=== PATIENT | female | born 1935 | race Caucasian/White ===

== ENCOUNTER → 2016-05-22 | Outpatient (CLI) | payer MEDICARE, BC, OTHER ==
[~2016-05-22] MED LIST: ACTO30TA7 PO; ASPI81TA85 PO; ATOR1TAB18 PO; CALCTAB41 PO; CENTTAB PO; EUCECRE3 TOP; GLIP-163 PO; LISI-542 PO; PROT1TAB2 PO; SUCR1TA PO
[2016-05-22 13:38] LABS: ALBUMIN 3.8 GM/DL (3.2-5.2); ALBUMIN/GLOBULIN RATIO 1.15 (1.00-1.93); BILIRUBIN,TOTAL 0.6 MG/DL (0.2-1.0); CALCIUM LEVEL 9.8 MG/DL (8.8-10.2); CREATININE FOR GFR 0.97 MG/DL (0.55-1.02); POTASSIUM SERUM 4.4 MEQ/L (3.5-5.1); TOTAL PROTEIN 7.1 GM/DL (6.4-8.2)
== END ==
LOC: M SMT 08:50
PROVIDERS: ATTEND Family Medicine
DX: E11.65 Type 2 diabetes mellitus with hyperglycemia (principal); E78.5 Hyperlipidemia, unspecified

== ENCOUNTER → 2016-08-27 | Outpatient (CLI) | payer MEDICARE, BC, OTHER ==
[2016-08-27 13:09] LABS: BASO % 0.6 % (0.0-1.0); EOS # 0.1 K/mm3 (0.0-0.50); EOS % 2.8 % (0.0-3.0); LARGE UNSTAINED CELL # 0.1 K/mm3 (0.0-0.4); LARGE UNSTAINED CELL % 3.2 % (0.0-4.0); LYMPH # 1.4 K/mm3 (1.5-4.5); LYMPH % 27.8 % (24.0-44.0); MEAN CORPUSCULAR HEMOGLOBIN 31.9 pg (27.0-33.0); MEAN CORPUSCULAR HGB CONC 32.1 g/dl (32.0-36.5); MEAN CORPUSCULAR VOLUME 99.4 fl (80.0-96.0); MONO # 0.4 K/mm3 (0.0-0.8); MONO % 8.2 % (0.0-5.0); NEUTROPHILS # 2.6 K/mm3 (1.8-7.7); NEUTROPHILS % 57.5 % (36.0-66.0); PLATELET COUNT, AUTOMATED 174 k/mm3 (150-450); RED CELL DISTRIBUTION WIDTH 13.1 % (11.5-14.5); WHITE BLOOD COUNT 4.6 K/mm3 (4.0-10.0)
[2016-08-27 13:57] LABS: ALBUMIN 3.7 GM/DL (3.2-5.2); ALBUMIN/GLOBULIN RATIO 1.16 (1.00-1.93); ALKALINE PHOSPHATASE 73 U/L (45-117); ALT/SGPT 28 U/L (12-78); ANION GAP 4 MEQ/L (8-16); AST/SGOT 27 U/L (15-37); BILIRUBIN,TOTAL 0.5 MG/DL (0.2-1.0); BLOOD UREA NITROGEN 26 MG/DL (7-18); CALCIUM LEVEL 9.2 MG/DL (8.8-10.2); CARBON DIOXIDE LEVEL 33 MEQ/L (21-32); CHLORIDE LEVEL 103 MEQ/L (98-107); CREATININE FOR GFR 0.95 MG/DL (0.55-1.02); GLOMERULAR FILTRATION RATE > 60.0 (>32); GLUCOSE, FASTING 136 MG/DL (83-110); POTASSIUM SERUM 4.3 MEQ/L (3.5-5.1); SODIUM LEVEL 140 MEQ/L (136-145); TOTAL PROTEIN 6.9 GM/DL (6.4-8.2)
== END ==
LOC: M SMT 08:35
PROVIDERS: ATTEND Family Medicine
DX: E11.65 Type 2 diabetes mellitus with hyperglycemia (principal)

== ENCOUNTER → 2016-11-27 | Outpatient (CLI) | payer MEDICARE, BC, OTHER ==
[~2016-11-27] MED LIST changes: +ACTO30TA15 PO; -ACTO30TA7 PO; -ATOR1TAB18 PO; +ATOR80TA59 PO
[2016-11-27 13:14] LABS: BASO % 0.7 % (0.0-1.0); EOS # 0.2 K/mm3 (0.0-0.50); EOS % 2.7 % (0.0-3.0); LARGE UNSTAINED CELL # 0.2 K/mm3 (0.0-0.4); LARGE UNSTAINED CELL % 3.1 % (0.0-4.0); LYMPH # 2.2 K/mm3 (1.5-4.5); LYMPH % 35.2 % (24.0-44.0); MEAN CORPUSCULAR HEMOGLOBIN 33.2 pg (27.0-33.0); MEAN CORPUSCULAR HGB CONC 34.1 g/dl (32.0-36.5); MEAN CORPUSCULAR VOLUME 97.4 fl (80.0-96.0); MONO # 0.4 K/mm3 (0.0-0.8); MONO % 7.6 % (0.0-5.0); NEUTROPHILS # 2.9 K/mm3 (1.8-7.7); NEUTROPHILS % 50.7 % (36.0-66.0); PLATELET COUNT, AUTOMATED 184 k/mm3 (150-450); RED CELL DISTRIBUTION WIDTH 12.9 % (11.5-14.5); WHITE BLOOD COUNT 5.6 K/mm3 (4.0-10.0)
== END ==
LOC: M SMT 08:09
PROVIDERS: ATTEND Family Medicine
DX: E78.5 Hyperlipidemia, unspecified (principal); E11.65 Type 2 diabetes mellitus with hyperglycemia; I10 Essential (primary) hypertension

== ENCOUNTER → 2017-02-26 | Outpatient (CLI) | payer MEDICARE, BC, OTHER ==
[2017-02-26 14:34] LABS: ALBUMIN 3.8 GM/DL (3.2-5.2); ALBUMIN/GLOBULIN RATIO 1.12 (1.00-1.93); ALKALINE PHOSPHATASE 73 U/L (45-117); ALT/SGPT 34 U/L (12-78); ANION GAP 7 MEQ/L (8-16); AST/SGOT 32 U/L (15-37); BILIRUBIN,TOTAL 0.8 MG/DL (0.2-1.0); BLOOD UREA NITROGEN 18 MG/DL (7-18); CALCIUM LEVEL 9.2 MG/DL (8.8-10.2); CARBON DIOXIDE LEVEL 30 MEQ/L (21-32); CHLORIDE LEVEL 101 MEQ/L (98-107); CHOLESTEROL LEVEL 99 MG/DL (<200); CREATININE FOR GFR 0.81 MG/DL (0.55-1.02); GLOMERULAR FILTRATION RATE > 60.0 (>32); GLUCOSE, FASTING 103 MG/DL (83-110); POTASSIUM SERUM 4.7 MEQ/L (3.5-5.1); SODIUM LEVEL 138 MEQ/L (136-145); TOTAL PROTEIN 7.2 GM/DL (6.4-8.2); TRIGLYCERIDES LEVEL 60 MG/DL (<150)
== END ==
LOC: M SMT 08:53
PROVIDERS: ATTEND Family Medicine
DX: E78.5 Hyperlipidemia, unspecified (principal); E11.65 Type 2 diabetes mellitus with hyperglycemia

== ENCOUNTER → 2017-06-17 | Outpatient (CLI) | payer MEDICARE, BC, OTHER ==
[2017-06-17 14:26] LABS: ESTIMATED AVERAGE GLUCOSE 151 MG/DL (60-110); HEMOGLOBIN A1c 6.9 %
[2017-06-17 14:48] LABS: ALBUMIN 3.9 GM/DL (3.2-5.2); ALBUMIN/GLOBULIN RATIO 1.22 (1.00-1.93); ALKALINE PHOSPHATASE 62 U/L (45-117); ALT/SGPT 29 U/L (12-78); ANION GAP 8 MEQ/L (8-16); AST/SGOT 30 U/L (7-37); BILIRUBIN,TOTAL 0.6 MG/DL (0.2-1.0); BLOOD UREA NITROGEN 22 MG/DL (7-18); CALCIUM LEVEL 9.2 MG/DL (8.8-10.2); CARBON DIOXIDE LEVEL 30 MEQ/L (21-32); CHLORIDE LEVEL 103 MEQ/L (98-107); CHOLESTEROL LEVEL 100 MG/DL (<200); CHOLESTEROL RISK RATIO 1.515 (<5); CREATININE FOR GFR 0.83 MG/DL (0.55-1.30); GLOMERULAR FILTRATION RATE > 60.0 (>32); GLUCOSE, FASTING 110 MG/DL (70-100); HDL CHOLESTEROL 66 MG/DL (>40); LDL CHOLESTEROL 11.8 MG/DL (<100); NON-HDL-C 34 MG/DL; POTASSIUM SERUM 4.5 MEQ/L (3.5-5.1); SODIUM LEVEL 141 MEQ/L (136-145); TOTAL PROTEIN 7.1 GM/DL (6.4-8.2); TRIGLYCERIDES LEVEL 111 MG/DL (<150)
== END ==
LOC: M SMT 09:20
DX: E11.65 Type 2 diabetes mellitus with hyperglycemia (principal)
CPT/HCPCS: 84443

== ENCOUNTER → 2017-09-14 | Outpatient (CLI) | payer MEDICARE, BC, OTHER ==
[2017-09-14 13:28] LABS: ANION GAP 4 MEQ/L (8-16); BLOOD UREA NITROGEN 24 MG/DL (7-18); CALCIUM LEVEL 9.7 MG/DL (8.8-10.2); CARBON DIOXIDE LEVEL 31 MEQ/L (21-32); CHLORIDE LEVEL 104 MEQ/L (98-107); CREATININE FOR GFR 0.89 MG/DL (0.55-1.30); GLOMERULAR FILTRATION RATE > 60.0 (>32); GLUCOSE, FASTING 125 MG/DL (70-100); POTASSIUM SERUM 4.7 MEQ/L (3.5-5.1); SODIUM LEVEL 139 MEQ/L (136-145)
[2017-09-14 13:41] LABS: ESTIMATED AVERAGE GLUCOSE 154 MG/DL (60-110)
== END ==
LOC: M SMT 10:18
DX: E11.65 Type 2 diabetes mellitus with hyperglycemia (principal)
CPT/HCPCS: 83036

== ENCOUNTER 2017-10-14 12:01 | Day surgery (SDC) | payer MEDICARE, BC, OTHER ==
[2017-10-14] MEDS: NS 1,000 ML IV (12:15)
[2017-10-14] MEDS ORDERED: PROPOFOL 200 MG/20 ML VIAL As Ordered (14:04)
[2017-10-14] MEDS ORDERED: LIDOCAINE 2% INJ 100 MG/5 ML SDV (FOR ANES.) As Ordered (14:04)
== END 2017-10-14 14:57 | disposition home or self-care (01) ==
LOC: M OPP 12:01
DX: Z12.11 Encounter for screening for malignant neoplasm of colon (principal); D12.3 Benign neoplasm of transverse colon; Z86.010 Personal history of colon polyps; E11.9 Type 2 diabetes mellitus without complications; I10 Essential (primary) hypertension; K21.9 Gastro-esophageal reflux disease without esophagitis; E78.5 Hyperlipidemia, unspecified; D64.9 Anemia, unspecified; Z79.82 Long term (current) use of aspirin; Z79.84 Long term (current) use of oral hypoglycemic drugs; Z79.899 Other long term (current) drug therapy; Z85.3 Personal history of malignant neoplasm of breast
CPT/HCPCS: 45385

== ENCOUNTER → 2017-12-16 | Outpatient (CLI) | payer MEDICARE, BC, OTHER ==
[2017-12-16 14:16] LABS: ANION GAP 5 MEQ/L (8-16); BLOOD UREA NITROGEN 22 MG/DL (7-18); CALCIUM LEVEL 9.1 MG/DL (8.8-10.2); CARBON DIOXIDE LEVEL 31 MEQ/L (21-32); CHLORIDE LEVEL 105 MEQ/L (98-107); CREATININE FOR GFR 0.81 MG/DL (0.55-1.30); GLOMERULAR FILTRATION RATE > 60.0 (>32); GLUCOSE, FASTING 135 MG/DL (70-100); POTASSIUM SERUM 4.6 MEQ/L (3.5-5.1); SODIUM LEVEL 141 MEQ/L (136-145)
[2017-12-16 15:40] LABS: ESTIMATED AVERAGE GLUCOSE 163 MG/DL (60-110); HEMOGLOBIN A1c 7.3 %
== END ==
LOC: M SMT 08:52
DX: E11.65 Type 2 diabetes mellitus with hyperglycemia (principal)
CPT/HCPCS: 83036

== ENCOUNTER → 2018-03-18 | Outpatient (CLI) | payer MEDICARE, BC, OTHER ==
[2018-03-18 17:45] LABS: ESTIMATED AVERAGE GLUCOSE 154 MG/DL (60-110)
[2018-03-18 17:46] LABS: CREATININE, URINE 52.2 MG/DL; MALB URINE SIEMENS 18.8 MG/L
[2018-03-18 17:52] LABS: ALBUMIN 3.8 GM/DL (3.2-5.2); ALBUMIN/GLOBULIN RATIO 1.19 (1.00-1.93); ALKALINE PHOSPHATASE 61 U/L (45-117); ALT/SGPT 31 U/L (12-78); ANION GAP 4 MEQ/L (8-16); AST/SGOT 32 U/L (7-37); BILIRUBIN,TOTAL 0.6 MG/DL (0.2-1.0); BLOOD UREA NITROGEN 24 MG/DL (7-18); CALCIUM LEVEL 9.1 MG/DL (8.8-10.2); CARBON DIOXIDE LEVEL 30 MEQ/L (21-32); CHLORIDE LEVEL 102 MEQ/L (98-107); CHOLESTEROL LEVEL 103 MG/DL (<200); CHOLESTEROL RISK RATIO 1.609 (<5); CREATININE FOR GFR 0.87 MG/DL (0.55-1.30); FREE T4 1.24 NG/DL (0.76-1.46); GLOMERULAR FILTRATION RATE > 60.0 (>32); GLUCOSE, FASTING 118 MG/DL (70-100); HDL CHOLESTEROL 64 MG/DL (>40); LDL CHOLESTEROL 24 MG/DL (<100); NON-HDL-C 39 MG/DL; POTASSIUM SERUM 4.5 MEQ/L (3.5-5.1); SODIUM LEVEL 136 MEQ/L (136-145); TRIGLYCERIDES LEVEL 76 MG/DL (<150)
== END ==
LOC: M SMT 08:30
DX: E11.65 Type 2 diabetes mellitus with hyperglycemia (principal); E78.5 Hyperlipidemia, unspecified
CPT/HCPCS: 84443

== ENCOUNTER → 2018-06-20 | Outpatient (CLI) | payer MEDICARE, BC, OTHER ==
[~2018-06-20] MED LIST changes: +ASPI81TA21 PO; +INVO300T PO; +JANU100T PO; +LOSA25TA14 PO; +METF500T13 PO; +PRESCAP6 PO
[2018-06-20 13:57] LABS: BLOOD UREA NITROGEN 26 MG/DL (7-18); CALCIUM LEVEL 9.3 MG/DL (8.8-10.2); CARBON DIOXIDE LEVEL 29 MEQ/L (21-32); CHLORIDE LEVEL 102 MEQ/L (98-107); CREATININE FOR GFR 0.81 MG/DL (0.55-1.30); GLOMERULAR FILTRATION RATE > 60.0 (>32); GLUCOSE, FASTING 124 MG/DL (70-100); POTASSIUM SERUM 4.2 MEQ/L (3.5-5.1); SODIUM LEVEL 139 MEQ/L (136-145)
[2018-06-20 14:20] LABS: HEMOGLOBIN A1c 7.4 %
== END ==
LOC: M SMT 08:43
PROVIDERS: ATTEND Physician Assistant
DX: E11.65 Type 2 diabetes mellitus with hyperglycemia (principal)

== ENCOUNTER → 2018-09-15 | Outpatient (CLI) | payer MEDICARE, BC, OTHER ==
[2018-09-15 13:31] LABS: BASO % 0.6 % (0.0-1.0); EOS # 0.2 10^3/uL (0.0-0.50); EOS % 2.3 % (0.0-3.0); HEMATOCRIT 41.2 % (36.0-47.0); HEMOGLOBIN 13.1 g/dl (12.0-15.5); LYMPH # 2.1 10^3/uL (1.5-4.5); LYMPH % 30.2 % (24.0-44.0); MEAN CORPUSCULAR HEMOGLOBIN 31.4 pg (27.0-33.0); MEAN CORPUSCULAR HGB CONC 31.8 g/dl (32.0-36.5); MEAN CORPUSCULAR VOLUME 98.8 fl (80.0-96.0); MONO # 0.7 10^3/uL (0.0-0.8); MONO % 10.1 % (0.0-5.0); NEUTROPHILS # 3.8 10^3/uL (1.8-7.7); NEUTROPHILS % 56.4 % (36.0-66.0); PLATELET COUNT, AUTOMATED 215 10^3/uL (150-450); RED BLOOD COUNT 4.17 10^6/uL (4.00-5.40); WHITE BLOOD COUNT 6.8 10^3/uL (4.0-10.0)
[2018-09-15 13:37] LABS: ALT/SGPT 33 U/L (12-78); BILIRUBIN,TOTAL 0.6 MG/DL (0.2-1.0); BLOOD UREA NITROGEN 25 MG/DL (7-18); CALCIUM LEVEL 9.3 MG/DL (8.8-10.2); CARBON DIOXIDE LEVEL 31 MEQ/L (21-32); CHLORIDE LEVEL 104 MEQ/L (98-107); CREATININE FOR GFR 0.85 MG/DL (0.55-1.30); GLOMERULAR FILTRATION RATE > 60.0 (>32); GLUCOSE, FASTING 128 MG/DL (70-100); POTASSIUM SERUM 4.7 MEQ/L (3.5-5.1); SODIUM LEVEL 140 MEQ/L (136-145); TOTAL PROTEIN 6.8 GM/DL (6.4-8.2)
[2018-09-15 14:21] LABS: HEMOGLOBIN A1c 7.5 %
== END ==
LOC: M SMT 08:41
PROVIDERS: ATTEND Family Medicine
DX: E11.65 Type 2 diabetes mellitus with hyperglycemia (principal)

== ENCOUNTER → 2018-12-30 | Outpatient (CLI) | payer MEDICARE, BC, OTHER ==
[2018-12-30 13:36] LABS: BASO % 0.6 % (0.0-1.0); EOS # 0.1 10^3/uL (0.0-0.50); HEMATOCRIT 42.2 % (36.0-47.0); HEMOGLOBIN 13.7 g/dl (12.0-15.5); LYMPH # 2.1 10^3/uL (1.5-4.5); MEAN CORPUSCULAR HEMOGLOBIN 32.3 pg (27.0-33.0); MEAN CORPUSCULAR HGB CONC 32.5 g/dl (32.0-36.5); MEAN CORPUSCULAR VOLUME 99.5 fl (80.0-96.0); MONO # 0.6 10^3/uL (0.0-0.8); MONO % 9.5 % (0.0-5.0); NEUTROPHILS # 3.6 10^3/uL (1.8-7.7); NEUTROPHILS % 55.6 % (36.0-66.0); PLATELET COUNT, AUTOMATED 210 10^3/uL (150-450); RED BLOOD COUNT 4.24 10^6/uL (4.00-5.40); WHITE BLOOD COUNT 6.4 10^3/uL (4.0-10.0)
[2018-12-30 13:54] LABS: HEMOGLOBIN A1c 7.6 %
[2018-12-30 14:05] LABS: ALBUMIN 3.7 GM/DL (3.2-5.2); ALT/SGPT 33 U/L (12-78); BILIRUBIN,TOTAL 0.5 MG/DL (0.2-1.0); BLOOD UREA NITROGEN 24 MG/DL (7-18); CALCIUM LEVEL 9.5 MG/DL (8.8-10.2); CARBON DIOXIDE LEVEL 31 MEQ/L (21-32); CHLORIDE LEVEL 105 MEQ/L (98-107); GLOMERULAR FILTRATION RATE > 60.0 (>32); GLUCOSE, FASTING 126 MG/DL (70-100); POTASSIUM SERUM 4.3 MEQ/L (3.5-5.1); SODIUM LEVEL 140 MEQ/L (136-145)
[2018-12-30 14:16] LABS: CREATININE, URINE 66.9 MG/DL; MALB URINE SIEMENS 23.4 MG/L; MAU/CREAT RATIO 34.9 MCG/MG (0.0-30.0)
== END ==
LOC: M SMT 09:04
PROVIDERS: ATTEND Family Medicine
DX: E11.65 Type 2 diabetes mellitus with hyperglycemia (principal)

== ENCOUNTER → 2019-04-04 | Outpatient (CLI) | payer MEDICARE, BC, OTHER ==
[2019-04-04 14:06] LABS: BASO % 0.5 % (0.0-1.0); EOS # 0.2 10^3/uL (0.0-0.5); EOS % 2.6 % (0.0-3.0); HEMATOCRIT 41.2 % (36.0-47.0); HEMOGLOBIN 13.1 g/dl (12.0-15.5); LYMPH % 33.9 % (24.0-44.0); MEAN CORPUSCULAR HEMOGLOBIN 32.4 pg (27.0-33.0); MEAN CORPUSCULAR HGB CONC 31.8 g/dl (32.0-36.5); MONO # 0.6 10^3/uL (0.0-0.8); MONO % 10.8 % (0.0-5.0); NEUTROPHILS % 51.9 % (36.0-66.0); PLATELET COUNT, AUTOMATED 206 10^3/uL (150-450); RED BLOOD COUNT 4.04 10^6/uL (4.00-5.40); WHITE BLOOD COUNT 5.8 10^3/uL (4.0-10.0)
[2019-04-04 14:20] LABS: ALBUMIN 3.8 GM/DL (3.2-5.2); ALT/SGPT 30 U/L (12-78); BILIRUBIN,TOTAL 0.6 MG/DL (0.2-1.0); BLOOD UREA NITROGEN 24 MG/DL (7-18); CALCIUM LEVEL 9.3 MG/DL (8.8-10.2); CARBON DIOXIDE LEVEL 29 MEQ/L (21-32); CHLORIDE LEVEL 105 MEQ/L (98-107); CREATININE FOR GFR 0.81 MG/DL (0.55-1.30); FREE T4 1.23 NG/DL (0.76-1.46); GLOMERULAR FILTRATION RATE > 60.0 (>32); GLUCOSE, FASTING 118 MG/DL (70-100); POTASSIUM SERUM 4.6 MEQ/L (3.5-5.1); SODIUM LEVEL 139 MEQ/L (136-145); TOTAL PROTEIN 7.1 GM/DL (6.4-8.2)
[2019-04-04 14:52] LABS: HEMOGLOBIN A1c 6.9 %
== END ==
LOC: M PLALAB 08:58
PROVIDERS: ATTEND Family Medicine
DX: E11.65 Type 2 diabetes mellitus with hyperglycemia (principal); E78.5 Hyperlipidemia, unspecified

== ENCOUNTER → 2019-07-05 | Outpatient (CLI) | payer MEDICARE, BC, OTHER ==
[2019-07-05 10:28] LABS: HEMOGLOBIN A1c 7.6 %
[2019-07-05 10:40] LABS: BLOOD UREA NITROGEN 19 MG/DL (7-18); CALCIUM LEVEL 9.4 MG/DL (8.8-10.2); CARBON DIOXIDE LEVEL 32 MEQ/L (21-32); CHLORIDE LEVEL 102 MEQ/L (98-107); CREATININE FOR GFR 0.77 MG/DL (0.55-1.30); GLOMERULAR FILTRATION RATE > 60.0 (>32); GLUCOSE, FASTING 122 MG/DL (70-100); POTASSIUM SERUM 4.7 MEQ/L (3.5-5.1); SODIUM LEVEL 138 MEQ/L (136-145)
== END ==
LOC: M PLALAB 08:04
PROVIDERS: ATTEND Physician Assistant
DX: E11.65 Type 2 diabetes mellitus with hyperglycemia (principal)

== ENCOUNTER → 2019-10-05 | Outpatient (CLI) | payer MEDICARE, BC, OTHER ==
[2019-10-05 11:32] LABS: ALBUMIN 3.6 GM/DL (3.2-5.2); ALT/SGPT 29 U/L (12-78); BASO % 0.6 % (0.0-1.0); BILIRUBIN,TOTAL 0.5 MG/DL (0.2-1.0); BLOOD UREA NITROGEN 23 MG/DL (7-18); CALCIUM LEVEL 8.9 MG/DL (8.8-10.2); CARBON DIOXIDE LEVEL 29 MEQ/L (21-32); CHLORIDE LEVEL 104 MEQ/L (98-107); CHOLESTEROL LEVEL 110 MG/DL (<200); CHOLESTEROL RISK RATIO 1.692 (<5); CREATININE FOR GFR 0.73 MG/DL (0.55-1.30); EOS # 0.1 10^3/uL (0.0-0.5); GLOMERULAR FILTRATION RATE > 60.0 (>32); GLUCOSE, FASTING 111 MG/DL (70-100); HDL CHOLESTEROL 65 MG/DL (>40); HEMOGLOBIN 12.6 g/dl (12.0-15.5); LDL CHOLESTEROL 33 MG/DL (<100); LYMPH % 28.6 % (24.0-44.0); MEAN CORPUSCULAR HEMOGLOBIN 31.6 pg (27.0-33.0); MEAN CORPUSCULAR HGB CONC 32.3 g/dl (32.0-36.5); MEAN CORPUSCULAR VOLUME 97.7 fl (80.0-96.0); MONO # 0.7 10^3/uL (0.0-0.8); MONO % 10.6 % (0.0-5.0); NEUTROPHILS % 57.9 % (36.0-66.0); NON-HDL-C 45 MG/DL; PLATELET COUNT, AUTOMATED 219 10^3/uL (150-450); POTASSIUM SERUM 4.1 MEQ/L (3.5-5.1); RED BLOOD COUNT 3.99 10^6/uL (4.00-5.40); SODIUM LEVEL 136 MEQ/L (136-145); TOTAL PROTEIN 6.9 GM/DL (6.4-8.2); TRIGLYCERIDES LEVEL 59 MG/DL (<150); WHITE BLOOD COUNT 6.9 10^3/uL (4.0-10.0)
[2019-10-05 11:46] LABS: HEMOGLOBIN A1c 7.3 %
== END ==
LOC: M PLALAB 08:52
PROVIDERS: ATTEND Family Medicine
DX: E11.65 Type 2 diabetes mellitus with hyperglycemia (principal); E78.5 Hyperlipidemia, unspecified

== ENCOUNTER → 2019-10-10 | Outpatient (CLI) | payer MEDICARE, BC ==
--- NOTE | 2019-10-10 15:50 | REP ---
BILATERAL MAMMOGRAM WITH 3D TOMOSYNTHESIS, DIAGNOSTIC MAMMOGRAM LEFT BREAST: HISTORY: Left breast cancer. Currently there is a redness laterally on the skin of the left breast with a palpable lump in the upper outer quadrant. COMPARISON: Mammogram 01/16/2016 as well as other prior exams. Malignant lumpectomy left breast 1983. MLO and CC views of the left breast performed with 3D tomosynthesis. Additional spot compression views are performed in the left breast. Left breast is again noted to be smaller than the right. Diffuse skin thickening of the left breast is stable. There is no new mass. There are dystrophic calcifications which are quite significant in the upper outer quadrant at the site of the palpable lump. These are similar to the prior study. I seen no new mass bilaterally. No suspicious clusters or microcalcifications are seen. IMPRESSION: BIRADS 2: BI-RADS/ACR category 2 mammogram. Benign Findings. ACR 2 benign. Postsurgical changes are again seen of the left breast. Diffuse skin thickening of the left breast is stable. No new suspicious mass mammographically and no suspicious clusters of microcalcifications. Given the patient's skin redness of the lateral aspect of the left breast with soreness, I recommend consultation with a breast surgeon to evaluate for the clinical possibilities of mastitis versus inflammatory carcinoma. This mammogram was interpreted with the aid of an FDA-approved computer-aided detection system. A. Negative x-ray reports should not delay biopsy if a dominant or clinically suspicious mass is present. B. Four to eight percent of cancers are not identified by x-ray. C. Adenosis and dense breasts may obscure an underlying neoplasm. The patient states she/he had a clinical breast exam in September 2019. The patient letter being requested is M2. ?
== END ==
LOC: M WHC 13:00
PROVIDERS: ATTEND Family Medicine
DX: Z12.31 Encounter for screening mammogram for malignant neoplasm of breast (principal); N63.20 Unspecified lump in the left breast, unspecified quadrant
CPT/HCPCS: 77066; G0279

== ENCOUNTER → 2019-10-26 | Outpatient (CLI) | payer MEDICARE, BC ==
[~2019-10-26] MED LIST changes: +AMOX875T2 PO; -ASPI81TA85 PO; +ASPI81TA86 PO; +BACT800T5 PO; +DOXY-350 PO; +ECOT81TA5 PO; +FLAG500T PO; +LEVA1TAB2 PO; -LISI-542 PO; +LISI-898 PO; +METF-838 PO; +METR-265 PO; +MULTCAP PO; +PRES10CA2 PO; +PROBCAP14 PO; +RISATAB3 PO; +SULF1TAB93 PO
[2019-10-26 11:38] LABS: HEMATOCRIT 39.8 % (36.0-47.0); MEAN CORPUSCULAR HEMOGLOBIN 31.9 pg (27.0-33.0); MEAN CORPUSCULAR HGB CONC 32.7 g/dl (32.0-36.5); MEAN CORPUSCULAR VOLUME 97.8 fl (80.0-96.0); PLATELET COUNT, AUTOMATED 222 10^3/uL (150-450); RED BLOOD COUNT 4.07 10^6/uL (4.00-5.40); WHITE BLOOD COUNT 7.3 10^3/uL (4.0-10.0)
[2019-10-26 11:50] LABS: ALBUMIN 3.5 GM/DL (3.2-5.2); BLOOD UREA NITROGEN 20 MG/DL (7-18); CALCIUM LEVEL 9.7 MG/DL (8.8-10.2); CARBON DIOXIDE LEVEL 31 MEQ/L (21-32); CHLORIDE LEVEL 100 MEQ/L (98-107); CREATININE FOR GFR 0.74 MG/DL (0.55-1.30); GLOMERULAR FILTRATION RATE > 60.0 (>32); GLUCOSE, FASTING 153 MG/DL (70-100); PHOSPHORUS LEVEL 4.1 MG/DL (2.5-4.9); POTASSIUM SERUM 4.4 MEQ/L (3.5-5.1); SODIUM LEVEL 136 MEQ/L (136-145)
== END ==
LOC: M WUC 09:39
PROVIDERS: ATTEND Internal Medicine Cardiovascular Disease
DX: R94.31 Abnormal electrocardiogram [ECG] [EKG] (principal); I25.10 Atherosclerotic heart disease of native coronary artery without angina pectoris

== ENCOUNTER → 2019-10-27 | Outpatient (CLI) | payer MEDICARE, BC, OTHER ==
[~2019-10-27] MED LIST changes: -AMOX875T2 PO; +ASPI81TA85 PO; -ASPI81TA86 PO; -BACT800T5 PO; -DOXY-350 PO; -ECOT81TA5 PO; -FLAG500T PO; -LEVA1TAB2 PO; +LISI-542 PO; -LISI-898 PO; -METF-838 PO; -METR-265 PO; -MULTCAP PO; -PRES10CA2 PO; -PROBCAP14 PO; -RISATAB3 PO; -SULF1TAB93 PO
== END ==
LOC: M LABSMTC 09:52
PROVIDERS: ATTEND Internal Medicine Cardiovascular Disease
DX: Z11.59 Encounter for screening for other viral diseases (principal); Z03.818 Encounter for observation for suspected exposure to other biological agents ruled out
CPT/HCPCS: C9803; U0003

== ENCOUNTER → 2019-11-03 | Outpatient (REF) | payer MEDICARE, OTHER | LOC: M SFHCWAGY 18:17 | PROVIDERS: ATTEND Surgery | DX: S21.002A Unspecified open wound of left breast, initial encounter (principal); Z85.3 Personal history of malignant neoplasm of breast; W18.30XA Fall on same level, unspecified, initial encounter; Y92.9 Unspecified place or not applicable ==

== ENCOUNTER → 2019-12-11 | Outpatient (REF) | payer MEDICARE, BC, OTHER ==
[~2019-12-11] MED LIST changes: +AMOX875T2 PO; -ASPI81TA85 PO; +ASPI81TA86 PO; +BACT800T5 PO; +DOXY-350 PO; +FLAG500T PO; +LEVA1TAB2 PO; +METF-838 PO; +METR-265 PO; +MULTCAP PO; +PRES10CA2 PO; +PROBCAP14 PO; +RISATAB3 PO; +SULF1TAB93 PO
== END ==
LOC: M LAB REF 10:23
PROVIDERS: ATTEND Surgery
DX: L59.9 Disorder of the skin and subcutaneous tissue related to radiation, unspecified (principal)
CPT/HCPCS: 11042; 88304; G0463

== ENCOUNTER → 2019-12-18 | Outpatient (REF) | payer MEDICARE, OTHER, BC ==
[2020-01-31 14:04] LABS: BLOOD UREA NITROGEN 26 MG/DL (7-18); CALCIUM LEVEL 9.5 MG/DL (8.8-10.2); CARBON DIOXIDE LEVEL 30 MEQ/L (21-32); CHLORIDE LEVEL 103 MEQ/L (98-107); CREATININE FOR GFR 0.79 MG/DL (0.55-1.30); GLOMERULAR FILTRATION RATE > 60.0 (>32); GLUCOSE, FASTING 104 MG/DL (70-100); POTASSIUM SERUM 4.8 MEQ/L (3.5-5.1); SODIUM LEVEL 138 MEQ/L (136-145)
== END ==
LOC: M SFHCWAGY 09:59
PROVIDERS: ATTEND Surgery
DX: Z79.899 Other long term (current) drug therapy (principal)
CPT/HCPCS: 11042; 36415; 80048; G0463

== ENCOUNTER → 2020-01-05 | Outpatient (CLI) | payer MEDICARE, OTHER, BC ==
[2020-01-05 12:43] LABS: BASO % 0.3 % (0.0-1.0); EOS # 0.1 10^3/uL (0.0-0.5); EOS % 0.9 % (0.0-3.0); HEMATOCRIT 43.2 % (36.0-47.0); HEMOGLOBIN 13.9 g/dl (12.0-15.5); LYMPH # 1.8 10^3/uL (1.5-5.0); LYMPH % 18.7 % (24.0-44.0); MEAN CORPUSCULAR HEMOGLOBIN 31.7 pg (27.0-33.0); MEAN CORPUSCULAR HGB CONC 32.2 g/dl (32.0-36.5); MEAN CORPUSCULAR VOLUME 98.4 fl (80.0-96.0); NEUTROPHILS # 6.8 10^3/uL (1.5-8.5); NEUTROPHILS % 69.6 % (36.0-66.0); PLATELET COUNT, AUTOMATED 250 10^3/uL (150-450); RED BLOOD COUNT 4.39 10^6/uL (4.00-5.40); WHITE BLOOD COUNT 9.8 10^3/uL (4.0-10.0)
[2020-01-05 13:12] LABS: ALBUMIN 3.5 GM/DL (3.2-5.2); ALT/SGPT 22 U/L (12-78); BILIRUBIN,TOTAL 0.7 MG/DL (0.2-1.0); BLOOD UREA NITROGEN 16 MG/DL (7-18); CALCIUM LEVEL 9.1 MG/DL (8.8-10.2); CARBON DIOXIDE LEVEL 31 MEQ/L (21-32); CHLORIDE LEVEL 101 MEQ/L (98-107); CHOLESTEROL LEVEL 109 MG/DL (<200); CREATININE FOR GFR 0.82 MG/DL (0.55-1.30); GLOMERULAR FILTRATION RATE > 60.0 (>32); GLUCOSE, FASTING 126 MG/DL (70-100); HDL CHOLESTEROL 63 MG/DL (>40); LDL CHOLESTEROL 29 MG/DL (<100); NON-HDL-C 46 MG/DL; POTASSIUM SERUM 4.4 MEQ/L (3.5-5.1); SODIUM LEVEL 138 MEQ/L (136-145); THYROID STIMULATING HORMONE 0.708 uIU/ML (0.358-3.740); TOTAL PROTEIN 7.1 GM/DL (6.4-8.2); TRIGLYCERIDES LEVEL 83 MG/DL (<150)
[2020-01-05 14:10] LABS: HEMOGLOBIN A1c 7.1 %
== END ==
LOC: M PLALAB 08:19
PROVIDERS: ATTEND Family Medicine
DX: E11.65 Type 2 diabetes mellitus with hyperglycemia (principal); E78.5 Hyperlipidemia, unspecified

== ENCOUNTER 2020-01-12 18:01 | Inpatient (IN) | payer MEDICARE, OTHER, BC ==
[~2020-01-12] VITALS: Ht 147.3 cm; Wt 56.8 kg
[~2020-01-12 18:01] MED LIST changes: -AMOX875T2 PO; -BACT800T5 PO; -DOXY-350 PO; -FLAG500T PO; -LEVA1TAB2 PO; -METF-838 PO; -METR-265 PO; -MULTCAP PO; -PRES10CA2 PO; -PROBCAP14 PO; -RISATAB3 PO; -SULF1TAB93 PO
[2020-01-12] MEDS: NS 1,000 ML IV SCH (18:29)
[2020-01-12] MEDS ORDERED: UNRESOLVED CLARIFICATION ENTRY XX STA (18:41)
[2020-01-12 19:00] VITALS: BP 121/59
[2020-01-12 19:20] LABS: BASO % 0.3 % (0.0-1.0); EOS # 0.1 10^3/uL (0.0-0.5); EOS % 0.4 % (0.0-3.0); HEMATOCRIT 39.5 % (36.0-47.0); LYMPH # 1.7 10^3/uL (1.5-5.0); LYMPH % 13.4 % (24.0-44.0); MEAN CORPUSCULAR HEMOGLOBIN 31.4 pg (27.0-33.0); MEAN CORPUSCULAR HGB CONC 32.9 g/dl (32.0-36.5); MEAN CORPUSCULAR VOLUME 95.4 fl (80.0-96.0); MONO # 1.4 10^3/uL (0.0-0.8); MONO % 10.8 % (0.0-5.0); NEUTROPHILS # 9.4 10^3/uL (1.5-8.5); NEUTROPHILS % 74.3 % (36.0-66.0); PLATELET COUNT, AUTOMATED 293 10^3/uL (150-450); RED BLOOD COUNT 4.14 10^6/uL (4.00-5.40); WHITE BLOOD COUNT 12.6 10^3/uL (4.0-10.0)
[2020-01-12 19:39] LABS: ALBUMIN 2.9 GM/DL (3.2-5.2); BILIRUBIN,TOTAL 0.4 MG/DL (0.2-1.0); CALCIUM LEVEL 9.3 MG/DL (8.8-10.2); CREATININE FOR GFR 0.98 MG/DL (0.55-1.30); GLOMERULAR FILTRATION RATE 57.7 (>32); POTASSIUM SERUM 4.1 MEQ/L (3.5-5.1); TOTAL PROTEIN 6.9 GM/DL (6.4-8.2)
[2020-01-12] MEDS ORDERED: MULTCAP PO (19:51)
[2020-01-12] MEDS ORDERED: PRES10CA2 PO (19:51)
[2020-01-12] MEDS ORDERED: ASPI81TA86 PO (19:51)
[2020-01-12] MEDS ORDERED: METF-838 PO (19:51)
[2020-01-12 20:00] VITALS: BP 142/72
[2020-01-12] MEDS ORDERED: LIDOCAINE 2% 100MG/5ML SDV (FOR ANES.) As Ordered ONE (20:25)
[2020-01-12] MEDS ORDERED: propofoL 200 MG/20 ML VIAL As Ordered ONE (20:25)
[2020-01-12] MEDS ORDERED: ONDANSETRON 4MG/2ML VIAL As Ordered ONE (20:26)
[2020-01-12] MEDS ORDERED: dexameTHASONE 4 MG/ML 1ML VIAL (J1100 PER 1MG) As Ordered ONE (20:26)
[2020-01-12] MEDS ORDERED: fentaNYL 100 MCG/2 ML INJECTION (J3010) As Ordered ONE (20:26)
[2020-01-12] MEDS: PIPERACILLIN/TAZOBACTAM SOD 4.5 GM in D5W MINI-BAG PLUS 50 ML IV SCH (20:41)
[2020-01-12] MEDS ORDERED: DEXTROSE 50% 50 ML SYRINGE IV PRN (20:45)
[2020-01-12] MEDS ORDERED: GLUCOSE 4GM CHEW TABLET PO PRN (20:45)
[2020-01-12] MEDS ORDERED: GLUCAGON INJ 1MG VIAL SC PRN (20:45)
--- NOTE | 2020-01-12 20:45 | HPEPDOC ---
[facility] Medical History & Physical Date of Admission Jan 12, 2020 Date of Service: Jan 12, 2020 Attending Physician: SUMMER MORSE MD History and Physical CHIEF COMPLAINT: L breast pain, draining wound HISTORY OF PRESENT ILLNESS: Mrs. Abreu is an 84 yo F with a hx of HTN, breast ca (1983, s/p lumpectomy, chemo, rad), calcified breast collection (follows with Dr. Samano), SNHL, non-obstructive CAD?, was admitted directly from Breast clinic for worsening purulent drainage from a wound on L lateral breast. Mammogram in 10/2019 showinng dystropic calcification in upper outer quadrant of L breast palpable lump. She reports seeing Dr. Rodríguez in wound clinic, with regular expression of calcified debris from wound. Patient is planned for OR for I&D this evening. She denies fevers, chills, n/v/d. PAST MEDICAL HISTORY: 1. Breast cancer 1983 s/p chemo, rad 2. SNHL 3. DM2 4. Osteoporosis 5. HTN PAST SURGICAL HISTORY: 1. Appendectomy 2. L breast malignany lumpectomy 1983 SOCIAL HISTORY: Non smoker Non drinker No illicit drug use FAMILY HISTORY: Father - CT Mother - DM2 ALLERGIES: Please see below. REVIEW OF SYSTEMS: CONSTITUTIONAL: denies fevers, chills HEENT: no blurred vision . CARDIOVASCULAR: denies chest pain, palpitations. RESPIRATORY: denies SOB, wheezing. GASTROINTESTINAL: no abdo pain, no nausea, no vomiting . GENITOURINARY: denies dysuria. SKIN: c/o L breast swelling, drainage from wound. MUSCULOSKELETAL: denies limb pain NEUROLOGICAL: denies focal weakness, dizziness. PSYCHIATRIC: calm, cooperative. ENDOCRINE: none HEMATOLOGIC/LYMPHATIC: none. HOME MEDICATIONS: Please see below. PHYSICAL EXAMINATION: VITAL SIGNS: please see below GENERAL APPEARANCE: NAD, comfortable. HEENT: PERRLA, EOMI. CARDIOVASCULAR: RRR, normal S1, S2. LUNGS: CTAB, no wheeze, no rales. ABDOMEN: soft, non tender, non distended. BS+. MUSCULOSKELETAL: no joint deformity SKIN: L breast erythematous, swollen. Lateral aspect of L breast open wound, pack, some serosangouinous DC. EXTREMITIES: no edema NEUROLOGICAL: no focal deficits PSYCHIATRIC: calm, cooperative LABORATORY DATA: See below. IMAGING: none MICROBIOLOGY: Please see below. ASSESSMENT: Mrs. Abreu is an 84 yo F with a hx of HTN, breast ca (1983, s/p lumpectomy, chemo, rad), calcified breast collection (follows with Dr. Samano), SNHL, non-obstructive CAD?, was admitted directly from Breast clinic for worsening purulent drainage from a wound on L lateral breast. Admitted for I&D. PLAN: 1. L breast infection: draining wound. Breast surgery consulted (Dr. Edwards). Planned for OR for I&D this evening. CBC. CMP. Blood cultures. NPO for now. Wound cultures were sent in clinic, and will be sent intraoperatively. Broad spectrum empiric abx therapy: Zosyn, IV Vanc. Monitor for fevers. F/u cultures. 2. DM2: takes metformin. Check A1c. Hold metformin while admitted. ISS. Hypoglycemic precautions. 3. Non-obstructive CAD?: s/p cath 10/2019, per patient no stenting was done. c/w ASA/statin. 4. HTN: resume home med. Losartan 25 mg daily. 5. Osteoporosis: c/w home med. Oscal. DVT ppx: lovenox (held for OR). TEDs, SCDs. Vital Signs Vital Signs Date Time Temp Pulse Resp B/P (MAP) Pulse Ox O2 Delivery O2 Flow Rate FiO2 01/12/20 20:00 98.4 102 20 142/72 (95) 97 Room Air Laboratory Data Labs 24H Laboratory Tests 2 01/12/20 18:54: Coronavirus (COVID-19)(PCR) NEGATIVE 01/12/20 19:08: Immature Granulocyte % (Auto) 0.8, Neutrophils (%) (Auto) 74.3H, Lymphocytes (%) (Auto) 13.4L, Monocytes (%) (Auto) 10.8H, Eosinophils (%) (Auto) 0.4, Basophils (%) (Auto) 0.3, Neutrophils # (Auto) 9.4H, Lymphocytes # (Auto) 1.7, Monocytes # (Auto) 1.4H, Eosinophils # (Auto) 0.1, Basophils # (Auto) 0.0, Nucleated Red Blood Cells % (auto) 0.0, Anion Gap 5L, Glomerular Filtration Rate 57.7, Lactic Acid Level 1.2, Calcium Level 9.3, Total Bilirubin 0.4, Aspartate Amino Transf (AST/SGOT) 22, Alanine Aminotransferase (ALT/SGPT) 17, Alkaline Phosphatase 84, Total Protein 6.9, Albumin 2.9L, Albumin/Globulin Ratio 0.7L CBC/BMP Laboratory Tests 01/12/20 19:08 Microbiology Microbiology 01/12/20 Blood Culture, Received Pending Home Medications Scheduled Aspirin (Aspir 81) 81 Mg Tablet.dr, 81 MG PO DAILY Atorvastatin Calcium (Atorvastatin Calcium) 80 Mg Tab, 80 MG PO QHS Calcium Carbonate/Vitamin D3 (Calcium 500-Vit D3 400 Tablet) 1 Tab Tab, 1 TAB PO DAILY Canagliflozin (Invokana) 300 Mg Tab, 300 MG PO DAILY Losartan Potassium (Losartan Potassium) 25 Mg Tab, 25 MG PO DAILY Metformin HCl (Metformin HCl ER) 500 Mg Tab.er.24h, 1,000 MG PO QHS Multivitamin (Multivitamins) 1 Each Capsule, 1 CAP PO DAILY Sitagliptin Phosphate (Januvia) 100 Mg Tab, 100 MG PO DAILY Vit C/E/Zn/Coppr/Lutein/Zeaxan (Preservision Areds 2 Softgel) 1 Each Capsule, 1 CAP PO BID Allergies Coded Allergies: No Known Drug Allergies (Verified Allergy, Unknown, 01/12/20) A-FIB/CHADSVASC A-FIB History Current/History of A-Fib/PAF?: No Current PO Anticoag Therapy: No SUMMER MORSE MD Jan 12, 2020 20:45
--- NOTE | 2020-01-12 20:51 | HPEPDOC ---
Plastic Surgery H & P Date of Admission Jan 12, 2020 History and Physical CHIEF COMPLAINT: Necrotizing left breast infection HISTORY OF PRESENT ILLNESS: Ms. Martínez is 84-year-old lady with past medical history of diabetes, hypertension and left breast cancer (treated with lumpectomy and with possible axillary dissection, and radiation therapy which caused substantial breast deformity and fat necrosis). Ms. Martínez developed left breast wound around September this year likely due to pressure caused by fat necrotic calcifications on the thinning skin. She was treated conservatively and followed with the wound clinic for debridement of the wound. Patient's daughter called today informing me that there is foul-smelling discharge coming from the wound and Ms. Martínez's breast is very red and tender. Patient does not think she had fevers although she was not checking it at home. Patient reports that her breast is hurting and she developed swelling of the left breast and edema. ALLERGIES: Please see below. HOME MEDICATIONS: Please see below. PAST MEDICAL HISTORY: 1. Diabetes mellitus 2. Hypertension 3. On aspirin 4. Surgery of left breast cancer treated with lumpectomy and radiation in 5. Extensive left breast Necrosis 6. Left breast wound chronic PAST SURGICAL HISTORY: 1. Left breast lumpectomy PERSONAL/SOCIAL HISTORY: [Denies smoking, alcohol use, or recreational drug use]. REVIEW OF SYSTEMS: GENERAL: Denies fevers HEENT: deaf NECK: Denies problems. CARDIOVASCULAR: On aspirin MUSCULOSKELETAL: Arthritis. SKIN: left breast cellulitis NEUROLOGIC: deaf HEART: On aspirin PULMONARY: Cough GASTROINTESTINAL: No jaundice ENDOCRINE: Diabetes. INFECTIOUS: Left breast infection PHYSICAL EXAMINATION: VITAL SIGNS: Please see below. GENERAL APPEARANCE: Awake, alert, oriented HEENT: Normocephalic, atraumatic. CHEST: Normal respiratory motion/effort NECK: Supple LUNGS: Clear to auscultation bilaterally HEART: No tachycardia ABDOMEN: Soft SKIN: Cellulitis of left breast extending into the right breast BREAST: Extensive cellulitis of the left breast extending to the right breast. Left breast is chronically deformed due to previous lumpectomy. There is currently edema which is new. There is left lateral wound about centimeter by centimeter which is draining dishwater foul-smelling fluid. There is severe tenderness upon palpation of this area which is new for this patient EXTREMITIES: No deformity NEUROLOGICAL: She is deaf LABORATORY DATA: Please see below. MICROBIOLOGY: Please see below. IMAGING: Edema noted on limited in office sono IMPRESSION AND PLAN: Left breast necrotizing infection History of left breast cancer, status post lumpectomy plus RT Left breast fat necrosis Left breast chronic wound Diabetes mellitus Hypertension Deafness - Direct admit from clinic to the hospital - IV antibiotics, management per hospitalist team - Nothing by mouth with IVF - STAT labs ( CBC/BMP, T&S) - to operating room tonight for incision and drainage possible debridement, consent signed in the office - Will collect additional wound cultures in the operating room - Vitals per protocol - pain control - resume home meds to martínez - CLD postop today, diabetic diet tomorrow - Glucose checks with meals - Incentive spirometer postop - ambulate with assistance postop - DVT ppx postop Vital Signs Vital Signs Date Time Temp Pulse Resp B/P (MAP) Pulse Ox O2 Delivery O2 Flow Rate FiO2 01/12/20 19:00 100.7 88 18 121/59 (79) 97 Room Air Laboratory Data Labs 24H Laboratory Tests 2 01/12/20 18:54: Coronavirus (COVID-19)(PCR) NEGATIVE 01/12/20 19:08: Immature Granulocyte % (Auto) 0.8, Neutrophils (%) (Auto) 74.3H, Lymphocytes (%) (Auto) 13.4L, Monocytes (%) (Auto) 10.8H, Eosinophils (%) (Auto) 0.4, Basophils (%) (Auto) 0.3, Neutrophils # (Auto) 9.4H, Lymphocytes # (Auto) 1.7, Monocytes # (Auto) 1.4H, Eosinophils # (Auto) 0.1, Basophils # (Auto) 0.0, Nucleated Red Blood Cells % (auto) 0.0, Anion Gap 5L, Glomerular Filtration Rate 57.7, Lactic Acid Level 1.2, Calcium Level 9.3, Total Bilirubin 0.4, Aspartate Amino Transf (AST/SGOT) 22, Alanine Aminotransferase (ALT/SGPT) 17, Alkaline Phosphatase 84, Total Protein 6.9, Albumin 2.9L, Albumin/Globulin Ratio 0.7L CBC/BMP Laboratory Tests 01/12/20 19:08 Microbiology Microbiology 01/12/20 Blood Culture, Received Pending Home Medications Scheduled Aspirin (Aspir 81) 81 Mg Tablet.dr, 81 MG PO DAILY, (Reported) Atorvastatin Calcium (Atorvastatin Calcium) 80 Mg Tab, 80 MG PO QHS, (Reported) Calcium Carbonate/Vitamin D3 (Calcium 500-Vit D3 400 Tablet) 1 Tab Tab, 1 TAB PO DAILY, (Reported) Canagliflozin (Invokana) 300 Mg Tab, 300 MG PO DAILY, (Reported) Losartan Potassium (Losartan Potassium) 25 Mg Tab, 25 MG PO DAILY, (Reported) Metformin HCl (Metformin HCl ER) 500 Mg Tab.er.24h, 1,000 MG PO QHS, (Reported) Multivitamin (Multivitamins) 1 Each Capsule, 1 CAP PO DAILY, (Reported) Sitagliptin Phosphate (Januvia) 100 Mg Tab, 100 MG PO DAILY, (Reported) Vit C/E/Zn/Coppr/Lutein/Zeaxan (Preservision Areds 2 Softgel) 1 Each Capsule, 1 CAP PO BID, (Reported) Allergies Coded Allergies: No Known Drug Allergies (Verified Allergy, Unknown, 01/12/20) A-FIB/CHADSVASC A-FIB History Current/History of A-Fib/PAF?: No Current PO Anticoag Therapy: No Age/Risk Factor Scoring CHADSVASC: CHADSVASC Response (Comments) Value Age Risk Factor Age >/= 75 years old 2 Gender Risk Factor Female 1 Hx of CHF No 0 Hx of HTN Yes 1 Hx of Stroke/TIA/or VTE No 0 Hx of Diabetes Yes 1 Hx of Vascular Disease No 0 Total 5 MILLI PRABHAKAR DO Jan 12, 2020 20:51
[2020-01-12] MEDS ORDERED: VANCOMYCIN HCL 750 MG, VIAL MATE ADAPTER 1 EACH in D5W 250 ML IV ONE (21:00)
[2020-01-12] MEDS ORDERED: VANCOMYCIN HCL 500 MG in D5W MINI-BAG PLUS 100 ML IV ONE (22:00)
[2020-01-12] MEDS ORDERED: LIDOCAINE 1% SDV 30ML VIAL As Ordered ONE (22:02)
[2020-01-12] MEDS ORDERED: BUPIVACAINE HCL 0.25% 30ML VIAL As Ordered ONE (22:02)
[2020-01-12] MEDS ORDERED: ACETAMINOPHEN 1000MG 100ML IV BTL (OFIRMEV) (J0131 PER 10MG) As Ordered ONE (22:32)
[2020-01-12] MEDS ORDERED: ONDANSETRON 4MG/2ML VIAL IV PRN ×2 (23:00→23:15)
[2020-01-12] MEDS ORDERED: LR 1,000 ML IV SCH (23:00)
[2020-01-12] MEDS ORDERED: fentaNYL 100 MCG/2 ML INJECTION (J3010) IV PRN (23:00)
[2020-01-12] MEDS ORDERED: ACETAMINOPHEN 500 MG TAB PO PRN (23:15)
[2020-01-12] MEDS ORDERED: MORPHINE 2 MG/ML 1ML VIAL (J2270) IV PRN (23:15)
[2020-01-12 23:57] VITALS: BP 123/56
[2020-01-13] MEDS: ATORVASTATIN 20 MG TAB PO SCH ×2 (00:01→20:33)
[2020-01-13 00:29] VITALS: BP 118/55
[2020-01-13 01:23] VITALS: BP 114/57
[2020-01-13 02:23] VITALS: BP 102/53
[2020-01-13] MEDS: PIPERACILLIN/TAZOBACTAM SOD 4.5 GM in D5W MINI-BAG PLUS 50 ML IV SCH ×3 (04:29→20:33)
[2020-01-13 05:42] VITALS: BP 105/54
[2020-01-13] MEDS: VANCOMYCIN HCL 1,000 MG, VIAL MATE ADAPTER 1 EACH in D5W 250 ML IV SCH ×2 (06:28→18:58)
[2020-01-13] MEDS: NS 1,000 ML IV SCH ×2 (06:28→14:51)
[2020-01-13 07:44] LABS: BASO % 0.2 % (0.0-1.0); HEMATOCRIT 35.6 % (36.0-47.0); HEMOGLOBIN 11.5 g/dl (12.0-15.5); LYMPH # 0.9 10^3/uL (1.5-5.0); LYMPH % 9.8 % (24.0-44.0); MEAN CORPUSCULAR HEMOGLOBIN 31.1 pg (27.0-33.0); MEAN CORPUSCULAR HGB CONC 32.3 g/dl (32.0-36.5); MEAN CORPUSCULAR VOLUME 96.2 fl (80.0-96.0); MONO # 0.3 10^3/uL (0.0-0.8); MONO % 3.5 % (0.0-5.0); NEUTROPHILS # 7.5 10^3/uL (1.5-8.5); NEUTROPHILS % 85.8 % (36.0-66.0); PLATELET COUNT, AUTOMATED 272 10^3/uL (150-450); WHITE BLOOD COUNT 8.7 10^3/uL (4.0-10.0)
[2020-01-13 08:05] LABS: HEMOGLOBIN A1c 7.3 %
[2020-01-13 08:15] LABS: ALBUMIN 2.3 GM/DL (3.2-5.2); ALT/SGPT 22 U/L (12-78); BILIRUBIN,TOTAL 0.4 MG/DL (0.2-1.0); BLOOD UREA NITROGEN 18 MG/DL (7-18); CALCIUM LEVEL 8.4 MG/DL (8.8-10.2); CARBON DIOXIDE LEVEL 27 MEQ/L (21-32); CHLORIDE LEVEL 102 MEQ/L (98-107); CREATININE FOR GFR 0.78 MG/DL (0.55-1.30); GLOMERULAR FILTRATION RATE > 60.0 (>32); GLUCOSE, FASTING 208 MG/DL (70-100); MAGNESIUM LEVEL 2.1 MG/DL (1.8-2.4); PHOSPHORUS LEVEL 4.4 MG/DL (2.5-4.9); POTASSIUM SERUM 4.5 MEQ/L (3.5-5.1); SODIUM LEVEL 136 MEQ/L (136-145)
[2020-01-13] MEDS: ENOXAPARIN 40MG/0.4ML SYRINGE (J1650 PER 10MG) SC SCH (09:01)
[2020-01-13] MEDS: HumaLOG INSULIN (NovoLOG) PER UNIT SC SCH ×3 (09:01→18:58)
[2020-01-13] MEDS: CALCIUM/VITAMIN D 500 MG TAB PO SCH (09:02)
[2020-01-13] MEDS: ASPIRIN 81 MG ENTERIC TAB PO SCH (09:02)
[2020-01-13] MEDS: LOSARTAN 25 MG TAB PO SCH (09:02)
--- NOTE | 2020-01-13 09:15 | IPNPDOC ---
Subjective General Date Seen: Jan 13, 2020 Subject Chief Complaint/History The patient is a 84-year-old female admitted with a reason for visit of Necrotizing Infection Of The left Breast, s/p Left incision, drainage and debridement of left breast necrotizing soft tissue infection POD1. Patient is doing well postop. No N/V, tolerates diet, leukocytosis resolved, fever resolved, tachycardia resolved, minimal pain, voided postop Current Medications Current Medications Current Medications Medications (Trade) Dose Ordered Sig/[place] Route PRN Reason Start Time Stop Time Status Last Admin Dose Admin Acetaminophen (Tylenol Tab) 500 mg Q4HP PRN PO PAIN LEVEL 1-4 01/12/20 23:15 Aspirin (Ecotrin) 81 mg DAILY PO 01/13/20 09:00 Atorvastatin Calcium (Lipitor) 80 mg QHS PO 01/12/20 21:00 01/13/20 00:01 Calcium/Vitamin D (Oscal D) 500 mg DAILY PO 01/13/20 09:00 Dextrose (Dextrose 50%) 25 ml ASDIRECTED PRN IV SEE LABEL COMMENTS 01/12/20 20:45 Enoxaparin Sodium (Lovenox) 40 mg DAILY SC 01/13/20 09:00 Fentanyl Citrate (Sublimaze) 25 mcg Q5MP PRN IV PAIN LEVEL 5-10 01/12/20 23:00 01/13/20 00:30 DC Glucagon (Glucagon) 1 mg ASDIRECTED PRN SC SEE LABEL COMMENTS 01/12/20 20:45 Glucose (Glucose) 16 GM ASDIRECTED PRN PO SEE LABEL COMMENTS 01/12/20 20:45 Home Med (Med Rec Complete!) ASDIRECTED XX 01/12/20 20:00 01/12/20 19:55 DC Insulin Human Lispro (HumaLOG INSULIN) SEE PROTOCOL TABLE AC SC 01/13/20 07:30 Lactated Ringer's 1,000 ml @ 100 mls/hr Q10H IV 01/12/20 23:00 01/13/20 00:30 DC Losartan Potassium (Cozaar) 25 mg DAILY PO 01/13/20 09:00 Miscellaneous (Unresolved Clarification Entry) SEE LABEL COMMENTS STAT STAT XX 01/12/20 18:41 01/12/20 18:42 DC Morphine Sulfate (Morphine Sulfate Inj) 1 mg Q2H PRN IV PAIN LEVEL 8-10 9/4/20 23:15 Ondansetron HCl (ZOFRAN INJection) 4 mg Q4HP PRN IV NAUSEA OR VOMITING 01/12/20 23:00 01/13/20 00:30 DC Ondansetron HCl (ZOFRAN INJection) 4 mg Q6HP PRN IV NAUSEA OR VOMITING 01/12/20 23:15 Oxycodone HCl (Roxicodone, Oxyir) 5 mg Q6HP PRN PO PAIN LEVEL 5-7 01/12/20 23:15 Piperacillin Sod/ Tazobactam Sod 4.5 gm/Dextrose 50 ml @ 50 mls/hr Q8H IV 01/12/20 20:00 01/13/20 04:29 Sodium Chloride 1,000 ml @ 100 mls/hr Q10H IV 01/12/20 18:29 01/13/20 06:28 Vancomycin HCl 1000 mg/IV Miscellaneous Supplies 1 each/ Dextrose 270 ml @ 270 mls/hr Q12H IV 01/13/20 06:00 01/13/20 06:28 Allergies Coded Allergies: No Known Drug Allergies (Verified Allergy, Unknown, 01/12/20) Objective Physical Examination Examination GENERAL APPEARANCE: awake, alert, and oriented. Comfortable, in no acute distress. patient is deaf SKIN: cellulitis of the left breast is less bright and the extension to the right breast is much fainter now, still blanching present BREAST: see SKIN, Left breast is softer and less indurates, there is lateral incision partially closed with Nylon suture. Susan drain is in place with some s/s drainage. No purulent drainage or dishwater drainage present, no foul smell which was present preop HEENT: Normocephalic, atraumatic. NECK: Supple, LUNGS: breathing comfortably on room air HEART: tachycardia resolved ABDOMEN: Abdomen is soft, EXTREMITIES: moving bilateral upper extremities without any issues Vital Signs Vital Signs Date Time Temp Pulse Resp B/P (MAP) Pulse Ox O2 Delivery O2 Flow Rate FiO2 01/13/20 05:42 96.0 62 20 105/54 (71) 92 Room Air 01/13/20 00:29 2.0 I&Os I&O- Last 24 Hours up to 6 AM 01/13/20 06:00 Intake Total 1040 ml Output Total 75 ml Balance 965 ml Laboratory Data Labs 24H Laboratory Tests 2 01/12/20 18:54: Coronavirus (COVID-19)(PCR) NEGATIVE 01/12/20 19:08: Immature Granulocyte % (Auto) 0.8, Neutrophils (%) (Auto) 74.3H, Lymphocytes (%) (Auto) 13.4L, Monocytes (%) (Auto) 10.8H, Eosinophils (%) (Auto) 0.4, Basophils (%) (Auto) 0.3, Neutrophils # (Auto) 9.4H, Lymphocytes # (Auto) 1.7, Monocytes # (Auto) 1.4H, Eosinophils # (Auto) 0.1, Basophils # (Auto) 0.0, Nucleated Red Blood Cells % (auto) 0.0, Anion Gap 5L, Glomerular Filtration Rate 57.7, Lactic Acid Level 1.2, Calcium Level 9.3, Total Bilirubin 0.4, Aspartate Amino Transf (AST/SGOT) 22, Alanine Aminotransferase (ALT/SGPT) 17, Alkaline Phosphatase 84, Total Protein 6.9, Albumin 2.9L, Albumin/Globulin Ratio 0.7L 01/13/20 07:33: Immature Granulocyte % (Auto) 0.7, Neutrophils (%) (Auto) 85.8H, Lymphocytes (%) (Auto) 9.8L, Monocytes (%) (Auto) 3.5, Eosinophils (%) (Auto) 0.0, Basophils (%) (Auto) 0.2, Neutrophils # (Auto) 7.5, Lymphocytes # (Auto) 0.9L, Monocytes # (Auto) 0.3, Eosinophils # (Auto) 0.0, Basophils # (Auto) 0.0, Nucleated Red Blood Cells % (auto) 0.0, Anion Gap 7L, Glomerular Filtration Rate > 60.0, Calcium Level 8.4L, Total Bilirubin 0.4, Aspartate Amino Transf (AST/SGOT) 30, Alanine Aminotransferase (ALT/SGPT) 22, Alkaline Phosphatase 73, Total Protein 6.0L, Albumin 2.3#L, Albumin/Globulin Ratio 0.6L, Estimated Mean Plasma Glucose 163H, Hemoglobin A1c 7.3, Phosphorus Level 4.4, Magnesium Level 2.1 CBC/BMP Laboratory Tests 01/12/20 19:08 01/13/20 07:33 Microbiology Microbiology 01/12/20 Anaerobic Culture, Received Pending 01/12/20 Gram Stain, Received Pending 01/12/20 Abscess Culture, Received Pending 01/12/20 Anaerobic Culture, Received Pending 01/12/20 Gram Stain, Received Pending 01/12/20 Abscess Culture, Received Pending 01/12/20 Blood Culture, Received Pending Impression Left breast necrotizing soft tissue infection, s/p L breast incision, drainage and debridement of necrotic tissues POD1 History of left breast cancer, status post lumpectomy plus RT Left breast fat necrosis Left breast chronic wound Diabetes mellitus Hypertension Deafness Hx cardiac stents - wound care per shannan Gardner to change ABD per nursing staff if some s/s drainage on the outside of dressing - keep susan in place - awaiting wound cx - will monitor for possible need of return to OR for additional debridement - IV antibiotics, management per hospitalist team - Diabetic diet with glucose checks - daily labs - Vitals per protocol - pain control - continue home meds, including ASA - Incentive spirometer postop, Nursing staff to teach patient how to use it please - ambulate with assistance postop - DVT ppx postop Plan / VTE VTE Prophylaxis Ordered?: Yes MILLI PRABHAKAR DO Jan 13, 2020 09:08
[2020-01-13 14:00] VITALS: BP 108/62
--- NOTE | 2020-01-13 15:22 | ROOPDOC ---
[facility] Of Operation Report of Operation DATE OF PROCEDURE: 01/12/20 PREPROCEDURE DIAGNOSES: left breast necrotizing soft tissue infection POSTPROCEDURE DIAGNOSES: same PROCEDURE: left breast incision, drainage and debridement SURGEON: Milli Prabhakar REPORT WRITER: ANESTHESIA: general ESTIMATED BLOOD LOSS: Approximately 25 mL. COMPLICATIONS: none REMARKS: moderate amount of necrotic tissue in the left breast, wound cx sent, tissue sent for path DESCRIPTION OF PROCEDURE: INDICATIONS: Ms. Abreu is an 84-year-old deaf woman who presented to the office today with complain of red and painful left breast draining foul smelling fluid from her chronic wound. She was diagnosed with necrotizing soft tissue infection and admitted to the hospital for IV antibiotics and surgical debridement of the necrotic tissues. Risks and possible complications of surgical procedure including bleeding, infection and injury to surrounding structures were explained to the patient and she wished to proceed. potato grader was used in the office to explain the procedure and risks in details. Consent was signed. Patient was started on broad spectrum antibiotics at the time of admission. My initials were placed on the operative site in the preop area. DETAILS: Patient was taken to the operating room and placed on the operating room table. A sign in was called stating patients name, date of and the procedure to be done. Scheduled antibiotics were infused on the floor. Smooth induction of general anesthesia was done. Patients hands were extended on arm rests. Care was taken not to over extend the arms. Pillow was placed under the knees and a foam was placed under the hills. Sequential compression devices were placed and assured to function correctly. Next, patients left breast and axilla were prepped and draped in the usual [facility] ion. Appropriate time out was done. Patients name, date of , and the procedure to be done were confirmed. An elliptical incision was made on the lateral aspect of the left breast encircling the chronic wound and site of drainage of brown foul smelling fluid. On the posterior aspect of the incision a hard, calcified tissue was encountered. Upon exploration of the wound, moderate amount of mejia and black necrotic tissue was encountered. Wound cultures were collected. Necrotic tissue was sharply debrided. Track of the necrotic tissue was almost through entire left breast. Necrotic tissue was collected and send to pathology for evaluation after labeling it with patients name and date of . After obtaining hemostasis, copious irrigation of the wound was done. Upon inspection of the tissues, remaining breast tissue appeared viable and was left in place. Local anesthetic using 1% lidocaine and 0.25 % Marcaine 50/50 mix was injected into the surrounding tissues. A 0.5 inch Susan was placed into the w ound track and suture at the inferior aspect of the wound with 3-0 Nylon suture. Attempt was made to approximate superior wound edges. In order to do that, I had to remove some of the hard, calcified tissue immediately adjacent to the wound. This tissue was unable to be removed with scalpel or scissors and Rongeurs had to be used to partially remove calcified tissue to allow skin mobility. The superior aspect of the incision was partially closed with 3-0 Nylon. The inferior aspect of the wound though which Moore was placed was left open to allow drainage. Kerlix and ABD pads were placed at the site and surgical bra was used to keep the dressings in place. Sponge and instrument counts were done and were correct. Patient emerged from the anesthesia without any problems. Patient tolerated procedure well and was taken to recovery unit in stable condition. MILLI PRABHAKAR DO Jan 13, 2020 15:21
[2020-01-13 20:00] VITALS: BP 148/75
--- NOTE | 2020-01-13 21:14 | IPNPDOC ---
Date Seen The patient was seen on 01/13/20. Progress Note SUBJECTIVE: Patient seen and examined at bedside. POD #1 s/p L breast incision, drainage and debridemen.tDoing well. Pain free. Denies fevers and chills. Left breast surgical site dressed. Patient denies fevers, chills, n/v/d. OBJECTIVE PHYSICAL EXAMINATION: VITAL SIGNS: Please see below. GENERAL APPEARANCE: NAD, comfortable. HEENT: PERRLA, EOMI. CARDIOVASCULAR: RRR, normal S1, S2. LUNGS: CTAB, no wheeze, no rales. ABDOMEN: soft, non tender, non distended. BS+. MUSCULOSKELETAL: no joint deformity SKIN: L breast erythema diminished. No purulent drainage seen. Dressing clean. EXTREMITIES: no edema NEUROLOGICAL: no focal deficits PSYCHIATRIC: calm, cooperative LABORATORY DATA, IMAGING STUDIES, MICROBIOLOGY: Please see below. Echocardiogram: . DVT prophylaxis ordered?: ASSESSMENT: Mrs. Abreu is an 84 yo F with a hx of HTN, breast ca (1983, s/p lumpectomy, chemo, rad), calcified breast collection (follows with Dr. Samano), SNHL, non-obstructive CAD?, was admitted directly from Breast clinic for worsening purulent drainage from a wound on L lateral breast. Admitted for I&D. PLAN: 1. L breast infection: POD#1. Surgery following. Cultures pending. abx therapy: Zosyn, IV Vanc. Monitor for fevers. WBC trended down Dressing changes. Incentive spirometry. Pending decision for additional OR management. 2. DM2: takes metformin. A1c 7.3. Hold metformin while admitted. ISS. Hypoglycemic precautions. 3. Non-obstructive CAD?: s/p cath 10/2019, per patient no stenting was done. c/w ASA/statin. 4. HTN: resume home med. Losartan 25 mg daily. 5. Osteoporosis: c/w home med. Oscal. DVT ppx: lovenox (held for OR). TEDs, SCDs. VS, I&O, 24H, Fishbone Vital Signs/I&O Vital Signs Date Time Temp Pulse Resp B/P (MAP) Pulse Ox O2 Delivery O2 Flow Rate FiO2 01/13/20 20:00 97.8 72 18 148/75 (99) 94 Room Air 9/5/20 00:29 2.0 I&O- Last 24 Hours up to 6 AM 01/13/20 06:00 Intake Total 1040 ml Output Total 75 ml Balance 965 ml Laboratory Data 24H LABS Laboratory Tests 2 01/13/20 07:33: Immature Granulocyte % (Auto) 0.7, Neutrophils (%) (Auto) 85.8H, Lymphocytes (%) (Auto) 9.8L, Monocytes (%) (Auto) 3.5, Eosinophils (%) (Auto) 0.0, Basophils (%) (Auto) 0.2, Neutrophils # (Auto) 7.5, Lymphocytes # (Auto) 0.9L, Monocytes # (Auto) 0.3, Eosinophils # (Auto) 0.0, Basophils # (Auto) 0.0, Nucleated Red Blood Cells % (auto) 0.0, Anion Gap 7L, Glomerular Filtration Rate > 60.0, Estimated Mean Plasma Glucose 163H, Hemoglobin A1c 7.3, Calcium Level 8.4L, Phosphorus Level 4.4, Magnesium Level 2.1, Total Bilirubin 0.4, Aspartate Amino Transf (AST/SGOT) 30, Alanine Aminotransferase (ALT/SGPT) 22, Alkaline Phosphatase 73, Total Protein 6.0L, Albumin 2.3#L, Albumin/Globulin Ratio 0.6L 01/13/20 12:05: Bedside Glucose (Misc Panel) 204H 01/13/20 18:45: Bedside Glucose (Misc Panel) 180H CBC/BMP Laboratory Tests 01/13/20 07:33 Microbiology Microbiology 01/12/20 Anaerobic Culture, Received Pending 01/12/20 Gram Stain - Final, Resulted 01/12/20 Abscess Culture, Resulted Pending 01/12/20 Anaerobic Culture, Received Pending 01/12/20 Gram Stain - Final, Resulted 01/12/20 Abscess Culture, Resulted Pending 01/12/20 Blood Culture - Preliminary, Resulted No growth after 24 hours . All specim... SUMMER MORSE MD Jan 13, 2020 21:14
[2020-01-14] MEDS: oxyCODONE 5MG TAB PO PRN ×2 (01:02→08:57)
[2020-01-14] MEDS: NS 1,000 ML IV SCH ×2 (01:02→11:46)
[2020-01-14] MEDS: PIPERACILLIN/TAZOBACTAM SOD 4.5 GM in D5W MINI-BAG PLUS 50 ML IV SCH ×3 (04:45→21:31)
[2020-01-14 05:52] LABS: BASO % 0.3 % (0.0-1.0); EOS # 0.1 10^3/uL (0.0-0.5); EOS % 0.7 % (0.0-3.0); HEMATOCRIT 35.8 % (36.0-47.0); HEMOGLOBIN 11.7 g/dl (12.0-15.5); LYMPH % 27.8 % (24.0-44.0); MEAN CORPUSCULAR HEMOGLOBIN 31.6 pg (27.0-33.0); MEAN CORPUSCULAR HGB CONC 32.7 g/dl (32.0-36.5); MEAN CORPUSCULAR VOLUME 96.8 fl (80.0-96.0); MONO % 9.5 % (0.0-5.0); NEUTROPHILS # 6.6 10^3/uL (1.5-8.5); NEUTROPHILS % 60.6 % (36.0-66.0); PLATELET COUNT, AUTOMATED 285 10^3/uL (150-450); WHITE BLOOD COUNT 10.9 10^3/uL (4.0-10.0)
[2020-01-14 06:23] VITALS: BP 147/76
[2020-01-14 06:27] LABS: ALBUMIN 2.2 GM/DL (3.2-5.2); ALT/SGPT 23 U/L (12-78); BILIRUBIN,TOTAL 0.3 MG/DL (0.2-1.0); BLOOD UREA NITROGEN 17 MG/DL (7-18); CALCIUM LEVEL 8.4 MG/DL (8.8-10.2); CARBON DIOXIDE LEVEL 25 MEQ/L (21-32); CHLORIDE LEVEL 109 MEQ/L (98-107); CREATININE FOR GFR 0.78 MG/DL (0.55-1.30); GLOMERULAR FILTRATION RATE > 60.0 (>32); GLUCOSE, FASTING 150 MG/DL (70-100); MAGNESIUM LEVEL 2.1 MG/DL (1.8-2.4); PHOSPHORUS LEVEL 2.8 MG/DL (2.5-4.9); POTASSIUM SERUM 4.3 MEQ/L (3.5-5.1); SODIUM LEVEL 141 MEQ/L (136-145); VANCOMYCIN LEVEL TROUGH 17.8 UG/ML (10.0-20.0)
[2020-01-14] MEDS: VANCOMYCIN HCL 1,000 MG, VIAL MATE ADAPTER 1 EACH in D5W 250 ML IV SCH (06:55)
[2020-01-14] MEDS: HumaLOG INSULIN (NovoLOG) PER UNIT SC SCH ×3 (07:30→17:30)
[2020-01-14] MEDS: ENOXAPARIN 40MG/0.4ML SYRINGE (J1650 PER 10MG) SC SCH (09:00)
[2020-01-14] MEDS: CALCIUM/VITAMIN D 500 MG TAB PO SCH (09:02)
[2020-01-14] MEDS: ASPIRIN 81 MG ENTERIC TAB PO SCH (09:02)
[2020-01-14] MEDS: LOSARTAN 25 MG TAB PO SCH (09:04)
--- NOTE | 2020-01-14 09:36 | IPNPDOC ---
Subjective General Date Seen: Jan 14, 2020 Subject Chief Complaint/History The patient is a 84-year-old female admitted with a reason for visit of Necrotizing Infection Of The left Breast, s/p Left incision, drainage and debridement of left breast necrotizing soft tissue infection POD2. Patient seems to be more confused today. complains of abdominal pain and back pain. She had some soft BMs. no diarrhea. She is also complaining of peeing a lot with the IVF. Patient refused this AM her insulin and Lovenox stating that she doesn't need those because she doesn't feel sick. Leukocytosis is trending up again. No fevers. Current Medications Current Medications Current Medications Medications (Trade) Dose Ordered Sig/[place] Route PRN Reason Start Time Stop Time Status Last Admin Dose Admin Acetaminophen (Tylenol Tab) 500 mg Q4HP PRN PO PAIN LEVEL 1-4 01/12/20 23:15 Aspirin (Ecotrin) 81 mg DAILY PO 01/13/20 09:00 01/14/20 09:02 Atorvastatin Calcium (Lipitor) 80 mg QHS PO 01/12/20 21:00 01/13/20 20:33 Calcium/Vitamin D (Oscal D) 500 mg DAILY PO 01/13/20 09:00 01/14/20 09:02 Dextrose (Dextrose 50%) 25 ml ASDIRECTED PRN IV SEE LABEL COMMENTS 01/12/20 20:45 Enoxaparin Sodium (Lovenox) 40 mg DAILY SC 01/13/20 09:00 01/13/20 09:01 Fentanyl Citrate (Sublimaze) 25 mcg Q5MP PRN IV PAIN LEVEL 5-10 01/12/20 23:00 01/13/20 00:30 DC Glucagon (Glucagon) 1 mg ASDIRECTED PRN SC SEE LABEL COMMENTS 01/12/20 20:45 Glucose (Glucose) 16 GM ASDIRECTED PRN PO SEE LABEL COMMENTS 01/12/20 20:45 Home Med (Med Rec Complete!) ASDIRECTED XX 01/12/20 20:00 01/12/20 19:55 DC Insulin Human Lispro (HumaLOG INSULIN) SEE PROTOCOL TABLE AC SC 01/13/20 07:30 01/13/20 18:58 Lactated Ringer's 1,000 ml @ 100 mls/hr Q10H IV 01/12/20 23:00 01/13/20 00:30 DC Lidocaine (Lidoderm Patch) 3 patch DAILY TD 01/14/20 09:00 Losartan Potassium (Cozaar) 25 mg DAILY PO 01/13/20 09:00 01/14/20 09:04 Miscellaneous (Unresolved Clarification Entry) SEE LABEL COMMENTS STAT STAT XX 01/12/20 18:41 01/12/20 18:42 DC Morphine Sulfate (Morphine Sulfate Inj) 1 mg Q2H PRN IV PAIN LEVEL 8-10 01/12/20 23:15 Non-Formulary Medication ( See Comment Field Below ) REMOVE LIDODERM PATCH DAILY@21 XX 01/14/20 21:00 Ondansetron HCl (ZOFRAN INJection) 4 mg Q4HP PRN IV NAUSEA OR VOMITING 01/12/20 23:00 01/13/20 00:30 DC Ondansetron HCl (ZOFRAN INJection) 4 mg Q6HP PRN IV NAUSEA OR VOMITING 01/12/20 23:15 Oxycodone HCl (Roxicodone, Oxyir) 5 mg Q6HP PRN PO PAIN LEVEL 5-7 01/12/20 23:15 01/14/20 08:57 Piperacillin Sod/ Tazobactam Sod 4.5 gm/Dextrose 50 ml @ 50 mls/hr Q8H IV 01/12/20 20:00 01/14/20 04:45 Sodium Chloride 1,000 ml @ 50 mls/hr Q20H IV 01/12/20 18:29 01/14/20 01:02 Vancomycin HCl 1000 mg/IV Miscellaneous Supplies 1 each/ Dextrose 270 ml @ 270 mls/hr Q12H IV 01/13/20 06:00 01/14/20 06:37 DC 01/13/20 18:58 Vancomycin HCl 1000 mg/IV Miscellaneous Supplies 1 each/ Dextrose 270 ml @ 270 mls/hr Q18H IV 01/14/20 06:00 01/14/20 06:55 Allergies Coded Allergies: No Known Drug Allergies (Verified Allergy, Unknown, 01/12/20) Objective Physical Examination Examination GENERAL APPEARANCE: awake, alert, seems to be more confused today than yesterday, patient is deaf SKIN: cellulitis of the left breast is improving and the extension to the right breast is resolved, BREAST: see SKIN, Left breast is softer and less indurates, there is lateral incision partially closed with Nylon suture. Cade drain is in place with some s/s drainage. No purulent drainage or dishwater drainage present, no foul smell which was present preop HEENT: Normocephalic, atraumatic. NECK: Supple, LUNGS: breathing comfortably on room air HEART: no tachycardia ABDOMEN: Abdomen is mildly distended, mildly tender in b/l lower quadrants, no rebound or guarding EXTREMITIES: moving bilateral upper extremities without any issues Vital Signs Vital Signs Date Time Temp Pulse Resp B/P (MAP) Pulse Ox O2 Delivery O2 Flow Rate FiO2 01/14/20 09:04 142/81 01/14/20 08:57 18 01/14/20 06:23 96.0 71 91 Room Air 01/13/20 00:29 2.0 I&Os I&O- Last 24 Hours up to 6 AM 01/14/20 06:00 Intake Total 4435 ml Output Total 800 ml Balance 3635 ml Laboratory Data Labs 24H Laboratory Tests 2 01/13/20 12:05: Bedside Glucose (Misc Panel) 204H 01/13/20 18:45: Bedside Glucose (Misc Panel) 180H 01/14/20 05:35: Immature Granulocyte % (Auto) 1.1, Neutrophils (%) (Auto) 60.6, Lymphocytes (%) (Auto) 27.8, Monocytes (%) (Auto) 9.5H, Eosinophils (%) (Auto) 0.7, Basophils (%) (Auto) 0.3, Neutrophils # (Auto) 6.6, Lymphocytes # (Auto) 3.0, Monocytes # (Auto) 1.0H, Eosinophils # (Auto) 0.1, Basophils # (Auto) 0.0, Nucleated Red Blood Cells % (auto) 0.0, Anion Gap 7L, Glomerular Filtration Rate > 60.0, Calcium Level 8.4L, Phosphorus Level 2.8#, Magnesium Level 2.1, Total Bilirubin 0.3, Aspartate Amino Transf (AST/SGOT) 32, Alanine Aminotransferase (ALT/SGPT) 23, Alkaline Phosphatase 72, Total Protein 6.0L, Albumin 2.2L, Albumin/Globulin Ratio 0.6L, Vancomycin Level Trough 17.8 CBC/BMP Laboratory Tests 01/14/20 05:35 Microbiology Microbiology 01/12/20 Anaerobic Culture, Received Pending 01/12/20 Gram Stain - Final, Resulted 01/12/20 Abscess Culture - Preliminary, Resulted Staphylococcus Aureus 01/12/20 Anaerobic Culture, Received Pending 01/12/20 Gram Stain - Final, Resulted 01/12/20 Abscess Culture, Resulted Pending 01/12/20 Blood Culture - Preliminary, Resulted No growth after 24 hours . All specim... Impression Left breast necrotizing soft tissue infection, s/p L breast incision, drainage and debridement of necrotic tissues POD2 Abdominal pain Back pain History of left breast cancer, status post lumpectomy plus RT Left breast fat necrosis Left breast chronic wound Diabetes mellitus Hypertension Deafness Hx cardiac stents - wound care per Dr Prabhakar, ok to change ABD per nursing staff if some s/s drainage on the outside of dressing - keep joyec in place - preliminary wound Cx Staph aureus, prelim blood cx negative, awaiting anaerobic cultures - will monitor for possible need of return to OR for additional debridement - IV antibiotics, management per hospitalist team - will get KUB today - lidocaine patch to back - decrease fluids to 50 cc/h, ok to keep KVO if adequate PO intake - Diabetic diet with glucose checks, encouraged patient to accept insulin shots - daily labs - Vitals per protocol - pain control - continue home meds, including ASA - Incentive spirometer postop - ambulate with assistance postop - DVT ppx, SCD + lovenox, encouraged patient to accept lovenox shots Plan / VTE VTE Prophylaxis Ordered?: Yes MILLI PRABHAKAR DO Jan 14, 2020 09:32
[2020-01-14] MEDS: LIDOCAINE 5% (LIDODERM) PATCH TD SCH (10:46)
[2020-01-14 14:00] VITALS: BP 145/78
--- NOTE | 2020-01-14 20:53 | IPNPDOC ---
Date Seen The patient was seen on 01/14/20. Progress Note SUBJECTIVE: Patient seen and examined at bedside. POD #2 s/p L breast incision, drainage and debridement. Appears somewhat confused today. Refused insulin. States urinating a lot. Denies fevers and chills. Left breast surgical site dressed. Patient denies fevers, chills, n/v/d. OBJECTIVE PHYSICAL EXAMINATION: VITAL SIGNS: Please see below. GENERAL APPEARANCE: NAD, comfortable. HEENT: PERRLA, EOMI. CARDIOVASCULAR: RRR, normal S1, S2. LUNGS: CTAB, no wheeze, no rales. ABDOMEN: soft, non tender, non distended. BS+. MUSCULOSKELETAL: no joint deformity SKIN: L breast erythema diminished. No purulent drainage seen. Dressing clean. EXTREMITIES: no edema NEUROLOGICAL: no focal deficits PSYCHIATRIC: calm, cooperative LABORATORY DATA, IMAGING STUDIES, MICROBIOLOGY: Please see below. Echocardiogram: . DVT prophylaxis ordered?: ASSESSMENT: Mrs. Abreu is an 84 yo F with a hx of HTN, breast ca (1983, s/p lumpectomy, chemo, rad), calcified breast collection (follows with Dr. Samano), SNHL, non-obstructive CAD?, was admitted directly from Breast clinic for worsening purulent drainage from a wound on L lateral breast. Admitted for I&D. PLAN: 1. L breast infection: POD#2. Surgery following. Cultures pending. abx therapy: Zosyn, IV Vanc. Monitor for fevers. WBC trending up. Prelim wound cx - Staph Aureus. C/w Vanc. Dressing changes. Incentive spirometry. Pending decision for additional OR management. 2. DM2: takes metformin. A1c 7.3. Hold metformin while admitted. ISS. Hypogl ycemic precautions. Patient refused ISS. 3. Non-obstructive CAD?: s/p cath 10/2019, per patient no stenting was done. c/w ASA/statin. 4. HTN: resume home med. Losartan 25 mg daily. 5. Osteoporosis: c/w home med. Oscal. 6. Polyuria: NS now at 50 cc/hr. Check UA. DVT ppx: lovenox. TEDs, SCDs. VS, I&O, 24H, Fishbone Vital Signs/I&O Vital Signs Date Time Temp Pulse Resp B/P (MAP) Pulse Ox O2 Delivery O2 Flow Rate FiO2 01/14/20 14:00 99.3 70 18 145/78 (100) 96 Room Air 01/13/20 00:29 2.0 I&O- Last 24 Hours up to 6 AM 01/14/20 06:00 Intake Total 4435 ml Output Total 800 ml Balance 3635 ml Laboratory Data 24H LABS Laboratory Tests 2 01/14/20 05:35: Immature Granulocyte % (Auto) 1.1, Neutrophils (%) (Auto) 60.6, Lymphocytes (%) (Auto) 27.8, Monocytes (%) (Auto) 9.5H, Eosinophils (%) (Auto) 0.7, Basophils (%) (Auto) 0.3, Neutrophils # (Auto) 6.6, Lymphocytes # (Auto) 3.0, Monocytes # (Auto) 1.0H, Eosinophils # (Auto) 0.1, Basophils # (Auto) 0.0, Nucleated Red Blood Cells % (auto) 0.0, Anion Gap 7L, Glomerular Filtration Rate > 60.0, Calcium Level 8.4L, Phosphorus Level 2.8#, Magnesium Level 2.1, Total Bilirubin 0.3, Aspartate Amino Transf (AST/SGOT) 32, Alanine Aminotransferase (ALT/SGPT) 23, Alkaline Phosphatase 72, Total Protein 6.0L, Albumin 2.2L, Albumin/Globulin Ratio 0.6L, Vancomycin Level Trough 17.8 CBC/BMP Laboratory Tests 01/14/20 05:35 Microbiology Microbiology 01/12/20 Anaerobic Culture, Received Pending 01/12/20 Gram Stain - Final, Resulted 01/12/20 Abscess Culture - Preliminary, Resulted Staphylococcus Aureus 01/12/20 Anaerobic Culture, Received Pending 01/12/20 Gram Stain - Final, Resulted 01/12/20 Abscess Culture, Resulted Pending 01/12/20 Blood Culture - Preliminary, Resulted No Growth after 48 hours. All Specime... SUMMER MORSE MD Jan 14, 2020 20:53
[2020-01-14] MEDS: ATORVASTATIN 20 MG TAB PO SCH (21:31)
[2020-01-14 22:00] VITALS: BP 121/56
[2020-01-15] VITALS (8 sets, daily range): BP systolic 124–160; BP diastolic 59–73
[2020-01-15] MEDS: VANCOMYCIN HCL 1,000 MG, VIAL MATE ADAPTER 1 EACH in D5W 250 ML IV SCH ×2 (00:46→18:00)
[2020-01-15] MEDS: PIPERACILLIN/TAZOBACTAM SOD 4.5 GM in D5W MINI-BAG PLUS 50 ML IV SCH ×3 (03:57→20:16)
--- NOTE | 2020-01-15 07:12 | IPNPDOC ---
Date Seen The patient was seen on 01/15/20. Progress Note SUBJECTIVE: POD#3. More oriented today and yesterday per interview and patients daughter. AAO x 3. Denies fevers, chills. States diarrhea has improved. Has pain in L breast. Improved back and abdominal pain. OBJECTIVE PHYSICAL EXAMINATION: VITAL SIGNS: Please see below. GENERAL APPEARANCE: NAD, comfortable. HEENT: PERRLA, EOMI. CARDIOVASCULAR: RRR, normal S1, S2. LUNGS: CTAB, no wheeze, no rales. ABDOMEN: soft, non tender, non distended. BS+. MUSCULOSKELETAL: no joint deformity SKIN: L breast erythema diminished. No purulent drainage seen. Dressing clean. EXTREMITIES: no edema NEUROLOGICAL: no focal deficits PSYCHIATRIC: calm, cooperative LABORATORY DATA, IMAGING STUDIES, MICROBIOLOGY: Please see below. Echocardiogram: . DVT prophylaxis ordered?: ASSESSMENT: Mrs. Abreu is an 84 yo F with a hx of HTN, breast ca (1983, s/p lumpectomy, chemo, rad), calcified breast collection (follows with Dr. Chana rico), SNHL, non-obstructive CAD?, was admitted directly from Breast clinic for worsening purulent drainage from a wound on L lateral breast. Admitted for surgical management. PLAN: 1. L breast infection: POD#3. Surgery following. Monitor for fevers. WBC 7.9 today.Prelim wound cx - Staph Aureus, Ecoli. C/w Vanc. zosyn Dressing changes. Incentive spirometry. Planned for repeat look in OR this afternoon per breast sx. NPO. IVF. 2. DM2: takes metformin. A1c 7.3. Hold metformin while admitted. ISS. Hypoglycem ic precautions. Accucheks 130s. 3. Non-obstructive CAD?: s/p cath 10/2019, per patient no stenting was done. c/w ASA/statin. 4. HTN: resume home med. Losartan 25 mg daily. 5. Osteoporosis: c/w home med. Oscal. 6. Polyuria: NS now at 50 cc/hr. Check UA. DVT ppx: lovenox. TEDs, SCDs. Dispo: PT/OT eval prior to DC home. Cultures: Abscess culture (01/12/20) - prelim MRSA, Ecoli. Abx: Vanc, Zosyn 9/4/20 VS, I&O, 24H, Fishbone Vital Signs/I&O Vital Signs Date Time Temp Pulse Resp B/P (MAP) Pulse Ox O2 Delivery O2 Flow Rate FiO2 01/14/20 22:00 98.1 78 17 121/56 (77) 94 Room Air 01/13/20 00:29 2.0 I&O- Last 24 Hours up to 6 AM 01/15/20 06:00 Intake Total 2730 ml Output Total 1250 ml Balance 1480 ml Laboratory Data 24H LABS Laboratory Tests 2 01/15/20 00:53: Urine Color YELLOW, Urine Appearance CLEAR, Urine pH 5.0, Urine Specific [place] 1.020, Urine Protein NEGATIVE, Urine Glucose (UA) 3+H, Urine Ketones NEGATIVE, Urine Blood NEGATIVE, Urine Nitrite NEGATIVE, Urine Bilirubin NEGATIVE, Urine Urobilinogen 0.2, Urine Leukocyte Esterase NEGATIVE, Urine WBC (Auto) 4H, Urine RBC (Auto) 1, Urine Hyaline Casts (Auto) 0, Urine Bacteria (Auto) NEGATIVE, Urine Squamous Epithelial Cells 0, Urine Mucus (Auto) SMALL, Urine Sperm (Auto) 01/15/20 06:41: Bedside Glucose (Misc Panel) 132H Microbiology Microbiology 01/12/20 Anaerobic Culture, Received Pending 01/12/20 Gram Stain - Final, Resulted 01/12/20 Abscess Culture - Preliminary, Resulted Escherichia Coli Staph.aureus Methicillin Resis 01/12/20 Anaerobic Culture, Received Pending 01/12/20 Gram Stain - Final, Resulted 01/12/20 Abscess Culture, Resulted Pending 01/12/20 Blood Culture - Preliminary, Resulted No Growth after 48 hours. All Specime... SUMMER MORSE MD Jan 15, 2020 07:12
[2020-01-15] MEDS: HumaLOG INSULIN (NovoLOG) PER UNIT SC SCH ×3 (07:30→17:30)
[2020-01-15] MEDS: ASPIRIN 81 MG ENTERIC TAB PO SCH (08:02)
[2020-01-15] MEDS: NS 1,000 ML IV SCH (08:02)
[2020-01-15] MEDS: CALCIUM/VITAMIN D 500 MG TAB PO SCH (08:02)
[2020-01-15] MEDS: LOSARTAN 25 MG TAB PO SCH (08:02)
[2020-01-15] MEDS: oxyCODONE 5MG TAB PO PRN ×2 (08:03→20:17)
[2020-01-15] MEDS: ENOXAPARIN 40MG/0.4ML SYRINGE (J1650 PER 10MG) SC SCH (08:03)
[2020-01-15] MEDS: LIDOCAINE 5% (LIDODERM) PATCH TD SCH (08:03)
[2020-01-15 09:50] LABS: BASO # 0.1 10^3/uL (0.0-0.2); EOS # 0.2 10^3/uL (0.0-0.5); EOS % 1.9 % (0.0-3.0); HEMATOCRIT 38.9 % (36.0-47.0); HEMOGLOBIN 12.7 g/dl (12.0-15.5); LYMPH # 1.4 10^3/uL (1.5-5.0); LYMPH % 17.5 % (24.0-44.0); MEAN CORPUSCULAR HEMOGLOBIN 31.7 pg (27.0-33.0); MEAN CORPUSCULAR HGB CONC 32.6 g/dl (32.0-36.5); MONO # 0.7 10^3/uL (0.0-0.8); MONO % 8.4 % (0.0-5.0); NEUTROPHILS # 5.5 10^3/uL (1.5-8.5); NEUTROPHILS % 68.9 % (36.0-66.0); PLATELET COUNT, AUTOMATED 339 10^3/uL (150-450); RED BLOOD COUNT 4.01 10^6/uL (4.00-5.40); WHITE BLOOD COUNT 7.9 10^3/uL (4.0-10.0)
--- NOTE | 2020-01-15 09:57 | IPNPDOC ---
Subjective General Date Seen: Jan 15, 2020 Subject Chief Complaint/History The patient is a 84-year-old female admitted with a reason for visit of Necrotizing Infection Of The left Breast, s/p Left incision, drainage and debridement of left breast necrotizing soft tissue infection POD3. Patient is still very tender at the left breast wound. Unable to get a good exam. Cellulitis decreased but did not completely resolved. Wound cx came back + for MRSA and E coli. AM labs pending. KUB without acute findings. UA negative. Today she is less confused. Back pain and abd pain better Current Medications Current Medications Current Medications Medications (Trade) Dose Ordered Sig/[place] Route PRN Reason Start Time Stop Time Status Last Admin Dose Admin Acetaminophen (Tylenol Tab) 500 mg Q4HP PRN PO PAIN LEVEL 1-4 01/12/20 23:15 01/14/20 21:35 Aspirin (Ecotrin) 81 mg DAILY PO 01/13/20 09:00 01/15/20 08:02 Atorvastatin Calcium (Lipitor) 80 mg QHS PO 01/12/20 21:00 01/14/20 21:31 Calcium/Vitamin D (Oscal D) 500 mg DAILY PO 01/13/20 09:00 01/15/20 08:02 Dextrose (Dextrose 50%) 25 ml ASDIRECTED PRN IV SEE LABEL COMMENTS 01/12/20 20:45 Enoxaparin Sodium (Lovenox) 40 mg DAILY SC 01/13/20 09:00 01/15/20 08:03 Fentanyl Citrate (Sublimaze) 25 mcg Q5MP PRN IV PAIN LEVEL 5-10 01/12/20 23:00 01/13/20 00:30 DC Glucagon (Glucagon) 1 mg ASDIRECTED PRN SC SEE LABEL COMMENTS 01/12/20 20:45 Glucose (Glucose) 16 GM ASDIRECTED PRN PO SEE LABEL COMMENTS 01/12/20 20:45 Home Med (Med Rec Complete!) ASDIRECTED XX 01/12/20 20:00 01/12/20 19:55 DC Insulin Human Lispro (HumaLOG INSULIN) SEE PROTOCOL TABLE AC SC 01/13/20 07:30 01/14/20 12:25 Lactated Ringer's 1,000 ml @ 100 mls/hr Q10H IV 01/12/20 23:00 01/13/20 00:30 DC Lidocaine (Lidoderm Patch) 3 patch DAILY TD 01/14/20 09:00 01/15/20 08:03 Losartan Potassium (Cozaar) 25 mg DAILY PO 01/13/20 09:00 01/15/20 08:02 Miscellaneous (Unresolved Clarification Entry) SEE LABEL COMMENTS STAT STAT XX 01/12/20 18:41 01/12/20 18:42 DC Morphine Sulfate (Morphine Sulfate Inj) 1 mg Q2H PRN IV PAIN LEVEL 8-10 01/12/20 23:15 Non-Formulary Medication ( See Comment Field Below ) REMOVE LIDODERM PATCH DAILY@21 XX 01/14/20 21:00 01/14/20 21:24 Ondansetron HCl (ZOFRAN INJection) 4 mg Q4HP PRN IV NAUSEA OR VOMITING 01/12/20 23:00 01/13/20 00:30 DC Ondansetron HCl (ZOFRAN INJection) 4 mg Q6HP PRN IV NAUSEA OR VOMITING 01/12/20 23:15 Oxycodone HCl (Roxicodone, Oxyir) 5 mg Q6HP PRN PO PAIN LEVEL 5-7 01/12/20 23:15 01/15/20 08:03 Piperacillin Sod/ Tazobactam Sod 4.5 gm/Dextrose 50 ml @ 50 mls/hr Q8H IV 01/12/20 20:00 01/15/20 03:57 Sodium Chloride 1,000 ml @ 50 mls/hr Q20H IV 01/12/20 18:29 01/15/20 08:02 Vancomycin HCl 1000 mg/IV Miscellaneous Supplies 1 each/ Dextrose 270 ml @ 270 mls/hr Q12H IV 01/13/20 06:00 01/14/20 06:37 DC 01/13/20 18:58 Vancomycin HCl 1000 mg/IV Miscellaneous Supplies 1 each/ Dextrose 270 ml @ 270 mls/hr Q18H IV 01/14/20 06:00 01/15/20 00:46 Allergies Coded Allergies: No Known Drug Allergies (Verified Allergy, Unknown, 01/12/20) Objective Physical Examination Examination GENERAL APPEARANCE: awake, alert, oriented x3 patient is deaf SKIN: cellulitis of the left breast is much decreased however patient is still quite tender on the lateral aspect of the incision to the point that good exam cannot be done. Extension to the right breast resolved, BREAST: cellulitis of the left breast is much decreased however patient is still quite tender on the lateral aspect of the incision to the point that good exam cannot be done. Upon exploration of the wound with the Qtip there some tissue of questionable viability. Extension to the right breast resolved, Lateral incision partially closed with Nylon suture. Susan drain is in place with some s/s drainage. No purulent drainage or dishwater drainage present, Some foul smell is present upon removal of dressings HEENT: Normocephalic, atraumatic. NECK: Supple, LUNGS: breathing comfortably on room air HEART: no tachycardia ABDOMEN: Abdomen is soft EXTREMITIES: moving bilateral upper extremities without any issues Vital Signs Vital Signs Date Time Temp Pulse Resp B/P (MAP) Pulse Ox O2 Delivery O2 Flow Rate FiO2 01/15/20 08:03 18 01/15/20 08:02 142/68 01/15/20 06:00 98.1 60 94 Room Air 01/13/20 00:29 2.0 I&Os I&O- Last 24 Hours up to 6 AM 01/15/20 06:00 Intake Total 2830 ml Output Total 1250 ml Balance 1580 ml Laboratory Data Labs 24H Laboratory Tests 2 01/15/20 00:53: Urine Color YELLOW, Urine Appearance CLEAR, Urine pH 5.0, Urine Specific [place] 1.020, Urine Protein NEGATIVE, Urine Glucose (UA) 3+H, Urine Ketones NEGATIVE, Urine Blood NEGATIVE, Urine Nitrite NEGATIVE, Urine Bilirubin NEGATIVE, Urine Urobilinogen 0.2, Urine Leukocyte Esterase NEGATIVE, Urine WBC (Auto) 4H, Urine RBC (Auto) 1, Urine Hyaline Casts (Auto) 0, Urine Bacteria (Auto) NEGATIVE, Urine Squamous Epithelial Cells 0, Urine Mucus (Auto) SMALL, Urine Sperm (Auto) 01/15/20 06:41: Bedside Glucose (Misc Panel) 132H 01/15/20 09:21: Microbiology Microbiology 01/12/20 Anaerobic Culture, Received Pending 01/12/20 Gram Stain - Final, Resulted 01/12/20 Abscess Culture - Preliminary, Resulted Escherichia Coli Staph.aureus Methicillin Resis 01/12/20 Anaerobic Culture, Received Pending 01/12/20 Gram Stain - Final, Resulted 01/12/20 Abscess Culture, Resulted Pending 01/12/20 Blood Culture - Preliminary, Resulted No Growth after 48 hours. All Specime... Impression Left breast necrotizing soft tissue infection, s/p L breast incision, drainage and debridement of necrotic tissues POD2 History of left breast cancer, status post lumpectomy plus RT Left breast fat necrosis Left breast chronic wound Diabetes mellitus Hypertension Deafness Hx cardiac cath - NPO w IVF now - planning for OR later today for Left breast second look with possible debri emsfin of the left breast wound - wound care per shannan Gardner to change ABD per nursing staff if some s/s drainage on the outside of dressing - keep susan in place - wound cx growing MRSA and E coli, prelim blood cx negative, awaiting anaerobic cultures - IV antibiotics, management per hospitalist team - lidocaine patch to back - awaiting labs - Vitals per protocol - pain control - continue home meds, including ASA - Incentive spirometer postop - ambulate with assistance postop - DVT ppx Plan / VTE VTE Prophylaxis Ordered?: Yes MILLI PRABHAKAR DO Jan 15, 2020 09:49
[2020-01-15 09:58] LABS: ALBUMIN 2.4 GM/DL (3.2-5.2); ALT/SGPT 31 U/L (12-78); BILIRUBIN,TOTAL 0.4 MG/DL (0.2-1.0); BLOOD UREA NITROGEN 12 MG/DL (7-18); CALCIUM LEVEL 8.8 MG/DL (8.8-10.2); CARBON DIOXIDE LEVEL 28 MEQ/L (21-32); CHLORIDE LEVEL 105 MEQ/L (98-107); GLOMERULAR FILTRATION RATE > 60.0 (>32); GLUCOSE, FASTING 278 MG/DL (70-100); PHOSPHORUS LEVEL 2.9 MG/DL (2.5-4.9); POTASSIUM SERUM 3.9 MEQ/L (3.5-5.1); SODIUM LEVEL 140 MEQ/L (136-145); TOTAL PROTEIN 6.2 GM/DL (6.4-8.2)
[2020-01-15] MEDS ORDERED: LIDOCAINE 2% 100MG/5ML SDV (FOR ANES.) As Ordered ONE (15:18)
[2020-01-15] MEDS ORDERED: ROCURONIUM BROMIDE 50 MG/5 ML VIAL As Ordered ONE (15:18)
[2020-01-15] MEDS ORDERED: propofoL 200 MG/20 ML VIAL As Ordered ONE (15:18)
[2020-01-15] MEDS ORDERED: fentaNYL 100 MCG/2 ML INJECTION (J3010) As Ordered ONE ×2 (15:19→18:56)
[2020-01-15] MEDS ORDERED: ONDANSETRON 4MG/2ML VIAL As Ordered ONE (15:19)
[2020-01-15] MEDS ORDERED: dexameTHASONE 4 MG/ML 1ML VIAL (J1100 PER 1MG) As Ordered ONE (15:19)
[2020-01-15] MEDS ORDERED: LIDOCAINE 1% MDV 20ML VIAL As Ordered ONE (15:48)
[2020-01-15] MEDS ORDERED: BUPIVACAINE HCL 0.25% 10ML VIAL As Ordered ONE (15:48)
[2020-01-15] MEDS ORDERED: GLYCOPYRROLATE INJ 0.2 MG/ML 2 ML VIAL As Ordered ONE (17:08)
[2020-01-15] MEDS ORDERED: ACETAMINOPHEN 1000MG 100ML IV BTL (OFIRMEV) (J0131 PER 10MG) As Ordered ONE (17:21)
[2020-01-15] MEDS ORDERED: VANCOMYCIN 1000MG/20ML VIAL As Ordered ONE (18:14)
--- NOTE | 2020-01-15 18:51 | ROOPDOC ---
[facility] Report Of Operation Report of Operation DATE OF PROCEDURE: 01/15/20 PREPROCEDURE DIAGNOSES: left breast necrotizing soft tissue infection POSTPROCEDURE DIAGNOSES: same PROCEDURE: Left breast second look and debridement of necrotic tissue SURGEON: Milli Prabhakar BULK RECEIVER: ANESTHESIA: general ESTIMATED BLOOD LOSS: Approximately 25 mL. COMPLICATIONS: none REMARKS: small amount of necrotic tissue was noted on the roof of the breast wound and medially. Additional necrotic tissue was noted on the lateral aspect of the wound. This was tracking posteriorly. PROCEDURE NOTE: . INDICATIONS: Ms. 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 She was diagnosed with necrotizing soft tissue infection and admitted to the hospital for IV antibiotics and surgical debridement of the necrotic tissues. She was taken to the operating room the same day and debridement of moderate amount of necrotic tissue was done. Tissue was sent for pathology. Wound cultures were obtained. Patient initially recovered well. Her leukocytosis decreased and she was not febrile on POD1, however, on POD2 patient was increasingly confused. UA was normal. Her leukocytosis was also up on POD2. On POD3 patient was continuing to have lateral left breast cellulitis and was very tender to touch laterally. Decision was made to take her for a second look and possible debridement of remaining necrotic tissues. Risks and possible complications of surgical procedure including bleeding, infection and injury to surrounding structures were explained to the patient and she wished to proceed. science interpreter was used in the hospital to explain the procedure and risks in details. Consent was signed. Broad spectrum antibiotics were continued as scheduled. My initials were placed on the operative site in the preop area. DETAILS: Patient was taken to the operating room and placed on the operating room table. A sign in was called stating patients name, date of and the procedure to be done. Scheduled antibiotics were infused on the floor. Smooth induction of general anesthesia was done. Patients hands were extended on arm rests. Care was taken not to over extend the arms. Sequential compression devices were placed and assured to function correctly. Next, patients left breast and axilla were prepped and draped in the usual fashion. Appropriate time out was done. Patients name, date of , and the procedure to be done were confirmed. Previously placed Nylon stitches were removed along with [place]. Left lateral breast wound was opened and inspected. There was small amount of necrotic tissue noted at the roof of the cavity and at the medial aspect of the left breast. This was sharply excised. Curette was used to clean residual surfaces of the left breast wound cavity. Upon examination of the lateral aspect of the wound some necrotic tissue was noted. Palpation of this area revealed tunneling of the necrotic tissue posterior. This was sharply debrided. After obtaining hemostasis, copious irrigation of the wound was done. Upon inspection of the tissues, remaining breast tissue appeared viable and was left in place. Local anesthetic using 1% lidocaine and 0.25 % Marcaine 50/50 mix was injected into the surrounding tissues. A 0.5 inch Susan was placed into the wound track and suture at the inferior aspect of the wound with 3-0 Nylon suture. The superior aspect of the incision was partially closed with 3-0 Nylon. The inferior aspect of the wound though which [place] was placed was left open to allow drainage. Kerlix and ABD pads were placed at the site and surgical bra was used to keep the dressings in place. Sponge and instrument counts were done and were correct. Patient emerged from the anesthesia without any problems. Patient tolerated procedure well and was taken to recovery unit in stable condition. MILLI PRABHAKAR DO Jan 15, 2020 18:51
[2020-01-15] MEDS ORDERED: LR 1,000 ML IV SCH (19:00)
[2020-01-15] MEDS ORDERED: ONDANSETRON 4MG/2ML VIAL IV PRN (19:00)
[2020-01-15] MEDS: fentaNYL 100 MCG/2 ML INJECTION (J3010) IV PRN ×2 (19:00→19:06)
[2020-01-15] MEDS ORDERED: oxyCODONE 5MG TAB PO PRN (19:00)
[2020-01-15] MEDS: ATORVASTATIN 20 MG TAB PO SCH (20:16)
[2020-01-15] MEDS ORDERED: SUGAMMADEX SODIUM 500 MG/5 ML VIAL (BRIDION) As Ordered ONE (21:36)
[2020-01-16 00:50] VITALS: BP 126/62
[2020-01-16] MEDS: oxyCODONE 5MG TAB PO PRN (03:16)
[2020-01-16] MEDS: PIPERACILLIN/TAZOBACTAM SOD 4.5 GM in D5W MINI-BAG PLUS 50 ML IV SCH ×3 (04:14→20:42)
[2020-01-16 06:00] VITALS: BP 128/63
[2020-01-16 06:00] LABS: BASO % 0.2 % (0.0-1.0); EOS % 0.1 % (0.0-3.0); HEMATOCRIT 36.2 % (36.0-47.0); HEMOGLOBIN 11.6 g/dl (12.0-15.5); LYMPH # 1.5 10^3/uL (1.5-5.0); LYMPH % 12.6 % (24.0-44.0); MEAN CORPUSCULAR HEMOGLOBIN 31.4 pg (27.0-33.0); MEAN CORPUSCULAR VOLUME 97.8 fl (80.0-96.0); MONO # 0.7 10^3/uL (0.0-0.8); MONO % 6.2 % (0.0-5.0); NEUTROPHILS # 9.2 10^3/uL (1.5-8.5); NEUTROPHILS % 79.7 % (36.0-66.0); PLATELET COUNT, AUTOMATED 269 10^3/uL (150-450); WHITE BLOOD COUNT 11.5 10^3/uL (4.0-10.0)
[2020-01-16 06:35] LABS: ALBUMIN 2.1 GM/DL (3.2-5.2); ALT/SGPT 31 U/L (12-78); BILIRUBIN,TOTAL 0.4 MG/DL (0.2-1.0); BLOOD UREA NITROGEN 11 MG/DL (7-18); CALCIUM LEVEL 8.7 MG/DL (8.8-10.2); CARBON DIOXIDE LEVEL 26 MEQ/L (21-32); CHLORIDE LEVEL 106 MEQ/L (98-107); CREATININE FOR GFR 0.62 MG/DL (0.55-1.30); GLOMERULAR FILTRATION RATE > 60.0 (>32); GLUCOSE, FASTING 140 MG/DL (70-100); MAGNESIUM LEVEL 1.9 MG/DL (1.8-2.4); PHOSPHORUS LEVEL 5.1 MG/DL (2.5-4.9); POTASSIUM SERUM 4.6 MEQ/L (3.5-5.1); SODIUM LEVEL 140 MEQ/L (136-145); TOTAL PROTEIN 5.6 GM/DL (6.4-8.2)
[2020-01-16 08:25] VITALS: BP 95/56
[2020-01-16 08:35] VITALS: BP 110/60
[2020-01-16] MEDS: CALCIUM/VITAMIN D 500 MG TAB PO SCH (10:16)
[2020-01-16] MEDS: ASPIRIN 81 MG ENTERIC TAB PO SCH (10:16)
[2020-01-16] MEDS: HumaLOG INSULIN (NovoLOG) PER UNIT SC SCH ×2 (10:16→12:28)
[2020-01-16] MEDS: LOSARTAN 25 MG TAB PO SCH (10:16)
[2020-01-16] MEDS: LIDOCAINE 5% (LIDODERM) PATCH TD SCH (10:17)
[2020-01-16] MEDS: ENOXAPARIN 40MG/0.4ML SYRINGE (J1650 PER 10MG) SC SCH (10:17)
[2020-01-16] MEDS: VANCOMYCIN HCL 1,000 MG, VIAL MATE ADAPTER 1 EACH in D5W 250 ML IV SCH (12:28)
--- NOTE | 2020-01-16 13:09 | IPNPDOC ---
Subjective General Date Seen: Jan 16, 2020 Subject Chief Complaint/History The patient is a 84-year-old female admitted with a reason for visit of Necrotizing Infection Of The left Breast, s/p Left incision, drainage and debridement of left breast necrotizing soft tissue infection POD4 and second look with re-debridement POD1 wound cx now with 3 organisms no acute events over nigh Current Medications Current Medications Current Medications Medications (Trade) Dose Ordered Sig/[place] Route PRN Reason Start Time Stop Time Status Last Admin Dose Admin Acetaminophen (Tylenol Tab) 500 mg Q4HP PRN PO PAIN LEVEL 1-4 01/12/20 23:15 01/14/20 21:35 Aspirin (Ecotrin) 81 mg DAILY PO 01/13/20 09:00 01/15/20 08:02 Atorvastatin Calcium (Lipitor) 80 mg QHS PO 01/12/20 21:00 01/15/20 20:16 Calcium/Vitamin D (Oscal D) 500 mg DAILY PO 01/13/20 09:00 01/15/20 08:02 Dextrose (Dextrose 50%) 25 ml ASDIRECTED PRN IV SEE LABEL COMMENTS 01/12/20 20:45 Enoxaparin Sodium (Lovenox) 40 mg DAILY SC 01/13/20 09:00 01/15/20 08:03 Fentanyl Citrate (Sublimaze) 25 mcg Q5MP PRN IV PAIN LEVEL 5-10 01/12/20 23:00 01/13/20 00:30 DC Fentanyl Citrate (Sublimaze) 25 mcg Q5MP PRN IV PAIN LEVEL 5-10 01/15/20 19:00 01/15/20 20:00 DC 01/15/20 19:06 Glucagon (Glucagon) 1 mg ASDIRECTED PRN SC SEE LABEL COMMENTS 01/12/20 20:45 Glucose (Glucose) 16 GM ASDIRECTED PRN PO SEE LABEL COMMENTS 01/12/20 20:45 Home Med (Med Rec Complete!) ASDIRECTED XX 01/12/20 20:00 01/12/20 19:55 DC Insulin Human Lispro (HumaLOG INSULIN) SEE PROTOCOL TABLE AC SC 01/13/20 07:30 01/16/20 12:28 Lactated Ringer's 1,000 ml @ 50 mls/hr Q20H IV 01/15/20 19:00 01/15/20 20:00 DC Lactated Ringer's 1,000 ml @ 100 mls/hr Q10H IV 01/12/20 23:00 01/13/20 00:30 DC Lidocaine (Lidoderm Patch) 3 patch DAILY TD 01/14/20 09:00 01/15/20 08:03 Losartan Potassium (Cozaar) 25 mg DAILY PO 01/13/20 09:00 01/15/20 08:02 Miscellaneous (Unresolved Clarification Entry) SEE LABEL COMMENTS STAT STAT XX 01/12/20 18:41 01/12/20 18:42 DC Morphine Sulfate (Morphine Sulfate Inj) 1 mg Q2H PRN IV PAIN LEVEL 8-10 01/12/20 23:15 Non-Formulary Medication ( See Comment Field Below ) REMOVE LIDODERM PATCH DAILY@21 XX 01/14/20 21:00 01/14/20 21:24 Ondansetron HCl (ZOFRAN INJection) 4 mg Q4HP PRN IV NAUSEA OR VOMITING 01/12/20 23:00 01/13/20 00:30 DC Ondansetron HCl (ZOFRAN INJection) 4 mg Q4HP PRN IV NAUSEA OR VOMITING 01/15/20 19:00 01/15/20 20:00 DC Ondansetron HCl (ZOFRAN INJection) 4 mg Q6HP PRN IV NAUSEA OR VOMITING 01/12/20 23:15 Oxycodone HCl (Roxicodone, Oxyir) 5 mg ASDIRECTED PRN PO PAIN LEVEL 1-4 01/15/20 19:00 01/15/20 20:00 DC Oxycodone HCl (Roxicodone, Oxyir) 5 mg Q6HP PRN PO PAIN LEVEL 5-7 01/12/20 23:15 01/16/20 03:16 Piperacillin Sod/ Tazobactam Sod 4.5 gm/Dextrose 50 ml @ 50 mls/hr Q8H IV 01/12/20 20:00 01/16/20 04:14 Sodium Chloride 1,000 ml @ 50 mls/hr Q20H IV 01/12/20 18:29 01/15/20 18:54 DC 01/15/20 08:02 Vancomycin HCl 1000 mg/IV Miscellaneous Supplies 1 each/ Dextrose 270 ml @ 270 mls/hr Q12H IV 01/13/20 06:00 01/14/20 06:37 DC 01/13/20 18:58 Vancomycin HCl 1000 mg/IV Miscellaneous Supplies 1 each/ Dextrose 270 ml @ 270 mls/hr Q18H IV 01/14/20 06:00 01/16/20 12:28 Allergies Coded Allergies: No Known Drug Allergies (Verified Allergy, Unknown, 01/12/20) Objective Physical Examination Examination SKIN: cellulitis of the left breast is much decreased however patient is still quite tender on the lateral aspect of the incision to the point that good exam cannot be done. Extension to the right breast resolved, BREAST: cellulitis of the left breast is decreased, still some tenderness laterally. Some clots visible in wound - partially removed with Qtip. Extension to the right breast resolved, Lateral incision partially closed with Nylon suture. [place] drain is in place with some s/s drainage. No purulent drainage or dishwater drainage present, no foul smell HEENT: Normocephalic, atraumatic. NECK: Supple, LUNGS: breathing comfortably on room air HEART: no tachycardia ABDOMEN: Abdomen is soft EXTREMITIES: moving bilateral upper extremities without any issues Vital Signs Vital Signs Date Time Temp Pulse Resp B/P (MAP) Pulse Ox O2 Delivery O2 Flow Rate FiO2 01/16/20 08:35 110/60 (77) 01/16/20 08:25 77 Room Air 01/16/20 06:00 98.4 16 94 1.0 I&Os I&O- Last 24 Hours up to 6 AM 01/16/20 06:00 Intake Total 1840 ml Output Total 1660 ml Balance 180 ml Laboratory Data Labs 24H Laboratory Tests 2 01/16/20 05:32: Immature Granulocyte % (Auto) 1.2, Neutrophils (%) (Auto) 79.7H, Lymphocytes (%) (Auto) 12.6L, Monocytes (%) (Auto) 6.2H, Eosinophils (%) (Auto) 0.1, Basophils (%) (Auto) 0.2, Neutrophils # (Auto) 9.2H, Lymphocytes # (Auto) 1.5, Monocytes # (Auto) 0.7, Eosinophils # (Auto) 0.0, Basophils # (Auto) 0.0, Nucleated Red Blood Cells % (auto) 0.0, Anion Gap 8, Glomerular Filtration Rate > 60.0, Calcium Level 8.7L, Phosphorus Level 5.1#H, Magnesium Level 1.9, Total Bilirubin 0.4, Aspartate Amino Transf (AST/SGOT) 40H, Alanine Aminotransferase (ALT/SGPT) 31, Alkaline Phosphatase 79, Total Protein 5.6L, Albumin 2.1L, Albumin/Globulin Ratio 0.6L 01/16/20 10:53: Vancomycin Level Trough 15.9 01/16/20 12:12: Bedside Glucose (Misc Panel) 310H 01/16/20 12:54: Bedside Glucose (Misc Panel) 338H CBC/BMP Laboratory Tests 01/16/20 05:32 Microbiology Microbiology 01/12/20 Anaerobic Culture, Received Pending 01/12/20 Gram Stain - Final, Complete 01/12/20 Abscess Culture - Final, Complete Escherichia Coli Staph.aureus Methicillin Resis Streptococcus Sanguinis 01/12/20 Anaerobic Culture, Received Pending 01/12/20 Gram Stain - Final, Resulted 01/12/20 Abscess Culture - Preliminary, Resulted Escherichia Coli Staph.aureus Methicillin Resis 01/12/20 Blood Culture - Preliminary, Resulted No Growth after 72 hours. All specime... Impression Necrotizing Infection Of The left Breast, s/p Left incision, drainage and debridement of left breast necrotizing soft tissue infection POD4 and second look with re-debridement POD1 History of left breast cancer, status post lumpectomy plus RT Left breast fat necrosis Left breast chronic wound Diabetes mellitus Hypertension Deafness Hx cardiac cath - wound care per shannan Gardner to change ABD per nursing staff if some s/s drainage on the outside of dressing - keep joyce in place - wound cx growing MRSA, E coli and now also Sterp sanguini, prelim blood cx negative, awaiting anaerobic cultures - IV antibiotics, management per hospitalist team - lidocaine patch to back - AM labs reviewed, leukocytosis present - Vitals per protocol - pain control - continue home meds, including ASA - Incentive spirometer postop - ambulate with assistance postop - DVT ppx Plan / VTE VTE Prophylaxis Ordered?: Yes MILLI PRABHAKAR DO Jan 16, 2020 13:09
[2020-01-16 14:00] VITALS: BP 111/56
--- NOTE | 2020-01-16 19:23 | IPNPDOC ---
Subjective Date Seen The patient was seen on 01/16/20. Subjective Chief Complaint/HPI Mrs. Barnett is an 84 year old female here with necrotizing infection of the left breast. Wound culture had grown E.coli, MRSA, and Strep. sanguins. Yesterday, she was taken to OR for re-debridement. No acute events overnight. She reports breast pain, but denies fever/chills, chest pain, shortness of breath, abdominal pain, or dysuria General: Denies: Chills Constitutional: Denies: Chills, Fever ENT: Denies: Dysphagia, Sore Throat Pulmonary: Denies: Dyspnea, Cough Cardiovascular: Denies: Chest Pain Gastrointestinal: Denies: Abdominal Pain Musculoskeletal: Reports: Other Symptoms (Breast pain secondary to surgery) Objective Physical Examination General Exam: Positive: Alert, Cooperative, No Acute Distress Eye Exam: Negative: Sclera icteric Neck Exam: Positive: Supple Chest Exam: Positive: Clear to auscultation Heart Exam: Positive: Rate Normal, Regular Rhythm Abdomen Exam: Positive: Normal bowel sounds Extremity Exam: Positive: Edema 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 Abreu is an 84 year old female with history of breast cancer s/p lumpectomy, chemotherapy, and radiation, here with purulent drainage from wound on L lateral breast. Plan/VTE VTE Prophylaxis Ordered?: Yes Plan 1. Left breast infection: POD#4 from initial surgery and POD#1 from debridement. Cultures grew E.coli, MRSA, and Strep sanguins. Currently on Zosyn and Vancomycin. 2. DM type 2. Metformin on hold. Currently on ISS. 3. Non-obstructive CAD. Cath on 10/2019, per patient no stent. Continue with aspirin and statin 4. HTN. Continue Losartan 5. Osteoporosis. Continue Calcium and Vitamin D 6. DVT ppx: Lovenox VS, I&O, 24H, Fishbone Vital Signs/I&O Vital Signs Date Time Temp Pulse Resp B/P (MAP) Pulse Ox O2 Delivery O2 Flow Rate FiO2 01/16/20 14:00 98.3 74 17 111/56 (74) 98 Room Air 01/16/20 06:00 1.0 I&O- Last 24 Hours up to 6 AM 01/16/20 06:00 Intake Total 1840 ml Output Total 1660 ml Balance 180 ml Laboratory Data 24H LABS Laboratory Tests 2 01/16/20 05:32: Immature Granulocyte % (Auto) 1.2, Neutrophils (%) (Auto) 79.7H, Lymphocytes (%) (Auto) 12.6L, Monocytes (%) (Auto) 6.2H, Eosinophils (%) (Auto) 0.1, Basophils (%) (Auto) 0.2, Neutrophils # (Auto) 9.2H, Lymphocytes # (Auto) 1.5, Monocytes # (Auto) 0.7, Eosinophils # (Auto) 0.0, Basophils # (Auto) 0.0, Nucleated Red Blood Cells % (auto) 0.0, Anion Gap 8, Glomerular Filtration Rate > 60.0, Calcium Level 8.7L, Phosphorus Level 5.1#H, Magnesium Level 1.9, Total Bilirubin 0.4, Aspartate Amino Transf (AST/SGOT) 40H, Alanine Aminotransferase (ALT/SGPT) 31, Alkaline Phosphatase 79, Total Protein 5.6L, Albumin 2.1L, Albumin/Globulin Ratio 0.6L 01/16/20 10:53: Vancomycin Level Trough 15.9 01/16/20 12:12: Bedside Glucose (Misc Panel) 310H 01/16/20 12:54: Bedside Glucose (Misc Panel) 338H 01/16/20 16:41: Bedside Glucose (Misc Panel) 190H CBC/BMP Laboratory Tests 01/16/20 05:32 Microbiology Microbiology 01/12/20 Anaerobic Culture, Received Pending 01/12/20 Gram Stain - Final, Complete 01/12/20 Abscess Culture - Final, Complete Escherichia Coli Staph.aureus Methicillin Resis Streptococcus Sanguinis 01/12/20 Anaerobic Culture, Received Pending 01/12/20 Gram Stain - Final, Resulted 01/12/20 Abscess Culture - Preliminary, Resulted Escherichia Coli Staph.aureus Methicillin Resis 01/12/20 Blood Culture - Preliminary, Resulted No Growth after 72 hours. All specime... ESTER FLANAGAN DO Jan 16, 2020 19:23
[2020-01-16] MEDS: ATORVASTATIN 20 MG TAB PO SCH (20:42)
[2020-01-16 22:00] VITALS: BP 131/60
[2020-01-17] MEDS: PIPERACILLIN/TAZOBACTAM SOD 4.5 GM in D5W MINI-BAG PLUS 50 ML IV SCH (04:49)
[2020-01-17 05:40] LABS: BASO # 0.1 10^3/uL (0.0-0.2); BASO % 0.6 % (0.0-1.0); EOS # 0.2 10^3/uL (0.0-0.5); EOS % 2.4 % (0.0-3.0); HEMATOCRIT 33.4 % (36.0-47.0); LYMPH # 2.6 10^3/uL (1.5-5.0); LYMPH % 27.7 % (24.0-44.0); MEAN CORPUSCULAR HEMOGLOBIN 31.5 pg (27.0-33.0); MEAN CORPUSCULAR HGB CONC 32.9 g/dl (32.0-36.5); MEAN CORPUSCULAR VOLUME 95.7 fl (80.0-96.0); MONO # 0.8 10^3/uL (0.0-0.8); NEUTROPHILS # 5.6 10^3/uL (1.5-8.5); NEUTROPHILS % 59.5 % (36.0-66.0); PLATELET COUNT, AUTOMATED 353 10^3/uL (150-450); RED BLOOD COUNT 3.49 10^6/uL (4.00-5.40); WHITE BLOOD COUNT 9.3 10^3/uL (4.0-10.0)
[2020-01-17 05:59] LABS: BLOOD UREA NITROGEN 14 MG/DL (7-18); CALCIUM LEVEL 8.7 MG/DL (8.8-10.2); CARBON DIOXIDE LEVEL 32 MEQ/L (21-32); CHLORIDE LEVEL 104 MEQ/L (98-107); CREATININE FOR GFR 0.77 MG/DL (0.55-1.30); GLOMERULAR FILTRATION RATE > 60.0 (>32); GLUCOSE, FASTING 180 MG/DL (70-100); POTASSIUM SERUM 3.8 MEQ/L (3.5-5.1); SODIUM LEVEL 136 MEQ/L (136-145); VANCOMYCIN LEVEL TROUGH 14.9 UG/ML (10.0-20.0)
[2020-01-17 06:14] VITALS: BP 132/69
[2020-01-17] MEDS: VANCOMYCIN HCL 1,000 MG, VIAL MATE ADAPTER 1 EACH in D5W 250 ML IV SCH (06:16)
[2020-01-17] MEDS: oxyCODONE 5MG TAB PO PRN (06:16)
[2020-01-17 08:09] LABS: PHOSPHORUS LEVEL 2.8 MG/DL (2.5-4.9)
[2020-01-17] MEDS: BACTRIM 160MG/800MG DS TAB PO SCH ×2 (10:03→21:06)
[2020-01-17] MEDS: AUGMENTIN 875 MG TAB PO SCH ×2 (10:03→21:05)
[2020-01-17] MEDS: ASPIRIN 81 MG ENTERIC TAB PO SCH (10:05)
[2020-01-17] MEDS: CALCIUM/VITAMIN D 500 MG TAB PO SCH (10:05)
[2020-01-17] MEDS: LOSARTAN 25 MG TAB PO SCH (10:05)
[2020-01-17] MEDS: ENOXAPARIN 40MG/0.4ML SYRINGE (J1650 PER 10MG) SC SCH (10:06)
[2020-01-17] MEDS: LIDOCAINE 5% (LIDODERM) PATCH TD SCH (10:07)
[2020-01-17 14:00] VITALS: BP 122/62
--- NOTE | 2020-01-17 14:06 | IPNPDOC ---
Subjective Date Seen The patient was seen on 01/17/20. Subjective Chief Complaint/HPI Mrs. Barnett is an 84 year old female here with necrotizing infection of the left breast. Today is POD #5 from initial surgery and POD #2 from debridement. Today, she feels well. She tells me she had a small bowel movement yesterday. No bowel movement yet today although she feels that she can have one soon. Otherwise denies fever/chills, chest pain, shortness of breath, abdominal pain, or dysuria. Cultures grew E.coli and MRSA which were sensitive to Bactrim. Strep sanguins is sensitive to ampicillin, but anaerobic cultures have not finalized. Augmentin would cover anaerobes and Strep sanguin. Pending results from final cultures. 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 Abreu is an 84 year old female with history of breast cancer s/p lumpectomy, chemotherapy, and radiation, here with purulent drainage from wound on L lateral breast. Wound cultures grew MRSA, E.coli, and Strep sanguins. Pending results from anaerobic cultures Plan/VTE VTE Prophylaxis Ordered?: Yes Plan 1. Left breast infection: POD#5 from initial surgery and POD#2 from debridement. Cultures grew E.coli, MRSA, and Strep sanguins. Antibiotics were de-escalated to Bactrim to cover for E.coli and MRSA. Strep sanguins was sensitive to ampicillin. Since anaerobic culture has not returned. Started Augmentin to cover Strep sanguins and anaerobes. Pending anaerobic culture results. 2. DM type 2. Metformin on hold. Currently on ISS. 3. Non-obstructive CAD. Cath on 10/2019, per patient no stent. Continue with aspirin and statin 4. HTN. Continue Losartan 5. Osteoporosis. Continue Calcium and Vitamin D 6. DVT ppx: Lovenox VS, I&O, 24H, Fishbone Vital Signs/I&O Vital Signs Date Time Temp Pulse Resp B/P (MAP) Pulse Ox O2 Delivery O2 Flow Rate FiO2 01/17/20 10:05 132/69 01/17/20 07:59 18 01/17/20 06:14 98.8 69 91 Room Air 01/16/20 06:00 1.0 I&O- Last 24 Hours up to 6 AM 01/17/20 06:00 Intake Total 1600 ml Output Total 1900 ml Balance -300 ml Laboratory Data 24H LABS Laboratory Tests 2 01/16/20 16:41: Bedside Glucose (Misc Panel) 190H 01/16/20 20:49: Bedside Glucose (Misc Panel) 277H 01/17/20 05:24: Immature Granulocyte % (Auto) 1.8, Neutrophils (%) (Auto) 59.5, Lymphocytes (%) (Auto) 27.7, Monocytes (%) (Auto) 8.0H, Eosinophils (%) (Auto) 2.4, Basophils (%) (Auto) 0.6, Neutrophils # (Auto) 5.6, Lymphocytes # (Auto) 2.6, Monocytes # (Auto) 0.8, Eosinophils # (Auto) 0.2, Basophils # (Auto) 0.1, Nucleated Red Blood Cells % (auto) 0.0, Anion Gap 0L, Glomerular Filtration Rate > 60.0, Calcium Level 8.7L, Phosphorus Level 2.8#, Vancomycin Level Trough 14.9 01/17/20 06:16: Bedside Glucose (Misc Panel) 180H 01/17/20 11:35: Bedside Glucose (Misc Panel) 304H CBC/BMP Laboratory Tests 01/17/20 05:24 Microbiology Microbiology 01/12/20 Anaerobic Culture, Received Pending 01/12/20 Gram Stain - Final, Complete 01/12/20 Abscess Culture - Final, Complete Escherichia Coli Staph.aureus Methicillin Resis Streptococcus Sanguinis 01/12/20 Anaerobic Culture, Received Pending 01/12/20 Gram Stain - Final, Resulted 01/12/20 Abscess Culture - Preliminary, Resulted Escherichia Coli Staph.aureus Methicillin Resis 01/12/20 Blood Culture - Preliminary, Resulted No Growth after 72 hours. All specime... ESTER FLANAGAN DO Jan 17, 2020 14:06
--- NOTE | 2020-01-17 20:58 | IPNPDOC ---
Subjective General Date Seen: Jan 17, 2020 (7 am) Subject Chief Complaint/History The patient is a 84-year-old female admitted with a reason for visit of Necrotizing Infection Of The left Breast, s/p Left incision, drainage and debridement of left breast necrotizing soft tissue infection POD5 and second look with re-debridement POD2 wound cx now with 3 organisms, anaerobic cx still pending - there was gram positive marie on gram stain. no acute events over nigh, patient is feeling well sugar was in 300s yesterday Current Medications Current Medications Current Medications Medications (Trade) Dose Ordered Sig/[place] Route PRN Reason Start Time Stop Time Status Last Admin Dose Admin Acetaminophen (Tylenol Tab) 500 mg Q4HP PRN PO PAIN LEVEL 1-4 01/12/20 23:15 01/14/20 21:35 Amoxicillin/ Clavulanate Potassium (Augmentin) 875 mg BID PO 01/17/20 09:00 01/17/20 10:03 Aspirin (Ecotrin) 81 mg DAILY PO 01/13/20 09:00 01/17/20 10:05 Atorvastatin Calcium (Lipitor) 80 mg QHS PO 01/12/20 21:00 01/16/20 20:42 Calcium/Vitamin D (Oscal D) 500 mg DAILY PO 01/13/20 09:00 01/17/20 10:05 Dextrose (Dextrose 50%) 25 ml ASDIRECTED PRN IV SEE LABEL COMMENTS 01/12/20 20:45 Enoxaparin Sodium (Lovenox) 40 mg DAILY SC 01/13/20 09:00 01/17/20 10:06 Fentanyl Citrate (Sublimaze) 25 mcg Q5MP PRN IV PAIN LEVEL 5-10 01/12/20 23:00 01/13/20 00:30 DC Fentanyl Citrate (Sublimaze) 25 mcg Q5MP PRN IV PAIN LEVEL 5-10 01/15/20 19:00 01/15/20 20:00 DC 01/15/20 19:06 Glucagon (Glucagon) 1 mg ASDIRECTED PRN SC SEE LABEL COMMENTS 01/12/20 20:45 Glucose (Glucose) 16 GM ASDIRECTED PRN PO SEE LABEL COMMENTS 01/12/20 20:45 Home Med (Med Rec Complete!) ASDIRECTED XX 01/12/20 20:00 01/12/20 19:55 DC Insulin Human Lispro (HumaLOG INSULIN) SEE PROTOCOL TABLE AC SC 01/13/20 07:30 Hold 01/16/20 12:28 Lactated Ringer's 1,000 ml @ 50 mls/hr Q20H IV 01/15/20 19:00 01/15/20 20:00 DC Lactated Ringer's 1,000 ml @ 100 mls/hr Q10H IV 01/12/20 23:00 01/13/20 00:30 DC Lidocaine (Lidoderm Patch) 3 patch DAILY TD 01/14/20 09:00 01/17/20 10:07 Losartan Potassium (Cozaar) 25 mg DAILY PO 01/13/20 09:00 01/17/20 10:05 Miscellaneous (Unresolved Clarification Entry) SEE LABEL COMMENTS STAT STAT XX 01/12/20 18:41 01/12/20 18:42 DC Morphine Sulfate (Morphine Sulfate Inj) 1 mg Q2H PRN IV PAIN LEVEL 8-10 01/12/20 23:15 Non-Formulary Medication ( See Comment Field Below ) REMOVE LIDODERM PATCH DAILY@21 XX 01/14/20 21:00 01/14/20 21:24 Ondansetron HCl (ZOFRAN INJection) 4 mg Q4HP PRN IV NAUSEA OR VOMITING 01/12/20 23:00 01/13/20 00:30 DC Ondansetron HCl (ZOFRAN INJection) 4 mg Q4HP PRN IV NAUSEA OR VOMITING 01/15/20 19:00 01/15/20 20:00 DC Ondansetron HCl (ZOFRAN INJection) 4 mg Q6HP PRN IV NAUSEA OR VOMITING 01/12/20 23:15 Oxycodone HCl (Roxicodone, Oxyir) 5 mg ASDIRECTED PRN PO PAIN LEVEL 1-4 01/15/20 19:00 01/15/20 20:00 DC Oxycodone HCl (Roxicodone, Oxyir) 5 mg Q6HP PRN PO PAIN LEVEL 5-7 01/12/20 23:15 01/17/20 06:16 Piperacillin Sod/ Tazobactam Sod 4.5 gm/Dextrose 50 ml @ 50 mls/hr Q8H IV 01/12/20 20:00 01/17/20 08:47 DC 01/17/20 04:49 Sodium Chloride 1,000 ml @ 50 mls/hr Q20H IV 01/12/20 18:29 01/15/20 18:54 DC 01/15/20 08:02 Trimethoprim/ Sulfamethoxazole (Bactrim Ds, Septra Ds 160mg/ 800mg) 1 tab BID PO 01/17/20 09:00 01/17/20 10:03 Vancomycin HCl 1000 mg/IV Miscellaneous Supplies 1 each/ Dextrose 270 ml @ 270 mls/hr Q12H IV 01/13/20 06:00 01/14/20 06:37 DC 01/13/20 18:58 Vancomycin HCl 1000 mg/IV Miscellaneous Supplies 1 each/ Dextrose 270 ml @ 270 mls/hr Q18H IV 01/14/20 06:00 01/17/20 08:47 DC 01/17/20 06:16 Allergies Coded Allergies: No Known Drug Allergies (Verified Allergy, Unknown, 01/12/20) Objective Physical Examination Examination GENERAL APPEARANCE: Patient seen, laying in bed, awake, alert, and oriented. Comfortable, in no acute distress. SKIN: cellulitis of the left breast is much decreased Extension to the right breast resolved, BREAST: cellulitis of the left breast is decreased, still some tenderness laterally but improved. Extension to the right breast resolved, Lateral incision partially closed with Nylon suture. Susan drain is in place with some s/s drainage. No purulent drainage or dishwater drainage present, no foul smell HEENT: Normocephalic, atraumatic. NECK: Supple, LUNGS: breathing comfortably on room air HEART: no tachycardia ABDOMEN: Abdomen is soft EXTREMITIES: moving bilateral upper extremities without any issues Vital Signs Vital Signs Vital Signs Date Time Temp Pulse Resp B/P (MAP) Pulse Ox O2 Delivery O2 Flow Rate FiO2 01/17/20 14:00 99.1 87 18 122/62 (82) 100 Room Air 01/16/20 06:00 1.0 I&Os I&O- Last 24 Hours up to 6 AM 01/17/20 06:00 Intake Total 1600 ml Output Total 1900 ml Balance -300 ml Laboratory Data Labs 24H Laboratory Tests 2 01/17/20 05:24: Immature Granulocyte % (Auto) 1.8, Neutrophils (%) (Auto) 59.5, Lymphocytes (%) (Auto) 27.7, Monocytes (%) (Auto) 8.0H, Eosinophils (%) (Auto) 2.4, Basophils (%) (Auto) 0.6, Neutrophils # (Auto) 5.6, Lymphocytes # (Auto) 2.6, Monocytes # (Auto) 0.8, Eosinophils # (Auto) 0.2, Basophils # (Auto) 0.1, Nucleated Red Blood Cells % (auto) 0.0, Anion Gap 0L, Glomerular Filtration Rate > 60.0, Calcium Level 8.7L, Phosphorus Level 2.8#, Vancomycin Level Trough 14.9 01/17/20 06:16: Bedside Glucose (Misc Panel) 180H 01/17/20 11:35: Bedside Glucose (Misc Panel) 304H 01/17/20 16:49: Bedside Glucose (Misc Panel) 174H 01/17/20 20:27: Bedside Glucose (Misc Panel) 209H CBC/BMP Laboratory Tests 01/17/20 05:24 Microbiology Microbiology 01/12/20 Anaerobic Culture, Received Pending 01/12/20 Gram Stain - Final, Complete 01/12/20 Abscess Culture - Final, Complete Escherichia Coli Staph.aureus Methicillin Resis Streptococcus Sanguinis 01/12/20 Anaerobic Culture, Received Pending 01/12/20 Gram Stain - Final, Resulted 01/12/20 Abscess Culture - Preliminary, Resulted Escherichia Coli Staph.aureus Methicillin Resis 01/12/20 Blood Culture - Final, Complete NO GROWTH AFTER 5 DAYS Impression Necrotizing Infection Of The left Breast, s/p Left incision, drainage and debridement of left breast necrotizing soft tissue infection POD5 and second look with re-debridement POD2 History of left breast cancer, status post lumpectomy plus RT Left breast fat necrosis Left breast chronic wound Diabetes mellitus Hypertension Deafness Hx cardiac cath - wound care per shannan Gardner to change ABD per nursing staff if some s/s drainage on the outside of dressing - keep susan in place - wound cx growing MRSA, E coli and Sterp sanguini, prelim blood cx negative, awaiting anaerobic cultures - antibiotics management per hospitalist team - AM labs reviewed - Vitals per protocol - pain control - continue home meds, including ASA - Incentive spirometer postop - ambulate with assistance postop - DVT ppx Plan / VTE VTE Prophylaxis Ordered?: Yes MILLI PRABHAKAR DO Jan 17, 2020 20:58
[2020-01-17] MEDS: ATORVASTATIN 20 MG TAB PO SCH (21:06)
[2020-01-17 22:00] VITALS: BP 136/67
[2020-01-18 06:00] VITALS: BP 135/61
[2020-01-18 06:40] LABS: BASO # 0.1 10^3/uL (0.0-0.2); BASO % 0.6 % (0.0-1.0); EOS # 0.2 10^3/uL (0.0-0.5); EOS % 2.3 % (0.0-3.0); HEMATOCRIT 35.9 % (36.0-47.0); HEMOGLOBIN 11.6 g/dl (12.0-15.5); LYMPH # 2.6 10^3/uL (1.5-5.0); LYMPH % 30.3 % (24.0-44.0); MEAN CORPUSCULAR HEMOGLOBIN 30.9 pg (27.0-33.0); MEAN CORPUSCULAR HGB CONC 32.3 g/dl (32.0-36.5); MEAN CORPUSCULAR VOLUME 95.7 fl (80.0-96.0); MONO # 0.8 10^3/uL (0.0-0.8); MONO % 9.3 % (0.0-5.0); NEUTROPHILS # 4.8 10^3/uL (1.5-8.5); NEUTROPHILS % 55.5 % (36.0-66.0); PLATELET COUNT, AUTOMATED 385 10^3/uL (150-450); RED BLOOD COUNT 3.75 10^6/uL (4.00-5.40); WHITE BLOOD COUNT 8.6 10^3/uL (4.0-10.0)
[2020-01-18 07:07] LABS: BLOOD UREA NITROGEN 14 MG/DL (7-18); CARBON DIOXIDE LEVEL 29 MEQ/L (21-32); CHLORIDE LEVEL 102 MEQ/L (98-107); CREATININE FOR GFR 0.72 MG/DL (0.55-1.30); GLOMERULAR FILTRATION RATE > 60.0 (>32); GLUCOSE, FASTING 185 MG/DL (70-100); POTASSIUM SERUM 4.4 MEQ/L (3.5-5.1); SODIUM LEVEL 136 MEQ/L (136-145)
[2020-01-18] MEDS: ASPIRIN 81 MG ENTERIC TAB PO SCH (08:56)
[2020-01-18] MEDS: BACTRIM 160MG/800MG DS TAB PO SCH ×2 (08:56→20:23)
[2020-01-18] MEDS: LIDOCAINE 5% (LIDODERM) PATCH TD SCH (08:56)
[2020-01-18] MEDS: AUGMENTIN 875 MG TAB PO SCH ×2 (08:56→20:22)
[2020-01-18] MEDS: CALCIUM/VITAMIN D 500 MG TAB PO SCH (08:57)
[2020-01-18] MEDS: ENOXAPARIN 40MG/0.4ML SYRINGE (J1650 PER 10MG) SC SCH (08:57)
[2020-01-18] MEDS: LOSARTAN 25 MG TAB PO SCH (08:57)
--- NOTE | 2020-01-18 10:03 | IPNPDOC ---
Subjective General Date Seen: Jan 18, 2020 (7 am) Subject Chief Complaint/History The patient is a 84-year-old female admitted with a reason for visit of Necrotizing Infection Of The left Breast, s/p Left incision, drainage and debridement of left breast necrotizing soft tissue infection POD6 and second look with re-debridement POD3 wound cx now with 4 organisms, anaerobic cx resulted. no acute events over nigh, patient is feeling well although she admits to some coughs no fevers, leukocytosis resolved Current Medications Current Medications Current Medications Medications (Trade) Dose Ordered Sig/[place] Route PRN Reason Start Time Stop Time Status Last Admin Dose Admin Acetaminophen (Tylenol Tab) 500 mg Q4HP PRN PO PAIN LEVEL 1-4 01/12/20 23:15 01/14/20 21:35 Amoxicillin/ Clavulanate Potassium (Augmentin) 875 mg BID PO 01/17/20 09:00 01/18/20 08:56 Aspirin (Ecotrin) 81 mg DAILY PO 01/13/20 09:00 01/18/20 08:56 Atorvastatin Calcium (Lipitor) 80 mg QHS PO 01/12/20 21:00 01/17/20 21:06 Calcium/Vitamin D (Oscal D) 500 mg DAILY PO 01/13/20 09:00 01/18/20 08:57 Dextrose (Dextrose 50%) 25 ml ASDIRECTED PRN IV SEE LABEL COMMENTS 01/12/20 20:45 Enoxaparin Sodium (Lovenox) 40 mg DAILY SC 01/13/20 09:00 01/18/20 08:57 Fentanyl Citrate (Sublimaze) 25 mcg Q5MP PRN IV PAIN LEVEL 5-10 01/12/20 23:00 01/13/20 00:30 DC Fentanyl Citrate (Sublimaze) 25 mcg Q5MP PRN IV PAIN LEVEL 5-10 01/15/20 19:00 01/15/20 20:00 DC 01/15/20 19:06 Glucagon (Glucagon) 1 mg ASDIRECTED PRN SC SEE LABEL COMMENTS 01/12/20 20:45 Glucose (Glucose) 16 GM ASDIRECTED PRN PO SEE LABEL COMMENTS 01/12/20 20:45 Home Med (Med Rec Complete!) ASDIRECTED XX 01/12/20 20:00 01/12/20 19:55 DC Insulin Human Lispro (HumaLOG INSULIN) SEE PROTOCOL TABLE AC SC 01/13/20 07:30 Hold 01/16/20 12:28 Lactated Ringer's 1,000 ml @ 50 mls/hr Q20H IV 01/15/20 19:00 01/15/20 20:00 DC Lactated Ringer's 1,000 ml @ 100 mls/hr Q10H IV 01/12/20 23:00 01/13/20 00:30 DC Lidocaine (Lidoderm Patch) 3 patch DAILY TD 01/14/20 09:00 01/18/20 08:56 Losartan Potassium (Cozaar) 25 mg DAILY PO 01/13/20 09:00 01/18/20 08:57 Miscellaneous (Unresolved Clarification Entry) SEE LABEL COMMENTS STAT STAT XX 01/12/20 18:41 01/12/20 18:42 DC Morphine Sulfate (Morphine Sulfate Inj) 1 mg Q2H PRN IV PAIN LEVEL 8-10 01/12/20 23:15 Non-Formulary Medication ( See Comment Field Below ) REMOVE LIDODERM PATCH DAILY@21 XX 01/14/20 21:00 01/17/20 21:06 Ondansetron HCl (ZOFRAN INJection) 4 mg Q4HP PRN IV NAUSEA OR VOMITING 01/12/20 23:00 01/13/20 00:30 DC Ondansetron HCl (ZOFRAN INJection) 4 mg Q4HP PRN IV NAUSEA OR VOMITING 01/15/20 19:00 01/15/20 20:00 DC Ondansetron HCl (ZOFRAN INJection) 4 mg Q6HP PRN IV NAUSEA OR VOMITING 01/12/20 23:15 Oxycodone HCl (Roxicodone, Oxyir) 5 mg ASDIRECTED PRN PO PAIN LEVEL 1-4 01/15/20 19:00 01/15/20 20:00 DC Oxycodone HCl (Roxicodone, Oxyir) 5 mg Q6HP PRN PO PAIN LEVEL 5-7 01/12/20 23:15 01/17/20 06:16 Piperacillin Sod/ Tazobactam Sod 4.5 gm/Dextrose 50 ml @ 50 mls/hr Q8H IV 01/12/20 20:00 01/17/20 08:47 DC 01/17/20 04:49 Sodium Chloride 1,000 ml @ 50 mls/hr Q20H IV 01/12/20 18:29 01/15/20 18:54 DC 01/15/20 08:02 Trimethoprim/ Sulfamethoxazole (Bactrim Ds, Septra Ds 160mg/ 800mg) 1 tab BID PO 01/17/20 09:00 01/18/20 08:56 Vancomycin HCl 1000 mg/IV Miscellaneous Supplies 1 each/ Dextrose 270 ml @ 270 mls/hr Q12H IV 01/13/20 06:00 01/14/20 06:37 DC 01/13/20 18:58 Vancomycin HCl 1000 mg/IV Miscellaneous Supplies 1 each/ Dextrose 270 ml @ 270 mls/hr Q18H IV 01/14/20 06:00 01/17/20 08:47 DC 01/17/20 06:16 Allergies Coded Allergies: No Known Drug Allergies (Verified Allergy, Unknown, 01/12/20) Objective Physical Examination Examination GENERAL APPEARANCE: Patient seen, awake, alert, and oriented. Comfortable, in no acute distress. SKIN: cellulitis of the left breast is much decreased, Extension to the right breast resolved, BREAST: cellulitis of the left breast is decreased, still some tenderness laterally but improved. Extension to the right breast resolved, Lateral incision partially closed with Nylon suture. Otto drain is in place with some s/s drainage. No purulent drainage or dishwater drainage present, no foul smell HEENT: Normocephalic, atraumatic. NECK: Supple, LUNGS: breathing comfortably on room air HEART: no tachycardia ABDOMEN: Abdomen is soft EXTREMITIES: moving bilateral upper extremities without any issues Vital Signs Vital Signs Date Time Temp Pulse Resp B/P (MAP) Pulse Ox O2 Delivery O2 Flow Rate FiO2 01/18/20 08:57 135/61 01/18/20 06:00 98.1 82 18 92 Room Air 01/16/20 06:00 1.0 I&Os I&O- Last 24 Hours up to 6 AM 01/18/20 06:00 Intake Total 1630 ml Output Total 4800 ml Balance -3170 ml Laboratory Data Labs 24H Laboratory Tests 2 01/17/20 11:35: Bedside Glucose (Misc Panel) 304H 01/17/20 16:49: Bedside Glucose (Misc Panel) 174H 01/17/20 20:27: Bedside Glucose (Misc Panel) 209H 01/18/20 05:58: Bedside Glucose (Misc Panel) 186H 01/18/20 06:17: Immature Granulocyte % (Auto) 2.0, Neutrophils (%) (Auto) 55.5, Lymphocytes (%) (Auto) 30.3, Monocytes (%) (Auto) 9.3H, Eosinophils (%) (Auto) 2.3, Basophils (%) (Auto) 0.6, Neutrophils # (Auto) 4.8, Lymphocytes # (Auto) 2.6, Monocytes # (Auto) 0.8, Eosinophils # (Auto) 0.2, Basophils # (Auto) 0.1, Nucleated Red Blood Cells % (auto) 0.0, Anion Gap 5L, Glomerular Filtration Rate > 60.0, Calcium Level 9.0 CBC/BMP Laboratory Tests 01/18/20 06:17 Microbiology Microbiology 01/12/20 Anaerobic Culture - Final, Complete Anaerobic Cocci Bacteroides Ovatus/Thetaiotaom Anaerobic Cocci#2 01/12/20 Gram Stain - Final, Complete 01/12/20 Abscess Culture - Final, Complete Escherichia Coli Staph.aureus Methicillin Resis Streptococcus Sanguinis 01/12/20 Anaerobic Culture - Final, Complete Anaerobic Cocci Bacteroides Ovatus/Thetaiotaom 01/12/20 Gram Stain - Final, Resulted 01/12/20 Abscess Culture - Preliminary, Resulted Escherichia Coli Staph.aureus Methicillin Resis Streptococcus Anginosus Grp 01/12/20 Blood Culture - Final, Complete NO GROWTH AFTER 5 DAYS Impression Necrotizing Infection Of The left Breast, s/p Left incision, drainage and debridement of left breast necrotizing soft tissue infection POD6 and second look with re-debridement POD3 History of left breast cancer, status post lumpectomy plus RT Left breast fat necrosis Left breast chronic wound Diabetes mellitus Hypertension Deafness Hx cardiac cath - wound care per shannan Gardner to change ABD per nursing staff if some s/s drainage on the outside of dressing - keep joyce in place - wound cx finalized, blood cx negative - antibiotics management per hospitalist team, will need oral Abx at dc - AM labs reviewed - Vitals per protocol - pain control - continue home meds, including ASA - Incentive spirometer encouraged, especially with some coughs - ambulate with assistance postop - DVT ppx - ok to start d/c planning from surgical point if medically appropriate, would still want to clean the wound tomorrow AM and possibly d/c later tomorrow Plan / VTE VTE Prophylaxis Ordered?: Yes MILLI PRABHAKAR DO Jan 18, 2020 10:00
[2020-01-18] MEDS: metroNIDAZOLE (FLAGYL) 500MG TABLET PO SCH ×2 (12:26→20:23)
--- NOTE | 2020-01-18 12:49 | IPNPDOC ---
Subjective Date Seen The patient was seen on 01/18/20. Subjective Chief Complaint/HPI Mrs. Barnett is an 84 year old female here with necrotizing infection of the left breast. Today is POD #6 from initial surgery and POD #3 from debridement. No events overnight. She has not had a good bowel movement in 2 days. Today she tried prune juice. She also wants to try walking. Otherwise, her other anaerobic culture grew bacteroides. Spoke with antibiotic stewardship. They recommended double coverage for anaerobes. 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 Abreu is an 84 year old female with history of breast cancer s/p lumpectomy, chemotherapy, and radiation, here with purulent drainage from wound on L lateral breast. Wound cultures grew MRSA, E.coli, and Strep sanguins. Anaerobic cultures grew bacteroides ovatus/thetaiotaom. Plan/VTE VTE Prophylaxis Ordered?: Yes Plan 1. Left breast infection: POD#6 from initial surgery and POD#3 from debridement. Cultures grew E.coli, MRSA, and Strep sanguins. Antibiotics were de-escalated to Bactrim to cover for E.coli and MRSA. Strep sanguins was sensitive to ampicillin. Anaerobic culture grew bacteroides and other anaerobic cocci. Spoke with antibiotic strewardship antibiotics. Recommended double coverage for the anaerobes. Will continue Augmentin and added on Flagyl. Will add on Probiotics. Plan for at total of 14 day course of antibiotics. 2. DM type 2. Metformin on hold. Currently on ISS. 3. Non-obstructive CAD. Cath on 10/2019, per patient no stent. Continue with aspirin and statin 4. HTN. Continue Losartan 5. Osteoporosis. Continue Calcium and Vitamin D 6. DVT ppx: Lovenox Dispo: Will start discharge planning from medical standpoint. Possible discharge tomorrow afternoon VS, I&O, 24H, Fishbone Vital Signs/I&O Vital Signs Date Time Temp Pulse Resp B/P (MAP) Pulse Ox O2 Delivery O2 Flow Rate FiO2 01/18/20 08:57 135/61 01/18/20 06:00 98.1 82 18 92 Room Air 01/16/20 06:00 1.0 I&O- Last 24 Hours up to 6 AM 01/18/20 06:00 Intake Total 1630 ml Output Total 4800 ml Balance -3170 ml Laboratory Data 24H LABS Laboratory Tests 2 01/17/20 16:49: Bedside Glucose (Misc Panel) 174H 01/17/20 20:27: Bedside Glucose (Misc Panel) 209H 01/18/20 05:58: Bedside Glucose (Misc Panel) 186H 01/18/20 06:17: Immature Granulocyte % (Auto) 2.0, Neutrophils (%) (Auto) 55.5, Lymphocytes (%) (Auto) 30.3, Monocytes (%) (Auto) 9.3H, Eosinophils (%) (Auto) 2.3, Basophils (%) (Auto) 0.6, Neutrophils # (Auto) 4.8, Lymphocytes # (Auto) 2.6, Monocytes # (Auto) 0.8, Eosinophils # (Auto) 0.2, Basophils # (Auto) 0.1, Nucleated Red Blood Cells % (auto) 0.0, Anion Gap 5L, Glomerular Filtration Rate > 60.0, Calcium Level 9.0 01/18/20 12:02: Bedside Glucose (Misc Panel) 332H CBC/BMP Laboratory Tests 01/18/20 06:17 Microbiology Microbiology 01/12/20 Anaerobic Culture - Final, Complete Anaerobic Cocci Bacteroides Ovatus/Thetaiotaom Anaerobic Cocci#2 01/12/20 Gram Stain - Final, Complete 01/12/20 Abscess Culture - Final, Complete Escherichia Coli Staph.aureus Methicillin Resis Streptococcus Sanguinis 01/12/20 Anaerobic Culture - Final, Complete Anaerobic Cocci Bacteroides Ovatus/Thetaiotaom 01/12/20 Gram Stain - Final, Complete 01/12/20 Abscess Culture - Final, Complete Escherichia Coli Staph.aureus Methicillin Resis Streptococcus Anginosus Grp Streptococcus Viridans Group 01/12/20 Blood Culture - Final, Complete NO GROWTH AFTER 5 DAYS ESTER FLANAGAN DO Jan 18, 2020 12:49
[2020-01-18 14:00] VITALS: BP 131/66
[2020-01-18] MEDS: ATORVASTATIN 20 MG TAB PO SCH (20:23)
[2020-01-18 22:00] VITALS: BP 130/69
[2020-01-19] MEDS: metroNIDAZOLE (FLAGYL) 500MG TABLET PO SCH (04:23)
[2020-01-19 06:00] VITALS: BP 134/65
[2020-01-19 06:53] LABS: BASO # 0.1 10^3/uL (0.0-0.2); EOS # 0.2 10^3/uL (0.0-0.5); EOS % 2.7 % (0.0-3.0); HEMATOCRIT 36.7 % (36.0-47.0); HEMOGLOBIN 12.2 g/dl (12.0-15.5); LYMPH % 25.7 % (24.0-44.0); MEAN CORPUSCULAR HEMOGLOBIN 31.8 pg (27.0-33.0); MEAN CORPUSCULAR HGB CONC 33.2 g/dl (32.0-36.5); MEAN CORPUSCULAR VOLUME 95.6 fl (80.0-96.0); MONO # 0.7 10^3/uL (0.0-0.8); MONO % 9.3 % (0.0-5.0); NEUTROPHILS # 4.6 10^3/uL (1.5-8.5); NEUTROPHILS % 58.5 % (36.0-66.0); PLATELET COUNT, AUTOMATED 417 10^3/uL (150-450); RED BLOOD COUNT 3.84 10^6/uL (4.00-5.40); WHITE BLOOD COUNT 7.8 10^3/uL (4.0-10.0)
[2020-01-19 07:15] LABS: BLOOD UREA NITROGEN 13 MG/DL (7-18); CALCIUM LEVEL 9.2 MG/DL (8.8-10.2); CARBON DIOXIDE LEVEL 27 MEQ/L (21-32); CHLORIDE LEVEL 101 MEQ/L (98-107); CREATININE FOR GFR 0.82 MG/DL (0.55-1.30); GLOMERULAR FILTRATION RATE > 60.0 (>32); GLUCOSE, FASTING 215 MG/DL (70-100); POTASSIUM SERUM 4.4 MEQ/L (3.5-5.1); SODIUM LEVEL 133 MEQ/L (136-145)
[2020-01-19] MEDS ORDERED: LACTOBACILLUS ACIDOPHILUS CAP (BACID) PO SCH (09:00)
[2020-01-19] MEDS: CALCIUM/VITAMIN D 500 MG TAB PO SCH (09:14)
[2020-01-19] MEDS: BACTRIM 160MG/800MG DS TAB PO SCH (09:14)
[2020-01-19] MEDS: ENOXAPARIN 40MG/0.4ML SYRINGE (J1650 PER 10MG) SC SCH (09:15)
[2020-01-19] MEDS: ASPIRIN 81 MG ENTERIC TAB PO SCH (09:16)
[2020-01-19] MEDS: AUGMENTIN 875 MG TAB PO SCH (09:16)
[2020-01-19] MEDS: LIDOCAINE 5% (LIDODERM) PATCH TD SCH (09:17)
[2020-01-19 09:18] VITALS: BP 142/70
[2020-01-19] MEDS: LOSARTAN 25 MG TAB PO SCH (09:18)
[2020-01-19] MEDS ORDERED: SULF1TAB93 PO (10:08)
[2020-01-19] MEDS ORDERED: PROBCAP14 PO (10:08)
[2020-01-19] MEDS ORDERED: AMOX875T2 PO (10:08)
[2020-01-19] MEDS ORDERED: METR-265 PO (10:08)
--- NOTE | 2020-01-19 18:30 | DS.PDOC ---
Discharge Summary General Date of Admission Jan 12, 2020 at 18:23 Date of Discharge Jan 19, 2020 Attending Physician: ESTER FLANAGAN DO Specialist/[facility], Dr. Menendez Discharge Summary PROCEDURES PERFORMED DURING STAY: Debridement of necrotizing breast infection x2 ADMITTING DIAGNOSES: 1. Necrotizing left breast infection 2. Diabetes Mellitus Type 2 3. Non-obstructive CAD 4. Hypertension 5. Osteoporosis DISCHARGE DIAGNOSES: 1. Necrotizing left breast infection 2. Diabetes Mellitus Type 2 3. Non-obstructive CAD 4. Hypertension 5. Osteoporosis COMPLICATIONS/CHIEF COMPLAINT: Necrotizing Infection Of The Breast. HISTORY OF PRESENT ILLNESS: Mrs. Abreu is an 84 year old female with history of breast cancer (1983, s/p lumpectomy, chemotherapy, and radiation) and calcified breast collection who was sent here from the Breast Surgery clinic for worsening purulent drainage from a wound on the left lateral breast. At time of admission, she denies fever/chills, N/V, diarrhea. She was put on broad spectrum antibiotics with Vancomycin and Zosyn HOSPITAL COURSE: She was initially taken down to surgery on 01/12/2020 where cultures were obtained. Cultures returned positive for MRSA and E.coli sensitive to Bactrim as well as Strep sanguine that was sensitive to ampicillin. Anaerobic cultures also were positive. She was then taken down again for re-debridement on 01/15/2020. Anaerobic cultures took a few days to return which was positive for Bacteroides Ovatus/Thetaiotaom and two anaerobic cocci. Spoke with the antibiotic stewardship which recommended double coverage for the anaerobes with Augmentin and Flagyl. Today, she was feeling well. Denied fever/chills, dyspnea, chest pain, abdominal pain, diarrhea, or dysuria. She had some constipation. Recommended ambulation and hydration and OTC laxatives. Denied any problems overnight. The breast surgeon was okay with her going home and she was discharged in the morning. DISCHARGE MEDICATIONS: Please see below. ALLERGIES: Please see below. PHYSICAL EXAMINATION ON DISCHARGE: VITAL SIGNS: Please see below. GENERAL: Comfortable, in no apparent distress HEENT: Head normocephalic/atraumatic, EOMI, sclera clear, pupils equal and round NECK: Supple CARDIOVASCULAR EXAMINATION: Regular rate and rhythm RESPIRATORY EXAMINATION: Lungs clear to auscultation bilaterally ABDOMINAL EXAMINATION: Soft, non-tender, normal bowel sounds EXTREMITIES: Mild pitting edema bilaterally NEUROLOGICAL EXAMINATION: Deaf otherwise CN 3-12 grossly intact PSYCHIATRIC EXAMINATION: Normal mood and affect LABORATORY DATA: Please see below. PROGNOSIS: Stable ACTIVITY: [As tolerated]. DIET: Carbohydrate consistent DISCHARGE PLAN: Home DISPOSITION: Home Health Service. DISCHARGE INSTRUCTIONS: 1. Follow up with your PCP in a week 2. Follow up with your breast surgeon in a week 3. Continue Bactrim, Augmentin, and Flagyl for 7 more days for a total of 14 day course DISCHARGE CONDITION: [Stable]. Total time spent on discharge planning, discharge summary, and medication re conciliation 45 minutes Vital Signs/I&Os Vital Signs Date Time Temp Pulse Resp B/P (MAP) Pulse Ox O2 Delivery O2 Flow Rate FiO2 01/19/20 09:18 142/70 01/19/20 06:00 98.0 81 18 90 Room Air 01/16/20 06:00 1.0 I&O- Last 24 Hours up to 6 AM 01/19/20 06:00 Intake Total 1190 ml Output Total 0 ml Balance 1190 ml Laboratory Data Labs 24H Laboratory Tests 2 01/18/20 16:50: Bedside Glucose (Misc Panel) 218H 01/18/20 20:12: Bedside Glucose (Misc Panel) 241H 01/19/20 06:17: Bedside Glucose (Misc Panel) 207H 01/19/20 06:35: Immature Granulocyte % (Auto) 2.8, Neutrophils (%) (Auto) 58.5, Lymphocytes (%) (Auto) 25.7, Monocytes (%) (Auto) 9.3H, Eosinophils (%) (Auto) 2.7, Basophils ( %) (Auto) 1.0, Neutrophils # (Auto) 4.6, Lymphocytes # (Auto) 2.0, Monocytes # (Auto) 0.7, Eosinophils # (Auto) 0.2, Basophils # (Auto) 0.1, Nucleated Red Blood Cells % (auto) 0.0, Anion Gap 5L, Glomerular Filtration Rate > 60.0, Calcium Level 9.2 CBC/BMP Laboratory Tests 01/19/20 06:35 FSBS Laboratory Tests Test 01/18/20 16:50 01/18/20 20:12 01/19/20 06:17 Range/Units Bedside Glucose (Misc Panel) 218 241 207 83-110 MG/DL Microbiology Microbiology 01/12/20 Anaerobic Culture - Final, Complete Anaerobic Cocci Bacteroides Ovatus/Thetaiotaom Anaerobic Cocci#2 01/12/20 Gram Stain - Final, Complete 01/12/20 Abscess Culture - Final, Complete Escherichia Coli Staph.aureus Methicillin Resis Streptococcus Sanguinis 01/12/20 Anaerobic Culture - Final, Complete Anaerobic Cocci Bacteroides Ovatus/Thetaiotaom 01/12/20 Gram Stain - Final, Complete 01/12/20 Abscess Culture - Final, Complete Escherichia Coli Staph.aureus Methicillin Resis Streptococcus Anginosus Grp Streptococcus Viridans Group 01/12/20 Blood Culture - Final, Complete NO GROWTH AFTER 5 DAYS Discharge Medications Scheduled Amoxicillin/Potassium Clav (Amox-Clav 875-125 mg Tablet) 1 Each Tablet, 875 MG PO BID Aspirin (Aspir 81) 81 Mg Tablet.dr, 81 MG PO DAILY, (Reported) Atorvastatin Calcium (Atorvastatin Calcium) 80 Mg Tab, 80 MG PO QHS, (Reported) Calcium Carbonate/Vitamin D3 (Calcium 500-Vit D3 400 Tablet) 1 Tab Tab, 1 TAB PO DAILY, (Reported) Canagliflozin (Invokana) 300 Mg Tab, 300 MG PO DAILY, (Reported) Lactobacillus Acidophilus (Probiotic) 1 Each Capsule, 1 CAP PO DAILY Losartan Potassium (Losartan Potassium) 25 Mg Tab, 25 MG PO DAILY, (Reported) Metformin HCl (Metformin HCl ER) 500 Mg Tab.er.24h, 1,000 MG PO QHS, (Reported) Metronidazole (Metronidazole) 500 Mg Tablet, 500 MG PO Q8H Multivitamin (Multivitamins) 1 Each Capsule, 1 CAP PO DAILY, (Reported) Sitagliptin Phosphate (Januvia) 100 Mg Tab, 100 MG PO DAILY, (Reported) Sulfamethoxazole/Trimethoprim (Sulfamethoxazole-Tmp Ds Tablet) 1 Each Tablet, 1 TAB PO BID Vit C/E/Zn/Coppr/Lutein/Zeaxan (Preservision Areds 2 Softgel) 1 Each Capsule, 1 CAP PO BID, (Reported) Allergies Coded Allergies: No Known Drug Allergies (Verified Allergy, Unknown, 01/12/20) ESTER FLANAGAN DO Jan 19, 2020 14:33
--- NOTE | 2020-01-21 13:14 | IPNPDOC ---
Subjective General Date Seen: Jan 19, 2020 (7:20 am) Subject Chief Complaint/History The patient is a 84-year-old female admitted with a reason for visit of Necrotizing Infection Of The left Breast, s/p Left incision, drainage and debridement of left breast necrotizing soft tissue infection POD7 and second look with re-debridement POD4 wound cx now with 4 organisms, anaerobic cx resulted. no acute events over nigh, patient is feeling well no fevers, leukocytosis resolved Current Medications Current Medications Current Medications Medications (Trade) Dose Ordered Sig/[place] Route PRN Reason Start Time Stop Time Status Last Admin Dose Admin Acetaminophen (Tylenol Tab) 500 mg Q4HP PRN PO PAIN LEVEL 1-4 01/12/20 23:15 01/19/20 11:46 DC 01/14/20 21:35 Amoxicillin/ Clavulanate Potassium (Augmentin) 875 mg BID PO 01/17/20 09:00 01/19/20 11:46 DC 01/19/20 09:16 Aspirin (Ecotrin) 81 mg DAILY PO 01/13/20 09:00 01/19/20 11:46 DC 01/19/20 09:16 Atorvastatin Calcium (Lipitor) 80 mg QHS PO 01/12/20 21:00 01/19/20 11:46 DC 01/18/20 20:23 Calcium/Vitamin D (Oscal D) 500 mg DAILY PO 01/13/20 09:00 01/19/20 11:46 DC 01/19/20 09:14 Dextrose (Dextrose 50%) 25 ml ASDIRECTED PRN IV SEE LABEL COMMENTS 01/12/20 20:45 01/19/20 11:46 DC Enoxaparin Sodium (Lovenox) 40 mg DAILY SC 01/13/20 09:00 01/19/20 11:46 DC 01/19/20 09:15 Fentanyl Citrate (Sublimaze) 25 mcg Q5MP PRN IV PAIN LEVEL 5-10 01/12/20 23:00 01/13/20 00:30 DC Fentanyl Citrate (Sublimaze) 25 mcg Q5MP PRN IV PAIN LEVEL 5-10 01/15/20 19:00 01/15/20 20:00 DC 01/15/20 19:06 Glucagon (Glucagon) 1 mg ASDIRECTED PRN SC SEE LABEL COMMENTS 01/12/20 20:45 01/19/20 11:46 DC Glucose (Glucose) 16 GM ASDIRECTED PRN PO SEE LABEL COMMENTS 01/12/20 20:45 01/19/20 11:46 DC Home Med (Med Rec Complete!) ASDIRECTED XX 01/12/20 20:00 01/12/20 19:55 DC Insulin Human Lispro (HumaLOG INSULIN) SEE PROTOCOL TABLE AC SC 01/13/20 07:30 01/19/20 11:46 DC 01/16/20 12:28 Lactated Ringer's 1,000 ml @ 50 mls/hr Q20H IV 01/15/20 19:00 01/15/20 20:00 DC Lactated Ringer's 1,000 ml @ 100 mls/hr Q10H IV 01/12/20 23:00 01/13/20 00:30 DC Lactobacillus Acidophilus (Bacid) 1 ea DAILY PO 01/19/20 09:00 01/19/20 11:46 DC 01/19/20 09:14 Lidocaine (Lidoderm Patch) 3 patch DAILY TD 01/14/20 09:00 01/19/20 11:46 DC 01/19/20 09:17 Losartan Potassium (Cozaar) 25 mg DAILY PO 01/13/20 09:00 01/19/20 11:46 DC 01/19/20 09:18 Metronidazole (Flagyl) 500 mg Q8H PO 01/18/20 12:00 01/19/20 11:46 DC 01/19/20 04:23 Miscellaneous (Unresolved Clarification Entry) SEE LABEL COMMENTS STAT STAT XX 01/12/20 18:41 01/12/20 18:42 DC Morphine Sulfate (Morphine Sulfate Inj) 1 mg Q2H PRN IV PAIN LEVEL 8-10 01/12/20 23:15 01/19/20 11:46 DC Non-Formulary Medication ( See Comment Field Below ) REMOVE LIDODERM PATCH DAILY@21 XX 01/14/20 21:00 01/19/20 11:46 DC 01/18/20 20:24 Ondansetron HCl (ZOFRAN INJection) 4 mg Q4HP PRN IV NAUSEA OR VOMITING 01/12/20 23:00 01/13/20 00:30 DC Ondansetron HCl (ZOFRAN INJection) 4 mg Q4HP PRN IV NAUSEA OR VOMITING 01/15/20 19:00 01/15/20 20:00 DC Ondansetron HCl (ZOFRAN INJection) 4 mg Q6HP PRN IV NAUSEA OR VOMITING 01/12/20 23:15 01/19/20 11:46 DC Oxycodone HCl (Roxicodone, Oxyir) 5 mg ASDIRECTED PRN PO PAIN LEVEL 1-4 01/15/20 19:00 01/15/20 20:00 DC Oxycodone HCl (Roxicodone, Oxyir) 5 mg Q6HP PRN PO PAIN LEVEL 5-7 01/12/20 23:15 01/19/20 11:46 DC 01/17/20 06:16 Piperacillin Sod/ Tazobactam Sod 4.5 gm/Dextrose 50 ml @ 50 mls/hr Q8H IV 01/12/20 20:00 01/17/20 08:47 DC 01/17/20 04:49 Sodium Chloride 1,000 ml @ 50 mls/hr Q20H IV 01/12/20 18:29 01/15/20 18:54 DC 01/15/20 08:02 Trimethoprim/ Sulfamethoxazole (Bactrim Ds, Septra Ds 160mg/ 800mg) 1 tab BID PO 01/17/20 09:00 01/19/20 11:46 DC 01/19/20 09:14 Vancomycin HCl 1000 mg/IV Miscellaneous Supplies 1 each/ Dextrose 270 ml @ 270 mls/hr Q12H IV 01/13/20 06:00 01/14/20 06:37 DC 01/13/20 18:58 Vancomycin HCl 1000 mg/IV Miscellaneous Supplies 1 each/ Dextrose 270 ml @ 270 mls/hr Q18H IV 01/14/20 06:00 01/17/20 08:47 DC 01/17/20 06:16 Allergies Coded Allergies: No Known Drug Allergies (Verified Allergy, Unknown, 01/12/20) Objective Physical Examination Examination GENERAL APPEARANCE: Patient seen, awake, alert, and oriented. Comfortable, in no acute distress. SKIN: cellulitis of the left breast is much decreased, Extension to the right breast resolved, BREAST: cellulitis of the left breast is decreased, still some tenderness laterally but improved. Extension to the right breast resolved, Lateral incision partially closed with Nylon suture. Lomb[place] drain is in place with some s/s drainage. No purulent drainage or dishwater drainage present, no foul smell HEENT: Normocephalic, atraumatic. NECK: Supple, LUNGS: breathing comfortably on room air HEART: no tachycardia ABDOMEN: Abdomen is soft EXTREMITIES: moving bilateral upper extremities without any issues Vital Signs Vital Signs Date Time Temp Pulse Resp B/P (MAP) Pulse Ox O2 Delivery O2 Flow Rate FiO2 01/19/20 09:18 142/70 01/19/20 06:00 98.0 81 18 90 Room Air 01/16/20 06:00 1.0 Laboratory Data Microbiology Microbiology 01/12/20 Anaerobic Culture - Final, Complete Anaerobic Cocci Bacteroides Ovatus/Thetaiotaom Anaerobic Cocci#2 01/12/20 Gram Stain - Final, Complete 01/12/20 Abscess Culture - Final, Complete Escherichia Coli Staph.aureus Methicillin Resis Streptococcus Sanguinis 01/12/20 Anaerobic Culture - Final, Complete Anaerobic Cocci Bacteroides Ovatus/Thetaiotaom 01/12/20 Gram Stain - Final, Complete 01/12/20 Abscess Culture - Final, Complete Escherichia Coli Staph.aureus Methicillin Resis Streptococcus Anginosus Grp Streptococcus Viridans Group 01/12/20 Blood Culture - Final, Complete NO GROWTH AFTER 5 DAYS Impression Necrotizing Infection Of The left Breast, s/p Left incision, drainage and debridement of left breast necrotizing soft tissue infection POD7 and second look with re-debridement POD4 History of left breast cancer, status post lumpectomy plus RT 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 f/u on Wednesday in clinic for wound check Plan / VTE VTE Prophylaxis Ordered?: Yes MILLI PRABHAKAR DO Jan 21, 2020 13:12
--- NOTE | 2020-01-22 14:33 | REP ---
ABDOMINAL RADIOGRAPHS: 01/14/20 AT 9:32AM CLINICAL: New abdominal pain. TECHNIQUE: Supine and cross table lateral views of the abdomen and pelvis. FINDINGS: The bowel gas pattern is non-specific although mild fecal stasis cannot excluded. No bowel obstruction of perforation appreciated. Evidence for prior cholecystectomy noted. Skeletal structures demonstrate age related degenerative changes. IMPRESSION: Non-specific bowel gas pattern. Questionable fecal stasis. MTDD
--- NOTE | 2020-01-27 18:41 | ECGEPIP ---
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
== END 2020-01-19 11:46 | disposition home health service (06) | DRG 601 ==
LOC: M ED INP 18:23 → M MS5PR 18:30
PROVIDERS: ADMIT Family Medicine; ATTEND Internal Medicine
PROC: 0HC Skin and Breast, Extirpation (ICD-10-PCS; principal; 2020-01-12 19:08)
DX: N61.0 Mastitis without abscess (principal); E11.9 Type 2 diabetes mellitus without complications; I25.10 Atherosclerotic heart disease of native coronary artery without angina pectoris; I10 Essential (primary) hypertension; M81.0 Age-related osteoporosis without current pathological fracture; N64.1 Fat necrosis of breast; B95.62 Methicillin resistant Staphylococcus aureus infection as the cause of diseases classified elsewhere; B96.29 Other Escherichia coli [E. coli] as the cause of diseases classified elsewhere; Z79.82 Long term (current) use of aspirin; Z79.899 Other long term (current) drug therapy; Z95.2 Presence of prosthetic heart valve; Z85.3 Personal history of malignant neoplasm of breast

== ENCOUNTER → 2020-01-12 | Outpatient (REF) | payer MEDICARE, OTHER | LOC: M LAB REF 18:25 → EEVIPCON 18:25 | PROVIDERS: ATTEND Surgery | DX: S21.009A Unspecified open wound of unspecified breast, initial encounter (principal); X58.XXXA Exposure to other specified factors, initial encounter; Y99.9 Unspecified external cause status; Y93.9 Activity, unspecified ==

== ENCOUNTER 2020-02-09 16:42 | Inpatient (IN) | payer MEDICARE, BC, OTHER ==
[~2020-02-09] VITALS: Ht 147.3 cm; Wt 57.3 kg
[~2020-02-09 16:42] MED LIST changes: +AMOX875T2 PO; +METF-838 PO; +METR-265 PO; +MULTCAP PO; +PRES10CA2 PO; +PROBCAP14 PO; +SULF1TAB93 PO
--- NOTE | 2020-02-09 17:19 | IPNPDOC ---
Date Seen The patient was seen on 02/09/20. Progress Note Due to Radiology policy, unable to do CT chest with IV contrast for breast. plan: us of left breast to r/o abscess. USMAN RUSSO MD Feb 09, 2020 17:19
[2020-02-09 17:30] VITALS: BP 144/63
[2020-02-09 18:06] LABS: BASO # 0.1 10^3/uL (0.0-0.2); BASO % 0.9 % (0.0-1.0); EOS # 0.5 10^3/uL (0.0-0.5); EOS % 7.9 % (0.0-3.0); HEMATOCRIT 34.3 % (36.0-47.0); LYMPH # 1.6 10^3/uL (1.5-5.0); LYMPH % 24.3 % (24.0-44.0); MEAN CORPUSCULAR HEMOGLOBIN 31.3 pg (27.0-33.0); MEAN CORPUSCULAR HGB CONC 32.1 g/dl (32.0-36.5); MEAN CORPUSCULAR VOLUME 97.4 fl (80.0-96.0); MONO # 0.9 10^3/uL (0.0-0.8); MONO % 14.1 % (0.0-5.0); NEUTROPHILS # 3.4 10^3/uL (1.5-8.5); NEUTROPHILS % 52.2 % (36.0-66.0); PLATELET COUNT, AUTOMATED 373 10^3/uL (150-450); RED BLOOD COUNT 3.52 10^6/uL (4.00-5.40); WHITE BLOOD COUNT 6.5 10^3/uL (4.0-10.0)
[2020-02-09] MEDS ORDERED: BACT800T5 PO (18:09)
[2020-02-09] MEDS ORDERED: PROBCAP14 PO (18:09)
[2020-02-09] MEDS ORDERED: FLAG500T PO (18:09)
[2020-02-09 18:30] LABS: ALBUMIN 2.9 GM/DL (3.2-5.2); ALT/SGPT 22 U/L (12-78); BILIRUBIN,TOTAL 0.2 MG/DL (0.2-1.0); BLOOD UREA NITROGEN 16 MG/DL (7-18); C REACTIVE PROTEIN QUANTITATIV 2.03 MG/DL (0.00-0.30); CALCIUM LEVEL 9.5 MG/DL (8.8-10.2); CARBON DIOXIDE LEVEL 28 MEQ/L (21-32); CHLORIDE LEVEL 102 MEQ/L (98-107); CREATININE FOR GFR 0.93 MG/DL (0.55-1.30); GLOMERULAR FILTRATION RATE > 60.0 (>32); GLUCOSE, FASTING 302 MG/DL (70-100); POTASSIUM SERUM 4.5 MEQ/L (3.5-5.1); SODIUM LEVEL 135 MEQ/L (136-145); TOTAL PROTEIN 6.5 GM/DL (6.4-8.2)
[2020-02-09 18:33] LABS: ERYTHROCYTE SEDIMENTATION RATE 62 mm/hr (0-30)
[2020-02-09] MEDS ORDERED: MORPHINE 4 MG/ML 1ML VIAL/SYRINGE (J2270) IV PRN (18:45)
[2020-02-09] MEDS ORDERED: ACETAMINOPHEN 500 MG TAB PO ONE (18:45)
[2020-02-09] MEDS ORDERED: ISOVUE-370 76% 100ML VIAL As Ordered ONE (18:57)
[2020-02-09] MEDS ORDERED: VANCOMYCIN HCL 1,000 MG, VIAL MATE ADAPTER 1 EACH in D5W 250 ML IV ONE (19:00)
--- NOTE | 2020-02-09 19:02 | HPEPDOC ---
[facility] Medical History & Physical Date of Admission Feb 09, 2020 Date of Service: Feb 09, 2020 History and Physical CHIEF COMPLAINT: Left breast swelling, pain, drainage HISTORY OF PRESENT ILLNESS: 84-year-old female DO NOT RESUSCITATE, DO NOT INTUBATE with history of breast cancer in 1983, status post lumpectomy, chemotherapy and radiation calcified breast collection was sent from the breast surgery clinic due to worsening edema, erythema, tenderness of the left breasts with purulent drainage over the past 2 days. Patient was recently admitted JanuaryJanuary 11 to January 18 for necrotizing left breast infection found to have MRSA, Escherichia coli, strep sanguinous and positive anaerobic cultures. She underwent debridement on 01/12/2020 and re-debridement 01/15/2020 anaerobic culture grew out Bacteroides and to anaerobic cocci. Patient was subsequently discharged on Augmentin and Flagyl. Patient's daughter has noticed increasing swelling and redness as well as the patient complaining of increasing tenderness on palpation. There has been some discharge through the draining tube and complaints of discomfort rated at 4 out of 10 on a pain scale discharge appeared reddish brown but without any fever or chills. Patient took Tylenol PM 2 days ago and another one at 3 PM today. She was seen at the breast surgery clinic today and was sent to the emergency room for hospital admission for intravenous antibiotics and plans for debridement. Patient had a fall without any injuries at home but did not land on the left breast. The daughter has been changing the dressings daily and has notices significant jacquard loom card changer the past 2 days. Patient is admitted as a direct admission. Currently covered with IV vancomycin and Zosyn for broad-spectrum coverage. She is resumed on all her home medications. Breast surgeon has been consult treated for surgical debridement. PAST MEDICAL HISTORY: , Diabetes, hypertension, left breast surgery for breast cancer with lumpectomy, radiation , left breast necrosis. Surgical debridement January 2020 of the left breast due to necrotizing cellulitis, chronic left breast wound PAST SURGICAL HISTORY: Left breast lumpectomy . Surgical debridement of the breast 2 in January 2020 SOCIAL HISTORY: Lives alone. Daughter visits her every day and has stayed with her at home after she was discharged during the previous admission and is able to do daily changes of her dressings. 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 No cigarette or alcohol use. Patient has some stairs in her home but only stays on the first floor. She usually ambulates unassisted and has 3 steps going into her home. Patient is DO NOT RESUSCITATE, DO NOT INTUBATE. Healthcare proxy is her son, Godwin Abreu phone number is [phone] FAMILY HISTORY: Noncontributory due to age ALLERGIES: Please see below. REVIEW OF SYSTEMS: 12 point systems review negative aside from positive findings in history of presenting illness HOME MEDICATIONS: Please see below. PHYSICAL EXAMINATION: VITAL SIGNS: See below GENERAL APPEARANCE: Patient is mute and able to communicate. No respiratory distress. No use of respiratory accessory muscles. Face is symmetric HEENT: Pupils equally round, reactive to light accommodation. Extraocular muscles are intact. Normocephalic, atraumatic. Moist mucous membranes. No cervical lymphadenopathy or thyromegaly CARDIOVASCULAR: S1, S2 regular rate rhythm. Nondisplaced point of maximal impulse LUNGS: Air entry is equal bilaterally. No wheezing, rales or rhonchi ABDOMEN: Positive bowel sounds in 4 quadrants. No rebound, guarding, no hepatosplenomegaly MUSCULOSKELETAL: No cyanosis or clubbing. Trace bilateral lower extremity edema Skin over the left breast: 13 x 16 cm indurated, erythematous, tender breasts with a 3-1/2 cm incision site where the purulent reddish brown discharge is noted on the lateral aspect of the breast LABORATORY DATA: See below. IMAGING: CT chest with contrast pending MICROBIOLOGY: Pending ASSESSMENT: 84-year-old female DO NOT RESUSCITATE, DO NOT INTUBATE with history of breast cancer in 1983, status post lumpectomy, chemotherapy and radiation calcified breast collection was sent from the breast surgery clinic due to worsening edema, erythema, tenderness of the left breasts with purulent drainage over the past 2 days. Patient was recently admitted JanuaryJanuary 11 to January 18 for necrotizing left breast infection found to have MRSA, Escherichia coli, strep sanguinous and positive anaerobic cultures. She underwent debridement on 01/12/2020 and re-debridement 01/15/2020 anaerobic culture grew out Bacteroides and to anaerobic cocci. Patient was subsequently discharged on Augmentin and Flagyl. Patient's daughter has noticed increasing swelling and redness as well as the patient complaining of increasing tenderness on palpation. There has been some discharge through the draining tube and complaints of discomfort rated at 4 out of 10 on a pain scale discharge appeared reddish brown but without any fever or chills. Patient took Tylenol PM 2 days ago and another one at 3 PM today. She was seen at the breast surgery clinic today and was sent to the emergency room for hospital admission for intravenous antibiotics and plans for debridement. Patient had a fall without any injuries at home but did not land on the left breast. The daughter has been changing the dressings daily and has notices significant jacquard loom card changer the past 2 days. Patient is admitted as a direct admission. Currently covered with IV vancomycin and Zosyn for broad-spectrum coverage. She is resumed on all her home medications. Breast surgeon has been consult treated for surgical debridement. 1. Left breast necrotizing infection 2. History of left breast cancer status post lumpectomy plus radiation treatment 3. History of left breast fat necrosis 4. Type 2 diabetes 5., Hypertension PLAN: Patient will be admitted as an inpatient for 2 midnight and given broad-spectrum antibiotics with IV vancomycin and intravenous Zosyn. We will await blood cultures and wound culture. Patient will will be seen by breast surgeon in order to determine the need for incision and drainage or possible abscess. CT chest will be obtained to rule out chest wall abscess. Patient will be resumed on all her home medications. Pain control with Tylenol as well as morphine intravenously per the daughter, patient gets encephalopathic when given too much morphine. Due to the patient having some speech impediment and unable to fully communicate. We will permit the daughter one other family member to stay with her at all times in order to be able to communicate with staff. She has been encouraged to alert her nurse of ongoing pain. She is A Diabetic 2 G Sodium Diet with Consistent Carbohydrate, 1800 ADA Caloric Intake with Insulin Sliding Scale with Coverage. Patient Will Be Kept on Compression Stockings Due To Plans for Surgical Debridement of the Left Breast. No Anticoagulant or Antiplatelet Thera py Will Be Resumed. Moles form has been signed. She is DO NOT RESUSCITATE, DO NOT INTUBATE. Laboratory Data Labs 24H Laboratory Tests 2 02/09/20 17:56: Immature Granulocyte % (Auto) 0.6, Neutrophils (%) (Auto) 52.2, Lymphocytes (%) (Auto) 24.3, Monocytes (%) (Auto) 14.1H, Eosinophils (%) (Auto) 7.9H, Basophils (%) (Auto) 0.9, Neutrophils # (Auto) 3.4, Lymphocytes # (Auto) 1.6, Monocytes # (Auto) 0.9H, Eosinophils # (Auto) 0.5, Basophils # (Auto) 0.1, Nucleated Red Blood Cells % (auto) 0.0, Erythrocyte Sedimentation Rate 62H, Anion Gap 5L, G lomerular Filtration Rate > 60.0, Lactic Acid Level 1.7, Calcium Level 9.5, Total Bilirubin 0.2, Aspartate Amino Transf (AST/SGOT) 23, Alanine Aminotransferase (ALT/SGPT) 22, Alkaline Phosphatase 74, C-Reactive Protein, Quantitative 2.03H, Total Protein 6.5, Albumin 2.9L, Albumin/Globulin Ratio 0.8L CBC/BMP Laboratory Tests 02/09/20 17:56 Home Medications Scheduled Aspirin (Aspir 81) 81 Mg Tablet.dr, 81 MG PO DAILY Atorvastatin Calcium (Atorvastatin Calcium) 80 Mg Tab, 80 MG PO QHS Calcium Carbonate/Vitamin D3 (Calcium 500-Vit D3 400 Tablet) 1 Tab Tab, 1 TAB PO DAILY Canagliflozin (Invokana) 300 Mg Tab, 300 MG PO DAILY Lactobacillus Acidophilus (Probiotic) 1 Each Capsule, 1 CAP PO DAILY Losartan Potassium (Losartan Potassium) 25 Mg Tab, 25 MG PO DAILY Metformin HCl (Metformin HCl ER) 500 Mg Tab.er.24h, 1,000 MG PO QHS Metronidazole (Flagyl) 500 Mg Tablet, 500 MG PO Q8H WOULD'VE FINISHED TONIGHT Multivitamin (Multivitamins) 1 Each Capsule, 1 CAP PO DAILY Sitagliptin Phosphate (Januvia) 100 Mg Tab, 100 MG PO DAILY Sulfamethoxazole/Trimethoprim (Bactrim Ds Tablet) 1 Each Tablet, 1 TAB PO BID WOULD'VE FINISHED TONIGHT Vit C/E/Zn/Coppr/Lutein/Zeaxan (Preservision Areds 2 Softgel) 1 Each Capsule, 1 CAP PO BID Allergies Coded Allergies: No Known Drug Allergies (Verified Allergy, Unknown, 01/12/20) A-FIB/CHADSVASC A-FIB History Current/History of A-Fib/PAF?: No Current PO Anticoag Therapy: No Age/Risk Factor Scoring CHADSVASC: CHADSVASC Response (Comments) Value Age Risk Factor Age >/= 75 years old 2 Gender Risk Factor Female 1 Hx of CHF No 0 Hx of HTN Yes 1 Hx of Stroke/TIA/or VTE No 0 Hx of Diabetes Yes 1 Hx of Vascular Disease No 0 Total 5 Treatment Treatment ordered: NONE Reason Anticoagulant not given: Not indicated/[id number] USMAN RUSSO MD Feb 09, 2020 18:49
--- NOTE | 2020-02-09 20:05 | REPVR ---
PROCEDURE INFORMATION: Exam: CT Chest With Contrast Exam date and time: 02/09/2020 7:41 PM Age: 84 years old Clinical indication: Condition or disease; Other: Chest wall cellulitis R/O abscess; Prior surgery; Surgery date: 1-6 months; Surgery type: Drain placement TECHNIQUE: Imaging protocol: Computed tomography of the chest with intravenous contrast. 3D rendering (Not supervised by radiologist): MIP and/or 3D reconstructed images were created by the technologist. Radiation optimization: All CT scans at this facility use at least one of these dose optimization techniques: automated exposure control; mA and/or kV adjustment per patient size (includes targeted exams where dose is matched to clinical indication); or iterative reconstruction. Contrast material: ISOVUE 370; Contrast volume: 75 ml; Contrast route: INTRAVENOUS (IV); COMPARISON: CR Abdomen, Flat-Upright PA CHEST 01/14/2020 9:32 AM FINDINGS: Lungs: Chronic appearing wedge-shaped infiltrate in the left upper lobe with air bronchograms likely represents atelectasis/scarring. Calcified granuloma right upper lobe. Pleural space: Vague bilateral geographic ground-glass opacities may represent sequelae of this a perfusion or atelectasis. Clinical correlation to exclude infection suggested. Heart: Unremarkable. No cardiomegaly. No pericardial effusion. Aorta: Unremarkable. No aortic aneurysm. Lymph nodes: Multiple small mediastinal lymph nodes likely postinflammatory. Otherwise unremarkable. No enlarged lymph nodes. Bones/joints: The spine demonstrates mild degenerative changes. Osteoporosis. Soft tissues: Drain placement into an open wound in the left breast with extensive soft tissue inflammation. Neoplasm not excluded. Calcifications demonstrated along the lateral thoracic wall posterior to the left breast. Multiple surgical clips in the left axilla. IMPRESSION: 1. Vague bilateral geographic ground-glass opacities may represent sequelae of this a perfusion or atelectasis. Clinical correlation to exclude infection suggested. 2. Drain placement into an open wound in the left breast with extensive soft tissue inflammation. Neoplasm not excluded. Electronically signed by: Huseyin Waters On 02/09/2020 20:05:22 PM
[2020-02-09 20:11] LABS: MRSA PCR SCREEN NOT DETECTED (NEGATIVE)
[2020-02-09] MEDS ORDERED: DEXTROSE 50% 50 ML SYRINGE IV PRN (20:15)
[2020-02-09] MEDS ORDERED: GLUCOSE 4GM CHEW TABLET PO PRN (20:15)
[2020-02-09] MEDS ORDERED: GLUCAGON INJ 1MG VIAL SC PRN (20:15)
[2020-02-09] MEDS ORDERED: MOM 30ML SUSPENSION UDC PO PRN (20:15)
[2020-02-09] MEDS ORDERED: PERCOCET 5MG/325MG TAB PO PRN (20:15)
[2020-02-09] MEDS ORDERED: MIRALAX *UNIT DOSE* 17GM PACKET PO PRN (20:15)
[2020-02-09] MEDS ORDERED: SENOKOT S TAB PO PRN (20:15)
[2020-02-09] MEDS: ATORVASTATIN 20 MG TAB PO SCH (21:26)
[2020-02-09] MEDS: LACTOBACILLUS ACIDOPHILUS CAP (BACID) PO SCH (21:27)
[2020-02-09] MEDS: HumaLOG INSULIN (NovoLOG) PER UNIT SC SCH (21:27)
[2020-02-09] MEDS: PIPERACILLIN/TAZOBACTAM SOD 3.375 GM in D5W MINI-BAG PLUS 50 ML IV SCH (21:48)
[2020-02-09] MEDS: NS 1,000 ML IV SCH (21:48)
[2020-02-09 22:00] VITALS: BP 149/94
[2020-02-10] MEDS: PIPERACILLIN/TAZOBACTAM SOD 3.375 GM in D5W MINI-BAG PLUS 50 ML IV SCH ×4 (01:27→20:53)
[2020-02-10 06:00] VITALS: BP 151/69
[2020-02-10 06:28] LABS: HEMATOCRIT 31.1 % (36.0-47.0); MEAN CORPUSCULAR HEMOGLOBIN 31.3 pg (27.0-33.0); MEAN CORPUSCULAR HGB CONC 32.2 g/dl (32.0-36.5); MEAN CORPUSCULAR VOLUME 97.5 fl (80.0-96.0); PLATELET COUNT, AUTOMATED 332 10^3/uL (150-450); RED BLOOD COUNT 3.19 10^6/uL (4.00-5.40); WHITE BLOOD COUNT 5.8 10^3/uL (4.0-10.0)
[2020-02-10 06:58] LABS: BLOOD UREA NITROGEN 15 MG/DL (7-18); CALCIUM LEVEL 8.7 MG/DL (8.8-10.2); CARBON DIOXIDE LEVEL 26 MEQ/L (21-32); CHLORIDE LEVEL 104 MEQ/L (98-107); CREATININE FOR GFR 0.68 MG/DL (0.55-1.30); GLOMERULAR FILTRATION RATE > 60.0 (>32); GLUCOSE, FASTING 121 MG/DL (70-100); POTASSIUM SERUM 3.9 MEQ/L (3.5-5.1); SODIUM LEVEL 135 MEQ/L (136-145)
[2020-02-10 07:33] LABS: HEMOGLOBIN A1c 6.7 %
[2020-02-10] MEDS ORDERED: VANCOMYCIN HCL 1,000 MG, VIAL MATE ADAPTER 1 EACH in D5W 250 ML IV SCH (08:00)
[2020-02-10] MEDS: HumaLOG INSULIN (NovoLOG) PER UNIT SC SCH ×4 (08:37→20:55)
[2020-02-10] MEDS: LACTOBACILLUS ACIDOPHILUS CAP (BACID) PO SCH ×4 (08:37→20:54)
[2020-02-10] MEDS: LOSARTAN 25 MG TAB PO SCH (08:39)
[2020-02-10] MEDS: NS 1,000 ML IV SCH (08:40)
[2020-02-10] MEDS ORDERED: FLUBLOK(EGG FREE)(QUAD)INFLUENZA VACC 0.5ML SYRINGE 18YRS & OLDER IM ONE (09:00)
--- NOTE | 2020-02-10 09:42 | CR.PDOC ---
Plastic Surgery Consultation Date of Consultation 02/10/20 History and Physical REASON FOR CONSULTATION: left breast wound HISTORY OF PRESENT ILLNESS: Ms. Abreu has a Hx DM and L breast ca in 1980s tx with lumpectomy with possible ALND and RT. She developed a left breast wound couple months ago from pressure caused by the extensive calcifications post RT caused by fat necrosis. She progressed to necrotic soft tissue infection on 01/12/20 and was taken to the OR for debridement on 01/12/20. Susan was placed. Second look and re-debridement was done on 01/15/20. Susan was replaced. Wound cx were polymicrobial with at least 4 different organisms. Tissue pathology showed acute necrosis and no malignancy. She recovered and was sent home with 3 oral abx x14 days. Oral Abx were extended for another 14 days which should be completed on 02/09/20. Patient presented to the office yesterday with increased redness of the wound, feeling of tightness and warmth. There was also increased blanching of the tissues. Patient was directly admitted to the hospital for IV abx, close monitoring and CT of the soft tissues to assess for abscess or undrained fluid collections. She did not have leukocytosis or fevers on labs. Glucose was elevated to over 300. Her Lactic acid and ESR were mildly up. CT showed extensive inflammation but no fluid collection - this was confirmed by my direct discussion with radiology yesterday. Wound culture gram stain was negative for organisms. PAST MEDICAL HISTORY: DM, Hx of L breast CA, L breast extensive calcifications, left chronic wound, see chart for rest of comorbidities PAST SURGICAL HISTORY: INCLUDES: see chart ALLERGIES: Please see below. FAMILY HISTORY: see chart HOME MEDICATIONS: Please see below. REVIEW OF SYSTEMS: GENERAL:worsening pressure and tenderness in L breast HEENT: noncontributory NECK: noncontributory CARDIOVASCULAR: on ASA MUSCULOSKELETAL: possible Hx of ALND on L SKIN: :worsening pressure, redness and tenderness in L breast NEUROLOGIC: deaf PSYCHIATRIC: in good spirit ENDOCRINE: DM with sugar of 300 on admission PHYSICAL EXAMINATION: VITALS SIGNS: Please see below. GENERAL APPEARANCE:Patient seen, laying in bed, awake, alert, and oriented. Comfortable, in no acute distress. SKIN: L breast skin appears slightly less red and tense- some wrinkles present, redness not extending past demarkation. BREAST: see SKIN, susan in place, no purulent drainage, only s/s/ drainage. Wound interrogated with qtip- no areas of obvious necrotic tissue. Wound irrigated with H2O2 HEENT: Normocephalic, atraumatic. NECK: Supple LUNGS: breathing comfortably on room air HEART: no tachycardia ABDOMEN: soft EXTREMITIES: Extremities have no deformities. extensive scar tissue in L axilla LABORATORY DATA: Please see below. IMAGING STUDIES: NAME: SYDNI ABREU DATE OF : 1935 BUSINESS NUMBER: [id number] AGE: 84 SEX: F REPORT #: [id number] ROOM: [facility] TECHNOLOGIST: [facility] DOCTOR: USMAN RUSSO MD Ordered for Date&Time: 02/09/201821 cc: [~ rep ct ivnm] Service Date&Time: 02/09/201940 EXAMINATION REQUESTED: CT Chest with contrast REASON FOR PATIENT VISIT: LEFT BREAST INFECTION REASON FOR EXAMINATION: chest wall cellulitis r/o abscess ADDENDUM REPORT 1 THIS REPORT CONTAINS FINDINGS THAT MAY BE CRITICAL TO PATIENT CARE. The findings were verbally communicated via telephone conference with Dr. Samano at 8:40 PM EDT on 02/09/2020. The findings were acknowledged and understood. Electronically signed by: Huseyin Mayo On 02/09/2020 20:40:25 PM DD: HUSEYIN MAYO MD 02/09/201940 DT: LENORA 02/09/202039 DS: FAIZAN 02/09/202039 PROCEDURE INFORMATION: Exam: CT Chest With Contrast Exam date and time: 02/09/2020 7:41 PM Age: 84 years old Clinical indication: Condition or disease; Other: Chest wall cellulitis R/O abscess; Prior surgery; Surgery date: 1-6 months; Surgery type: Drain placement TECHNIQUE: Imaging protocol: Computed tomography of the chest with intravenous contrast. 3D rendering (Not supervised by radiologist): MIP and/or 3D reconstructed images were created by the technologist. Radiation optimization: All CT scans at this facility use at least one of these dose optimization techniques: automated exposure control; mA and/or kV adjustment per patient size (includes targeted exams where dose is matched to clinical indication); or iterative reconstruction. Contrast material: ISOVUE 370; Contrast volume: 75 ml; Contrast route: INTRAVENOUS (IV); COMPARISON: CR Abdomen, Flat-Upright PA CHEST 01/14/2020 9:32 AM FINDINGS: Lungs: Chronic appearing wedge-shaped infiltrate in the left upper lobe with air bronchograms likely represents atelectasis/scarring. Calcified granuloma right upper lobe. Pleural space: Vague bilateral geographic ground-glass opacities may represent sequelae of this a perfusion or atelectasis. Clinical correlation to exclude infection suggested. Heart: Unremarkable. No cardiomegaly. No pericardial effusion. Aorta: Unremarkable. No aortic aneurysm. Lymph nodes: Multiple small mediastinal lymph nodes likely postinflammatory. Otherwise unremarkable. No enlarged lymph nodes. Bones/joints: The spine demonstrates mild degenerative changes. Osteoporosis. Soft tissues: Drain placement into an open wound in the left breast with extensive soft tissue inflammation. Neoplasm not excluded. Calcifications demonstrated along the lateral thoracic wall posterior to the left breast. Multiple surgical clips in the left axilla. IMPRESSION: 1. Vague bilateral geographic ground-glass opacities may represent sequelae of this a perfusion or atelectasis. Clinical correlation to exclude infection suggested. 2. Drain placement into an open wound in the left breast with extensive soft tissue inflammation. Neoplasm not excluded. Electronically signed by: Huseyin Mayo On 02/09/2020 20:05:22 PM DD: HUSEYIN MAYO MD 02/09/201940 DT: LENORA 02/09/202004 DS: FAIZAN 02/09/202004 IMPRESSION: 84 y o F w PMHx of DM, admitted for worsened L breast infection/ inflammation PLANS: - CT chest reviewed, no drainable fluid collections visible at this time; extensive inflammatory changes can be due to infection or possibly poor healing fat since patient has a Hx of RT to this breast - admitted for IV abx as pt worsened on 3 oral abx outpatient despite a 4 weeks of treatment - will monitor the wound for progression of cellulitis requiring possibly second look surgery, ok for diet for now - wound care per Dr Samano - greatly appreciate Medical Team help in taking care of Ms. Abreu - will continue to follow Vital Signs Vital Signs Date Time Temp Pulse Resp B/P (MAP) Pulse Ox O2 Delivery O2 Flow Rate FiO2 02/10/20 08:39 124/55 02/10/20 06:00 98.0 78 18 96 Room Air I&Os I&O- Last 24 Hours up to 6 AM 02/10/20 06:00 Intake Total 1212.5 ml Output Total 800 ml Balance 412.5 ml Laboratory Data Labs 24H Laboratory Tests 2 02/09/20 17:56: Immature Granulocyte % (Auto) 0.6, Neutrophils (%) (Auto) 52.2, Lymphocytes (%) (Auto) 24.3, Monocytes (%) (Auto) 14.1H, Eosinophils (%) (Auto) 7.9H, Basophils (%) (Auto) 0.9, Neutrophils # (Auto) 3.4, Lymphocytes # (Auto) 1.6, Monocytes # (Auto) 0.9H, Eosinophils # (Auto) 0.5, Basophils # (Auto) 0.1, Nucleated Red Blood Cells % (auto) 0.0, Erythrocyte Sedimentation Rate 62H, Anion Gap 5L, Glomerular Filtration Rate > 60.0, Lactic Acid Level 1.7, Calcium Level 9.5, Total Bilirubin 0.2, Aspartate Amino Transf (AST/SGOT) 23, Alanine Aminotransferase (ALT/SGPT) 22, Alkaline Phosphatase 74, C-Reactive Protein, Quantitative 2.03H, Total Protein 6.5, Albumin 2.9L, Albumin/Globulin Ratio 0.8L 02/09/20 18:25: Coronavirus (COVID-19)(PCR) NEGATIVE, Methicillin-Resist S.aureus DNA PCR NOT DETECTED 02/09/20 21:19: Bedside Glucose (Misc Panel) 257H 02/10/20 05:53: Nucleated Red Blood Cells % (auto) 0.0, Anion Gap 5L, Glomerular Filtration Rate > 60.0, Calcium Level 8.7L, Estimated Mean Plasma Glucose 146H, Hemoglobin A1c 6.7 CBC/BMP Laboratory Tests 02/09/20 17:56 02/10/20 05:53 Microbiology Microbiology 02/09/20 Blood Culture, Received Pending 02/09/20 Blood Culture, Received Pending 02/09/20 Gram Stain - Final, Resulted 02/09/20 Wound Culture, Resulted Pending Home Medications Scheduled Aspirin (Aspir 81) 81 Mg Tablet.dr, 81 MG PO DAILY, (Reported) Atorvastatin Calcium (Atorvastatin Calcium) 80 Mg Tab, 80 MG PO QHS, (Reported) Calcium Carbonate/Vitamin D3 (Calcium 500-Vit D3 400 Tablet) 1 Tab Tab, 1 TAB PO DAILY, (Reported) Canagliflozin (Invokana) 300 Mg Tab, 300 MG PO DAILY, (Reported) Lactobacillus Acidophilus (Probiotic) 1 Each Capsule, 1 CAP PO DAILY, (Reported) Losartan Potassium (Losartan Potassium) 25 Mg Tab, 25 MG PO DAILY, (Reported) Metformin HCl (Metformin HCl ER) 500 Mg Tab.er.24h, 1,000 MG PO QHS, (Reported) Metronidazole (Flagyl) 500 Mg Tablet, 500 MG PO Q8H, (Reported) WOULD'VE FINISHED TONIGHT Multivitamin (Multivitamins) 1 Each Capsule, 1 CAP PO DAILY, (Reported) Sitagliptin Phosphate (Januvia) 100 Mg Tab, 100 MG PO DAILY, (Reported) Sulfamethoxazole/Trimethoprim (Bactrim Ds Tablet) 1 Each Tablet, 1 TAB PO BID, (Reported) WOULD'VE FINISHED TONIGHT Vit C/E/Zn/Coppr/Lutein/Zeaxan (Preservision Areds 2 Softgel) 1 Each Capsule, 1 CAP PO BID, (Reported) Allergies Coded Allergies: No Known Drug Allergies (Verified Allergy, Unknown, 01/12/20) MILLI SAMANO DO Feb 10, 2020 09:42
[2020-02-10] MEDS: VANCOMYCIN HCL 1,000 MG, VIAL MATE ADAPTER 1 EACH in D5W 250 ML IV SCH ×2 (09:58→22:04)
[2020-02-10] MEDS: ACETAMINOPHEN 500 MG TAB PO PRN ×2 (10:01→20:54)
--- NOTE | 2020-02-10 10:20 | IPNPDOC ---
Date Seen The patient was seen on 02/10/20. Progress Note SUBJECTIVE: Patient was seen, examined at the bedside. Chart is reviewed. No new issues overnight patient remained afebrile. No complaints of chills, no worsening drainage through the incision site on the left lateral breast. Patient continues to have discomfort rated at 2 out of 10 on a pain scale and does not want pain medications this morning OBJECTIVE PHYSICAL EXAMINATION: VITAL SIGNS: See below GENERAL APPEARANCE: Patient is mute and has difficulty able communicating. No respiratory distress. No use of respiratory accessory muscles. Face is symmetric HEENT: Pupils equally round, reactive to light accommodation. Extraocular muscles are intact. Normocephalic, atraumatic. Moist mucous membranes. No cervical lymphadenopathy or thyromegaly CARDIOVASCULAR: S1, S2 regular rate rhythm. Nondisplaced point of maximal impulse no pericardial friction rub LUNGS: Air entry is equal bilaterally. No wheezing, rales or rhonchi . No adventitious breath sounds ABDOMEN: Positive bowel sounds in 4 quadrants. No rebound, guarding, no hepatosplenomegaly. No abdominal bruit MUSCULOSKELETAL: No cyanosis or clubbing. Trace bilateral lower extremity edema Skin over the left breast: 13 x 16 cm indurated, erythematous, tender breasts with a 3-1/2 cm incision site where the purulent reddish brown discharge is noted on the lateral aspect of the breast LABORATORY DATA: See below. IMAGING PROCEDURE INFORMATION: Exam: CT Chest With Contrast Exam date and time: 02/09/2020 7:41 PM Age: 84 years old Clinical indication: Condition or disease; Other: Chest wall cellulitis R/O abscess; Prior surgery; Surgery date: 1-6 months; Surgery type: Drain placement TECHNIQUE: Imaging protocol: Computed tomography of the chest with intravenous contrast. 3D rendering (Not supervised by radiologist): MIP and/or 3D reconstructed images were created by the technologist. Radiation optimization: All CT scans at this facility use at least one of these dose optimization techniques: automated exposure control; mA and/or kV adjustment per patient size (includes targeted exams where dose is matched to clinical indication); or iterative reconstruction. Contrast material: ISOVUE 370; Contrast volume: 75 ml; Contrast route: INTRAVENOUS (IV); COMPARISON: CR Abdomen, Flat-Upright PA CHEST 01/14/2020 9:32 AM FINDINGS: Lungs: Chronic appearing wedge-shaped infiltrate in the left upper lobe with air bronchograms likely represents atelectasis/scarring. Calcified granuloma right upper lobe. Pleural space: Vague bilateral geographic ground-glass opacities may represent sequelae of this a perfusion or atelectasis. Clinical correlation to exclude infection suggested. Heart: Unremarkable. No cardiomegaly. No pericardial effusion. Aorta: Unremarkable. No aortic aneurysm. Lymph nodes: Multiple small mediastinal lymph nodes likely postinflammatory. Otherwise unremarkable. No enlarged lymph nodes. Bones/joints: The spine demonstrates mild degenerative changes. Osteoporosis. Soft tissues: Drain placement into an open wound in the left breast with extensive soft tissue inflammation. Neoplasm not excluded. Calcifications demonstrated along the lateral thoracic wall posterior to the left breast. Multiple surgical clips in the left axilla. IMPRESSION: 1. Vague bilateral geographic ground-glass opacities may represent sequelae of this a perfusion or atelectasis. Clinical correlation to exclude infection suggested. 2. Drain placement into an open wound in the left breast with extensive soft tissue inflammation. Neoplasm not excluded MICROBIOLOGY: Blood cultures pending left breast wound culture pending ASSESSMENT: 84-year-old female DO NOT RESUSCITATE, DO NOT INTUBATE with history of breast cancer in 1983, status post lumpectomy, chemotherapy and radiation calcified breast collection was sent from the breast surgery clinic due to worsening edema, erythema, tenderness of the left breasts with purulent drainage over the past 2 days. Patient was recently admitted JanuaryJanuary 11 to January 18 for necrotizing left breast infection found to have MRSA, Escherichia coli, strep sanguinous and positive anaerobic cultures. She underwent debridement on 01/12/2020 and re-debridement 01/15/2020 anaerobic culture grew out Bacteroides and to anaerobic cocci. Patient was subsequently discharged on Augmentin and Flagyl. Patient's daughter has noticed increasing swelling and redness as well as the patient complaining of increasing tenderness on palpation. There has been some discharge through the draining tube and complaints of discomfort rated at 4 out of 10 on a pain scale discharge appeared reddish brown but without any fever or chills. Patient took Tylenol PM 2 days ago and another one at 3 PM today. She was seen at the breast surgery clinic today and was sent to the emergency room for hospital admission for intravenous antibiotics and plans for debridement. Patient had a fall without any injuries at home but did not land on the left breast. The daughter has been changing the dressings daily and has notices significant exchange architect the past 2 days. Patient is admitted as a direct admission. Currently covered with IV vancomycin and Zosyn for broad-spectrum coverage. She is resumed on all her home medications. Breast surgeon has been consult treated for surgical debridement. 1. Left breast necrotizing infection, s/p failed 4wks outpatient antibiotics 2. History of left breast cancer status post lumpectomy plus radiation treatment 3. History of left breast fat necrosis 4. Type 2 diabetes 5. Hypertension 6. Preoperative medical clearance PLAN: Patient is currently nothing by mouth on IV fluids with hypoglycemic protocol fingersticks every 6 hourly. She has been medically optimized to proceed with surgical exploration of the left breast necrotizing infection. Patient has been given intravenous vancomycin and Zosyn for broad-spectrum coverage. She remained afebrile, no chills, no white count. We are currently awaiting the wound culture and blood culture results. Dr. Samano, breast surgeon, for management of the wound,dressing changes and possible surgical debridement. We would encourage intraoperative wound cultures to be done for better sensitivity. CT chest has been reviewed with questionable malignancy. Biopsy may be warranted if patient undergo surgical exploration would recommend awaiting culture results prior to de-escalating antibiotics. Despite having no white count and being afebrile. Patient's wound is impressive with significant induration, tenderness and warmth, erythema, requiring broad-spectrum coverage for now. She may resume a consistent carbohydrate diet Postoperatively. Pain control has been divided as well as a bowel regimen. Monitor for confusion or altered mental status as the patient's daughter said that she developed drug-induced encephalopathy from prior admission.. She is DO NOT RESUSCITATE, DO NOT INTUBATE VS, I&O, 24H, Ezekiel Vital Signs/I&O Vital Signs Date Time Temp Pulse Resp B/P (MAP) Pulse Ox O2 Delivery O2 Flow Rate FiO2 02/10/20 08:39 124/55 02/10/20 06:00 98.0 78 18 96 Room Air I&O- Last 24 Hours up to 6 AM 02/10/20 06:00 Intake Total 1212.5 ml Output Total 800 ml Balance 412.5 ml Laboratory Data 24H LABS Laboratory Tests 2 02/09/20 17:56: Immature Granulocyte % (Auto) 0.6, Neutrophils (%) (Auto) 52.2, Lymphocytes (%) (Auto) 24.3, Monocytes (%) (Auto) 14.1H, Eosinophils (%) (Auto) 7.9H, Basophils (%) (Auto) 0.9, Neutrophils # (Auto) 3.4, Lymphocytes # (Auto) 1.6, Monocytes # (Auto) 0.9H, Eosinophils # (Auto) 0.5, Basophils # (Auto) 0.1, Nucleated Red Blood Cells % (auto) 0.0, Erythrocyte Sedimentation Rate 62H, Anion Gap 5L, Glomerular Filtration Rate > 60.0, Lactic Acid Level 1.7, Calcium Level 9.5, Total Bilirubin 0.2, Aspartate Amino Transf (AST/SGOT) 23, Alanine Aminotransferase (ALT/SGPT) 22, Alkaline Phosphatase 74, C-Reactive Protein, Quantitative 2.03H, Total Protein 6.5, Albumin 2.9L, Albumin/Globulin Ratio 0.8L 02/09/20 18:25: Coronavirus (COVID-19)(PCR) NEGATIVE, Methicillin-Resist S.aureus DNA PCR NOT DETECTED 02/09/20 21:19: Bedside Glucose (Misc Panel) 257H 02/10/20 05:53: Nucleated Red Blood Cells % (auto) 0.0, Anion Gap 5L, Glomerular Filtration Rate > 60.0, Calcium Level 8.7L, Estimated Mean Plasma Glucose 146H, Hemoglobin A1c 6.7 CBC/BMP Laboratory Tests 02/09/20 17:56 02/10/20 05:53 Microbiology Microbiology 02/09/20 Blood Culture, Received Pending 02/09/20 Blood Culture, Received Pending 02/09/20 Gram Stain - Final, Resulted 02/09/20 Wound Culture, Resulted Pending USMAN RUSSO MD Feb 10, 2020 10:14
[2020-02-10 14:00] VITALS: BP 107/60
[2020-02-10] MEDS: ATORVASTATIN 20 MG TAB PO SCH (20:54)
[2020-02-10 22:00] VITALS: BP 121/52
[2020-02-11] MEDS: PIPERACILLIN/TAZOBACTAM SOD 3.375 GM in D5W MINI-BAG PLUS 50 ML IV SCH ×4 (02:01→20:17)
[2020-02-11 06:00] VITALS: BP 137/72
[2020-02-11 07:22] LABS: HEMATOCRIT 32.8 % (36.0-47.0); HEMOGLOBIN 10.7 g/dl (12.0-15.5); MEAN CORPUSCULAR HEMOGLOBIN 31.7 pg (27.0-33.0); MEAN CORPUSCULAR HGB CONC 32.6 g/dl (32.0-36.5); PLATELET COUNT, AUTOMATED 358 10^3/uL (150-450); RED BLOOD COUNT 3.38 10^6/uL (4.00-5.40); WHITE BLOOD COUNT 6.6 10^3/uL (4.0-10.0)
[2020-02-11 07:47] LABS: BLOOD UREA NITROGEN 14 MG/DL (7-18); CALCIUM LEVEL 8.8 MG/DL (8.8-10.2); CARBON DIOXIDE LEVEL 27 MEQ/L (21-32); CHLORIDE LEVEL 106 MEQ/L (98-107); CREATININE FOR GFR 0.56 MG/DL (0.55-1.30); GLOMERULAR FILTRATION RATE > 60.0 (>32); GLUCOSE, FASTING 125 MG/DL (70-100); POTASSIUM SERUM 4.6 MEQ/L (3.5-5.1); SODIUM LEVEL 138 MEQ/L (136-145); VANCOMYCIN LEVEL TROUGH 19.7 UG/ML (10.0-20.0)
[2020-02-11] MEDS: ACETAMINOPHEN 500 MG TAB PO PRN ×2 (08:41→22:36)
[2020-02-11] MEDS: HumaLOG INSULIN (NovoLOG) PER UNIT SC SCH ×4 (08:41→20:50)
[2020-02-11] MEDS: LOSARTAN 25 MG TAB PO SCH (08:42)
[2020-02-11] MEDS: LACTOBACILLUS ACIDOPHILUS CAP (BACID) PO SCH ×4 (08:42→20:17)
--- NOTE | 2020-02-11 09:50 | IPNPDOC ---
Date Seen The patient was seen on 02/11/20. Progress Note SUBJECTIVE: Patient was seen, examined bedside chart is reviewed. She denies any fever or chills overnight. 8. Pain is Yovana to . She is currently sitting on the sofa by the window, ambulating well without any assistance. No other issues overnight per nursing. Patient is one culture grew out enterococcus and staph. Currently awaiting final results will de-escalate antibiotics once final results are available for breast surgeon. No need for surgical intervention at this time, so long as the patient appears responding to antibiotics. Despite CT chest, questioning if this is malignancy per previous surgical exploration. Patient had no signs of cancer appeared to have had radiation-induced fat necrosis with subsequent bacterial infection. No concern for malignancy OBJECTIVE PHYSICAL EXAMINATION: VITAL SIGNS: See below GENERAL APPEARANCE: Patient is mute and has difficulty communicating. No respiratory distress. No use of respiratory accessory muscles. Face is symmetric HEENT: Pupils equally round, reactive to light accommodation. Extraocular muscles are intact. Normocephalic, atraumatic. Moist mucous membranes. No cervical lymphadenopathy or thyromegaly CARDIOVASCULAR: S1, S2 regular rate rhythm. Nondisplaced point of maximal impulse no pericardial friction rub LUNGS: Air entry is equal bilaterally. No wheezing, rales or rhonchi . No adventitious breath sounds ABDOMEN: Positive bowel sounds in 4 quadrants. No rebound, guarding, no hepatosplenomegaly. No abdominal bruit MUSCULOSKELETAL: No cyanosis or clubbing. Trace bilateral lower extremity edema Skin over the left breast: 13 x 16 cm indurated, erythematous, tender breasts with a 3-1/2 cm incision site where the purulent reddish brown discharge is noted on the lateral aspect of the breast LABORATORY DATA: See below. IMAGING PROCEDURE INFORMATION: Exam: CT Chest With Contrast Exam date and time: 02/09/2020 7:41 PM Age: 84 years old Clinical indication: Condition or disease; Other: Chest wall cellulitis R/O abscess; Prior surgery; Surgery date: 1-6 months; Surgery type: Drain placement TECHNIQUE: Imaging protocol: Computed tomography of the chest with intravenous contrast. 3D rendering (Not supervised by radiologist): MIP and/or 3D reconstructed images were created by the technologist. Radiation optimization: All CT scans at this facility use at least one of these dose optimization techniques: automated exposure control; mA and/or kV adjustment per patient size (includes targeted exams where dose is matched to clinical indication); or iterative reconstruction. Contrast material: ISOVUE 370; Contrast volume: 75 ml; Contrast route: INTRAVENOUS (IV); COMPARISON: CR Abdomen, Flat-Upright PA CHEST 01/14/2020 9:32 AM FINDINGS: Lungs: Chronic appearing wedge-shaped infiltrate in the left upper lobe with air bronchograms likely represents atelectasis/scarring. Calcified granuloma right upper lobe. Pleural space: Vague bilateral geographic ground-glass opacities may represent sequelae of this a perfusion or atelectasis. Clinical correlation to exclude infection suggested. Heart: Unremarkable. No cardiomegaly. No pericardial effusion. Aorta: Unremarkable. No aortic aneurysm. Lymph nodes: Multiple small mediastinal lymph nodes likely postinflammatory. Otherwise unremarkable. No enlarged lymph nodes. Bones/joints: The spine demonstrates mild degenerative changes. Osteoporosis. Soft tissues: Drain placement into an open wound in the left breast with extensive soft tissue inflammation. Neoplasm not excluded. Calcifications demonstrated along the lateral thoracic wall posterior to the left breast. Multiple surgical clips in the left axilla. IMPRESSION: 1. Vague bilateral geographic ground-glass opacities may represent sequelae of this a perfusion or atelectasis. Clinical correlation to exclude infection suggested. 2. Drain placement into an open wound in the left breast with extensive soft tissue inflammation. Neoplasm not excluded MICROBIOLOGY: Blood cultures pending left breast wound culture enterococcus and staph pending final report ASSESSMENT: 84-year-old female DO NOT RESUSCITATE, DO NOT INTUBATE with history of breast cancer in 1983, status post lumpectomy, chemotherapy and radiation calcified breast collection was sent from the breast surgery clinic due to worsening edema, erythema, tenderness of the left breasts with purulent drainage over the past 2 days. Patient was recently admitted JanuaryJanuary 11 to January 18 for necrotizing left breast infection found to have MRSA, Escherichia coli, strep sanguinous and positive anaerobic cultures. She underwent debridement on 01/12/2020 and re-debridement 01/15/2020 anaerobic culture grew out Bacteroides and to anaerobic cocci. Patient was subsequently discharged on Augmentin and Flagyl. Patient's daughter has noticed increasing swelling and redness as well as the patient complaining of increasing tenderness on palpation. There has been some discharge through the draining tube and complaints of discomfort rated at 4 out of 10 on a pain scale discharge appeared reddish brown but without any fever or chills. Patient took Tylenol PM 2 days ago and another one at 3 PM today. She was seen at the breast surgery clinic today and was sent to the emergency room for hospital admission for intravenous antibiotics and plans for debridement. Patient had a fall without any injuries at home but did not land on the left breast. The daughter has been changing the dressings daily and has notices significant exchange teller the past 2 days. Patient is admitted as a direct admissi on. Currently covered with IV vancomycin and Zosyn for broad-spectrum coverage. She is resumed on all her home medications. Breast surgeon has been consult treated for surgical debridement. 1. Left breast necrotizing infection, s/p failed 4wks outpatient antibiotics, improving. One culture grew out enterococcus and staph. Currently, and IV Zosyn and vancomycin, which we will de-escalate once a final report is available. No need for surgical exploration or debridement as the patient is clinically improving from previous surgical exploration during the previous admission, patient did not have any malignancy on biopsy. 2. History of left breast cancer status post lumpectomy plus radiation abdirizak atment, resolved 3. History of left breast fat necrosis, due to previous radiation with recurrent infection. . We'll de-escalate antibiotics once final wound cultures are available. No need for surgical exploration or biopsy. Surgeon since the patient is clinically improving 4. Type 2 diabetes, on consistent carbohydrate diet, insulin sliding scale with coverage. Fingersticks every before meals at bedtime and hypoglycemic protocol 5. Hypertension, resumed home medications VS, I&O, 24H, Fishbone Vital Signs/I&O Vital Signs Date Time Temp Pulse Resp B/P (MAP) Pulse Ox O2 Delivery O2 Flow Rate FiO2 02/11/20 08:42 138/70 02/11/20 06:00 98.0 87 18 94 02/10/20 14:00 Room Air I&O- Last 24 Hours up to 6 AM 02/11/20 06:00 Intake Total 1955 ml Output Total 1500 ml Balance 455 ml Laboratory Data 24H LABS Laboratory Tests 2 02/10/20 11:57: Bedside Glucose (Misc Panel) 194H 02/10/20 17:27: Bedside Glucose (Misc Panel) 102 02/10/20 20:47: Bedside Glucose (Misc Panel) 231H 02/11/20 06:58: Nucleated Red Blood Cells % (auto) 0.0, Anion Gap 5L, Glomerular Filtration Rate > 60.0, Calcium Level 8.8, Vancomycin Level Trough 19.7 CBC/BMP Laboratory Tests 02/11/20 06:58 Microbiology Microbiology 02/09/20 Blood Culture - Preliminary, Resulted No growth after 24 hours . All specim... 02/09/20 Blood Culture - Preliminary, Resulted No growth after 24 hours . All specim... 02/09/20 Gram Stain - Final, Resulted 02/09/20 Wound Culture - Preliminary, Resulted Enterobacter Cloacae Complex Staphylococcus Aureus USMAN RUSSO MD Feb 11, 2020 09:50
[2020-02-11] MEDS: VANCOMYCIN HCL 750 MG, VIAL MATE ADAPTER 1 EACH in D5W 250 ML IV SCH ×2 (10:24→21:52)
[2020-02-11] MEDS ORDERED: CEPACOL LOZENGE PO PRN (10:30)
--- NOTE | 2020-02-11 10:44 | IPNPDOC ---
Subjective General Date Seen: Feb 11, 2020 Subject Chief Complaint/History Ms. Abreu has a Hx DM and L breast ca in 1980s tx with lumpectomy with possible ALND and RT. She developed a left breast wound couple months ago from pressure caused by the extensive calcifications post RT caused by fat necrosis. She progressed to necrotic soft tissue infection on 01/12/20 and was taken to the OR for debridement on 01/12/20. Joyce was placed. Second look and re-debridement was done on 01/15/20. Joyce was replaced. Wound cx were polymicrobial with at least 4 different organisms. Tissue pathology showed acute necrosis and no m alignancy. She recovered and was sent home with 3 oral abx x14 days. Oral Abx were extended for another 14 days which should be completed on 02/09/20. Patient presented to the office yesterday with increased redness of the wound, feeling of tightness and warmth. There was also increased blanching of the tissues. Patient was directly admitted to the hospital for IV abx, close monitoring and CT of the soft tissues to assess for abscess or undrained fluid collections. She did not have leukocytosis or fevers on labs. Glucose was elevated to over 300. Her Lactic acid and ESR were mildly up. CT showed extensive inflammation but no fluid collection - this was confirmed by my direct discussion with radiology on admission. Wound gram stain was negative for organisms. Preliminary results of wound cu ltures came back positive for a few Staph aureus and heavy growth of Enterobacter cloacae (resistant to bactrim, sensitve to zosyn) No acute issues over night. no fevers. No leukocytosis. Current Medications Current Medications Current Medications Medications (Trade) Dose Ordered Sig/[place] Route PRN Reason Start Time Stop Time Status Last Admin Dose Admin Acetaminophen (Tylenol Tab) 1,000 mg Q6HP PRN PO PAIN / FEVER 02/09/20 18:45 02/11/20 08:41 Atorvastatin Calcium (Lipitor) 80 mg QHS PO 02/09/20 21:00 02/10/20 20:54 Dextrose (Dextrose 50%) 25 ml ASDIRECTED PRN IV SEE LABEL COMMENTS 02/09/20 20:15 Glucagon (Glucagon) 1 mg ASDIRECTED PRN SC SEE LABEL COMMENTS 02/09/20 20:15 Glucose (Glucose) 16 GM ASDIRECTED PRN PO SEE LABEL COMMENTS 02/09/20 20:15 Home Med (Med Rec Complete!) ASDIRECTED XX 02/09/20 18:15 02/09/20 18:12 DC Insulin Human Lispro (HumaLOG INSULIN) SEE PROTOCOL TABLE AC SC 02/10/20 07:30 02/11/20 08:41 Insulin Human Lispro (HumaLOG INSULIN) SEE PROTOCOL TABLE QHS SC 02/09/20 21:00 02/09/20 21:27 Lactobacillus Acidophilus (Bacid) 1 ea WMHS PO 02/09/20 21:00 02/11/20 08:42 Losartan Potassium (Cozaar) 25 mg DAILY PO 02/10/20 09:00 02/11/20 08:42 Magnesium Hydroxide (Milk Of Magnesia) 30 ml Q6HP PRN PO CONSTIPATION 02/09/20 20:15 Morphine Sulfate (Morphine Sulfate Inj) 3 mg Q3HP PRN IV SEVERE PAIN (PS 8-10) 02/09/20 18:45 02/09/20 18:50 Oxycodone/ Acetaminophen (Percocet 5mg/ 325mg Tablet) 1 tab Q6HP PRN PO MILD/MODERATE PAIN (PS 1-7) 02/09/20 20:15 Piperacillin Sod/ Tazobactam Sod 3.375 gm/Dextrose 50 ml @ 50 mls/hr Q6H IV 02/09/20 20:00 02/16/20 14:59 02/11/20 08:43 Polyethylene Glycol (Miralax) 1 pkt DAILYPRN PRN PO CONSTIPATION 02/09/20 20:15 Senna/Docusate Sodium (Senokot S) 2 tab BIDP PRN PO CONSTIPATION 02/09/20 20:15 Sodium Chloride 1,000 ml @ 75 mls/hr [id number] IV 02/09/20 19:00 02/10/20 21:39 DC 02/10/20 08:40 Vancomycin HCl 750 mg/IV Miscellaneous Supplies 1 each/ Dextrose 275 ml @ 275 mls/hr Q12H IV 02/11/20 09:00 02/16/20 21:59 Vancomycin HCl 1000 mg/IV Miscellaneous Supplies 1 each/ Dextrose 270 ml @ 270 mls/hr Q12H IV 02/10/20 08:00 02/16/20 08:59 Cancel Vancomycin HCl 1000 mg/IV Miscellaneous Supplies 1 each/ Dextrose 270 ml @ 270 mls/hr Q12H IV 02/10/20 09:00 02/11/20 07:51 DC 02/10/20 22:04 Allergies Coded Allergies: No Known Drug Allergies (Verified Allergy, Unknown, 01/12/20) Objective Physical Examination Examination GENERAL APPEARANCE:Patient seen, laying in bed, awake, alert, and oriented. Comfortable, in no acute distress. SKIN: L breast skin appears slightly less red and tense- some wrinkles present, redness not extending past demarkation. BREAST: see SKIN, joyce in place, no purulent drainage, only s/s/ drainage. Wound interrogated with qtip- no areas of obvious necrotic tissue. Wound irrigated with H2O2 HEENT: Normocephalic, atraumatic. NECK: Supple LUNGS: breathing comfortably on room air HEART: no tachycardia ABDOMEN: soft EXTREMITIES: Extremities have no deformities. extensive scar tissue in L axilla Vital Signs Vital Signs Date Time Temp Pulse Resp B/P (MAP) Pulse Ox O2 Delivery O2 Flow Rate FiO2 02/11/20 08:42 138/70 02/11/20 06:00 98.0 87 18 94 02/10/20 14:00 Room Air I&Os I&O- Last 24 Hours up to 6 AM 02/11/20 05:59 Intake Total 2270 ml Output Total 1250 ml Balance 1020 ml Laboratory Data Labs 24H Laboratory Tests 2 02/10/20 11:57: Bedside Glucose (Misc Panel) 194H 02/10/20 17:27: Bedside Glucose (Misc Panel) 102 02/10/20 20:47: Bedside Glucose (Misc Panel) 231H 02/11/20 06:58: Nucleated Red Blood Cells % (auto) 0.0, Anion Gap 5L, Glomerular Filtration Rate > 60.0, Calcium Level 8.8, Vancomycin Level Trough 19.7 CBC/BMP Laboratory Tests 02/11/20 06:58 Microbiology Microbiology 02/09/20 Blood Culture - Preliminary, Resulted No growth after 24 hours . All specim... 02/09/20 Blood Culture - Preliminary, Resulted No growth after 24 hours . All specim... 02/09/20 Gram Stain - Final, Resulted 02/09/20 Wound Culture - Preliminary, Resulted Enterobacter Cloacae Complex Staphylococcus Aureus Impression 84 y o F w PMHx of DM, admitted for worsened L breast infection/ inflammation, wound cx with heavy growth of Enterobacter cloacae and few Staph aureus PLANS: - trial of conservative management with broad spectrum abx, choice of abx per Medicine team - will monitor closely if surgical second look is needed - ok for diet for now - wound care per Dr Prabhakar - clean surgical bra given today - greatly appreciate Medical Team help in taking care of Ms. Abreu - will continue to follow Plan / VTE VTE Prophylaxis Ordered?: Yes MILLI PRABHAKAR DO Feb 11, 2020 09:53
[2020-02-11] MEDS ORDERED: CEPACOL LOZENGE PO ONE (10:45)
[2020-02-11 14:00] VITALS: BP 102/42
[2020-02-11] MEDS: ATORVASTATIN 20 MG TAB PO SCH (20:17)
[2020-02-11 22:00] VITALS: BP 131/63
[2020-02-12] MEDS: PIPERACILLIN/TAZOBACTAM SOD 3.375 GM in D5W MINI-BAG PLUS 50 ML IV SCH (02:06)
[2020-02-12 06:00] VITALS: BP 134/62
[2020-02-12 06:07] LABS: HEMATOCRIT 30.4 % (36.0-47.0); HEMOGLOBIN 9.8 g/dl (12.0-15.5); MEAN CORPUSCULAR HEMOGLOBIN 31.4 pg (27.0-33.0); MEAN CORPUSCULAR HGB CONC 32.2 g/dl (32.0-36.5); MEAN CORPUSCULAR VOLUME 97.4 fl (80.0-96.0); PLATELET COUNT, AUTOMATED 348 10^3/uL (150-450); RED BLOOD COUNT 3.12 10^6/uL (4.00-5.40); WHITE BLOOD COUNT 6.1 10^3/uL (4.0-10.0)
[2020-02-12 06:29] LABS: BLOOD UREA NITROGEN 12 MG/DL (7-18); CALCIUM LEVEL 8.2 MG/DL (8.8-10.2); CARBON DIOXIDE LEVEL 28 MEQ/L (21-32); CHLORIDE LEVEL 106 MEQ/L (98-107); CREATININE FOR GFR 0.58 MG/DL (0.55-1.30); GLOMERULAR FILTRATION RATE > 60.0 (>32); GLUCOSE, FASTING 137 MG/DL (70-100); POTASSIUM SERUM 4.3 MEQ/L (3.5-5.1); SODIUM LEVEL 140 MEQ/L (136-145)
[2020-02-12] MEDS ORDERED: LEVA1TAB2 PO (08:47)
[2020-02-12] MEDS ORDERED: RISATAB3 PO (08:47)
[2020-02-12] MEDS ORDERED: DOXY-350 PO (08:47)
[2020-02-12 08:59] VITALS: BP 134/62
[2020-02-12] MEDS: LACTOBACILLUS ACIDOPHILUS CAP (BACID) PO SCH ×3 (08:59→17:47)
[2020-02-12] MEDS: LOSARTAN 25 MG TAB PO SCH (08:59)
[2020-02-12] MEDS ORDERED: cefTRIAXone SOD 2 GM in D5W MINI-BAG PLUS 50 ML IV SCH (09:00)
[2020-02-12] MEDS: HumaLOG INSULIN (NovoLOG) PER UNIT SC SCH ×3 (09:02→17:47)
[2020-02-12] MEDS ORDERED: DOXYCYCLINE HYCLATE 100 MG in D5W MINI-BAG PLUS 100 ML IV SCH (10:00)
--- NOTE | 2020-02-12 11:48 | IPNPDOC ---
Date Seen The patient was seen on 02/12/20. Progress Note SUBJECTIVE: Patient was seen and examined the bedside chart is been reviewed. She has no complaints of fever, chills. Pain is well controlled. Does not want any pain medications at this time per Dr. Radha steiner. She is to be continued on antibiotics and await wound care placement. This can be done today. May be discharged later. She will manage the wound care as outpatient home care referral has been made. There is no purulent discharge at the incision site with a drain is located. No other issues per nursing, patient has not home safety evaluation and is stable for hospital discharge. Once the wound VAC has been placed OBJECTIVE PHYSICAL EXAMINATION: VITAL SIGNS: See below GENERAL APPEARANCE: Pleasant, cooperative. Patient is mute and has difficulty communicating. No respiratory distress. No use of respiratory accessory muscles. Face is symmetric HEENT: Anicteric, no jaundice Pupils equally round, reactive to light accommodation. Extraocular muscles are intact. Normocephalic, atraumatic. Moist mucous membranes. No cervical lymphadenopathy or thyromegaly CARDIOVASCULAR: S1, S2 regular rate rhythm. Nondisplaced point of maximal impulse no pericardial friction rub LUNGS: Air entry is equal bilaterally. No wheezing, rales or rhonchi . No adventitious breath sounds. Inspiratory expiratory ratio 1-2 ABDOMEN: Positive bowel sounds in 4 quadrants. No rebound, guarding, no hepatosp lenomegaly. No abdominal bruit, nondistended MUSCULOSKELETAL: No cyanosis or clubbing. Trace bilateral lower extremity edema Skin over the left breast: 13 x 16 cm indurated, less erythematous erythematous, tender breasts with a 3-1/2 cm incision site. No purulence on the lateral aspect of the breast LABORATORY DATA: See below. IMAGING PROCEDURE INFORMATION: Exam: CT Chest With Contrast Exam date and time: 02/09/2020 7:41 PM Age: 84 years old Clinical indication: Condition or disease; Other: Chest wall cellulitis R/O abscess; Prior surgery; Surgery date: 1-6 months; Surgery type: Drain placement TECHNIQUE: Imaging protocol: Computed tomography of the chest with intravenous contrast. 3D rendering (Not supervised by radiologist): MIP and/or 3D reconstructed images were created by the technologist. Radiation optimization: All CT scans at this facility use at least one of these dose optimization techniques: automated exposure control; mA and/or kV adjustment per patient size (includes targeted exams where dose is matched to clinical indication); or iterative reconstruction. Contrast material: ISOVUE 370; Contrast volume: 75 ml; Contrast route: INTRAVENOUS (IV); COMPARISON: CR Abdomen, Flat-Upright PA CHEST 01/14/2020 9:32 AM FINDINGS: Lungs: Chronic appearing wedge-shaped infiltrate in the left upper lobe with air bronchograms likely represents atelectasis/scarring. Calcified granuloma right upper lobe. Pleural space: Vague bilateral geographic ground-glass opacities may represent sequelae of this a perfusion or atelectasis. Clinical correlation to exclude infection suggested. Heart: Unremarkable. No cardiomegaly. No pericardial effusion. Aorta: Unremarkable. No aortic aneurysm. Lymph nodes: Multiple small mediastinal lymph nodes likely postinflammatory. Otherwise unremarkable. No enlarged lymph nodes. Bones/joints: The spine demonstrates mild degenerative changes. Osteoporosis. Soft tissues: Drain placement into an open wound in the left breast with extensive soft tissue inflammation. Neoplasm not excluded. Calcifications demonstrated along the lateral thoracic wall posterior to the left breast. Multiple surgical clips in the left axilla. IMPRESSION: 1. Vague bilateral geographic ground-glass opacities may represent sequelae of this a perfusion or atelectasis. Clinical correlation to exclude infection suggested. 2. Drain placement into an open wound in the left breast with extensive soft tissue inflammation. Neoplasm not excluded MICROBIOLOGY: Blood cultures pending left breast wound culture enterococcus and staph pending final report ASSESSMENT: 84-year-old female DO NOT RESUSCITATE, DO NOT INTUBATE with history of breast cancer in 1983, status post lumpectomy, chemotherapy and radiation calcified breast collection was sent from the breast surgery clinic due to worsening edema, erythema, tenderness of the left breasts with purulent drainage over the past 2 days. Patient was recently admitted JanuaryJanuary 11 to January 18 for necrotizing left breast infection found to have MRSA, Escherichia coli, strep sanguinous and positive anaerobic cultures. She underwent debridement on 01/12/2020 and re-debridement 01/15/2020 anaerobic culture grew out Bacteroides and to anaerobic cocci. Patient was subsequently discharged on Augmentin and Flagyl. Patient's daughter has noticed increasing swelling and redness as well as the patient complaining of increasing tenderness on palpation. There has been some discharge through the draining tube and complaints of discomfort rated at 4 out of 10 on a pain scale discharge appeared reddish brown but without any fever or chills. Patient took Tylenol PM 2 days ago and another one at 3 PM today. She was seen at the breast surgery clinic today and was sent to the emergency room for hospital admission for intravenous antibiotics and plans for debridement. Patient had a fall without any injuries at home but did not land on the left breast. The daughter has been changing the dressings daily and has notices significant manager of change the past 2 days. Patient is admitted as a direct admission. Currently covered with IV vancomycin and Zosyn for broad-spectrum c overage. She is resumed on all her home medications. Breast surgeon has been consult treated for surgical debridement. 1. Left breast necrotizing infection, s/p failed 4wks outpatient antibiotics, im proving. Wound culture: Enterococcus and MRSA, sensitive to ceftriaxone and doxycycline, also sensitive to Levaquin and doxycycline, which she can continue as outpatient for 14 more days. Patient's IV vancomycin and Zosyn have been discontinued and he escalated to IV ceftriaxone and and IV doxycycline until ready for hospital discharge, her breast surgeon. Patient needs to be kept until wound VAC is placed home care referral will be required at hospital discharge for wound VAC management. Outpatient follow-up with breast surgeon. She has remained afebrile with no chills and normal white count 2. History of left breast cancer status post lumpectomy plus radiation treatment, resolved 3. History of left breast fat necrosis, due to previous radiation with recurrent infection. Per breast surgery. Patient does not have any signs of malignancy from previous pathology report. 4. Type 2 diabetes, on consistent carbohydrate diet, insulin sliding scale with coverage. Fingersticks every before meals at bedtime and hypoglycemic protocol 5. Hypertension, resumed home medications Disposition awaiting wound VAC. VS, I&O, 24H, [place] Vital Signs/I&O Vital Signs Date Time Temp Pulse Resp B/P (MAP) Pulse Ox O2 Delivery O2 Flow Rate FiO2 02/12/20 08:59 134/62 02/12/20 06:00 98.0 81 20 93 02/11/20 14:00 Room Air I&O- Last 24 Hours up to 6 AM 02/12/20 05:59 Intake Total 1920 ml Output Total 250 ml Balance 1670 ml Laboratory Data 24H LABS Laboratory Tests 2 02/11/20 12:11: Bedside Glucose (Misc Panel) 177H 02/11/20 16:51: Bedside Glucose (Misc Panel) 120H 02/11/20 20:47: Bedside Glucose (Misc Panel) 209H 02/12/20 05:23: Nucleated Red Blood Cells % (auto) 0.0, Anion Gap 6L, Glomerular Filtration Rate > 60.0, Calcium Level 8.2L 02/12/20 11:25: Bedside Glucose (Misc Panel) 233H CBC/BMP Laboratory Tests 02/12/20 05:23 Microbiology Microbiology 02/09/20 Blood Culture - Preliminary, Resulted No Growth after 48 hours. All Specime... 02/09/20 Blood Culture - Preliminary, Resulted No Growth after 48 hours. All Specime... 02/09/20 Gram Stain - Final, Complete 02/09/20 Wound Culture - Final, Complete Enterobacter Cloacae Complex Staph.aureus Methicillin Resis USMAN RUSSO MD Feb 12, 2020 11:48
--- NOTE | 2020-02-12 12:23 | IPNPDOC ---
Subjective General Date Seen: Feb 12, 2020 Subject Chief Complaint/History Ms. Abreu has a Hx DM and L breast ca in 1980s tx with lumpectomy with possible ALND and RT. She developed a left breast wound couple months ago from pressure caused by the extensive calcifications post RT caused by fat necrosis. She progressed to necrotic soft tissue infection on 01/12/20 and was taken to the OR for debridement on 01/12/20. Susan was placed. Second look and re-debridement was done on 01/15/20. Gibsonia was replaced. Wound cx were polymicrobial with at least 4 different organisms. Tissue pathology showed acute necrosis and no m alignancy. She recovered and was sent home with 3 oral abx x14 days. Oral Abx were extended for another 14 days which should be completed on 02/09/20. Patient presented to the office yesterday with increased redness of the wound, feeling of tightness and warmth. There was also increased blanching of the tissues. Patient was directly admitted to the hospital for IV abx, close monitoring and CT of the soft tissues to assess for abscess or undrained fluid collections. She did not have leukocytosis or fevers on labs. Glucose was elevated to over 300. Her Lactic acid and ESR were mildly up. CT showed extensive inflammation but no fluid collection - this was confirmed by my direct discussion with radiology on admission. Wound gram stain was negative for organisms. Wound cultures came back positive for a few Staph aureus and heavy growth of Enterobacter cloacae (resistant to bactrim, sensitve to zosyn) No acute issues over night. no fevers. No leukocytosis. Current Medications Current Medications Current Medications Medications (Trade) Dose Ordered Sig/[place] Route PRN Reason Start Time Stop Time Status Last Admin Dose Admin Acetaminophen (Tylenol Tab) 1,000 mg Q6HP PRN PO PAIN / FEVER 02/09/20 18:45 02/11/20 22:36 Atorvastatin Calcium (Lipitor) 80 mg QHS PO 02/09/20 21:00 02/11/20 20:17 Ceftriaxone Sodium 2 gm/ Dextrose 50 ml @ 100 mls/hr Q24H IV 02/12/20 08:15 UNV Cetylpyridinium Chloride (Cepacol) 2 geeta Q2HP PRN PO SORE THROAT 02/11/20 10:30 Dextrose (Dextrose 50%) 25 ml ASDIRECTED PRN IV SEE LABEL COMMENTS 02/09/20 20:15 Doxycycline Hyclate 100 mg/ Dextrose 100 ml @ 100 mls/hr Q12H IV 02/12/20 08:15 UNV Glucagon (Glucagon) 1 mg ASDIRECTED PRN SC SEE LABEL COMMENTS 02/09/20 20:15 Glucose (Glucose) 16 GM ASDIRECTED PRN PO SEE LABEL COMMENTS 02/09/20 20:15 Home Med (Med Rec Complete!) ASDIRECTED XX 02/09/20 18:15 02/09/20 18:12 DC Insulin Human Lispro (HumaLOG INSULIN) SEE PROTOCOL TABLE AC SC 02/10/20 07:30 02/11/20 17:22 Insulin Human Lispro (HumaLOG INSULIN) SEE PROTOCOL TABLE QHS SC 02/09/20 21:00 02/09/20 21:27 Lactobacillus Acidophilus (Bacid) 1 ea WMHS PO 02/09/20 21:00 02/11/20 20:17 Losartan Potassium (Cozaar) 25 mg DAILY PO 02/10/20 09:00 02/11/20 08:42 Magnesium Hydroxide (Milk Of Magnesia) 30 ml Q6HP PRN PO CONSTIPATION 02/09/20 20:15 Morphine Sulfate (Morphine Sulfate Inj) 3 mg Q3HP PRN IV SEVERE PAIN (PS 8-10) 02/09/20 18:45 02/09/20 18:50 Oxycodone/ Acetaminophen (Percocet 5mg/ 325mg Tablet) 1 tab Q6HP PRN PO MILD/MODERATE PAIN (PS 1-7) 02/09/20 20:15 Piperacillin Sod/ Tazobactam Sod 3.375 gm/Dextrose 50 ml @ 50 mls/hr Q6H IV 02/09/20 20:00 02/12/20 08:11 DC 02/12/20 02:06 Polyethylene Glycol (Miralax) 1 pkt DAILYPRN PRN PO CONSTIPATION 02/09/20 20:15 Senna/Docusate Sodium (Senokot S) 2 tab BIDP PRN PO CONSTIPATION 02/09/20 20:15 Sodium Chloride 1,000 ml @ 75 mls/hr [id number] IV 02/09/20 19:00 02/10/20 21:39 DC 02/10/20 08:40 Vancomycin HCl 750 mg/IV Miscellaneous Supplies 1 each/ Dextrose 275 ml @ 275 mls/hr Q12H IV 02/11/20 09:00 02/12/20 08:11 DC 02/11/20 21:52 Vancomycin HCl 1000 mg/IV Miscellaneous Supplies 1 each/ Dextrose 270 ml @ 270 mls/hr Q12H IV 02/10/20 08:00 02/16/20 08:59 Cancel Vancomycin HCl 1000 mg/IV Miscellaneous Supplies 1 each/ Dextrose 270 ml @ 270 mls/hr Q12H IV 02/10/20 09:00 02/11/20 07:51 DC 02/10/20 22:04 Allergies Coded Allergies: No Known Drug Allergies (Verified Allergy, Unknown, 01/12/20) Objective Physical Examination Examination GENERAL APPEARANCE: Patient seen, laying in bed, awake, alert, and oriented. Comfortable, in no acute distress. SKIN: L breast skin appears slightly less red and tense- some wrinkles present, redness not extending past demarkation. BREAST: see SKIN, susan in place, no purulent drainage, only s/s drainage. Wound irrigated with H2O2 HEENT: Normocephalic, atraumatic. NECK: Supple LUNGS: breathing comfortably on room air HEART: no tachycardia ABDOMEN: soft EXTREMITIES: Extremities have no deformities. extensive scar tissue in L axilla Vital Signs Vital Signs Date Time Temp Pulse Resp B/P (MAP) Pulse Ox O2 Delivery O2 Flow Rate FiO2 02/12/20 06:00 98.0 81 20 134/62 (86) 93 02/11/20 14:00 Room Air I&Os I&O- Last 24 Hours up to 6 AM0 02/12/20 06:00 Intake Total 2009 ml Balance 2010 ml Laboratory Data Labs 24H Laboratory Tests 2 02/11/20 12:11: Bedside Glucose (Misc Panel) 177H 02/11/20 16:51: Bedside Glucose (Misc Panel) 120H 02/11/20 20:47: Bedside Glucose (Misc Panel) 209H 02/12/20 05:23: Nucleated Red Blood Cells % (auto) 0.0, Anion Gap 6L, Glomerular Filtration Rate > 60.0, Calcium Level 8.2L CBC/BMP Laboratory Tests 02/12/20 05:23 Microbiology Microbiology 02/09/20 Blood Culture - Preliminary, Resulted No Growth after 48 hours. All Specime... 02/09/20 Blood Culture - Preliminary, Resulted No Growth after 48 hours. All Specime... 02/09/20 Gram Stain - Final, Complete 02/09/20 Wound Culture - Final, Complete Enterobacter Cloacae Complex Staph.aureus Methicillin Resis Impression 84 y o F w PMHx of DM, admitted for worsened L breast infection/ inflammation, wound cx with heavy growth of Enterobacter cloacae and few MRSA PLAN: - will place wound vac into the left breast wound later on today - final wound cx reviewed, abx management per Medicine team - ok for diet - clean surgical bra given given yesterday - greatly appreciate Medical Team help in taking care of Ms. Abreu - d/c planning with wound vac, will try to arrange follow up at wound care for vac management Plan / VTE VTE Prophylaxis Ordered?: Yes MILLI PRABHAKAR DO Feb 12, 2020 08:41
[2020-02-12 14:00] VITALS: BP 123/59
== END 2020-02-12 18:32 | disposition home health service (06) | DRG 601 ==
LOC: M MSPAV 17:14
PROVIDERS: ADMIT General Practice; ATTEND General Practice
DX: N61.0 Mastitis without abscess (principal); E11.9 Type 2 diabetes mellitus without complications; I10 Essential (primary) hypertension; H91.93 Unspecified hearing loss, bilateral; B95.62 Methicillin resistant Staphylococcus aureus infection as the cause of diseases classified elsewhere; N64.1 Fat necrosis of breast; Z66 Do not resuscitate; Z79.82 Long term (current) use of aspirin; Z92.3 Personal history of irradiation; Z85.3 Personal history of malignant neoplasm of breast; Z79.84 Long term (current) use of oral hypoglycemic drugs; Z79.899 Other long term (current) drug therapy

== ENCOUNTER → 2020-03-27 | Outpatient (REF) | payer MEDICARE, BC, OTHER ==
[~2020-03-27] MED LIST changes: +BACT800T5 PO; +DOXY-350 PO; +ECOT81TA5 PO; +FLAG500T PO; +LEVA1TAB2 PO; +RISATAB3 PO
[2020-03-27 15:43] LABS: BASO % 0.4 % (0.0-1.0); EOS # 0.1 10^3/uL (0.0-0.5); EOS % 2.1 % (0.0-3.0); HEMATOCRIT 36.4 % (36.0-47.0); HEMOGLOBIN 11.3 g/dl (12.0-15.5); LYMPH # 1.8 10^3/uL (1.5-5.0); LYMPH % 27.2 % (24.0-44.0); MEAN CORPUSCULAR HEMOGLOBIN 30.1 pg (27.0-33.0); MEAN CORPUSCULAR VOLUME 96.8 fl (80.0-96.0); MONO # 0.7 10^3/uL (0.0-0.8); MONO % 10.3 % (0.0-5.0); NEUTROPHILS % 59.6 % (36.0-66.0); PLATELET COUNT, AUTOMATED 270 10^3/uL (150-450); RED BLOOD COUNT 3.76 10^6/uL (4.00-5.40); WHITE BLOOD COUNT 6.7 10^3/uL (4.0-10.0)
[2020-03-27 15:55] LABS: INR 0.95; PROTHROMBIN TIME 12.9 SECONDS (12.5-14.3)
[2020-03-27 15:56] LABS: PARTIAL THROMBOPLASTIN TIME 38.5 SECONDS (24.2-38.5)
[2020-03-27 16:10] LABS: ALBUMIN 3.2 GM/DL (3.2-5.2); ALT/SGPT 21 U/L (12-78); BILIRUBIN,TOTAL 0.3 MG/DL (0.2-1.0); BLOOD UREA NITROGEN 21 MG/DL (7-18); CALCIUM LEVEL 9.6 MG/DL (8.8-10.2); CARBON DIOXIDE LEVEL 27 MEQ/L (21-32); CHLORIDE LEVEL 100 MEQ/L (98-107); CREATININE FOR GFR 0.69 MG/DL (0.55-1.30); GLOMERULAR FILTRATION RATE > 60.0 (>32); GLUCOSE, FASTING 166 MG/DL (70-100); POTASSIUM SERUM 4.7 MEQ/L (3.5-5.1); SODIUM LEVEL 134 MEQ/L (136-145); TOTAL PROTEIN 7.1 GM/DL (6.4-8.2)
== END ==
LOC: M SHH 15:28
PROVIDERS: ATTEND Physician Assistant
DX: Z01.818 Encounter for other preprocedural examination (principal); Z79.899 Other long term (current) drug therapy; L59.8 Other specified disorders of the skin and subcutaneous tissue related to radiation
CPT/HCPCS: 80053; 85025; 85610; 85730; G0277

== ENCOUNTER → 2020-03-28 | Outpatient (CLI) | payer MEDICARE, BC, OTHER ==
--- NOTE | 2020-03-28 14:29 | REP ---
INDICATION: PREOP. COMPARISON: 05/16/2014 a portable examination and the latest prior. FINDINGS: The cardiac silhouette is top-normal in size. Since the last examination the patient has had left mastectomy. There is left CP angle blunting and left basilar curvilinear opacities. There are calcifications in the left lower lung field some of which are extrathoracic in location on the frontal view and all of which represent a change from the prior exam. There is no significant change in the appearance of the osseous structures. IMPRESSION: Small left pleural effusion and probable left lower lobe subsegmental atelectatic change. Developing pneumonia cannot be ruled out. There are some calcifications on the left some of which are certainly extra pulmonic and all likely the sequelae of previous surgery. Since there is no CT scan of the chest review I would recommend that study be obtained. <Electronically signed by Desean Cerda > 03/28/20 [id number]
== END ==
LOC: M WUC 12:13
PROVIDERS: ATTEND Physician Assistant
DX: Z01.818 Encounter for other preprocedural examination (principal); J90 Pleural effusion, not elsewhere classified; L59.8 Other specified disorders of the skin and subcutaneous tissue related to radiation
CPT/HCPCS: 71046; G0277

== ENCOUNTER → 2020-04-06 | Outpatient (CLI) | payer MEDICARE, BC, OTHER | LOC: M LABSMTC 10:11 | PROVIDERS: ATTEND Anesthesiology | DX: Z01.812 Encounter for preprocedural laboratory examination (principal); Z20.828 Contact with and (suspected) exposure to other viral communicable diseases ==

== ENCOUNTER 2020-04-11 11:42 | Day surgery (SDC) | payer MEDICARE, BC, OTHER ==
[~2020-04-11] VITALS: Ht 149.9 cm; Wt 56.2 kg
[~2020-04-11 11:42] MED LIST changes: +HEPARIN SOD (PORCINE) 5000UNITS/ML 1ML VIAL/SYRINGE SQ ONE; +LIDOCAINE 1% MDV 20ML VIAL SQ PRN; +LR 1,000 ML IV ONE; +ceFAZolin SOD 2 GM in IV 1 EA IV ONE
[2020-04-11] MEDS ORDERED: MIDAZOLAM INJ 2MG/2ML VIAL (J2250 PER 1MG) As Ordered ONE (12:35)
[2020-04-11] MEDS ORDERED: fentaNYL 250 MCG/5 ML INJECTION (J3010) As Ordered ONE (12:35)
[2020-04-11] MEDS ORDERED: propofoL 200 MG/20 ML VIAL As Ordered ONE (12:35)
[2020-04-11] MEDS ORDERED: ROCURONIUM BROMIDE 50 MG/5 ML VIAL As Ordered ONE (12:35)
[2020-04-11] MEDS ORDERED: LIDOCAINE 2% 100MG/5ML SDV (FOR ANES.) As Ordered ONE (12:35)
[2020-04-11] MEDS ORDERED: ONDANSETRON 4MG/2ML VIAL As Ordered ONE (12:35)
[2020-04-11] MEDS ORDERED: dexameTHASONE 4 MG/ML 1ML VIAL (J1100 PER 1MG) As Ordered ONE (12:35)
[2020-04-11] MEDS ORDERED: LIDOCAINE 1% MDV 20ML VIAL As Ordered ONE ×2 (15:03→15:04)
[2020-04-11] MEDS ORDERED: LIDOCAINE 1% SDV 30ML VIAL As Ordered ONE (15:03)
[2020-04-11] MEDS ORDERED: BACITRACIN PWD 50,000 UNITS VIAL As Ordered ONE (15:03)
[2020-04-11] MEDS ORDERED: BUPIVACAINE HCL 0.25% 30ML VIAL As Ordered ONE (15:03)
[2020-04-11] MEDS ORDERED: BUPIVACAINE LIPOSOME/PF 1.3% 20ML VIAL (13.3MG/ML)(EXPAREL)(C9290 PER1MG) As Ordered ONE (15:03)
[2020-04-11] MEDS ORDERED: EPINEPHrine 1MG/ML INJ 30ML MD-VIAL As Ordered ONE (15:04)
[2020-04-11] MEDS ORDERED: GLYCOPYRROLATE INJ 0.2 MG/ML 2 ML VIAL As Ordered ONE (16:48)
--- NOTE | 2020-04-11 17:57 | POST-OPPD ---
Postoperative Procedure Note Date Of Procedure: Apr 11, 2020 PREOPERATIVE DIAGNOSIS: Left breast post mastectomy open wound POSTOPERATIVE DIAGNOSIS: same FINDINGS: open wound left breast PROCEDURE: Post mastectomy chest wall reconstruction left breast with local tissue rearrangement. SURGEON: Dr Camacho SERVER ADMINISTRATOR: Dr Samano ANESTHESIA: General SPECIMENS: none ESTIMATED BLOOD LOSS: 10 cc REPLACED: none DRAINS: 15 Fr round drain COMPLICATIONS: none POSTOPERATIVE CONDITION: stable Dictation: [id number] EUFEMIA CAMACHO DO Apr 11, 2020 17:57
[2020-04-11] MEDS ORDERED: NS 1,000 ML IV SCH (18:11)
[2020-04-11] MEDS ORDERED: LR 1,000 ML IV SCH (18:15)
[2020-04-11] MEDS ORDERED: ACETAMINOPHEN TAB 650MG DOSE (2X325MG) PO PRN (18:15)
[2020-04-11] MEDS ORDERED: MORPHINE 2 MG/ML 1ML VIAL (J2270) IV PRN (18:15)
[2020-04-11] MEDS ORDERED: ONDANSETRON 4MG/2ML VIAL IV PRN ×2 (18:15)
[2020-04-11] MEDS ORDERED: HYDROMORPHONE HCL 0.5 MG/ 0.5 ML SYRINGE (J1170 PER 1) IV PRN (18:15)
[2020-04-11] MEDS ORDERED: oxyCODONE 5MG TAB PO PRN (18:15)
[2020-04-11] MEDS ORDERED: METOCLOPRAMIDE INJ 10MG/2ML VIAL (J2765 PER 1) IV PRN (18:15)
[2020-04-11] MEDS ORDERED: PERCOCET 5MG/325MG TAB PO PRN (18:15)
[2020-04-11] MEDS ORDERED: fentaNYL 100 MCG/2 ML INJECTION (J3010) IV PRN (18:15)
[2020-04-11 18:47] VITALS: BP 115/72
[2020-04-11] MEDS ORDERED: GLUCAGON INJ 1MG VIAL SC PRN (19:30)
[2020-04-11] MEDS ORDERED: DEXTROSE 50% 50 ML SYRINGE IV PRN (19:30)
[2020-04-11] MEDS ORDERED: GLUCOSE 4GM CHEW TABLET PO PRN (19:30)
[2020-04-11 20:49] VITALS: BP 130/58
--- NOTE | 2020-04-11 20:49 | CR.PDOC ---
General Date of Consultation: Apr 11, 2020 Referring Provider: MILLI PRABHAKAR DO Consultation REASON FOR CONSULTATION/CHIEF COMPLAINT: Medical comanagement after surgery HISTORY OF PRESENT ILLNESS: Mrs. Abreu is an 84-year-old female with diabetes mellitus, left breast cancer status post chemoradiation in 1983, and sensioneural deafness who is here for left mastectomy for chronic left breast wound. She has had multiple left breast infections. She was hospitalized from 01/12/2020 to 01/19/2020 for necrotizing left breast infection and 02/09/2020 to for the same. She had decided for surgery and on 04/11/2020, she had a post mastectomy chest wall reconstruction left breast. She was seen after the procedure. Daughter and trust vault custodian were present in the room. Post-op, she was feel well. Denies fever/chills, lightheadedness, dizziness, chest pain, dyspnea, abdominal pain, diarrhea, dysuria, or rashes. They did not have any further questions for me. ALLERGIES: Please see below. HOME MEDICATIONS: Please see below. PAST MEDICAL HISTORY: 1. Diabetes mellitus 2. Hypertension 3. Left breast surgery for breast cancer with lumpectomy, radiation 4. Left breast necrosis status post surgical debridement 2 5. 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 Osteoporosis PAST SURGICAL HISTORY: 1. Left breast lumpectomy in 2. Surgical debridement of the breast 2 in January 2020 3. Appendectomy FAMILY HISTORY: Father: at 67 years, OR Mother: at 80 years, diabetes SOCIAL HISTORY: Tobacco use: Never smoker Illicit drug use: Denies REVIEW OF SYSTEMS: CONSTITUTIONAL: Denies any fever or chills. Denies lightheadedness or dizziness. ENT: Denies sore throat. Denies dysphagia. RESPIRATORY: Denies shortness of breath. Denies cough. CARDIOVASCULAR: Denies chest pain. Denies palpitations. GASTROINTESTINAL: Denies abdominal pain. Denies diarrhea. Denies constipation GENITOURINARY: Denies dysuria. CUTANEOUS: Denies rashes. MUSCULOSKELETAL: Denies muscle skeletal pain HEMATOLOGICAL: Denies bruises ENDOCRINE: Denies polydipsia, denies polyphagia. PHYSICAL EXAMINATION: VITAL SIGNS: Please see below. GENERAL: Comfortable, in no apparent distress. HEENT: Head normocephalic/atraumatic, EOMI, sclera clear. NECK: Supple RESPIRATORY: Lungs clear to auscultation bilaterally, no rales, wheeze or rhonchi. CARDIOVASCULAR: Regular rate and rhythm. ABDOMEN: Soft, nontender, no guarding or rebound tenderness. Normal bowel sounds. MUSCLE SKELETAL: Mild pitting edema NEUROLOGICAL: Other than deafness CN 312 grossly intact, no focal deficits noted. PSYCHOLOGICAL: Normal mood and affect LABORATORY DATA: Please see below. ASSESSMENT/PLAN: 1. Status post surgery for left breast postmastectomy open wound Pain control and instructions per surgery May restart all home meds on discharge 2. Diabetes mellitus type 2 While inpatient, we will hold her Invokana, Januvia, and Metformin. May restart on discharge Start signs insulin while inpatient 3. Hyperlipidemia Continue atorvastatin 4. Hypertension Continue losartan 5. DVT prophylaxis SCDs and teds Vital Signs/I&O Vital Signs Date Time Temp Pulse Resp B/P (MAP) Pulse Ox O2 Delivery O2 Flow Rate FiO2 04/11/20 18:47 98.2 69 18 115/72 (86) 98 Room Air 04/11/20 18:22 2 Laboratory Data Labs 24H Laboratory Tests 2 04/11/20 13:10: Bedside Glucose (Misc Panel) 132H Allergies Coded Allergies: No Known Drug Allergies (Verified Allergy, Unknown, 03/28/20) Home Medications Scheduled Aspirin (Ecotrin) 81 Mg Tablet.dr, 81 MG PO DAILY, (Reported) Atorvastatin Calcium (Atorvastatin Calcium) 80 Mg Tab, 80 MG PO QHS, (Reported) Calcium Carbonate/Vitamin D3 (Calcium 500-Vit D3 400 Tablet) 1 Tab Tab, 1 TAB PO DAILY, (Reported) Canagliflozin (Invokana) 300 Mg Tab, 300 MG PO DAILY, (Reported) Lactobacillus Acidophilus (Probiotic) 1 Each Capsule, 1 CAP PO DAILY, (Reported) Losartan Potassium (Losartan Potassium) 25 Mg Tab, 25 MG PO DAILY, (Reported) Metformin HCl (Metformin HCl ER) 500 Mg Tab.er.24h, 1,000 MG PO QHS, (Reported) Multivitamin (Multivitamins) 1 Each Capsule, 1 CAP PO DAILY, (Reported) Sitagliptin Phosphate (Januvia) 100 Mg Tab, 100 MG PO DAILY, (Reported) Vit C/E/Zn/Coppr/Lutein/Zeaxan (Preservision Areds 2 Softgel) 1 Each Capsule, 1 CAP PO BID, (Reported) MAR,ESTER A. DO Apr 11, 2020 20:48
[2020-04-11] MEDS ORDERED: ATORVASTATIN 20 MG TAB PO SCH (21:00)
[2020-04-11] MEDS ORDERED: HumaLOG INSULIN (NovoLOG) PER UNIT SC SCH (21:00)
[2020-04-11 21:51] VITALS: BP 117/60
[2020-04-11 22:50] VITALS: BP 115/62
[2020-04-11 23:50] VITALS: BP 118/62
[2020-04-12 00:29] VITALS: BP 118/60
[2020-04-12 05:40] VITALS: BP 124/56
[2020-04-12 06:46] LABS: HEMATOCRIT 33.3 % (36.0-47.0); HEMOGLOBIN 10.7 g/dl (12.0-15.5); MEAN CORPUSCULAR HEMOGLOBIN 31.3 pg (27.0-33.0); MEAN CORPUSCULAR HGB CONC 32.1 g/dl (32.0-36.5); MEAN CORPUSCULAR VOLUME 97.4 fl (80.0-96.0); PLATELET COUNT, AUTOMATED 238 10^3/uL (150-450); RED BLOOD COUNT 3.42 10^6/uL (4.00-5.40); WHITE BLOOD COUNT 7.4 10^3/uL (4.0-10.0)
[2020-04-12 07:14] LABS: BLOOD UREA NITROGEN 18 MG/DL (7-18); CALCIUM LEVEL 8.4 MG/DL (8.8-10.2); CARBON DIOXIDE LEVEL 28 MEQ/L (21-32); CHLORIDE LEVEL 104 MEQ/L (98-107); CREATININE FOR GFR 0.67 MG/DL (0.55-1.30); GLOMERULAR FILTRATION RATE > 60.0 (>32); GLUCOSE, FASTING 141 MG/DL (70-100); POTASSIUM SERUM 4.1 MEQ/L (3.5-5.1); SODIUM LEVEL 138 MEQ/L (136-145)
[2020-04-12] MEDS ORDERED: HumaLOG INSULIN (NovoLOG) PER UNIT SC SCH (07:30)
[2020-04-12 08:45] VITALS: BP 124/56
[2020-04-12] MEDS ORDERED: LACTOBACILLUS ACIDOPHILUS CAP (BACID) PO SCH (09:00)
[2020-04-12] MEDS ORDERED: LOSARTAN 25 MG TAB PO SCH (09:00)
--- NOTE | 2020-04-12 09:16 | IPNPDOC ---
Subjective Date Seen The patient was seen on 04/12/20. Subjective Chief Complaint/HPI Ms. Abreu is an 84-year-old lady admitted to the hospital for observation after her left breast mastectomy done yesterday for diagnosis of left chronic wound. is doing well after her procedure yesterday. Pain is well-controlled. Patient denies nausea vomiting. Patient was able to ambulate to the bathroom. Drainage from the Jimbo drain on the left side is 80 mL since surgery. Drainages sanguinous Objective Physical Examination Other physical findings Patient is alert and oriented 3. Breathing cautery on room air No tachycardic Left mastectomy flaps are viable. There is no significant bruising. There is mild edema on the medial aspect of the mastectomy. Jimbo drain is in place on the lateral left chest with sanguinous drainage. Surgical bras in place. Abdomen is soft Mild edema of the left upper extremities showing small indentation around the left ring finger - there is a wedding band on that finger. the band still can move and does not obstruct the flow Assessment /Plan Assessment 84 year old lady with numerous comorbidities including HTN, Dm and Hx of L breast ca, now with left breast chronic wound previously complicated by necrotizing soft tissue infection. s/l left simple mastectomy (subcutaneous, non-oncologic) and complex wound c losure POD1. Doing well. no complications. - awaiting lab results - monitor drain output, strip drain - drain teaching per nursing staff - awaiting plastic surgery recommendation and Hospitalist recommendations - possible discharge home later today if doing well and cleared my Medical team and Plastic team - Clinic followup with breast surgery on Apr 22 at 1 pm - plan discussed with patient and her family ( solution designer used) - plan discussed with nursing staff Plan/VTE VTE Prophylaxis Ordered?: Yes VTE Exclusion Pharmacological: Bleeding Risk VS, I&O, 24H, Fishbone Vital Signs/I&O Vital Signs Date Time Temp Pulse Resp B/P (MAP) Pulse Ox O2 Delivery O2 Flow Rate FiO2 04/12/20 08:45 124/56 04/12/20 05:40 98.0 75 18 95 Room Air 04/11/20 18:22 2 I&O- Last 24 Hours up to 6 AM 04/12/20 06:00 Intake Total 1485 ml Output Total 1435 ml Balance 50 ml Laboratory Data 24H LABS Laboratory Tests 2 04/11/20 13:10: Bedside Glucose (Misc Panel) 132H 04/11/20 20:53: Bedside Glucose (Misc Panel) 168H 04/12/20 06:32: Nucleated Red Blood Cells % (auto) 0.0, Anion Gap 6L, Glomerular Filtration Rate > 60.0, Calcium Level 8.4L CBC/BMP Laboratory Tests 04/12/20 06:32 MILLI PRABHAKAR DO Apr 12, 2020 09:16
[2020-04-12 10:00] VITALS: BP 109/48
--- NOTE | 2020-04-12 10:28 | RO ---
OPERATIVE NOTE DATE OF OPERATION: 04/11/2020 PREOPERATIVE DIAGNOSIS: Left breast post mastectomy open wound. POSTOPERATIVE DIAGNOSIS: Left breast post mastectomy open wound. FINDINGS: Open wound left breast post mastectomy, chest wall reconstruction left breast, left local tissue rearrangement. ATTENDING SURGEON: Randee Blankenship DO. JIG BORE TOOL MAKER: Raysa Samano DO. ANESTHESIA: General. SPECIMENS: None. ESTIMATED BLOOD LOSS: 10 mL. DRAIN PLACED: 15-Hungarian round. COMPLICATIONS: None. DESCRIPTION OF PROCEDURE: This is an 84-year-old female who is followed by breast surgery and plastic surgery together. 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 The patient had multiple complications. She is scheduled for a simple mastectomy with expected possible difficulty with closure of the mastectomy site; so plastic surgery is involved to help with the closure. The patient is also using hyperbaric oxygen currently for prepping for the surgery and also planning to resume the remaining treatments after the surgery is completed. On the day of surgery, informed consent was obtained from the patient with her daughter and an assembler utility buildings present. All the risks, benefits, and alternatives were discussed with the patient, and she is ready to proceed. She was marked in the upright position in the preoperative holding area, and then she was brought into the operating room and placed in the supine position. Preoperative antibiotics were given. Sequentials placed on the lower calves. General anesthesia was induced. She was prepped and draped in the usual sterile fashion. Dr. Samano started her part of the procedure including the simple mastectomy along the markings that were created preoperatively. A simple mastectomy was carried out and all the radiation-affected tissue was removed. It was found that the pectoralis muscle was in good condition and has good vascular supply. There were permanent radiation changes along the serratus anterior that were present. The skin also has hardening and thickening with subcutaneous scarring inferiorly and superiorly, which caused the skin to have minimally pliability for closure. We started our procedure by irrigating the area confirming hemostasis using electrocautery. Then, the flaps were elevated superiorly until the clavicle and released the scar tissue superiorly and also toward the axilla, freeing the pectoralis major muscle from the adhesions that were created previously and inferiorly we also obliterated the inframammary line and a flap was created from the superior portion of the rectus muscle area, the rectus was left in place, but the skin overlying the rectus muscle was used as an inferior border for closure. Then, the flaps were closed with interrupted 0-Vicryl sutures with minimal tension. The 15 round drain was placed through the separate stab incision and left in place. Dog ears were identified and dissected anteriorly and laterally, and we continued closing the wounds with interrupted 0-Vicryl sutures and 3-0 Monocryl sutures. Prineo dressing was applied. Before the final closure was completed, Dr. Samano was helping with hemostasis and also exposure for the flap raising and we used 20 units of local, she injected 10 mL in the pectoralis major muscle to create a block, and then also into the incision site. The patient was extubated upright and awakened without any difficulty and transferred to the recovery room in stable condition.
--- NOTE | 2020-04-12 13:45 | IPNPDOC ---
Subjective General Date Seen: Apr 12, 2020 Subject Chief Complaint/History The patient is a 84-year-old female admitted with a reason for visit of Left Breast Chronic Wound, Scar Conditions. Patient s/p Left simple mastectomy with complex closure POD 1. Doing well. Pain controlled. Current Medications Current Medications Current Medications Medications (Trade) Dose Ordered Sig/[place] Route PRN Reason Start Time Stop Time Status Last Admin Dose Admin Acetaminophen (Tylenol Tab) 650 mg Q6H PRN PO MILD PAIN (PS 1-4) 04/11/20 18:15 04/12/20 11:13 DC Atorvastatin Calcium (Lipitor) 80 mg QHS PO 04/11/20 21:00 04/12/20 11:13 DC 04/11/20 20:01 Dextrose (Dextrose 50%) 25 ml ASDIRECTED PRN IV SEE LABEL COMMENTS 04/11/20 19:30 04/12/20 11:13 DC Fentanyl Citrate (Sublimaze) 25 mcg Q5MP PRN IV PAIN LEVEL 5-10 04/11/20 18:15 04/11/20 19:15 DC Glucagon (Glucagon) 1 mg ASDIRECTED PRN SC SEE LABEL COMMENTS 04/11/20 19:30 04/12/20 11:13 DC Glucose (Glucose) 16 GM ASDIRECTED PRN PO SEE LABEL COMMENTS 04/11/20 19:30 04/12/20 11:13 DC Hydromorphone HCl (Dilaudid) 0.4 mg Q5MP PRN IV PAIN LEVEL 4-7 04/11/20 18:15 04/11/20 19:15 DC Insulin Human Lispro (HumaLOG INSULIN) SEE PROTOCOL TABLE AC SC 04/12/20 07:30 04/12/20 11:13 DC Insulin Human Lispro (HumaLOG INSULIN) SEE PROTOCOL TABLE QHS SC 04/11/20 21:00 04/12/20 11:13 DC Lactated Ringer's 1,000 ml @ 50 mls/hr Q20H IV 04/11/20 18:15 04/11/20 19:15 DC Lactobacillus Acidophilus (Bacid) 1 ea DAILY PO 04/12/20 09:00 04/12/20 11:13 DC 04/12/20 08:45 Lidocaine HCl (LIDOCAINE 1% MDV 20ml) 0.1 ml ONCE PRN SQ DISCOMFORT BEFORE IV START 04/11/20 06:00 04/11/20 18:12 DC Losartan Potassium (Cozaar) 25 mg DAILY PO 04/12/20 09:00 04/12/20 11:13 DC 04/12/20 08:45 Metoclopramide HCl (REGLAN INJection) 10 mg Q6HP PRN IV NAUSEA OR VOMITING 04/11/20 18:15 04/11/20 19:15 DC Morphine Sulfate (Morphine Sulfate Inj) 1 mg Q3H PRN IV PAIN LEVEL 8-10 04/11/20 18:15 04/12/20 11:13 DC Ondansetron HCl (ZOFRAN INJection) 4 mg Q4H PRN IV NAUSEA OR VOMITING 04/11/20 18:15 04/12/20 11:13 DC Ondansetron HCl (ZOFRAN INJection) 4 mg Q4HP PRN IV NAUSEA OR VOMITING 04/11/20 18:15 04/11/20 19:15 DC Oxycodone HCl (Roxicodone, Oxyir) 5 mg ASDIRECTED PRN PO PAIN LEVEL 1-4 04/11/20 18:15 04/11/20 19:15 DC Oxycodone/ Acetaminophen (Percocet 5mg/ 325mg Tablet) 1 tab Q6HP PRN PO MODERATE PAIN (PS 5-7) 04/11/20 18:15 04/12/20 11:13 DC 04/11/20 22:17 Sodium Chloride 1,000 ml @ 50 mls/hr Q20H IV 04/11/20 18:11 04/12/20 11:13 DC 04/11/20 20:01 Allergies Coded Allergies: No Known Drug Allergies (Verified Allergy, Unknown, 03/28/20) Objective Physical Examination Examination GENERAL APPEARANCE:Patient seen, laying in bed, awake, alert, and oriented. Comfortable, in no acute distress. SKIN: Warm and moist. BREAST: Left breast s/p mastectomy soft, non-tender incisions intact. TONY drains: 35 cc/24 hr. LUNGS: Clear to auscultation bilaterally. No wheezing appreciated. HEART: No chest wall abnormalities. Regular rate and rhythm with no murmurs appreciated. ABDOMEN: Abdomen is soft, non-tender, non-distended. EXTREMITIES: No edema identified. No calf tenderness. Vital Signs Vital Signs Date Time Temp Pulse Resp B/P (MAP) Pulse Ox O2 Delivery O2 Flow Rate FiO2 04/12/20 10:00 97.8 84 18 109/48 (68) 94 Room Air 04/11/20 18:22 2 I&Os I&O- Last 24 Hours up to 6 AM 04/12/20 05:59 Intake Total 1485 ml Output Total 1435 ml Balance 50 ml Laboratory Data Labs 24H Laboratory Tests 2 04/11/20 20:53: Bedside Glucose (Misc Panel) 168H 04/12/20 06:32: Nucleated Red Blood Cells % (auto) 0.0, Anion Gap 6L, Glomerular Filtration Rate > 60.0, Calcium Level 8.4L CBC/BMP Laboratory Tests 04/12/20 06:32 Impression Stable for discharge. Incision intact. Keep TONY drain, monitor output. F/up Plastic surgery WednesdayApr 15 F/up breast surgery on Apr 22. Plan / VTE VTE Prophylaxis Ordered?: Yes VTE Exclusion Pharmacological: Bleeding Risk EUFEMIA CAMACHO DO Apr 12, 2020 13:45
--- NOTE | 2020-04-12 21:55 | ROOPDOC ---
[facility] Report Of Operation Report of Operation DATE OF PROCEDURE: 04/11/20 PREPROCEDURE DIAGNOSES: left breast chronic wound and Hx of left breast cancer POSTPROCEDURE DIAGNOSES: same PROCEDURE: Left simple mastectomy with complex wound closure, left pectoralis and serratus muslces intraop blocks with Exparel SURGEON: Raysa Prabhakar BUSINESS DEPARTMENT CHAIR: Randee Blankenship ANESTHESIA: general ESTIMATED BLOOD LOSS: Approximately 100 mL. COMPLICATIONS: none DESCRIPTION OF PROCEDURE: INDICATIONS: Ms. Abreu is an 84 year old lady with PMHx of DM and L breast Ca who is deaf, who has a chronic left breast wound due to extensive calcifications from post lumpectomy from post radiation therapy done in as a part of left breast cancer treatment. Conservative treatment of her chronic would failed. She developed previously necrotizing soft tissue infection which required emergent surgical debridement and antibiotic treatment. After she recovered from the infection, she underwent hyperbaric chamber treatment to optimize her condition prior to mastectomy. She completed last preoperative treatment on Apr 10. She was scheduled for left breast simple mastectomy with complex wound closure. Risks and possible complications were discussed with the patient and her daughter using the certified experience designer. Consent was signed. Subcutaneous heparin 5000 units was given to patient in the preop area. Dr. Blankenship marked patient in the preoperative area. DETAILS: Patient was taken to the operating room and placed supine on the operating room table. Pillow was placed under her knees. Foam was placed under her heels. A sign in was called stating patients name, date of and the procedure to be done. Preoperative antibiotics were infused. Smooth induction of general anesthesia was done. Patients hands were extended on arm rests. Care was taken not to over extend patients arms. Pillow was placed under the knees and a foam was placed under the hills. Sequential compression devices were placed and assured to function correctly. Patients both breasts and axillas were prepped and draped in the usual fashion. Appropriate time out was done and patients name, date of , and the procedure to be done were confirmed. Thetransverse elliptical incision incorporating the site of chronic lateral left breast wound and nipple areolar complex was made with scalpel. Subcutaneous flaps were developed using electrocautery dissection. Dissection was carried toward the inframammary fold inferiorly, toward sternum medially, toward inferior aspect of clavicle superiorly and toward the axilla laterally to allow excision of the calcifications and diseased breast tissue including the chronic wound. Mastectomy flaps were kept thick as we aimed to excise the diseased tissue while sparing healthy tissue needed for wound closure of previously radiated wound bed. Doctor Indu assistance was critical in allowing fast progression of the case and decreasing anesthesia time. Breast tissue was dissected from the muscle posteriorly and pectoralis fascia was partially taken with the specimen. The dissection was carried laterally in order to excise the calcifications and diseased tissue. We encountered a lot of scar tissue through out the dissection but especially in the lateral aspect of the breast and lower axilla. Breast specimen was marked for orientation with short stitch marking superior edge of mastectomy and long stitch marking lateral edge of mastectomy. The specimen was weighted and weight of 219 grams was reported. The specimen was then placed in formaldehyde, and passed to pathology. Mastectomy cavity was irrigated and hemostasis was achieved. Doctor Brunoys assistance was critical in achieving adequate hemostasis and progressing the case safely. At this point, 15 Lithuanian Jimbo drain was placed into the mastectomy cavity through a separate stab incision and secured at the skin with stitches. Next, left pectoral and serratus plane blocks were done with Exparel. At this point, Dr Blankenship proceeded with adequate tissue rearrangement to provide complex wound closure. Please refer to her operative note for details of the procedures. I stayed scrubbed through out entire procedure and assisted Dr Blankenship with her portion of procedure. Deep dermal sutures were placed with 2-0 Vicryl to approximate mastectomy site edges after tissue rearrangement allowed for tension free approximation. Dermis was closed with 3-0 Vicryl. Skin was closed with 4-0 Monocryl. Surgical glue was applied to the top of the incision. Prineo skin closing system dressing was applied next to the incision. Surgical gauze was placed over the incision and the Kerlix was placed into left axillary region. The surgical bra was used to hold dressings in place. Final instruments and sponge count were correct. Patient emerged from general anesthesia without any problems. Patient tolerated procedure well and was taken to recovery unit in stable condition. RAYSA PRABHAKAR DO Apr 12, 2020 09:03
== END 2020-04-12 11:10 | disposition home or self-care (01) ==
LOC: M SDC 11:42 → M MS5PR 18:44 → M SDC 04-12 11:10
PROVIDERS: ATTEND Surgery
DX: L90.5 Scar conditions and fibrosis of skin (principal); L94.2 Calcinosis cutis; N64.1 Fat necrosis of breast; K21.9 Gastro-esophageal reflux disease without esophagitis; E11.9 Type 2 diabetes mellitus without complications; Z85.3 Personal history of malignant neoplasm of breast; I10 Essential (primary) hypertension; E78.49 Other hyperlipidemia; D64.9 Anemia, unspecified; Z79.84 Long term (current) use of oral hypoglycemic drugs; Z79.899 Other long term (current) drug therapy
CPT/HCPCS: 14000; 19303; 36415; 80048; 85027; 88304; C9290; J0690; J1100; J1644; J2250; J2405; J3010

== ENCOUNTER → 2020-04-27 | Outpatient (CLI) | payer MEDICARE, BC, OTHER ==
[~2020-04-27] MED LIST changes: -HEPARIN SOD (PORCINE) 5000UNITS/ML 1ML VIAL/SYRINGE SQ ONE; -LIDOCAINE 1% MDV 20ML VIAL SQ PRN; -LR 1,000 ML IV ONE; -ceFAZolin SOD 2 GM in IV 1 EA IV ONE
[2020-04-27 13:32] LABS: BASO # 0.1 10^3/uL (0.0-0.2); BASO % 0.9 % (0.0-1.0); EOS # 0.2 10^3/uL (0.0-0.5); EOS % 2.4 % (0.0-3.0); HEMATOCRIT 36.5 % (36.0-47.0); HEMOGLOBIN 11.4 g/dl (12.0-15.5); LYMPH # 2.2 10^3/uL (1.5-5.0); LYMPH % 28.5 % (24.0-44.0); MEAN CORPUSCULAR HEMOGLOBIN 29.9 pg (27.0-33.0); MEAN CORPUSCULAR HGB CONC 31.2 g/dl (32.0-36.5); MEAN CORPUSCULAR VOLUME 95.8 fl (80.0-96.0); MONO # 0.8 10^3/uL (0.0-0.8); MONO % 9.9 % (0.0-5.0); NEUTROPHILS # 4.4 10^3/uL (1.5-8.5); NEUTROPHILS % 57.8 % (36.0-66.0); PLATELET COUNT, AUTOMATED 368 10^3/uL (150-450); RED BLOOD COUNT 3.81 10^6/uL (4.00-5.40); WHITE BLOOD COUNT 7.6 10^3/uL (4.0-10.0)
[2020-04-27 13:44] LABS: HEMOGLOBIN A1c 7.1 %
[2020-04-27 13:51] LABS: ALBUMIN 3.2 GM/DL (3.2-5.2); ALT/SGPT 23 U/L (12-78); BILIRUBIN,TOTAL 0.4 MG/DL (0.2-1.0); BLOOD UREA NITROGEN 29 MG/DL (7-18); CALCIUM LEVEL 9.3 MG/DL (8.8-10.2); CARBON DIOXIDE LEVEL 28 MEQ/L (21-32); CHLORIDE LEVEL 102 MEQ/L (98-107); CREATININE FOR GFR 0.67 MG/DL (0.55-1.30); GLOMERULAR FILTRATION RATE > 60.0 (>32); GLUCOSE, FASTING 146 MG/DL (70-100); POTASSIUM SERUM 4.6 MEQ/L (3.5-5.1); SODIUM LEVEL 136 MEQ/L (136-145)
[2020-04-27 14:00] LABS: CREATININE, URINE 45.5 MG/DL; MALB URINE SIEMENS 31.8 MG/L; MAU/CREAT RATIO 69.8 MCG/MG (0.0-30.0)
== END ==
LOC: M WUC 08:41
PROVIDERS: ATTEND Family Medicine
DX: E11.65 Type 2 diabetes mellitus with hyperglycemia (principal)

== ENCOUNTER → 2020-09-03 | Outpatient (CLI) | payer MEDICARE, BC, OTHER ==
[~2020-09-03] MED LIST changes: -LISI-542 PO; +LISI-898 PO
[2020-09-03 11:06] LABS: CHOLESTEROL RISK RATIO 1.583 (<5)
== END ==
LOC: M WUC 08:41
PROVIDERS: ATTEND Physician Assistant
DX: E78.2 Mixed hyperlipidemia (principal)

== ENCOUNTER → 2020-09-03 | Outpatient (CLI) | payer MEDICARE, BC, OTHER ==
[2020-09-03 10:52] LABS: BLOOD UREA NITROGEN 28 MG/DL (7-18); CALCIUM LEVEL 9.7 MG/DL (8.8-10.2); CARBON DIOXIDE LEVEL 27 MEQ/L (21-32); CHLORIDE LEVEL 103 MEQ/L (98-107); CREATININE FOR GFR 0.75 MG/DL (0.55-1.30); GLOMERULAR FILTRATION RATE > 60.0 (>32); GLUCOSE, FASTING 122 MG/DL (70-100); POTASSIUM SERUM 4.6 MEQ/L (3.5-5.1); SODIUM LEVEL 137 MEQ/L (136-145)
== END ==
LOC: M WUC 08:35
PROVIDERS: ATTEND Physician Assistant
DX: E11.65 Type 2 diabetes mellitus with hyperglycemia (principal); E78.2 Mixed hyperlipidemia

== ENCOUNTER 2020-09-28 16:29 | Inpatient (IN) | payer MEDICARE, BC, OTHER ==
[~2020-09-28] VITALS: Ht 149.9 cm; Wt 63.0 kg
[~2020-09-28 16:29] MED LIST changes: +BACTDSTA PO; -SULF1TAB93 PO
[2020-09-28] MEDS ORDERED: BOOSTRIX/ADACEL VACCINE (DIPHTH/PERTUSS/ACELL/TETANUS) 0.5ML SYR IM ONE (16:55)
[2020-09-28 17:15] LABS: BASO % 0.5 % (0.0-1.0); EOS # 0.1 10^3/uL (0.0-0.5); EOS % 0.9 % (0.0-3.0); HEMATOCRIT 40.9 % (36.0-47.0); HEMOGLOBIN 13.3 g/dl (12.0-15.5); LYMPH # 1.7 10^3/uL (1.5-5.0); LYMPH % 20.6 % (24.0-44.0); MEAN CORPUSCULAR HEMOGLOBIN 31.6 pg (27.0-33.0); MEAN CORPUSCULAR HGB CONC 32.5 g/dl (32.0-36.5); MEAN CORPUSCULAR VOLUME 97.1 fl (80.0-96.0); MONO # 0.6 10^3/uL (0.0-0.8); MONO % 7.4 % (2.0-8.0); NEUTROPHILS # 5.5 10^3/uL (1.5-8.5); NEUTROPHILS % 67.9 % (36.0-66.0); PLATELET COUNT, AUTOMATED 209 10^3/uL (150-450); RED BLOOD COUNT 4.21 10^6/uL (4.00-5.40); WHITE BLOOD COUNT 8.1 10^3/uL (4.0-10.0)
[2020-09-28] MEDS ORDERED: ONDANSETRON 4MG/2ML VIAL IV ONE (17:20)
[2020-09-28 17:27] LABS: INR 0.96
[2020-09-28] MEDS: MORPHINE 2 MG/ML 1ML VIAL (J2270) IV PRN ×4 (17:28→23:21)
[2020-09-28 17:40] LABS: BLOOD UREA NITROGEN 27 MG/DL (7-18); CALCIUM LEVEL 8.6 MG/DL (8.8-10.2); CARBON DIOXIDE LEVEL 28 MEQ/L (21-32); CHLORIDE LEVEL 103 MEQ/L (98-107); GLOMERULAR FILTRATION RATE > 60.0 (>32); GLUCOSE, FASTING 316 MG/DL (70-100); POTASSIUM SERUM 4.7 MEQ/L (3.5-5.1); SODIUM LEVEL 137 MEQ/L (136-145)
[2020-09-28] MEDS ORDERED: NS 1,000 ML IV SCH (17:45)
--- NOTE | 2020-09-28 18:19 | REPVR ---
PROCEDURE INFORMATION: Exam: CT Cervical Spine Without Contrast Exam date and time: 09/28/2020 5:44 PM Age: 85 years old Clinical indication: Injury or trauma; Fall; Blunt trauma TECHNIQUE: Imaging protocol: Computed tomography images of the cervical spine without contrast. Radiation optimization: All CT scans at this facility use at least one of these dose optimization techniques: automated exposure control; mA and/or kV adjustment per patient size (includes targeted exams where dose is matched to clinical indication); or iterative reconstruction. COMPARISON: No relevant prior studies available. FINDINGS: Bones/joints: Degenerative changes in the right temporomandibular joint. Discs/Spinal canal/Neural foramina: Disc space narrowing at C6-C7 with intervertebral osteophytes. Small posterior disc protrusions at C4-C5 and C5-C6 effaces ventral subarachnoid space without cord impingement. Small disc osteophyte complex at C6-C7 without cord impingement. Lungs: Geographic ground-glass opacities in the upper lung zones, right greater than left. Findings likely reflect atelectasis. Clinical correlation to exclude pneumonitis suggested. Soft tissues: Unremarkable. IMPRESSION: 1. Geographic ground-glass opacities in the upper lung zones, right greater than left. Findings likely reflect atelectasis. Clinical correlation to exclude pneumonitis suggested. 2. Degenerative spondylosis. No acute findings. Electronically signed by: Huseyin Waters On 09/28/2020 18:19:23 PM
--- NOTE | 2020-09-28 18:21 | REPVR ---
PROCEDURE INFORMATION: Exam: CT Head Without Contrast Exam date and time: 09/28/2020 5:44 PM Age: 85 years old Clinical indication: Injury or trauma; Fall; Blunt trauma (contusions or hematomas); Consciousness not specified TECHNIQUE: Imaging protocol: Computed tomography of the head without contrast. Radiation optimization: All CT scans at this facility use at least one of these dose optimization techniques: automated exposure control; mA and/or kV adjustment per patient size (includes targeted exams where dose is matched to clinical indication); or iterative reconstruction. COMPARISON: No relevant prior studies available. FINDINGS: Brain: There is eoor-ml-egvtwefp parenchymal volume loss. White matter changes are demonstrated in the subcortical, centrum semiovale and periventricular white matter consistent with chronic age related small vessel ischemic changes. There is moderate diffuse cerebellar atrophy. Cerebral ventricles: The degree of ventricular dilatation is normal for age and/or degree of atrophy present. Bones/joints: Unremarkable. No acute fracture. Paranasal sinuses: Visualized sinuses are unremarkable. No fluid levels. Mastoid air cells: Visualized mastoid air cells are well aerated. Soft tissues: Unremarkable. IMPRESSION: 1. There is gdsj-mx-xjkzuroq parenchymal volume loss. White matter changes are demonstrated in the subcortical, centrum semiovale and periventricular white matter consistent with chronic age related small vessel ischemic changes. 2. The degree of ventricular dilatation is normal for age and/or degree of atrophy present. 3. There is moderate diffuse cerebellar atrophy. 4. No acute intracranial findings. Electronically signed by: Huseyin Waters On 09/28/2020 18:21:06 PM
[2020-09-28] MEDS ORDERED: REFR0.5D8 OU (19:11)
[2020-09-28] MEDS ORDERED: TRAD5TAB PO (19:11)
[2020-09-28] MEDS ORDERED: THERTAB52 PO (19:11)
--- NOTE | 2020-09-28 19:12 | REPVR ---
PROCEDURE INFORMATION: Exam: XR Left Knee Exam date and time: 09/28/2020 6:43 PM Age: 85 years old Clinical indication: Pain; Hip; Left; Additional info: Carol TECHNIQUE: Imaging protocol: XR Left knee. Views: 4 or more views. COMPARISON: CR Tibia, Fibula lower leg LEFT 09/28/2020 6:02 PM FINDINGS: Bones/joints: Osteoporosis. Soft tissues: Normal. IMPRESSION: No acute findings. Electronically signed by: Huseyin Waters On 09/28/2020 19:12:47 PM
--- NOTE | 2020-09-28 19:13 | REPVR ---
PROCEDURE INFORMATION: Exam: XR Left Tibia and Fibula Exam date and time: 09/28/2020 6:43 PM Age: 85 years old Clinical indication: Pain; Hip; Left; Additional info: Carol TECHNIQUE: Imaging protocol: XR Left tibia and fibula. Views: 2 views. COMPARISON: US Duplex, Ext LOWER veins, bilat 05/16/2014 4:14 PM FINDINGS: Bones/joints: Normal. Soft tissues: Normal. IMPRESSION: No acute findings. Electronically signed by: Huseyin Waters On 09/28/2020 19:13:30 PM
--- NOTE | 2020-09-28 19:14 | REPVR ---
PROCEDURE INFORMATION: Exam: XR Left Hip Exam date and time: 09/28/2020 6:43 PM Age: 85 years old Clinical indication: Hip pain; Left hip; Additional info: Carol TECHNIQUE: Imaging protocol: XR Left hip. Views: 2 or 3 views hip with pelvis when performed. COMPARISON: No relevant prior studies available. FINDINGS: Bones/joints: Acute comminuted inter trochanteric fracture left hip. Osteoporosis. Degenerative spondylosis in the visualized lower lumbar spine. Soft tissues: Unremarkable. IMPRESSION: Acute comminuted inter trochanteric fracture left hip. Electronically signed by: Huseyin Waters On 09/28/2020 19:14:18 PM
--- NOTE | 2020-09-28 19:14 | REPVR ---
PROCEDURE INFORMATION: Exam: XR Left Humerus Exam date and time: 09/28/2020 6:43 PM Age: 85 years old Clinical indication: Pain; Upper arm; Left; Additional info: Carol TECHNIQUE: Imaging protocol: XR Left humerus. Views: 2 or more views. COMPARISON: No relevant prior studies available. FINDINGS: Bones/joints: Normal. Soft tissues: Surgical clips left axilla. IMPRESSION: No acute findings. Electronically signed by: Huseyin Waters On 09/28/2020 19:14:57 PM
--- NOTE | 2020-09-28 19:16 | REPVR ---
PROCEDURE INFORMATION: Exam: XR Chest Exam date and time: 09/28/2020 6:43 PM Age: 85 years old Clinical indication: Other: Preop TECHNIQUE: Imaging protocol: XR of the chest. Views: 1 view. COMPARISON: CR CHEST 2 VIEW 03/28/2020 12:28 PM FINDINGS: Lungs: Unremarkable. No consolidation. Pleural spaces: Unremarkable. No pleural effusion. No pneumothorax. Heart/Mediastinum: Unremarkable. No cardiomegaly. Bones/joints: The spine demonstrates mild degenerative changes. Osteoporosis. Soft tissues: Surgical clips left axilla. Organs: Cholecystectomy. IMPRESSION: No acute findings. Electronically signed by: Huseyin Waters On 09/28/2020 19:15:52 PM
[2020-09-28] MEDS ORDERED: NS 500 ML IV ONE (19:45)
[2020-09-28] MEDS ORDERED: GLUCAGON INJ 1MG VIAL SC PRN (19:45)
[2020-09-28] MEDS ORDERED: DEXTROSE 50% 50 ML SYRINGE IV PRN (19:45)
[2020-09-28] MEDS ORDERED: GLUCOSE 4GM CHEW TABLET PO PRN (19:45)
[2020-09-28] MEDS ORDERED: MAALOX 30 ML SUSP *UDC PO PRN (19:45)
[2020-09-28] MEDS ORDERED: MOM 30ML SUSPENSION UDC PO PRN (19:45)
--- NOTE | 2020-09-28 19:48 | HPEPDOC ---
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 After the fall she couldnt walk and had to be lifted. She denies feeling dizzy, having dyspnea, having chest pain, denies having n/v/d or eating or drinking less than usual. As a result of the fall she developed severe L hip pain. 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 (EKG 2014), HTN, hx of UGIB 2/2 gastritis & duodenitis, osteoporosis, hx of left breast cancer s/p lumpectomy w chemo- radiation, hx of left breast necrotizing cellulitis requiring surgical debridement 2, appendectomy SOCIAL HISTORY: has never smoked, Lives at [facility] FAMILY HISTORY: DM, CAD ALLERGIES: Please see below. HOME MEDICATIONS: Please see below. PHYSICAL EXAMINATION: Vital Signs Date Time Temp Pulse Resp B/P (MAP) Pulse Ox O2 Delivery O2 Flow Rate FiO2 09/28/20 16:48 155/95 (115) 09/28/20 16:49 95.9 86 18 96 Room Air 09/28/20 17:59 2.0 GENERAL APPEARANCE: well-nourished and developed/ NAD HEENT: EOMI/ MMM&P CARDIOVASCULAR: RRR/NMRG LUNGS: CTAB on RA ABDOMEN: contour obese /soft & NT MUSCULOSKELETAL: ALTHEA in arms / is able to wiggle toes, is hesitant to move legs bc of pain : ricardo draining clear urine INTEGUMENT: not flushed or diaphoretic PSYCHIATRIC: A&O /able to understand and follow all commands LABORATORY DATA: Immature Granulocyte % (Auto) 2.7, Neutrophils (%) (Auto) 67.9H, Lymphocytes (%) (Auto) 20.6L, Monocytes (%) (Auto) 7.4, Eosinophils (%) (Auto) 0.9, Basophils (%) (Auto) 0.5, Neutrophils # (Auto) 5.5, Lymphocytes # (Auto) 1.7, Monocytes # (Auto) 0.6, Eosinophils # (Auto) 0.1, Basophils # (Auto) 0.0, Nucleated Red Blood Cells % (auto) 0.0, Prothrombin Time 13.0, Prothromb Time International Ratio 0.96, Anion Gap 6L, Glomerular Filtration Rate > 60.0, Calcium Level 8.6L IMAGING: CT head IMPRESSION: 1. There is bxni-ca-ablwzdfj parenchymal volume loss. White matter changes are demonstrated in the subcortical, centrum semiovale and periventricular white matter consistent with chronic age related small vessel ischemic changes. 2. The degree of ventricular dilatation is normal for age and/or degree of atrophy present. 3. There is moderate diffuse cerebellar atrophy. 4. No acute intracranial findings. CT cervical spine IMPRESSION: 1. Geographic ground-glass opacities in the upper lung zones, right greater than left. Findings likely reflect atelectasis. Clinical correlation to exclude pneumonitis suggested. 2. Degenerative spondylosis. No acute findings. Xray hip IMPRESSION: Acute comminuted inter trochanteric fracture left hip. Xray L humerus IMPRESSION: No acute findings. Xray L knee IMPRESSION: No acute findings. Chest xray IMPRESSION: No acute findings. MICROBIOLOGY: respiratory panel neg ASSESSMENT: Ms. Abreu is an 85 yr old w HTN, NIDDM, sensorineural hearing loss & osteoporosis who is admitted for management of a left intertrochanteric hip fx 2/2 mechanical fall. PLAN: 1 Mechanical Fall I suspect she has muscular weakness at her baseline Plan: admit to medical fall / frequent neuro checks to screen for concussion bc she hit her head /fall precautions/ to reduce the risk of hypoglycemia which can lead to dizziness and increase the risk of falls her target A1C should be liberalized to 8.5% 2 Left intertrochanteric hip fx Perioperative Recommendations Her RCRI score is 1 bc of her age and her pro-BNP is 305 therefore she will not need additional testing prior to proceeding with surgery /we will hold her ACEI to reduce the risk of joanne-operative hypotension, this medication can be resumed on POD #2 Plan: NPO after midnight w IVF for surgery possibly tomorrow / Ortho consult () / pain control w Morphine / the day time team can consult PT/OT / f/u w PCP for antiresorptive tx / c/w Ca w vitamin D / She has a documented hx of osteoporosis but currently doesnt appear to be on a bisphosphonate (it is possible she is on Prolia injections. If she is already on Prolia this can be presumed to be a fx while on anti-resorptive therapy and in that case she should be referred to an Poultry Packer to r/o secondary causes of osteoporosis and to determine if she needs to also be started on Teripiratide or switch to a different class of medications 3 NIDDM Plan: f/u accuchecks / hypoglycemia protocol / sliding scale insulin / hold oral anti-glycemic / f/u A1C (target A1C is 8.5% bc she is frail & elderly) 4 Essential HTN Plan: switch to amlodipine DVT px w SCDs Dispo: home after at least 2 midnights stay Home Medications Scheduled Aspirin (Ecotrin) 81 Mg Tablet.dr, 81 MG PO DAILY Atorvastatin Calcium (Atorvastatin Calcium) 80 Mg Tab, 80 MG PO QHS Calcium Carbonate/Vitamin D3 (Calcium 500-Vit D3 400 Tablet) 1 Tab Tab, 1 TAB PO DAILY Canagliflozin (Invokana) 300 Mg Tab, 300 MG PO DAILY Carboxymethylcellulose Sodium (Refresh Tears) 15 Ml Drops, 1 DROP OU TID Lactobacillus Acidophilus (Probiotic) 1 Each Capsule, 1 CAP PO DAILY Linagliptin (Tradjenta) 5 Mg Tablet, 5 MG PO DAILY Losartan Potassium (Losartan Potassium) 25 Mg Tab, 25 MG PO DAILY Metformin HCl (Metformin HCl ER) 500 Mg Tab.er.24h, 1,000 MG PO QHS Multivitamin,Therapeutic (Thera-Tabs) 1 Each Tablet, 1 TAB PO DAILY Sitagliptin Phosphate (Januvia) 100 Mg Tab, 100 MG PO DAILY Vit C/E/Zn/Coppr/Lutein/Zeaxan (Preservision Areds 2 Softgel) 1 Each Capsule, 1 CAP PO BID Allergies Coded Allergies: No Known Drug Allergies (Verified Allergy, Unknown, 03/28/20) A-FIB/CHADSVASC A-FIB History Current/History of A-Fib/PAF?: No Current PO Anticoag Therapy: No KAILEE BUSBY MD September 28, 2020 19:48
[2020-09-28 20:18] LABS: RSV AMPLIFICATION NEGATIVE (NEGATIVE)
[2020-09-28 20:42] LABS: PARTIAL THROMBOPLASTIN TIME 35.3 SECONDS (24.2-38.5)
[2020-09-28 21:08] LABS: NT-PRO BNP 305 PG/ML (<450)
[2020-09-28] MEDS: HumaLOG INSULIN (NovoLOG) PER UNIT SC SCH ×2 (22:20→23:28)
[2020-09-28 22:40] VITALS: BP 156/83
[2020-09-28] MEDS: ATORVASTATIN 20 MG TAB PO SCH (23:13)
[2020-09-29] MEDS ORDERED: D5W/0.9% SODIUM CHLORIDE 1,000 ML IV SCH
[2020-09-29] MEDS: MORPHINE 2 MG/ML 1ML VIAL (J2270) IV PRN ×5 (03:55→17:01)
[2020-09-29 06:00] VITALS: BP 155/77
[2020-09-29 07:20] LABS: HEMATOCRIT 35.5 % (36.0-47.0); HEMOGLOBIN 11.6 g/dl (12.0-15.5); MEAN CORPUSCULAR HGB CONC 32.7 g/dl (32.0-36.5); MEAN CORPUSCULAR VOLUME 97.8 fl (80.0-96.0); PLATELET COUNT, AUTOMATED 173 10^3/uL (150-450); RED BLOOD COUNT 3.63 10^6/uL (4.00-5.40); WHITE BLOOD COUNT 8.3 10^3/uL (4.0-10.0)
[2020-09-29 07:24] LABS: BLOOD UREA NITROGEN 17 MG/DL (7-18); CALCIUM LEVEL 8.6 MG/DL (8.8-10.2); CARBON DIOXIDE LEVEL 28 MEQ/L (21-32); CHLORIDE LEVEL 106 MEQ/L (98-107); GLOMERULAR FILTRATION RATE > 60.0 (>32); GLUCOSE, FASTING 226 MG/DL (70-100); POTASSIUM SERUM 4.2 MEQ/L (3.5-5.1); SODIUM LEVEL 137 MEQ/L (136-145)
[2020-09-29] MEDS: NS 1,000 ML IV SCH (07:44)
[2020-09-29] MEDS: HumaLOG INSULIN (NovoLOG) PER UNIT SC SCH ×3 (07:45→17:30)
--- NOTE | 2020-09-29 07:47 | ECGEPIP ---
[facility] - ED Test Date: 2020-09-28 Pat Name: SYDNI OCAMPO Department: Room: - Gender: Female Cardiac Care Nurse: COLLEEN : [id number] Requested By: Rosalinda Rosario Order Number: [id number] Reading MD: Nicko Frederick Measurements Intervals Clemons Rate: 86 P: CA: 154 QRS: 70 QRSD: 96 T: 18 QT: 348 QTc: 416 Interpretive Statements Normal sinus rhythm Nonspecific ST and T wave abnormality SIMILAR TO 01/17/20 Electronically Signed on 09-29-2020 7:47:24 EDT by Nicko Frederick
[2020-09-29 08:00] VITALS: BP 166/70
[2020-09-29] MEDS: ASPIRIN 81MG ENTERIC TABLET PO SCH (09:00)
[2020-09-29] MEDS: CALCIUM/VITAMIN D 500 MG TAB PO SCH (09:12)
[2020-09-29] MEDS: ACETAMINOPHEN TAB 650MG DOSE (2X325MG) PO PRN ×2 (09:13→17:12)
--- NOTE | 2020-09-29 13:27 | IPNPDOC ---
Date Seen The patient was seen on 09/29/20. Progress Note SUBJECTIVE: No acute events since admission. Spoke with orthopedic surgery (Dr. Nicholson) who will take for surgery this afternoon. Pain severe, requiring morphine Q2H. OBJECTIVE: PHYSICAL EXAMINATION: Vital Signs: Please see below GENERAL APPEARANCE: well-nourished and developed/ NAD, deaf and had corporate associate and daughter at the bedside. HEENT: EOMI/ MMM&P CARDIOVASCULAR: RRR/NMRG, no LE edema LUNGS: CTAB on RA ABDOMEN: contour obese /soft & NT MUSCULOSKELETAL: ALTHEA in arms / is able to wiggle toes, ROM not tested in LLE, no bruising is seen. is hesitant to move legs bc of pain : ricardo draining clear urine INTEGUMENT: Skin tear on LLL fry, LUE near bicep- both clean and covered and in gauze. Neuro: : A&O / CN 2-12 intact, able to understand and follow all commands with help from corporate associate. No sensory or motor loss noted in any extremity, no focal deficits Psych: mood and affect appropriate. LABORATORY DATA: Please see below IMAGING: CT head IMPRESSION: 1. There is maru-uv-avreuxum parenchymal volume loss. White matter changes are demonstrated in the subcortical, centrum semiovale and periventricular white matter consistent with chronic age related small vessel ischemic changes. 2. The degree of ventricular dilatation is normal for age and/or degree of atrophy present. 3. There is moderate diffuse cerebellar atrophy. 4. No acute intracranial findings. CT cervical spine IMPRESSION: 1. Geographic ground-glass opacities in the upper lung zones, right greater than left. Findings likely reflect atelectasis. Clinical correlation to exclude pneumonitis suggested. 2. Degenerative spondylosis. No acute findings. Xray hip IMPRESSION: Acute comminuted inter trochanteric fracture left hip. Xray L humerus IMPRESSION: No acute findings. Xray L knee IMPRESSION: No acute findings. Chest xray IMPRESSION: No acute findings. MICROBIOLOGY: respiratory panel neg ASSESSMENT: Ms. Abreu is an 85 yr old w HTN, NIDDM, sensorineural hearing loss & osteoporosis who is admitted for management of a left intertrochanteric hip fx 2/2 mechanical fall. PLAN: Mechanical Fall while going down "step" in garage, hit head -No LoC -? baseline deconditioned state/muscle weakness. -Neg neuro checks, fall precautions -PT/OT after surgery to further assess functionality Left intertrochanteric hip fx s/p fall above -Pain severe with movement -D/w ortho: surgery today in the afternooon. -Perioperative Recommendations: Her RCRI score is 1 bc of her age and her pro- BNP is 305 therefore she will not need additional testing prior to proceeding with surgery /we will hold her ACEI to reduce the risk of joanne-operative hypotension, this medication can be resumed on POD #2 -NPO, IVFs, pain control with morphine, PT/OT after surgery- ortho to give activity recommendations NIDDM -BS 200-300 -Consider adding AM levemir if BS remain high as can compromise wound healing -C/w accuchecks / hypoglycemia protocol / sliding scale insulin / hold oral anti-glycemic / f/u A1C Essential HTN -amlodipine DVT px -SCDs, chemical AC to be started post-op by surgery DISPOSITION: Admitted under acute inpatient status. Ortho to take to OR today, f/u post-op. PT/OT after to determine need for rehab or home with services. VS, I&O, 24H, Fishbone Vital Signs/I&O Vital Signs Date Time Temp Pulse Resp B/P (MAP) Pulse Ox O2 Delivery O2 Flow Rate FiO2 09/29/20 12:24 18 09/29/20 09:23 98.9 79 166/70 94 Nasal Cannula 2.0 I&O- Last 24 Hours up to 6 AM 09/29/20 06:00 Intake Total 875 ml Output Total 800 ml Balance 75 ml Laboratory Data 24H LABS Laboratory Tests 2 09/28/20 17:04: Immature Granulocyte % (Auto) 2.7, Neutrophils (%) (Auto) 67.9H, Lymphocytes (%) (Auto) 20.6L, Monocytes (%) (Auto) 7.4, Eosinophils (%) (Auto) 0.9, Basophils (%) (Auto) 0.5, Neutrophils # (Auto) 5.5, Lymphocytes # (Auto) 1.7, Monocytes # (Auto) 0.6, Eosinophils # (Auto) 0.1, Basophils # (Auto) 0.0, Nucleated Red B lood Cells % (auto) 0.0, Prothrombin Time 13.0, Prothromb Time International Ratio 0.96, Activated Partial Thromboplast Time 35.3, Anion Gap 6L, Glomerular Filtration Rate > 60.0, Calcium Level 8.6L, ZB-Wpn-Y-Type Natriuretic Peptide 305 09/28/20 19:11: Coronavirus (COVID-19)(PCR) NEGATIVE, Influenza Type A (RT-PCR) NEGATIVE, Influenza Type B (RT-PCR) NEGATIVE, Respiratory Syncytial Virus (PCR) NEGATIVE 09/28/20 20:41: Bedside Glucose (Misc Panel) 219H 09/28/20 23:20: Bedside Glucose (Misc Panel) 196H 09/29/20 06:06: Bedside Glucose (Misc Panel) 233H 09/29/20 06:34: Nucleated Red Blood Cells % (auto) 0.0, Anion Gap 3L, Glomerular Filtration Rate > 60.0, Calcium Level 8.6L 09/29/20 12:13: Bedside Glucose (Misc Panel) 167H CBC/BMP Laboratory Tests 09/28/20 17:04 09/29/20 06:34 Nannette Lucas MD September 29, 2020 13:27
[2020-09-29 14:00] VITALS: BP 148/59
--- NOTE | 2020-09-29 19:45 | ER ---
ER CONSULTATION DATE: 09/28/2020 TIME: 9 P.M. CONSULTING SERVICE: Orthopedic service. CONSULTING PHYSICIAN: Dat Nicholson MD. HISTORY OF PRESENT ILLNESS: This is an 85-year-old female who sustained a left intertrochanteric fracture of the left hip. This was a closed injury. The patient sustained a ground-level fall at her great granddaughter's birthday constitution party. She did not lose consciousness during the fall. The patient was unable to bear weight to the left lower extremity after the injury, had to be lifted, and transported to the [facility] for further evaluation and treatment. The patient denied having nauseousness, vomiting, or diarrhea prior to the injury. Orthopedic surgery was consulted and she was indicted for a left hip cephalomedullary nail placement. REVIEW OF SYSTEMS: 14-point review of systems is negative unless is otherwise described in the HPI above. PAST MEDICAL HISTORY: 1. NIDDM. 2. 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 3. Paroxysmal AFib. 4. Hypertension. 5. Upper gastrointestinal bleeding (UGIB) secondary to gastritis and duodenitis. 6. Osteoporosis. 7. Left breast cancer status post lumpectomy with chemoradiation. 8. 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 PAST SURGICAL HISTORY: Appendectomy. SOCIAL HISTORY: Nonsmoker. Nondrinker. Non-IV drug user. Lives at [facility]. FAMILY HISTORY: Diabetes and cerebrovascular disease. ALLERGIES: Please see internal medicine note. MEDICATIONS: Please see internal medicine note. PHYSICAL EXAMINATION: Alert and oriented to person, time, and place. She had equal rise of the chest bilaterally. Regular rate and rhythm. Exam of the left lower extremity the left hip was held in flexion, abduction, and external rotation. There were no breaks in the skin. She was otherwise neurovascularly intact to the left lower extremity. She had 2+ dorsalis pedis and posterior tibial arterial pulse. Brisk capillary refill to the digits of the foot. 5/5 motor strength to the EHL, FHL, tibialis anterior, gastrocnemius, and peroneal musculature. Sensation intact to the deep, superficial, peroneal, sural, saphenous, and tibial nerve distributions. She had tenderness to palpation of the left hip with log roll sign with no appreciated erythema or edema of the left hip. IMAGING DATA: Radiographs demonstrate a comminuted left intertrochanteric hip fracture. IMPRESSION: An 85-year-old female with a left intertrochanteric hip fracture requiring a left cephalomedullary short nail. ASSESSMENT AND PLAN: At this point in time given the patient's inability to bear weight and medical comorbidities, the patient is indicated for a left hip cephalomedullary nail placement. This will be a short nail that will be used. She will be optimized for the aforementioned procedure. She remains n.p.o. at this time. She is COVID tested pending results. She wanted to go ahead with the aforementioned procedure. Time space available hopefully on the 09/29/2020, no later than 09/30/2020. The patient and her family were educated on the aforementioned findings and despite being deaf, she had a tank charger present who was able to translate these findings above.
[2020-09-29] MEDS ORDERED: ceFAZolin 2 GM/D5W 50 ML IV BAG (J0690 PER 500MG) As Ordered ONE (20:27)
[2020-09-29] MEDS ORDERED: LIDOCAINE 2% 100MG/5ML SDV (FOR ANES.) As Ordered ONE (20:41)
[2020-09-29] MEDS ORDERED: dexameTHASONE 4 MG/ML 1ML VIAL (J1100 PER 1MG) As Ordered ONE (20:41)
[2020-09-29] MEDS ORDERED: propofoL 200 MG/20 ML VIAL As Ordered ONE (20:41)
[2020-09-29] MEDS ORDERED: PHENYLephrine 500MCG 5ML (100MCG/ML) SYRINGE As Ordered ONE (20:41)
[2020-09-29] MEDS ORDERED: MIDAZOLAM INJ 2MG/2ML VIAL (J2250 PER 1MG) As Ordered ONE (20:41)
[2020-09-29] MEDS ORDERED: fentaNYL 100 MCG/2 ML INJECTION (J3010) As Ordered ONE (20:41)
[2020-09-29] MEDS ORDERED: ACETAMINOPHEN 1000MG 100ML IV BTL (OFIRMEV) (J0131 PER 10MG) As Ordered ONE (20:41)
[2020-09-29] MEDS ORDERED: ONDANSETRON 4MG/2ML VIAL As Ordered ONE (20:41)
[2020-09-29] MEDS ORDERED: ROCURONIUM BROMIDE 50 MG/5 ML VIAL As Ordered ONE (20:41)
[2020-09-29] MEDS ORDERED: HYDROmorphone HCL 2 MG/ML 1ML VIAL (J1170) As Ordered ONE (20:49)
[2020-09-29] MEDS ORDERED: SUGAMMADEX SODIUM 500 MG/5 ML VIAL (BRIDION) As Ordered ONE (21:14)
[2020-09-29] MEDS ORDERED: LABETALOL 100MG/20ML VIAL As Ordered ONE (22:01)
[2020-09-29] MEDS ORDERED: fentaNYL 100 MCG/2 ML INJECTION (J3010) IV PRN (22:10)
[2020-09-29] MEDS ORDERED: oxyCODONE 5MG TAB PO PRN (22:10)
[2020-09-29] MEDS ORDERED: METOCLOPRAMIDE INJ 10MG/2ML VIAL (J2765 PER 1) IV PRN (22:10)
[2020-09-29] MEDS ORDERED: LR 1,000 ML IV SCH (22:10)
[2020-09-29] MEDS ORDERED: ONDANSETRON 4MG/2ML VIAL IV PRN (22:10)
[2020-09-29] MEDS ORDERED: LABETALOL 100MG/20ML VIAL IV PRN (22:10)
[2020-09-29 22:45] VITALS: BP 141/53
[2020-09-29 23:15] VITALS: BP 127/57
[2020-09-29 23:45] VITALS: BP 126/60
[2020-09-30] VITALS (8 sets, daily range): BP systolic 120–156; BP diastolic 62–83
[2020-09-30] MEDS: ATORVASTATIN 20 MG TAB PO SCH ×2 (00:05→21:43)
[2020-09-30] MEDS: NS 1,000 ML IV SCH ×2 (00:07→09:25)
[2020-09-30] MEDS: HumaLOG INSULIN (NovoLOG) PER UNIT SC SCH ×4 (06:00→17:19)
[2020-09-30 06:33] LABS: HEMATOCRIT 31.5 % (36.0-47.0); HEMOGLOBIN 9.9 g/dl (12.0-15.5); MEAN CORPUSCULAR HEMOGLOBIN 31.2 pg (27.0-33.0); MEAN CORPUSCULAR HGB CONC 31.4 g/dl (32.0-36.5); MEAN CORPUSCULAR VOLUME 99.4 fl (80.0-96.0); PLATELET COUNT, AUTOMATED 154 10^3/uL (150-450); RED BLOOD COUNT 3.17 10^6/uL (4.00-5.40); WHITE BLOOD COUNT 12.2 10^3/uL (4.0-10.0)
[2020-09-30 07:05] LABS: BLOOD UREA NITROGEN 17 MG/DL (7-18); CALCIUM LEVEL 8.9 MG/DL (8.8-10.2); CARBON DIOXIDE LEVEL 26 MEQ/L (21-32); CHLORIDE LEVEL 107 MEQ/L (98-107); CREATININE FOR GFR 0.61 MG/DL (0.55-1.30); GLOMERULAR FILTRATION RATE > 60.0 (>32); GLUCOSE, FASTING 157 MG/DL (70-100); POTASSIUM SERUM 4.5 MEQ/L (3.5-5.1); SODIUM LEVEL 141 MEQ/L (136-145)
--- NOTE | 2020-09-30 07:54 | REP ---
INDICATION: left foot pain COMPARISON: None. TECHNIQUE: Portable AP, lateral, bilateral oblique views. FINDINGS: Generalized age-related osteopenia and moderate to advanced arthritic degenerative changes are noted. No obvious acute fracture or dislocation. Ankle mortise appears intact. No obvious subcutaneous emphysema or foreign body. IMPRESSION: Osteopenia and degenerative changes. <Electronically signed by Magdaleno Pruitt > 09/30/20 [id number]
--- NOTE | 2020-09-30 07:55 | REP ---
INDICATION: left foot pain COMPARISON: None. TECHNIQUE: Portable AP and lateral left foot. FINDINGS: Generalized osteopenia and degenerative changes are appreciated. No obvious acute fracture or dislocation. No subcutaneous emphysema or foreign body. IMPRESSION: Generalized age-related osteopenia and degenerative changes. No acute fracture or dislocation. <Electronically signed by Magdaleno Pruitt > 09/30/20 1110
--- NOTE | 2020-09-30 08:32 | REP ---
INDICATION: ORIF IN OR COMPARISON: 09/28/2020 TECHNIQUE: Intraoperative fluoroscopic imaging using portable C-arm technique. FINDINGS: Images demonstrate the patient to be status post satisfactory open reduction and fixation for comminuted intertrochanteric fracture of the proximal femur. Total fluoroscopic time 129.7 seconds. IMPRESSION: Satisfactory fixation for comminuted intertrochanteric left proximal femur fracture. <Electronically signed by Magdaleno Pruitt > 09/30/20 0815
[2020-09-30] MEDS: ASPIRIN 81MG ENTERIC TABLET PO SCH (08:55)
[2020-09-30] MEDS: CALCIUM/VITAMIN D 500 MG TAB PO SCH (08:55)
[2020-09-30] MEDS: ACETAMINOPHEN TAB 650MG DOSE (2X325MG) PO PRN ×2 (08:56→21:44)
[2020-09-30] MEDS ORDERED: traMADol 50 MG TAB PO PRN (09:40)
[2020-09-30] MEDS: DOCUSATE SODIUM 100MG CAPSULE PO SCH ×2 (10:24→21:43)
--- NOTE | 2020-09-30 13:43 | RO ---
OPERATIVE NOTE DATE OF OPERATION: 09/29/2020 TIME: 8:30 P.M. PREOPERATIVE DIAGNOSIS: Left comminuted intertrochanteric hip fracture. POSTOPERATIVE DIAGNOSIS: Left comminuted intertrochanteric hip fracture. PROCEDURE: Left cephalomedullary nail placement. SURGEON: Dat Nicholson M.D. SUPERVISING ATTENDING: Dat Nicholson M.D. [employer]: None. ANESTHESIA: General endotracheal. TOURNIQUET TIME: None used. ESTIMATED BLOOD LOSS: 75 mL. IV FLUIDS: Please see anesthesia report. IV ANTIBIOTICS: 2 grams Ancef. IMPLANT: Synthes. CULTURES: None. SPECIMEN: None. FINDINGS: The patient had a comminuted left intertrochanteric fracture that was closed. INDICATIONS FOR PROCEDURE: This is an 85-year-old female who sustained a left intertrochanteric fracture of the left hip. This was a closed injury. The patient sustained a ground-level fall at her granddaughter's birthday republican. She did not lose consciousness during the fall. The patient was unable to bear weight to the left lower extremity after the injury and had to be lifted and transported to [facility] for further evaluation and treatment. The patient denied having nauseousness, vomiting, or diarrhea prior to the injury. Orthopedic surgery was consulted and she was indicated for a left hip cephalomedullary nail placement. DESCRIPTION OF PROCEDURE: The patient was met in the preoperative holding area where the patient's operative extremity was signed, the patient consent was confirmed to be correct, and the patient's identity was confirmed to be correct. The patient was then transported to the operating theatre. She was placed supine on a radiolucent fracture table. Safety straps secured to the patient's bed. All bony prominences were well-padded and the contralateral lower extremity had an SCD placed. A time-out was called to confirm the correct patient, correct operative extremity, and correct consent. All staff were in agreement. The patient was then draped in the usual sterile fashion. We began the procedure by obtaining fluoroscopic imaging of the patient's left hip to aid in our surgical incision, which was two fingerbreadths proximal to the tip of the greater trochanter. The patient's fracture was reduced using longitudinal traction, adduction, and internal rotation of the left hip. I began the procedure by incising the skin sharply using scalpel 2 inches proximal to the apex of the greater trochanter. I then incised the IT band and placed an awl just medial to the tip of the greater trochanter in line with the femoral shaft on the AP view and lateral views. I then used a threaded guide pin, which was then introduced through the cannulated awl. This was advanced to the level of the lesser trochanter in line with the femoral shaft on the AP view and in line with the femoral shaft on the lateral view. I then introduced a cannulated entry reamer over the threaded guide pin using a soft protection sleeve to advance the level of the lesser trochanter, which was then removed. I placed a ball-tip guidewire down the femoral shaft in order to aid in the sequential reaming of the patient's femoral shaft. I used an 11.5 reamer followed by a 12.5 reamer through the proximal aspect of the femoral shaft to aid in placement of the 11 mm cephalomedullary nail. This was then advanced with light taps to mount to the appropriate level. We then attached a jig to the nail and the nail attachment. I placed a threaded guide pin through the lag hole, which we placed just inferior to the central axis of the femoral neck on the AP view and center-center on the femoral neck on the lateral fluoroscopic view. This was advanced to the level of the subchondral bone of the femoral head within 10 mm of the apex of the femoral head on the AP and lateral views. Once this was advanced to the correct level, I measured the appropriate depth for aiding the insertion of the lag screw. The lag screw measurement was 90 mm. I then overdrilled the threaded guide pin and placed a 90 mm lag screw into position. Ensuring with fluoroscopic guidance that we did not advance the threaded guide pin through the acetabulum, which we did not. Once the last screw was placed, I then attached a triple sleeve to the jig on the cephalomedullary nail to place a distal interlocking screw measuring 32 mm. We then removed the jig, removed the triple sleeve, and took final fluoroscopic imaging of an AP and lateral view of the hip to ensure that we included the entire nail and that the distal interlocking screw was through the nail. We then closed the areas of surgical incisions. I closed the IT band using 0-Vicryl and closed the dermal layers of the proximal surgical incision and two distal percutaneous incisions using 2-0 Vicryl. I then closed the skin using metallic suture. We then placed Xeroform, 4 x 4, and Tegaderm over the surgical incisions. The patient was then extubated without complication and transferred to the post anesthesia care unit. The patient will be weightbearing as tolerated left lower extremity. She will be given the postoperative pain medication per her internal medicine team. Her care will be transferred to the internal medicine team. She will follow-up in our clinic on 10/17/[address] Nicholson of the [facility]. I recommend internal medicine prescribes 81 mg once daily for 30 days for DVT chemo prophylaxis or the equivalent.
--- NOTE | 2020-09-30 18:00 | IPN ---
PROGRESS NOTE DATE: 09/30/2020 TIME: 0400 p.m. SUBJECTIVE: This is an 85-year-old female who is postop day one after a left hip cephalomedullary nail placement. The patient is doing very well today. She is sitting up eating in her chair and performing sign language with her son. Her pain is much improved since prior to surgery. OBJECTIVE: Surgical incision is clean, dry, and intact. She is alert and oriented to person, time, and place. She has equal rise and fall of the chest bilaterally. Left lower extremity she had 5/5 motor strength to the EHL, FHL, tibialis anterior, gastrocnemius, and peroneal musculature. Sensation intact to light touch to the deep and superficial peroneal, sural, saphenous, and tibial nerve distributions. She had 2+ dorsalis pedis and posterior tibial arterial pulse. Brisk capillary refill to the digits of her left foot. The patient has decreased spasms of the left hip since surgery. ASSESSMENT AND PLAN: This is an 85-year-old female doing very well today. She will continue her physical therapy for ambulation with a walker. She is weightbearing as tolerated to the left lower extremity. She will likely transfer to rehabilitative services for gait and ambulation training. I recommend she is prescribed the equivalent of 81 mg of aspirin daily starting either this evening or tomorrow morning. She will follow-up in my orthopedic clinic on 10/17/2020.
--- NOTE | 2020-09-30 18:51 | IPNPDOC ---
Date Seen The patient was seen on 09/30/20. Progress Note SUBJECTIVE: Pain control an issue this AM along with constipation. Made some adjustments. D/w Dr. Nicholson, on ASA for DVT px. ARU likely to take 10/01/20. OBJECTIVE: PHYSICAL EXAMINATION: Vital Signs: Please see below GENERAL APPEARANCE: well-nourished and developed/ NAD, deaf and had steel rule die maker and daughter at the bedside. HEENT: EOMI/ MMM&P, NC in place CARDIOVASCULAR: RRR/NMRG, no LE edema LUNGS: CTAB on RA ABDOMEN: contour obese /soft & NT MUSCULOSKELETAL: ALTHEA in arms / is able to wiggle toes, ROM not tested in LLE, no bruising is seen. is hesitant to move legs bc of pain. : ricardo draining clear urine INTEGUMENT: Skin tear on LLL fry, LUE near bicep- both clean and covered and in gauze. incision of left hip appears clean, no erythema or increased bruising, swelling noted on exam Neuro: : A&O / CN 2-12 intact, able to understand and follow all commands with help from steel rule die maker. No sensory or motor loss noted in any extremity, no focal deficits Psych: mood and affect appropriate. LABORATORY DATA: Please see below IMAGING: CT head IMPRESSION: 1. There is erwu-pp-dgimolct parenchymal volume loss. White matter changes are demonstrated in the subcortical, centrum semiovale and periventricular white matter consistent with chronic age related small vessel ischemic changes. 2. The degree of ventricular dilatation is normal for age and/or degree of atrophy present. 3. There is moderate diffuse cerebellar atrophy. 4. No acute intracranial findings. CT cervical spine IMPRESSION: 1. Geographic ground-glass opacities in the upper lung zones, right greater than left. Findings likely reflect atelectasis. Clinical correlation to exclude pneumonitis suggested. 2. Degenerative spondylosis. No acute findings. Xray hip IMPRESSION: Acute comminuted inter trochanteric fracture left hip. Xray L humerus IMPRESSION: No acute findings. Xray L knee IMPRESSION: No acute findings. Chest xray IMPRESSION: No acute findings. MICROBIOLOGY: respiratory panel neg ASSESSMENT: Ms. Abreu is an 85 yr old w HTN, NIDDM, sensorineural hearing loss & osteoporosis who is admitted for management of a left intertrochanteric hip fx 2/2 mechanical fall. PLAN: Left comminuted intertrochanteric hip fracture s/p fall from ground level -POD1: Left cephalomedullary nail placement. -Pain severe with movement still, modifying pain meds today -F/u activity orders by ortho -Tolerating advanced diet -Pain control, PT/OT -Likely ARU 10/01/20 Post-op atelectasis -Has needed O2 supplementation since surgery -attempt to wean down -IS Q2 hrs while awake NIDDM -BS 260's -Added levemir 8 U SC AM -C/w accuchecks / hypoglycemia protocol / sliding scale insulin / hold oral anti-glycemic Essential HTN -amlodipine DVT px -ASA DISPOSITION: Admitted under acute inpatient status. Likely d/c to ARU on 10/01/20 if pain improved and bed available. VS, I&O, 24H, Fishbone Vital Signs/I&O Vital Signs Date Time Temp Pulse Resp B/P (MAP) Pulse Ox O2 Delivery O2 Flow Rate FiO2 09/30/20 18:43 18 Room Air 09/30/20 14:00 97.9 101 141/78 (99) 91 09/30/20 10:00 2.0 I&O- Last 24 Hours up to 6 AM 09/30/20 05:59 Intake Total 1500 ml Output Total 2950 ml Balance -1450 ml Laboratory Data 24H LABS Laboratory Tests 2 09/30/20 00:00: Bedside Glucose (Misc Panel) 179H 09/30/20 05:58: Nucleated Red Blood Cells % (auto) 0.0, Anion Gap 8, Glomerular Filtration Rate > 60.0, Calcium Level 8.9 09/30/20 11:52: Bedside Glucose (Misc Panel) 262H 09/30/20 16:35: Bedside Glucose (Misc Panel) 232H CBC/BMP Laboratory Tests 09/30/20 05:58 Nannette Lucas MD September 30, 2020 18:51
[2020-09-30] MEDS ORDERED: LABETALOL 100MG/20ML VIAL IV ONE (20:25)
--- NOTE | 2020-09-30 21:24 | ECGEPIP ---
[facility] Test Date: 2020-09-30 Pat Name: SYDNI OCAMPO Department: Room: [place] [address] Gender: Female Shirt Presser: LIAT : 1935 Requested By: Michelle Schneider Order Number: [id number] Reading MD: Clem Mendoza Measurements Intervals [place] Rate: 131 P: RI: QRS: 61 QRSD: 98 T: -80 QT: 280 QTc: 413 Interpretive Statements Atrial fibrillation with rapid ventricular response Q wave in III Nonspecific ST-T wave abnormalities Compared to prior tracing of 09/28/2020, atrial fibrillation, repolarization a abnormalities as well as Q wave in III are new Electronically Signed on 09-30-2020 21:24:00 EDT by Clem Mendoza
[2020-09-30] MEDS: SENNA 8.6 MG TAB (SENOKOT) PO SCH (21:43)
[2020-10-01 00:01] VITALS: BP 144/78
[2020-10-01 06:00] VITALS: BP 154/78
[2020-10-01 06:01] LABS: HEMATOCRIT 24.6 % (36.0-47.0); MEAN CORPUSCULAR HEMOGLOBIN 31.3 pg (27.0-33.0); MEAN CORPUSCULAR HGB CONC 32.5 g/dl (32.0-36.5); MEAN CORPUSCULAR VOLUME 96.1 fl (80.0-96.0); PLATELET COUNT, AUTOMATED 145 10^3/uL (150-450); RED BLOOD COUNT 2.56 10^6/uL (4.00-5.40); WHITE BLOOD COUNT 10.9 10^3/uL (4.0-10.0)
[2020-10-01 06:25] LABS: BLOOD UREA NITROGEN 24 MG/DL (7-18); CALCIUM LEVEL 9.2 MG/DL (8.8-10.2); CARBON DIOXIDE LEVEL 28 MEQ/L (21-32); CHLORIDE LEVEL 103 MEQ/L (98-107); CREATININE FOR GFR 0.59 MG/DL (0.55-1.30); GLOMERULAR FILTRATION RATE > 60.0 (>32); GLUCOSE, FASTING 203 MG/DL (70-100); POTASSIUM SERUM 4.5 MEQ/L (3.5-5.1); SODIUM LEVEL 137 MEQ/L (136-145)
[2020-10-01] MEDS: DOCUSATE SODIUM 100MG CAPSULE PO SCH ×2 (09:04→20:24)
[2020-10-01] MEDS: CALCIUM/VITAMIN D 500 MG TAB PO SCH (09:04)
[2020-10-01] MEDS: ASPIRIN 81MG ENTERIC TABLET PO SCH (09:04)
[2020-10-01] MEDS: LOSARTAN 25 MG TAB PO SCH (09:07)
[2020-10-01] MEDS: LEVEMIR (INSULIN DETEMIR) 1 UNITS/0.01ML SC SCH (09:08)
[2020-10-01] MEDS: HumaLOG INSULIN (NovoLOG) PER UNIT SC SCH ×3 (09:08→17:11)
--- NOTE | 2020-10-01 10:58 | IPN ---
PROGRESS NOTE DATE: 10/01/2020 SUBJECTIVE: Rafia was seen [facility]. She was transferred over yesterday from [address] [place] [address]. Apparently she had developed atrial fibrillation with rapid ventricular response. She is still tachycardic in atrial fibrillation. She has been started on diltiazem and has only received a few doses of this. She has sensorineural hearing loss. She communicates primary through sign language and has a signing person in her room to help aide with communication, which was greatly appreciated. OBJECTIVE: VITAL SIGNS: Blood pressure 147/63, pulse 94, respiratory rate 20, 94% O2 saturation on 2 liters. GENERAL: She is alert and conversant, indicating concern about numbness over her left hip. LUNGS: Clear. HEART: Regular rate and rhythm, tachycardic. ABDOMEN: Soft and nontender. EXTREMITIES: Trace peripheral edema. LABORATORY DATA: White count 10.9, hemoglobin 8, platelets 145,000. Sodium 137, potassium 4.5, BUN 24, creatinine 0.5, glucose 203. IMPRESSION AND PLAN: 1. Atrial fibrillation with rapid ventricular response. She is in atrial fibrillation and her rate is not controlled, but she just started diltiazem; so we are not going to add anything to this until we get a chance to see how her blood pressure and heart rate respond to a few more doses. She is not currently anticoagulated with anything besides aspirin; but if the atrial fibrillation persists and she does not convert, she will need to start an oral anticoagulant tomorrow. Echocardiogram has been ordered. Thyroid functions have been ordered. Orders for magnesium and serial troponins. 2. Anemia of acute blood loss secondary to recent hip fracture. Serial CBCs have been ordered. If hemoglobin drops any further, she might need a transfusion. 3. Left hip fracture status post left cephalomedullary nail placement. Surgery is following and the wound looks good. She is concerned about the numbness and I tried to reassure her this is not uncommon postoperatively. 4. Diabetes on Levemir sliding scale insulin. 5. Hypertension. Blood pressure is mildly elevated. She is currently on losartan 25 mg daily and started on diltiazem for rate control of her atrial fibrillation. 6. Hyperlipidemia. Continue atorvastatin 40 mg daily.
[2020-10-01 12:57] LABS: FREE T4 1.5 NG/DL (0.76-1.46); THYROID STIMULATING HORMONE 1.44 uIU/ML (0.358-3.740)
[2020-10-01 14:00] VITALS: BP 130/55
[2020-10-01 17:26] LABS: CK-MB VALUE MASS < 1.0 NG/ML (<3.6); CPK CREATINE PHOSPHOKINASE 231 U/L (26-192); MB/CK RELATIVE INDEX 0.43 (< OR =4); TROPONIN I 0.02 NG/ML (< 0.10)
[2020-10-01] MEDS: ATORVASTATIN 20 MG TAB PO SCH (20:24)
[2020-10-01] MEDS: SENNA 8.6 MG TAB (SENOKOT) PO SCH (20:25)
[2020-10-01 22:00] VITALS: BP 150/61
[2020-10-02 01:22] LABS: CK-MB VALUE MASS < 1.0 NG/ML (<3.6); CPK CREATINE PHOSPHOKINASE 230 U/L (26-192); MB/CK RELATIVE INDEX 0.43 (< OR =4); TROPONIN I < 0.02 NG/ML (< 0.10)
[2020-10-02 05:52] LABS: HEMATOCRIT 22.7 % (36.0-47.0); HEMOGLOBIN 7.5 g/dl (12.0-15.5); MEAN CORPUSCULAR HEMOGLOBIN 31.6 pg (27.0-33.0); MEAN CORPUSCULAR VOLUME 95.8 fl (80.0-96.0); PLATELET COUNT, AUTOMATED 163 10^3/uL (150-450); RED BLOOD COUNT 2.37 10^6/uL (4.00-5.40); WHITE BLOOD COUNT 9.6 10^3/uL (4.0-10.0)
[2020-10-02 06:00] VITALS: BP 137/84
[2020-10-02 06:23] LABS: BLOOD UREA NITROGEN 24 MG/DL (7-18); CALCIUM LEVEL 9.1 MG/DL (8.8-10.2); CARBON DIOXIDE LEVEL 31 MEQ/L (21-32); CHLORIDE LEVEL 102 MEQ/L (98-107); CREATININE FOR GFR 0.44 MG/DL (0.55-1.30); GLOMERULAR FILTRATION RATE > 60.0 (>32); GLUCOSE, FASTING 195 MG/DL (70-100); MAGNESIUM LEVEL 2.1 MG/DL (1.8-2.4); POTASSIUM SERUM 4.3 MEQ/L (3.5-5.1); SODIUM LEVEL 139 MEQ/L (136-145)
[2020-10-02] MEDS: LEVEMIR (INSULIN DETEMIR) 1 UNITS/0.01ML SC SCH (08:58)
[2020-10-02] MEDS: LOSARTAN 25 MG TAB PO SCH ×2 (08:59→09:00)
[2020-10-02] MEDS: CALCIUM/VITAMIN D 500 MG TAB PO SCH (08:59)
[2020-10-02] MEDS: DOCUSATE SODIUM 100MG CAPSULE PO SCH (08:59)
[2020-10-02] MEDS: HumaLOG INSULIN (NovoLOG) PER UNIT SC SCH (08:59)
[2020-10-02] MEDS: ASPIRIN 81MG ENTERIC TABLET PO SCH (08:59)
[2020-10-02 09:00] VITALS: BP 120/40
[2020-10-02] MEDS ORDERED: DILT60TA PO (09:48)
[2020-10-02] MEDS ORDERED: DOK1CAP7 PO (09:48)
[2020-10-02 10:26] LABS: CK-MB VALUE MASS < 1.0 NG/ML (<3.6); CPK CREATINE PHOSPHOKINASE 219 U/L (26-192); MB/CK RELATIVE INDEX 0.46 (< OR =4); TROPONIN I < 0.02 NG/ML (< 0.10)
--- NOTE | 2020-10-02 12:32 | ECHO ---
DATE OF PROCEDURE: 10/01/2020 Age: 85 Gender: Female Height: 150 cm Weight: 64 kg REFERRING PHYSICIAN: Dr. Parag Lozano. INDICATION: Abnormal ECG. MEASUREMENTS: 2D Measurements: Left atrium 3.2 cm Interventricular septum 1.27 cm Posterior wall 0.96 cm Aortic root 2.6 cm Inferior vena cava 2.0 cm (more than 50% respiratory variation) Doppler Measurements: Aortic valve velocity 155 cm/s Trace mitral regurgitation Mitral E velocity 104 cm/s Mitral A velocity 117 cm/s Mitral deceleration time 190 msec Mild-moderate tricuspid regurgitation Estimated right ventricle systolic pressure 43-48 mmHg Estimated right atrial pressure 5-10 mmHg Very mild pulmonic regurgitation Pulmonary artery acceleration time 90 msec MITRAL ANNULAR TISSUE DOPPLER E prime septal 7.6 cm/s, E prime lateral 9.7 cm/s DESCRIPTION: Rhythm was sinus with frequent premature atrial contractions. Image quality was adequate. No pericardial effusion. This was a 2D, M-mode, color flow Doppler, and pulsed wave Doppler examination and included mitral annular tissue Doppler. CONCLUSIONS: 1. Mild focal hypertrophy of the basal anterior ventricular septum. Normal regional LV wall motion and wall thickening. Normal LV internal dimensions. Normal LV systolic function. LVEF 70% by visual estimate. Grade 1 LV diastolic dysfunction (impaired relaxation filling pattern). 2. Moderate aortic valve sclerosis of a 3-cusp aortic valve. No aortic stenosis or regurgitation. 3. Suggestive of moderate elevation of estimated right ventricle systolic pressure (43-48 mmHg). Normal right ventricle size and systolic function. Structurally normal appearing tricuspid leaflets. Mild-moderate tricuspid regurgitation. Probably normal right atrial size. 4. Otherwise normal appearing echocardiogram Doppler findings. MTDD
--- NOTE | 2020-10-02 19:16 | DS.PDOC ---
Discharge Summary General Date of Admission September 28, 2020 at 19:44 Date of Discharge 10/02/2020 Discharge Summary PRIMARY CARE PHYSICIAN: Dr. Sami Nunn DO ATTENDING AT TIME OF DISCHARGE: Dr. Emmie Weaver DO DISCHARGE DIAGNOS(E)S: Atrial fibrillation with rapid ventricular response, now rate controlled on diltiazem Anemia secondary to acute blood loss from recent hip fracture surgical repair Left hip fracture status post left cephalomedullary nail placement Diabetes mellitus type 2 Hypertension Hyperlipidemia HPI & HOSPITAL COURSE: 85-year-old female who accidentally tripped and fell landing on her left side causing a left comminuted intertrochanteric hip fracture. She was seen and evaluated by orthopedics, brought to the OR and a cephalomedullary nail was placed. Postoperatively she did have some blood loss, and her H&H has been slowly trending downward. Additionally, she also developed atrial fibrillation with rapid ventricular response and was placed on diltiazem. Prior to this event though she was having some elevated blood pressures, with the administration of diltiazem her rate is now controlled, and her blood pressures are within acceptable range. She still continues to complain of significant weakness and debilitation. I believe that she would be an excellent candidate for acute rehabilitation unit, and they are able to administer blood on the unit as well, therefore she is stable for discharge at this time with the recommendation to transfuse upon arrival. PHYSICAL EXAMINATION ON DISCHARGE: GENERAL: Awake, alert, oriented 3. CARDIOVASCULAR EXAMINATION: Irregular rhythm with controlled rate, with no rubs, gallops, or murmur. RESPIRATORY EXAMINATION: Clear to auscultation bilaterally with no wheezes, rales, or rhonchi. ABDOMINAL EXAMINATION: Soft, nontender, nondistended. Bowel sounds present. EXTREMITIES: No clubbing or edema noted. 2+ pulses in the radial bilaterally. DISPOSITION: To acute rehabilitation unit DISCHARGE INSTRUCTIONS: Diet as tolerated. Activity per recommendations from PM&R physician upon arrival to acute rehabilitation unit. If symptoms return, or if you experience worsening of your symptoms, please call your doctor or return to the emergency department. ITEMS THAT NEED FOLLOWUP: Hemoglobin has been trending slowly downward status post surgery, found to be 7.5 today. Recommend blood transfusion upon arrival to rehabilitation unit. Vital Signs/I&Os Vital Signs Date Time Temp Pulse Resp B/P (MAP) Pulse Ox O2 Delivery O2 Flow Rate FiO2 10/02/20 10:10 18 10/02/20 10:02 2.0 10/02/20 09:00 120/40 10/02/20 06:00 97.5 78 94 Nasal Cannula I&O- Last 24 Hours up to 6 AM 10/02/20 06:00 Intake Total 1260 ml Output Total 1300 ml Balance -40 ml Laboratory Data Labs 24H Laboratory Tests 2 10/01/20 21:00: Bedside Glucose (Misc Panel) 244H 10/02/20 00:41: Total Creatine Kinase 230H, Creatine Kinase MB < 1.0, Creatine Kinase MB Relative Index 0.43, Troponin I < 0.02 10/02/20 05:32: Nucleated Red Blood Cells % (auto) 0.0, Anion Gap 6L, Glomerular Filtration Rate > 60.0, Calcium Level 9.1, Magnesium Level 2.1 10/02/20 08:50: Total Creatine Kinase 219H, Creatine Kinase MB < 1.0, Creatine Kinase MB Relative Index 0.46, Troponin I < 0.02 10/02/20 11:36: Bedside Glucose (Misc Panel) 210H CBC/BMP Laboratory Tests 10/02/20 05:32 FSBS Laboratory Tests Test 10/01/20 21:00 10/02/20 11:36 Range/Units Bedside Glucose (Misc Panel) 244 210 83-110 MG/DL Discharge Medications Scheduled Aspirin (Ecotrin) 81 Mg Tablet.dr, 81 MG PO DAILY, (Reported) Atorvastatin Calcium (Atorvastatin Calcium) 80 Mg Tab, 80 MG PO QHS, (Reported) Calcium Carbonate/Vitamin D3 (Calcium 500-Vit D3 400 Tablet) 1 Tab Tab, 1 TAB PO DAILY, (Reported) Canagliflozin (Invokana) 300 Mg Tab, 300 MG PO DAILY, (Reported) Carboxymethylcellulose Sodium (Refresh Tears) 15 Ml Drops, 1 DROP OU TID, (Reported) Diltiazem Hcl (Diltiazem HCl) 60 Mg Tablet, 60 MG PO Q6H Docusate Sodium (Dok) 100 Mg Capsule, 100 MG PO BID Lactobacillus Acidophilus (Probiotic) 1 Each Capsule, 1 CAP PO DAILY, (Reported) Linagliptin (Tradjenta) 5 Mg Tablet, 5 MG PO DAILY, (Reported) Losartan Potassium (Losartan Potassium) 25 Mg Tab, 25 MG PO DAILY, (Reported) Metformin HCl (Metformin HCl ER) 500 Mg Tab.er.24h, 1,000 MG PO QHS, (Reported) Multivitamin,Therapeutic (Thera-Tabs) 1 Each Tablet, 1 TAB PO DAILY, (Reported) Sitagliptin Phosphate (Januvia) 100 Mg Tab, 100 MG PO DAILY, (Reported) Vit C/E/Zn/Coppr/Lutein/Zeaxan (Preservision Areds 2 Softgel) 1 Each Capsule, 1 CAP PO BID, (Reported) Allergies Coded Allergies: No Known Drug Allergies (Verified Allergy, Unknown, 03/28/20) EMMIE WEAVER DO October 02, 2020 19:16
== END 2020-10-02 12:10 | DRG 481 ==
LOC: M ED 16:29 → M ED INP 19:44 → ENRESERV 22:12 → M MS5PR 22:39 → M MSPAV 09-30 22:19
PROVIDERS: ADMIT Internal Medicine; ATTEND Neuromusculoskeletal Medicine & OMM
PROC: 0QS706Z Reposition Left Upper Femur with Intramedullary Internal Fixation Device, Open Approach (ICD-10-PCS; principal; 2020-09-29 12:00)
DX: S72.142A Displaced intertrochanteric fracture of left femur, initial encounter for closed fracture (principal); J98.11 Atelectasis; D62 Acute posthemorrhagic anemia; E11.9 Type 2 diabetes mellitus without complications; I10 Essential (primary) hypertension; I48.0 Paroxysmal atrial fibrillation; E78.5 Hyperlipidemia, unspecified; Z79.82 Long term (current) use of aspirin; Z79.899 Other long term (current) drug therapy; W10.9XXA Fall (on) (from) unspecified stairs and steps, initial encounter; Y92.014 Private driveway to single-family (private) house as the place of occurrence of the external cause; Z85.3 Personal history of malignant neoplasm of breast; Z92.3 Personal history of irradiation; Z92.21 Personal history of antineoplastic chemotherapy; K59.00 Constipation, unspecified

== ENCOUNTER 2020-09-30 09:23 | Inpatient (IN) | payer MEDICARE, BC, OTHER ==
[~2020-09-30] VITALS: Ht 149.9 cm; Wt 62.2 kg
[~2020-09-30 09:23] MED LIST changes: +REFR0.5D8 OU; +THERTAB52 PO; +TRAD5TAB PO
[2020-10-02] VITALS (13 sets, daily range): BP systolic 118–150; BP diastolic 58–73
[2020-10-02] MEDS ORDERED: diphenhydrAMINE 25MG CAP PO ONE (09:35)
[2020-10-02] MEDS ORDERED: GLUCAGON INJ 1MG VIAL SC PRN (09:35)
[2020-10-02] MEDS ORDERED: BISACODYL 10 MG SUPP PR PRN (09:35)
[2020-10-02] MEDS ORDERED: GLUCOSE 4GM CHEW TABLET PO PRN (09:35)
[2020-10-02] MEDS ORDERED: DEXTROSE 50% 50 ML SYRINGE IV PRN (09:35)
[2020-10-02] MEDS ORDERED: DILT60TA PO (09:48)
[2020-10-02] MEDS ORDERED: DOK1CAP7 PO (09:48)
[2020-10-02] MEDS: HumaLOG INSULIN (NovoLOG) PER UNIT SC SCH ×3 (12:00→20:42)
[2020-10-02] MEDS ORDERED: FLEET ENEMA PR ONE (13:20)
[2020-10-02] MEDS ORDERED: ACETAMINOPHEN TAB 650MG DOSE (2X325MG) PO ONE (13:30)
[2020-10-02] MEDS ORDERED: FUROSEMIDE 20MG/2ML VIAL (J1940) IV ONE (14:00)
--- NOTE | 2020-10-02 14:25 | REP ---
INDICATION: r/o fracture or listhesis COMPARISON: None. TECHNIQUE: AP, lateral, bilateral oblique views of the lumbar spine. FINDINGS: Age-related osteopenia and moderate multilevel degenerative changes including osteophytosis, endplate sclerosis, disc space narrowing and facet hypertrophy. No obvious acute fracture/compression injury or subluxation appreciated. IMPRESSION: Osteopenia and degenerative changes. No obvious acute fracture/compression injury or subluxation. <Electronically signed by Magdaleno Puritt > 10/02/20 6506
[2020-10-02] MEDS: ACETAMINOPHEN 500 MG TAB PO SCH ×2 (16:00→20:41)
[2020-10-02] MEDS: REMEDY PHYTOPLEX Z-GUARD PASTE 113GM TUBE (FROM STOREROOM PRODUCT) TOP SCH ×2 (16:00→20:42)
[2020-10-02] MEDS: ATORVASTATIN 20 MG TAB PO SCH (20:41)
[2020-10-02] MEDS: SENNA 8.6 MG TAB (SENOKOT) PO SCH (20:41)
[2020-10-02] MEDS: DOCUSATE SODIUM 100MG CAPSULE PO SCH (20:41)
[2020-10-03 05:10] VITALS: BP 141/61
[2020-10-03] MEDS: traMADol 50 MG TAB PO PRN ×3 (06:48→20:45)
[2020-10-03] MEDS: ACETAMINOPHEN 500 MG TAB PO SCH ×4 (07:38→20:46)
[2020-10-03] MEDS: MIRALAX *UNIT DOSE* 17GM PACKET PO PRN (07:38)
[2020-10-03] MEDS: CALCIUM/VITAMIN D 500 MG TAB PO SCH (07:39)
[2020-10-03] MEDS: LEVEMIR (INSULIN DETEMIR) 1 UNITS/0.01ML SC SCH (07:39)
[2020-10-03] MEDS: HumaLOG INSULIN (NovoLOG) PER UNIT SC SCH ×4 (07:39→20:43)
[2020-10-03] MEDS: FERROUS GLUCONATE 324 MG TAB PO SCH (07:40)
[2020-10-03] MEDS: LOSARTAN 25 MG TAB PO SCH (07:40)
[2020-10-03] MEDS: DOCUSATE SODIUM 100MG CAPSULE PO SCH ×2 (07:40→20:45)
[2020-10-03] MEDS: ASPIRIN 81MG ENTERIC TABLET PO SCH (07:40)
[2020-10-03] MEDS: REMEDY PHYTOPLEX Z-GUARD PASTE 113GM TUBE (FROM STOREROOM PRODUCT) TOP SCH ×3 (07:41→20:46)
[2020-10-03 08:12] LABS: BASO % 0.3 % (0.0-1.0); EOS # 0.2 10^3/uL (0.0-0.5); EOS % 1.9 % (0.0-3.0); LYMPH % 22.7 % (24.0-44.0); MEAN CORPUSCULAR HEMOGLOBIN 30.9 pg (27.0-33.0); MEAN CORPUSCULAR HGB CONC 33.3 g/dl (32.0-36.5); MEAN CORPUSCULAR VOLUME 92.7 fl (80.0-96.0); MONO # 0.8 10^3/uL (0.0-0.8); NEUTROPHILS # 5.7 10^3/uL (1.5-8.5); NEUTROPHILS % 65.3 % (36.0-66.0); PLATELET COUNT, AUTOMATED 166 10^3/uL (150-450); RED BLOOD COUNT 3.56 10^6/uL (4.00-5.40); WHITE BLOOD COUNT 8.8 10^3/uL (4.0-10.0)
[2020-10-03 08:46] LABS: ALBUMIN 2.4 GM/DL (3.2-5.2); ALT/SGPT 54 U/L (12-78); BILIRUBIN,TOTAL 1.4 MG/DL (0.2-1.0); BLOOD UREA NITROGEN 26 MG/DL (7-18); CALCIUM LEVEL 8.4 MG/DL (8.8-10.2); CARBON DIOXIDE LEVEL 29 MEQ/L (21-32); CHLORIDE LEVEL 101 MEQ/L (98-107); CREATININE FOR GFR 0.49 MG/DL (0.55-1.30); GLOMERULAR FILTRATION RATE > 60.0 (>32); GLUCOSE, FASTING 227 MG/DL (70-100); POTASSIUM SERUM 4.2 MEQ/L (3.5-5.1); SODIUM LEVEL 136 MEQ/L (136-145); TOTAL PROTEIN 5.5 GM/DL (6.4-8.2)
[2020-10-03] MEDS ORDERED: PANTOPRAZOLE 40MG TAB (PROTONIX) PO SCH (09:00)
--- NOTE | 2020-10-03 09:28 | HPEPDOC ---
Dynamometer Repairer Note DATE OF ADMISSION: 10/02/20 DATE OF SERVICE: 10/02/20 TIME OF ADMISSION: Please refer to physician's admission order. 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 CTH was perfor med as patient had hit her head without LOC which was negative for intracranial bleed. Hip X-ray did show, Acute comminuted inter trochanteric fracture left hip. She was evaluated by orthopedics and underwent a left hip ORIF on 09-29-[address] Estrada. She developed Afib with RVR post-operatively and acute blood loss anemia. She was treated with Cardizem after which she cardioverted and decision was made not to treat her with AC due to her history of GI Bleed. She complained of left leg and foot numbness and generalized weakness, with mobility and ADL impairments in therapy and deemed medically appropriate for discharge to ARU on 10-02-20. On admission patient with the help of her sign- foreign language instructor consented to receive 2 units of blood for her post-op anemia. She reported numbness on her left upper thigh and top of left foot. Dr. Estrada was called and agreed to come see patient to evaluate her post-op complaints. Lumbar x-rays were ordered in the meantime to identify if LLE weakness and paresthesias were spine-related REVIEW OF SYSTEMS: The following is a completed review of systems and has been reviewed. Review of systems otherwise unremarkable. PAIN: Patient self reports left hip pain EYES: No recent vision change EARS, NOSE, & THROAT: No throat pain, or dysphagia, or rhinorrhea, +hearing loss (chronic) CARDIOVASCULAR: Denies chest pain or palpitations PULMONARY: Denies shortness of breath GASTROINTESTINAL:+constipation GENITOURINARY: denies dysuria MUSCULOSKELETAL: s/p left hip fracture NEUROLOGICAL: +LLE paresthesia HEMATOLOGICAL:+ anemia SKIN: left hip incision PSYCHIATRIC: Unremarkable All other review of systems found to be negative. PAST MEDICAL HISTORY: as per HPI PAST SURGICAL HISTORY: As per hpi, left breast necrotizing cellulitis s/p surgical debridement x2, appendectomy ALLERGIES: Please see below. MEDICATIONS: Please see below. FAMILY HISTORY: DM and cardiac SOCIAL HISTORY: No etoh/illicit drugs/smoking, lives at [facility] DIET: 2g low sodium PHYSICAL EXAMINATION: VITAL SIGNS: Please see below. GENERAL: Pleasant and cooperative. No acute distress. HEENT: PERRL. Extraocular movements intact. Clear conjunctiva CARDIOVASCULAR: Regular rate and rhythm. No murmurs, rubs, or gallops LUNGS: Clear to auscultation bilaterally. No wheezes. No rhonchi ABDOMEN: Soft, nontender, mildly distended non-tender Normal active bowel sounds NEUROLOGICAL: Alert and oriented times three. Cranial nerves II through XII grossly intact. Sensation decreased to light touch 1st web space of left dorsal foot and upper anterior thigh EXTREMITIES: 5\5 strength bilateral upper extremities. 5\5 strength right lower extremity. 4/5 left ankle DF/EHL (limited overall due to recent surgery) SKIN: left hip LABORATORY DATA: Please see below. IMAGING: Imaging documentation personally reviewed by record FUNCTIONAL STATUS: Premorbid: Independent with all activities of daily life as well as mobility On Admission: Min assist for bed mobility, functional transfers, ambulation, dressing GOALS: Mod-I - supervision for bed mobility, functional transfers, ambulation, dressing, toileting, bathing ASSESSMENT:85-year-old F with past medical history of DM, hearing loss, paroxysmal Afib, osteoporosis who presents status post fall with left hip fracture s/p ORIF PLAN: 1. Rehab- PT/OT advance mobility and ADLs, strengthen/stretch/maintain ROM all 4limbs 2. ortho- s/p left hip ORIf 09-29-20 with left ankle weakness and paresthesias, concern for possible deep peroneal nerve injury, additional paresthesias of anterior thigh and weakness of left knee extension concern for femoral nerve injury?- Dr. Estrada aware and will come see patient, in meantime will order lumbar X-ray r/o fracture or degenerative changes causing spinal stenosis/radiculopathy -ASA 81mg daily for DVT ppx 3. CArdiac- hx of paroxysmal Afib, recently cardioverted with diltiazem, off AC due to hx of GI bleed, will monitor for Afib while on ARU and readdress need for AC with hospitalist team if needed -HLD c/u statin -HTN c/u amlodipine and cozarr 4. Resp- monitor for infection, recent CXR showing atelectasis 5. GI- hx of UGIB c/u protonix BID -fleet enema for constipation, c/u bowel regimen 6. DVT ppx- on ASa 81mg daily, teds 7. - monitor PVRs 8. Pain- Tylenol and tramadol 9. Heme- psot-op anemia Hgb 7.5, will give 2 units prbcs 10. Endo- hx of DM c/u Levemir and ISS 11. Dispo- TBD POST ADMISSION PHYSICIAN EVALUATION: Medical and functional status: Description of medical status, medical assessm ent: As above. Rehabilitation diagnosis and current and prior cold morbid medical conditions as above. Risk of complications and plans to mitigate them as above. Description of functional status current status is as above. Prior status as above. Status compared to preadmission: There are no clinically significant differences between the patient's current status and the information described on the preadmission screening document. Treatment plan anticipated: Treatment plan is as described above. Required disciplines including physical therapy, occupational therapy, others as noted above Intensity of services: 3 hours a day, 6 days a week. Special considerations: There are no specific special or safety considerations that would likely preclude immediate implementation of an intensive rehabi litation program or subsequently influence the plan of care. ATTESTATION: Considering all the information above, it is my best judgment that this patient requires intensive rehabilitation therapy as described above and an inpatient hospital environment due to the complexity of nursing, medical, and rehabilitation needs required by the patient. Furthermore, this patient can reasonably be expected to participate in an benefit from an inpatient rehabilitation stay with an interdisciplinary team approach to the delivery of rehabilitation care under the direction and supervision of rehabilitation physician. PROGNOSIS: Excellent ESTIMATED LENGTH OF STAY:14-18 days. PROJECTED DISCHARGE DESTINATION: Home with family support and any durable medical equipment required to increase functional safety and mobility. TIME SPENT COUNSELING AND COORDINATING INITIAL CARE: Greater than 70 minutes. Vital Signs Vital Sign - Last 24 Hours 10/02/20 10/02/20 10/02/20 10/02/20 12:45 14:00 14:23 15:20 Temp 98.2 98.2 98.2 Pulse 92 110 110 110 Resp 18 18 18 B/P (MAP) 122/64 (83) 134/63 (86) 134/63 134/63 Pulse Ox 95 92 92 O2 Delivery Nasal Cannula Nasal Cannula Nasal Cannula O2 Flow Rate 2.0 2.0 2.0 10/02/20 10/02/20 10/02/20 10/02/20 15:35 16:35 18:05 20:00 Temp 98.4 96.3 98.2 98.4 Pulse 93 82 80 67 Resp 18 82 16 18 B/P (MAP) 137/66 134/63 133/70 118/58 (78) Pulse Ox 94 98 98 95 O2 Delivery Nasal Cannula Nasal Cannula Nasal Cannula Nasal Cannula O2 Flow Rate 2.0 2.0 2.0 2.0 10/02/20 10/02/20 10/02/20 10/02/20 20:36 20:51 21:36 22:36 Temp 97.9 97.6 97.4 97.5 Pulse 79 80 87 76 Resp 18 18 18 18 B/P (MAP) 150/70 150/73 133/61 128/59 Pulse Ox 94 96 94 95 O2 Delivery Nasal Cannula Nasal Cannula Nasal Cannula Nasal Cannula O2 Flow Rate 2.0 2.0 2.0 2.0 10/02/20 10/02/20 10/02/20 10/02/20 22:54 23:34 23:54 23:55 Temp 97.8 97.9 Pulse 85 81 81 Resp 18 18 B/P (MAP) 129/58 130/61 130/61 Pulse Ox 95 97 O2 Delivery Nasal Cannula Nasal Cannula O2 Flow Rate 2.0 2.0 2.0 10/03/20 10/03/20 10/03/20 10/03/20 05:10 06:11 06:48 07:18 Temp 97.9 Pulse 71 71 Resp 19 18 16 B/P (MAP) 141/61 (87) 141/61 Pulse Ox 96 O2 Delivery Nasal Cannula Nasal Cannula O2 Flow Rate 2.0 2.0 10/03/20 10/03/20 07:40 08:00 B/P (MAP) 141/61 O2 Flow Rate 2.0 Laboratory Data CBC/BMP Laboratory Tests 10/03/20 07:27 Labs 24H Laboratory Tests 2 10/02/20 16:35: Bedside Glucose (Misc Panel) 168H 10/02/20 20:20: Bedside Glucose (Misc Panel) 199H 10/03/20 05:45: Bedside Glucose (Misc Panel) 185H 10/03/20 07:27: Immature Granulocyte % (Auto) 0.8, Neutrophils (%) (Auto) 65.3, Lymphocytes (%) (Auto) 22.7L, Monocytes (%) (Auto) 9.0H, Eosinophils (%) (Auto) 1.9, Basophils (%) (Auto) 0.3, Neutrophils # (Auto) 5.7, Lymphocytes # (Auto) 2.0, Monocytes # (Auto) 0.8, Eosinophils # (Auto) 0.2, Basophils # (Auto) 0.0, Nucleated Red Blood Cells % (auto) 0.5H, Anion Gap 6L, Glomerular Filtration Rate > 60.0, Calcium Level 8.4L, Total Bilirubin 1.4H, Aspartate Amino Transf (AST/SGOT) 44H, Alanine Aminotransferase (ALT/SGPT) 54, Alkaline Phosphatase 71, Total Protein 5.5L, Albumin 2.4L, Albumin/Globulin Ratio 0.8L FSBS Laboratory Tests Test 10/02/20 16:35 10/02/20 20:20 10/03/20 05:45 Range/Units Bedside Glucose (Misc Panel) 168 199 185 83-110 MG/DL Home Medications Scheduled Aspirin (Ecotrin) 81 Mg Tablet.dr, 81 MG PO DAILY, (Reported) Atorvastatin Calcium (Atorvastatin Calcium) 80 Mg Tab, 80 MG PO QHS, (Reported) Calcium Carbonate/Vitamin D3 (Calcium 500-Vit D3 400 Tablet) 1 Tab Tab, 1 TAB PO DAILY, (Reported) Canagliflozin (Invokana) 300 Mg Tab, 300 MG PO DAILY, (Reported) Carboxymethylcellulose Sodium (Refresh Tears) 15 Ml Drops, 1 DROP OU TID, (Reported) Diltiazem Hcl (Diltiazem HCl) 60 Mg Tablet, 60 MG PO Q6H Docusate Sodium (Dok) 100 Mg Capsule, 100 MG PO BID Lactobacillus Acidophilus (Probiotic) 1 Each Capsule, 1 CAP PO DAILY, (Reported) Linagliptin (Tradjenta) 5 Mg Tablet, 5 MG PO DAILY, (Reported) Losartan Potassium (Losartan Potassium) 25 Mg Tab, 25 MG PO DAILY, (Reported) Metformin HCl (Metformin HCl ER) 500 Mg Tab.er.24h, 1,000 MG PO QHS, (Reported) Multivitamin,Therapeutic (Thera-Tabs) 1 Each Tablet, 1 TAB PO DAILY, (Reported) Sitagliptin Phosphate (Januvia) 100 Mg Tab, 100 MG PO DAILY, (Reported) Vit C/E/Zn/Coppr/Lutein/Zeaxan (Preservision Areds 2 Softgel) 1 Each Capsule, 1 CAP PO BID, (Reported) Allergies Coded Allergies: No Known Drug Allergies (Verified Allergy, Unknown, 03/28/20) A-FIB/CHADSVASC A-FIB History Current/History of A-Fib/PAF?: Yes Current PO Anticoag Therapy: No RIK MCKOY MD October 03, 2020 09:28
[2020-10-03 11:34] VITALS: BP 121/58
--- NOTE | 2020-10-03 11:36 | IPNPDOC ---
PM&R Progress Note DATE OF SERVICE: October 03, 2020 Invoice Control Clerk Progress Note Subjective: Patient reporting she has no back pain and that she feels her left leg is stronger today. REVIEW OF SYSTEMS: The following is a completed review of systems and has been reviewed. Review of systems otherwise unremarkable. PAIN: Patient self reports left hip pain EYES: No recent vision change EARS, NOSE, & THROAT: No throat pain, or dysphagia, or rhinorrhea, +hearing loss (chronic) CARDIOVASCULAR: Denies chest pain or palpitations PULMONARY: Denies shortness of breath GASTROINTESTINAL:+constipation (improved) GENITOURINARY: denies dysuria MUSCULOSKELETAL: s/p left hip fracture NEUROLOGICAL: +LLE paresthesia HEMATOLOGICAL:+ anemia SKIN: left hip incision PSYCHIATRIC: Unremarkable All other review of systems found to be negative. PHYSICAL EXAMINATION: VITAL SIGNS: Please see below. GENERAL: Pleasant and cooperative. No acute distress. HEENT: PERRL. Extraocular movements intact. Clear conjunctiva CARDIOVASCULAR: Regular rate and rhythm. No murmurs, rubs, or gallops LUNGS: Clear to auscultation bilaterally. No wheezes. No rhonchi ABDOMEN: Soft, nontender, mildly distended non-tender Normal active bowel sounds NEUROLOGICAL: Alert and oriented times three. Cranial nerves II through XII grossly intact. Sensation decreased to light touch 1st web space of left dorsal foot and upper anterior thigh EXTREMITIES: 5\\5 strength bilateral upper extremities. 5\\5 strength right lower extremity. 5/5 left ankle DF/EHL non TTP lumbar vertebra or paraspinals SKIN: left hip joanne-incision with some edema, no induration LABORATORY DATA: Please see below. ASSESSMENT:85-year-old F with past medical history of DM, hearing loss, paroxysmal Afib, osteoporosis who presents status post fall with left hip fracture s/p ORIF PLAN: 1. Rehab- PT/OT advance mobility and ADLs, strengthen/stretch/maintain ROM all 4limbs 2. ortho- s/p left hip ORIf 09-29-20 with left ankle weakness and paresthesias, concern for possible deep peroneal nerve injury, on admission + paresthesias of left anterior thigh and weakness of left knee extension concern for femoral nerve injury?- today patients left ankle DF and EHL, knee extension strength much better, she is able to ambulate, Dr. Estrada came by to evaluate patient and suspects lateral cutaneous femoral nerve involvement due to joanne-surgical site swelling, Acewraps ordered to thigh, recs appreciated -ASA 81mg daily for DVT ppx -lumbar Xray unrevealing, ordered CT lumbar spine to r/o stenosis with results showing "acute fracture of mid to right aspect of superior endplate of L2. There is grade 1 anterolisthesis L4 on L5", discussed with Dr. Estrada who believes this is a chronic fracture- patient has no back pain, no pain with palpation of lumbar spine, no need to brace per ortho- recs appreciated, f/u ortho for back outpatient -no concern for cauda-equine, patient continent, no saddle region anesthesia 3. CArdiac- hx of paroxysmal Afib, recently cardioverted with diltiazem, off AC due to hx of GI bleed, will monitor for Afib while on ARU and readdress need for AC with hospitalist team if needed -HLD c/u statin -HTN c/u amlodipine and cozarr 4. Resp- monitor for infection, recent CXR showing atelectasis, afebrile 5. GI- hx of UGIB c/u protonix BID -s/p fleet enema for constipation, c/u bowel regimen 6. DVT ppx- on ASa 81mg daily, teds 7. - monitor PVRs 8. Pain- Tylenol and tramadol 9. Heme- post-op anemia Hgb 7.5 s/p 2 units prbcs, Hgb 11, patient feeling better 10. Endo- hx of DM c/u Levemir and ISS 11. Dispo- TBD Allergies Coded Allergies: No Known Drug Allergies (Verified Allergy, Unknown, 03/28/20) Vital Signs Vital Signs Date Time Temp Pulse Resp B/P (MAP) Pulse Ox O2 Delivery O2 Flow Rate FiO2 10/03/20 10:43 18 10/03/20 08:00 2.0 10/03/20 07:40 141/61 10/03/20 06:48 Nasal Cannula 10/03/20 06:11 71 10/03/20 05:10 97.9 96 Laboratory Data CBC/BMP Laboratory Tests 10/03/20 07:27 Labs 24H Laboratory Tests 2 10/02/20 16:35: Bedside Glucose (Misc Panel) 168H 10/02/20 20:20: Bedside Glucose (Misc Panel) 199H 10/03/20 05:45: Bedside Glucose (Misc Panel) 185H 10/03/20 07:27: Immature Granulocyte % (Auto) 0.8, Neutrophils (%) (Auto) 65.3, Lymphocytes (%) (Auto) 22.7L, Monocytes (%) (Auto) 9.0H, Eosinophils (%) (Auto) 1.9, Basophils (%) (Auto) 0.3, Neutrophils # (Auto) 5.7, Lymphocytes # (Auto) 2.0, Monocytes # (Auto) 0.8, Eosinophils # (Auto) 0.2, Basophils # (Auto) 0.0, Nucleated Red Blood Cells % (auto) 0.5H, Anion Gap 6L, Glomerular Filtration Rate > 60.0, Calcium Level 8.4L, Total Bilirubin 1.4H, Aspartate Amino Transf (AST/SGOT) 44H, Alanine Aminotransferase (ALT/SGPT) 54, Alkaline Phosphatase 71, Total Protein 5.5L, Albumin 2.4L, Albumin/Globulin Ratio 0.8L Current Medications Current Medications Current Medications Medications (Trade) Dose Ordered Sig/[place] Route PRN Reason Start Time Stop Time Status Last Admin Dose Admin Acetaminophen (Tylenol Tab) 1,000 mg TID PO 10/02/20 16:00 10/03/20 07:38 Aspirin (Ecotrin) 81 mg DAILY PO 10/03/20 09:00 10/03/20 07:40 Atorvastatin Calcium (Lipitor) 40 mg QHS PO 10/02/20 21:00 10/02/20 20:41 Bisacodyl (Dulcolax Suppository) 10 mg DAILYPRN PRN [place] CONSTIPATION 10/02/20 09:35 Calcium/Vitamin D (Oscal D) 500 mg DAILY PO 10/03/20 09:00 10/03/20 07:39 Dextrose (Dextrose 50%) 25 ml ASDIRECTED PRN IV SEE LABEL COMMENTS 10/02/20 09:35 Diltiazem HCl (Cardizem) 60 mg Q6H PO 10/02/20 12:00 10/03/20 06:11 Docusate Sodium (Colace) 100 mg BID PO 10/02/20 21:00 10/03/20 07:40 Ferrous Gluconate (Fergon) 324 mg DAILY PO 10/03/20 09:00 10/03/20 07:40 Glucagon (Glucagon) 1 mg ASDIRECTED PRN SC SEE LABEL COMMENTS 10/02/20 09:35 Glucose (Glucose) 16 GM ASDIRECTED PRN PO SEE LABEL COMMENTS 10/02/20 09:35 Insulin Detemir (Levemir Insulin) 8 units DAILY SC 10/03/20 09:00 10/03/20 07:39 Insulin Human Lispro (HumaLOG INSULIN) SEE PROTOCOL TABLE AC SC 10/02/20 12:00 10/03/20 07:39 Insulin Human Lispro (HumaLOG INSULIN) SEE PROTOCOL TABLE QHS SC 10/02/20 21:00 Losartan Potassium (Cozaar) 25 mg DAILY PO 10/03/20 09:00 10/03/20 07:40 Pantoprazole Sodium (Protonix) 40 mg DAILY PO 10/03/20 09:00 10/03/20 07:40 Polyethylene Glycol (Miralax) 1 pkt DAILY PRN PO CONSTIPATION 10/02/20 09:35 10/03/20 07:38 Senna (Senokot) 1 tab QHS PO 10/02/20 21:00 10/02/20 20:41 Tramadol HCl (Ultram) 50 mg Q4HP PRN PO MODERATE PAIN (PS 5-7) 10/02/20 09:35 10/03/20 10:43 RIK MCKOY MD October 03, 2020 11:36
--- NOTE | 2020-10-03 11:55 | REPVR ---
PROCEDURE INFORMATION: Exam: CT Lumbar Spine Without Contrast Exam date and time: 10/03/2020 11:14 AM Age: 85 years old Clinical indication: Low back pain; Additional info: R/O stenosis TECHNIQUE: Imaging protocol: Computed tomography images of the lumbar spine without contrast. Radiation optimization: All CT scans at this facility use at least one of these dose optimization techniques: automated exposure control; mA and/or kV adjustment per patient size (includes targeted exams where dose is matched to clinical indication); or iterative reconstruction. COMPARISON: 1. CR Spine. Lumbosacral, complete 10/02/2020 2:[address] Chest with contrast 02/09/2020 7:35:53 PM FINDINGS: Vertebrae: There is acute fracture of mid to right aspect of superior endplate of L2. There is grade 1 anterolisthesis L4 on L5. Discs/Spinal canal/Neural foramina: There is disc height loss at L2-L3. There is mild dextrocurvature of lumbar spine. Bones are demineralized. There are mild anterior marginal osteophytes. There are lumbar disc bulges. There are facet degenerative changes greatest at L4-L5 where there is spinal stenosis likely at least moderate. There is mild left neural foraminal narrowing at L2-L3. Other bones/joints: There is transitional anatomy. Comparing to CT, there are 12 rib-bearing vertebra with normal size ribs and rudimentary ribs below the last major rib-bearing segment which will be labeled T13. Please correlate closely with images prior to any intervention. Soft tissues: Unremarkable. IMPRESSION: 1. Comparison to chest CT shows 13 rib-bearing vertebra with rudimentary lower ribs. Please correlate closely with levels prior to any intervention due to this anatomy. 2. Acute fracture of right side of superior endplate of L2. 3. Degenerative changes as described. Electronically signed by: Gem Vale On 10/03/2020 11:54:50 AM
[2020-10-03 14:00] VITALS: BP 128/57
--- NOTE | 2020-10-03 16:44 | IPN ---
PROGRESS NOTE DATE: 10/03/2020 SUBJECTIVE: This is an 85-year-old female who is postoperative day #4 of a left intermediate cephalomedullary nail placement for a left intertrochanteric comminuted fracture. The patient has been transferred to rehabilitative services and is doing quite well today. The patient no longer describes left ankle pain; however, she does describe some incisional pain overlying the surgical incision. She has been resting comfortably and would like to mobilize today with the aid of a walker and physical therapist. OBJECTIVE: The dressing overlying the incision is clean, dry, and intact. She had 5/5 motor strength of the EHL, FHL, tibialis anterior, gastrocnemius, and peroneal musculature. Her quad strength was 4/5. She is able to maintain a straight leg extension with minimal assistance. She had a 2+ dorsalis pedis and posterior tibial arterial pulse. Moderate swelling of the left thigh secondary to post surgical bleeding most likely. She had brisk capillary refill to the digits. IMAGING DATA: The patient had lumbar spine radiographs to ensure her numbness is not secondary to spinal pathology and there were no osseous abnormalities regarding her lumbar spine that I could appreciate; at least no acute pathology. I reviewed these images personally. IMPRESSION: An 85-year-old female postop day #4 from a left cephalomedullary nail placement. The patient is doing well. PLAN: At this point in time, I feel the patient should be sitting in her chair for a majority of the day. This will help her restore her normal life pattern. I hope that she can walk with assistance and with a walker at today's visit. Her hip is biomechanically stable at this point and we should attempt a trial of ambulation with walker assistance. I talked to Dr. Zamarripa about the aforementioned plan today.
[2020-10-03 17:03] VITALS: BP 142/62
[2020-10-03] MEDS: POLYVINYL ALCOHOL OPHTH SOLN 15 ML(LIQUITEARS) OU SCH ×2 (17:04→20:46)
[2020-10-03 20:00] VITALS: BP 136/62
[2020-10-03] MEDS: PANTOPRAZOLE 40MG TAB (PROTONIX) PO SCH (20:45)
[2020-10-03] MEDS: SENNA 8.6 MG TAB (SENOKOT) PO SCH (20:45)
[2020-10-03] MEDS: ATORVASTATIN 20 MG TAB PO SCH (20:46)
[2020-10-04] MEDS: traMADol 50 MG TAB PO PRN (05:37)
[2020-10-04 06:00] VITALS: BP 130/64
[2020-10-04 07:05] LABS: BASO % 0.3 % (0.0-1.0); EOS # 0.2 10^3/uL (0.0-0.5); EOS % 2.5 % (0.0-3.0); HEMATOCRIT 30.5 % (36.0-47.0); HEMOGLOBIN 10.1 g/dl (12.0-15.5); LYMPH # 1.8 10^3/uL (1.5-5.0); LYMPH % 23.3 % (24.0-44.0); MEAN CORPUSCULAR HEMOGLOBIN 30.6 pg (27.0-33.0); MEAN CORPUSCULAR HGB CONC 33.1 g/dl (32.0-36.5); MEAN CORPUSCULAR VOLUME 92.4 fl (80.0-96.0); MONO # 0.8 10^3/uL (0.0-0.8); MONO % 10.4 % (2.0-8.0); NEUTROPHILS # 4.8 10^3/uL (1.5-8.5); NEUTROPHILS % 62.6 % (36.0-66.0); PLATELET COUNT, AUTOMATED 194 10^3/uL (150-450); WHITE BLOOD COUNT 7.7 10^3/uL (4.0-10.0)
[2020-10-04 07:24] LABS: BLOOD UREA NITROGEN 30 MG/DL (7-18); CALCIUM LEVEL 8.4 MG/DL (8.8-10.2); CARBON DIOXIDE LEVEL 28 MEQ/L (21-32); CHLORIDE LEVEL 98 MEQ/L (98-107); CREATININE FOR GFR 0.56 MG/DL (0.55-1.30); GLOMERULAR FILTRATION RATE > 60.0 (>32); GLUCOSE, FASTING 178 MG/DL (70-100); POTASSIUM SERUM 3.9 MEQ/L (3.5-5.1); SODIUM LEVEL 134 MEQ/L (136-145)
[2020-10-04] MEDS: LEVEMIR (INSULIN DETEMIR) 1 UNITS/0.01ML SC SCH ×2 (08:41→21:12)
[2020-10-04] MEDS: HumaLOG INSULIN (NovoLOG) PER UNIT SC SCH ×4 (08:41→20:52)
[2020-10-04] MEDS: ACETAMINOPHEN 500 MG TAB PO SCH ×3 (08:42→21:06)
[2020-10-04] MEDS: LOSARTAN 25 MG TAB PO SCH (08:42)
[2020-10-04] MEDS: POLYVINYL ALCOHOL OPHTH SOLN 15 ML(LIQUITEARS) OU SCH ×4 (08:42→21:09)
[2020-10-04] MEDS: PANTOPRAZOLE 40MG TAB (PROTONIX) PO SCH ×2 (08:42→21:06)
[2020-10-04] MEDS: DOCUSATE SODIUM 100MG CAPSULE PO SCH ×2 (08:42→21:09)
[2020-10-04] MEDS: FERROUS GLUCONATE 324 MG TAB PO SCH (08:42)
[2020-10-04] MEDS: ASPIRIN 81MG ENTERIC TABLET PO SCH (08:43)
[2020-10-04] MEDS: CALCIUM/VITAMIN D 500 MG TAB PO SCH (08:43)
[2020-10-04] MEDS: REMEDY PHYTOPLEX Z-GUARD PASTE 113GM TUBE (FROM STOREROOM PRODUCT) TOP SCH ×3 (08:43→21:00)
--- NOTE | 2020-10-04 09:38 | IPNPDOC ---
PM&R Progress Note DATE OF SERVICE: October 04, 2020 Manager Body Progress Note Subjective: Patient reporting she feels her left leg is still swollen and that she is agreeable to short course of diuretic. She reports in therapy her oxygen level d ropped briefly and she has a very mild cough. She denies chest pain or difficulty breathing. REVIEW OF SYSTEMS: The following is a completed review of systems and has been reviewed. Review of systems otherwise unremarkable. PAIN: Patient self reports left hip pain EYES: No recent vision change EARS, NOSE, & THROAT: No throat pain, or dysphagia, or rhinorrhea, +hearing loss (chronic) CARDIOVASCULAR: Denies chest pain or palpitations PULMONARY: Denies shortness of breath GASTROINTESTINAL:+constipation (improved) GENITOURINARY: denies dysuria MUSCULOSKELETAL: s/p left hip fracture NEUROLOGICAL: +LLE paresthesia (improving) HEMATOLOGICAL:+ anemia SKIN: left hip incision PSYCHIATRIC: Unremarkable All other review of systems found to be negative. PHYSICAL EXAMINATION: VITAL SIGNS: Please see below. GENERAL: Pleasant and cooperative. No acute distress. HEENT: PERRL. Extraocular movements intact. Clear conjunctiva CARDIOVASCULAR: Regular rate and rhythm. No murmurs, rubs, or gallops LUNGS: Clear to auscultation bilaterally. No wheezes. No rhonchi ABDOMEN: Soft, nontender, mildly distended non-tender Normal active bowel sounds NEUROLOGICAL: Alert and oriented times three. Cranial nerves II through XII grossly intact. Sensation intact to light touch 1st web space of left dorsal f oot and, decreased left upper anterior thigh EXTREMITIES: 5\\5 strength bilateral upper extremities. 5\\5 strength right lower extremity. 5/5 left ankle DF/EHL non TTP lumbar vertebra or paraspinals SKIN: left hip joanne-incision with some edema, no induration LABORATORY DATA: Please see below. ASSESSMENT:85-year-old F with past medical history of DM, hearing loss, paroxysmal Afib, osteoporosis who presents status post fall with left hip fracture s/p ORIF PLAN: 1. Rehab- PT/OT advance mobility and ADLs, strengthen/stretch/maintain ROM all 4limbs- ambulating with RW 2. ortho- s/p left hip ORIf 09-29-20 with left ankle weakness and dorsal foot paresthesias, on admission to ARU concern for possible deep peroneal nerve injury, + paresthesias of left anterior thigh and weakness of left knee extension concern for femoral nerve injury?- patient's left ankle DF and EHL, knee extension strength much better, she is able to ambulate, Dr. Estrada came by to evaluate patient and suspects lateral cutaneous femoral nerve involvement due to joanne-surgical site swelling, Acewraps ordered to thigh, will add lasix, recs appreciated -ASA 81mg daily for DVT ppx -lumbar Xray unrevealing, ordered CT lumbar spine to r/o stenosis with results showing "acute fracture of mid to right aspect of superior endplate of L2. There is grade 1 anterolisthesis L4 on L5", discussed with Dr. Estrada who believes this is a chronic fracture- patient c/u to have no back pain, no pain with palpation of lumbar spine, no need to brace per ortho- recs appreciated, f/u ortho for back outpatient -no concern for cauda-equine, patient continent, no saddle region anesthesia 3. CArdiac- hx of paroxysmal Afib, recently cardioverted with diltiazem, off AC due to hx of GI bleed, will monitor for Afib while on ARU and readdress need for AC with hospitalist team if needed -HLD c/u statin -HTN c/u amlodipine and cozarr -patient with some L>R LE edema will start lasix 20mg daily 4. Resp- monitor for infection, recent CXR showing atelectasis, will repeat CXR given reported drop in 02 while in therapy and Combivent for mild cough, low concern for PNA, patient afebrile and no wbc 5. GI- hx of UGIB c/u protonix BID -s/p fleet enema for constipation, c/u bowel regimen 6. DVT ppx- on ASa 81mg daily, teds 7. - monitor PVRs 8. Pain- Tylenol and tramadol 9. Heme- post-op anemia Hgb 7.5 s/p 2 units prbcs, Hgb 11, patient feeling better 10. Endo- hx of DM c/u Levemir and ISS 11. Dispo- TBD Allergies Coded Allergies: No Known Drug Allergies (Verified Allergy, Unknown, 03/28/20) Vital Signs Vital Signs Date Time Temp Pulse Resp B/P (MAP) Pulse Ox O2 Delivery O2 Flow Rate FiO2 10/04/20 08:42 130/64 10/04/20 08:00 2.0 10/04/20 06:10 18 Nasal Cannula 10/04/20 06:00 97.1 87 95 Laboratory Data CBC/BMP Laboratory Tests 10/04/20 06:40 Labs 24H Laboratory Tests 2 10/03/20 11:36: Bedside Glucose (Misc Panel) 200H 10/03/20 16:35: Bedside Glucose (Misc Panel) 189H 10/03/20 19:18: Bedside Glucose (Misc Panel) 300H 10/04/20 06:11: Bedside Glucose (Misc Panel) 205H 10/04/20 06:40: Immature Granulocyte % (Auto) 0.9, Neutrophils (%) (Auto) 62.6, Lymphocytes (%) (Auto) 23.3L, Monocytes (%) (Auto) 10.4H, Eosinophils (%) (Auto) 2.5, Basophils (%) (Auto) 0.3, Neutrophils # (Auto) 4.8, Lymphocytes # (Auto) 1.8, Monocytes # (Auto) 0.8, Eosinophils # (Auto) 0.2, Basophils # (Auto) 0.0, Nucleated Red Blood Cells % (auto) 0.0, Anion Gap 8, Glomerular Filtration Rate > 60.0, Calcium Level 8.4L Current Medications Current Medications Current Medications Medications (Trade) Dose Ordered Sig/[place] Route PRN Reason Start Time Stop Time Status Last Admin Dose Admin Acetaminophen (Tylenol Tab) 1,000 mg TID PO 10/02/20 16:00 10/04/20 08:42 Artificial Tears (Akwa Tears) 2 drop QID OU 10/03/20 17:00 10/04/20 08:42 Aspirin (Ecotrin) 81 mg DAILY PO 10/03/20 09:00 10/04/20 08:43 Atorvastatin Calcium (Lipitor) 40 mg QHS PO 10/02/20 21:00 10/03/20 20:46 Bisacodyl (Dulcolax Suppository) 10 mg DAILYPRN PRN [place] CONSTIPATION 10/02/20 09:35 Calcium/Vitamin D (Oscal D) 500 mg DAILY PO 10/03/20 09:00 10/04/20 08:43 Dextrose (Dextrose 50%) 25 ml ASDIRECTED PRN IV SEE LABEL COMMENTS 10/02/20 09:35 Diltiazem HCl (Cardizem) 60 mg Q6H PO 10/02/20 12:00 10/04/20 05:35 Docusate Sodium (Colace) 100 mg BID PO 10/02/20 21:00 10/04/20 08:42 Ferrous Gluconate (Fergon) 324 mg DAILY PO 10/03/20 09:00 10/04/20 08:42 Glucagon (Glucagon) 1 mg ASDIRECTED PRN SC SEE LABEL COMMENTS 10/02/20 09:35 Glucose (Glucose) 16 GM ASDIRECTED PRN PO SEE LABEL COMMENTS 10/02/20 09:35 Insulin Detemir (Levemir Insulin) 8 units DAILY SC 10/03/20 09:00 10/04/20 08:41 Insulin Human Lispro (HumaLOG INSULIN) SEE PROTOCOL TABLE AC SC 10/02/20 12:00 10/04/20 08:41 Insulin Human Lispro (HumaLOG INSULIN) SEE PROTOCOL TABLE QHS SC 10/02/20 21:00 10/03/20 20:43 Losartan Potassium (Cozaar) 25 mg DAILY PO 10/03/20 09:00 10/04/20 08:42 Pantoprazole Sodium (Protonix) 40 mg BID PO 10/03/20 21:00 10/04/20 08:42 Pantoprazole Sodium (Protonix) 40 mg DAILY PO 10/03/20 09:00 10/03/20 11:43 DC 10/03/20 07:40 Polyethylene Glycol (Miralax) 1 pkt DAILY PRN PO CONSTIPATION 10/02/20 09:35 10/03/20 07:38 Senna (Senokot) 1 tab QHS PO 10/02/20 21:00 10/03/20 20:45 Tramadol HCl (Ultram) 50 mg Q4HP PRN PO MODERATE PAIN (PS 5-7) 10/02/20 09:35 10/04/20 05:37 RIK MCKOY MD October 04, 2020 09:38
[2020-10-04 14:00] VITALS: BP 126/58
--- NOTE | 2020-10-04 16:39 | REP ---
INDICATION: r/o infiltrate or pulm edema COMPARISON: 09/28/2020 TECHNIQUE: PA and lateral. FINDINGS: The mediastinum and cardiac silhouette are normal. The lung johnson demonstrate chronic appearing interstitial changes. No obvious focal consolidation, effusion, or pneumothorax. Left axillary node dissection and presumed left mastectomy. Skeletal structures demonstrate osteopenia and degenerative changes. Evidence for prior cholecystectomy. IMPRESSION: Chronic appearing changes. If the patient remains symptomatic consider chest CT for further investigation. <Electronically signed by Magdaleno Pruitt > 10/04/20 [id number]
[2020-10-04 17:08] VITALS: BP 143/68
[2020-10-04 20:18] VITALS: BP 132/60
[2020-10-04] MEDS: COMBIVENT RESPIMAT 100-20MCG INHALER 4GM INH SCH (20:49)
[2020-10-04] MEDS: ATORVASTATIN 20 MG TAB PO SCH (21:07)
[2020-10-04] MEDS: SENNA 8.6 MG TAB (SENOKOT) PO SCH (21:09)
[2020-10-05] MEDS: traMADol 50 MG TAB PO PRN ×2 (03:07→14:42)
[2020-10-05 05:48] VITALS: BP 138/64
[2020-10-05] MEDS: COMBIVENT RESPIMAT 100-20MCG INHALER 4GM INH SCH ×3 (07:18→20:29)
[2020-10-05] MEDS: HumaLOG INSULIN (NovoLOG) PER UNIT SC SCH ×4 (07:43→20:24)
[2020-10-05] MEDS: LEVEMIR (INSULIN DETEMIR) 1 UNITS/0.01ML SC SCH ×2 (07:44→20:22)
[2020-10-05] MEDS: DOCUSATE SODIUM 100MG CAPSULE PO SCH ×2 (07:46→20:21)
[2020-10-05] MEDS: CALCIUM/VITAMIN D 500 MG TAB PO SCH (07:46)
[2020-10-05] MEDS: PANTOPRAZOLE 40MG TAB (PROTONIX) PO SCH ×2 (07:47→20:20)
[2020-10-05] MEDS: LOSARTAN 25 MG TAB PO SCH (07:47)
[2020-10-05] MEDS: FUROSEMIDE 20 MG TAB PO SCH (07:47)
[2020-10-05] MEDS: ASPIRIN 81MG ENTERIC TABLET PO SCH (07:48)
[2020-10-05] MEDS: FERROUS GLUCONATE 324 MG TAB PO SCH (07:48)
[2020-10-05] MEDS: ACETAMINOPHEN 500 MG TAB PO SCH ×3 (07:50→20:20)
[2020-10-05] MEDS: POLYVINYL ALCOHOL OPHTH SOLN 15 ML(LIQUITEARS) OU SCH ×4 (07:50→20:25)
[2020-10-05] MEDS: REMEDY PHYTOPLEX Z-GUARD PASTE 113GM TUBE (FROM STOREROOM PRODUCT) TOP SCH ×3 (07:51→20:26)
[2020-10-05] MEDS: MIRALAX *UNIT DOSE* 17GM PACKET PO PRN (11:59)
[2020-10-05 14:00] VITALS: BP 136/65
[2020-10-05 20:15] VITALS: BP 141/65
[2020-10-05] MEDS: ATORVASTATIN 20 MG TAB PO SCH (20:20)
[2020-10-05] MEDS: SENNA 8.6 MG TAB (SENOKOT) PO SCH (20:21)
[2020-10-06 05:38] VITALS: BP 127/62
[2020-10-06] MEDS: COMBIVENT RESPIMAT 100-20MCG INHALER 4GM INH SCH ×3 (06:05→20:04)
[2020-10-06] MEDS: HumaLOG INSULIN (NovoLOG) PER UNIT SC SCH ×4 (07:42→20:59)
[2020-10-06] MEDS: LEVEMIR (INSULIN DETEMIR) 1 UNITS/0.01ML SC SCH ×2 (07:42→20:58)
[2020-10-06] MEDS: ASPIRIN 81MG ENTERIC TABLET PO SCH (07:44)
[2020-10-06] MEDS: ACETAMINOPHEN 500 MG TAB PO SCH ×3 (07:45→20:58)
[2020-10-06] MEDS: FUROSEMIDE 20 MG TAB PO SCH (07:46)
[2020-10-06] MEDS: CALCIUM/VITAMIN D 500 MG TAB PO SCH (07:47)
[2020-10-06] MEDS: PANTOPRAZOLE 40MG TAB (PROTONIX) PO SCH ×2 (07:47→20:57)
[2020-10-06] MEDS: LOSARTAN 25 MG TAB PO SCH (07:47)
[2020-10-06] MEDS: DOCUSATE SODIUM 100MG CAPSULE PO SCH ×2 (07:48→20:56)
[2020-10-06] MEDS: FERROUS GLUCONATE 324 MG TAB PO SCH (07:48)
[2020-10-06] MEDS: REMEDY PHYTOPLEX Z-GUARD PASTE 113GM TUBE (FROM STOREROOM PRODUCT) TOP SCH ×3 (07:49→20:59)
[2020-10-06] MEDS: POLYVINYL ALCOHOL OPHTH SOLN 15 ML(LIQUITEARS) OU SCH ×4 (07:49→20:59)
[2020-10-06] MEDS: MIRALAX *UNIT DOSE* 17GM PACKET PO PRN (13:07)
[2020-10-06 14:00] VITALS: BP 136/63
[2020-10-06 20:00] VITALS: BP 135/61
[2020-10-06] MEDS: SENNA 8.6 MG TAB (SENOKOT) PO SCH (20:58)
[2020-10-06] MEDS: ATORVASTATIN 20 MG TAB PO SCH (20:58)
[2020-10-07 05:37] VITALS: BP 167/71
[2020-10-07] MEDS: COMBIVENT RESPIMAT 100-20MCG INHALER 4GM INH SCH ×3 (07:20→21:00)
[2020-10-07 07:38] LABS: BASO % 0.4 % (0.0-1.0); EOS # 0.1 10^3/uL (0.0-0.5); EOS % 1.7 % (0.0-3.0); HEMATOCRIT 30.5 % (36.0-47.0); HEMOGLOBIN 9.8 g/dl (12.0-15.5); LYMPH # 1.8 10^3/uL (1.5-5.0); LYMPH % 21.7 % (24.0-44.0); MEAN CORPUSCULAR HGB CONC 32.1 g/dl (32.0-36.5); MEAN CORPUSCULAR VOLUME 96.5 fl (80.0-96.0); MONO % 12.4 % (2.0-8.0); NEUTROPHILS % 61.2 % (36.0-66.0); PLATELET COUNT, AUTOMATED 328 10^3/uL (150-450); RED BLOOD COUNT 3.16 10^6/uL (4.00-5.40); WHITE BLOOD COUNT 8.2 10^3/uL (4.0-10.0)
[2020-10-07 07:56] LABS: BLOOD UREA NITROGEN 21 MG/DL (7-18); CALCIUM LEVEL 8.9 MG/DL (8.8-10.2); CARBON DIOXIDE LEVEL 29 MEQ/L (21-32); CHLORIDE LEVEL 101 MEQ/L (98-107); GLOMERULAR FILTRATION RATE > 60.0 (>32); GLUCOSE, FASTING 174 MG/DL (70-100); POTASSIUM SERUM 4.3 MEQ/L (3.5-5.1); SODIUM LEVEL 137 MEQ/L (136-145)
[2020-10-07] MEDS: ASPIRIN 81MG ENTERIC TABLET PO SCH (08:26)
[2020-10-07] MEDS: LOSARTAN 25 MG TAB PO SCH (08:26)
[2020-10-07] MEDS: ACETAMINOPHEN 500 MG TAB PO SCH ×3 (08:26→20:53)
[2020-10-07] MEDS: PANTOPRAZOLE 40MG TAB (PROTONIX) PO SCH ×2 (08:27→20:52)
[2020-10-07] MEDS: CALCIUM/VITAMIN D 500 MG TAB PO SCH (08:27)
[2020-10-07] MEDS: FUROSEMIDE 20 MG TAB PO SCH (08:27)
[2020-10-07] MEDS: FERROUS GLUCONATE 324 MG TAB PO SCH (08:27)
[2020-10-07] MEDS: DOCUSATE SODIUM 100MG CAPSULE PO SCH ×2 (08:27→20:52)
[2020-10-07] MEDS: LEVEMIR (INSULIN DETEMIR) 1 UNITS/0.01ML SC SCH ×2 (08:27→20:54)
[2020-10-07] MEDS: HumaLOG INSULIN (NovoLOG) PER UNIT SC SCH ×4 (08:28→20:54)
[2020-10-07] MEDS: POLYVINYL ALCOHOL OPHTH SOLN 15 ML(LIQUITEARS) OU SCH ×4 (08:33→20:55)
[2020-10-07] MEDS: REMEDY PHYTOPLEX Z-GUARD PASTE 113GM TUBE (FROM STOREROOM PRODUCT) TOP SCH ×3 (08:33→20:55)
[2020-10-07] MEDS: traMADol 50 MG TAB PO PRN ×4 (09:10→18:46)
[2020-10-07 14:00] VITALS: BP 136/63
[2020-10-07 20:00] VITALS: BP 145/67
[2020-10-07] MEDS: SENNA 8.6 MG TAB (SENOKOT) PO SCH (20:52)
[2020-10-07] MEDS: ATORVASTATIN 20 MG TAB PO SCH (20:52)
[2020-10-08] VITALS: BP 132/84
[2020-10-08] MEDS: traMADol 50 MG TAB PO PRN (05:43)
[2020-10-08 06:00] VITALS: BP 156/70
[2020-10-08] MEDS: HumaLOG INSULIN (NovoLOG) PER UNIT SC SCH ×4 (07:30→21:00)
[2020-10-08] MEDS: ASPIRIN 81MG ENTERIC TABLET PO SCH (07:39)
[2020-10-08] MEDS: DOCUSATE SODIUM 100MG CAPSULE PO SCH ×2 (07:39→21:11)
[2020-10-08] MEDS: PANTOPRAZOLE 40MG TAB (PROTONIX) PO SCH ×2 (07:39→21:11)
[2020-10-08] MEDS: FUROSEMIDE 20 MG TAB PO SCH (07:39)
[2020-10-08] MEDS: FERROUS GLUCONATE 324 MG TAB PO SCH (07:39)
[2020-10-08] MEDS: CALCIUM/VITAMIN D 500 MG TAB PO SCH (07:39)
[2020-10-08] MEDS: LOSARTAN 25 MG TAB PO SCH (07:40)
[2020-10-08] MEDS: LEVEMIR (INSULIN DETEMIR) 1 UNITS/0.01ML SC SCH ×2 (07:42→21:11)
[2020-10-08] MEDS: ACETAMINOPHEN 500 MG TAB PO SCH ×3 (07:42→21:11)
[2020-10-08] MEDS: REMEDY PHYTOPLEX Z-GUARD PASTE 113GM TUBE (FROM STOREROOM PRODUCT) TOP SCH ×3 (07:43→21:13)
[2020-10-08] MEDS: POLYVINYL ALCOHOL OPHTH SOLN 15 ML(LIQUITEARS) OU SCH ×4 (07:44→21:11)
[2020-10-08] MEDS: COMBIVENT RESPIMAT 100-20MCG INHALER 4GM INH SCH ×3 (07:46→20:29)
--- NOTE | 2020-10-08 08:43 | IPNPDOC ---
PM&R Progress Note DATE OF SERVICE: Oct 08, 2020 Visor Installer Progress Note Subjective: Patient reporting she feels good and has been walking, but is constipated. REVIEW OF SYSTEMS: The following is a completed review of systems and has been reviewed. Review of systems otherwise unremarkable. PAIN: Patient self reports left hip pain EYES: No recent vision change EARS, NOSE, & THROAT: No throat pain, or dysphagia, or rhinorrhea, +hearing loss (chronic) CARDIOVASCULAR: Denies chest pain or palpitations PULMONARY: Denies shortness of breath GASTROINTESTINAL:+constipation GENITOURINARY: denies dysuria MUSCULOSKELETAL: s/p left hip fracture NEUROLOGICAL: +LLE paresthesia (improving) HEMATOLOGICAL:+ anemia SKIN: left hip incision PSYCHIATRIC: Unremarkable All other review of systems found to be negative. PHYSICAL EXAMINATION: VITAL SIGNS: Please see below. GENERAL: Pleasant and cooperative. No acute distress. HEENT: PERRL. Extraocular movements intact. Clear conjunctiva CARDIOVASCULAR: Regular rate and rhythm. No murmurs, rubs, or gallops LUNGS: Clear to auscultation bilaterally. No wheezes. No rhonchi ABDOMEN: Soft, nontender, mildly distended non-tender Normal active bowel sounds NEUROLOGICAL: Alert and oriented times three. Cranial nerves II through XII grossly intact. Sensation intact to light touch 1st web space of left dorsal foot and, decreased left upper anterior thigh EXTREMITIES: 5\\5 strength bilateral upper extremities. 5\\5 strength right lower extremity. 5/5 left ankle DF/EHL non TTP lumbar vertebra or paraspinals L>R LE edema (negative homans) SKIN: left hip joanne-incision with some edema, no induration LABORATORY DATA: Please see below. ASSESSMENT:85-year-old F with past medical history of DM, hearing loss, paroxysmal Afib, osteoporosis who presents status post fall with left hip fracture s/p ORIF PLAN: 1. Rehab- PT/OT advance mobility and ADLs, strengthen/stretch/maintain ROM all 4limbs- ambulating with RW 2. ortho- s/p left hip ORIf 09-29-20 with left ankle weakness and dorsal foot paresthesias, on admission to ARU concern for possible deep peroneal nerve injury, + paresthesias of left anterior thigh and weakness of left knee extension concern for femoral nerve injury?- patient's left ankle DF and EHL, knee extension strength much better, she is able to ambulate, Dr. Estrada came by to evaluate patient and suspects lateral cutaneous femoral nerve involvement due to joanne-surgical site swelling, Acewraps ordered to thigh, will add lasix, recs appreciated -ASA 81mg daily for DVT ppx -lumbar Xray unrevealing, ordered CT lumbar spine to r/o stenosis with results showing "acute fracture of mid to right aspect of superior endplate of L2. There is grade 1 anterolisthesis L4 on L5", discussed with Dr. Estrada who believes this is a chronic fracture- patient c/u to have no back pain, no pain with palpation of lumbar spine, no need to brace per ortho- recs appreciated, f/u ortho for back outpatient -no concern for cauda-equine, patient continent, no saddle region anesthesia 3. CArdiac- hx of paroxysmal Afib, recently cardioverted with diltiazem, off AC due to hx of GI bleed, will monitor for Afib while on ARU and readdress need for AC with hospitalist team if needed -HLD c/u statin -HTN c/u amlodipine and cozarr -patient with some L>R LE edema will increase lasix 40mg daily 4. Resp- monitor for infection, recent CXR showing atelectasis, repeat CXR 10-04-20 negative for infiltrate, patient titrated off 02, c/u Combivent, cough resolved 5. GI- hx of UGIB c/u protonix BID -s/p fleet enema for constipation, c/u bowel regimen 6. DVT ppx- on ASa 81mg daily, teds 7. - monitor PVRs 8. Pain- Tylenol and tramadol 9. Heme- post-op anemia Hgb 7.5 s/p 2 units prbcs, Hgb 11, patient feeling better 10. Endo- hx of DM c/u Levemir and ISS 11. Dispo- TBD Allergies Coded Allergies: No Known Drug Allergies (Verified Allergy, Unknown, 03/28/20) Vital Signs Vital Signs Date Time Temp Pulse Resp B/P (MAP) Pulse Ox O2 Delivery O2 Flow Rate FiO2 10/08/20 07:44 18 10/08/20 07:40 153/67 10/08/20 06:00 97.2 77 98 Room Air 10/06/20 08:00 2.0 Laboratory Data Labs 24H Laboratory Tests 2 10/07/20 11:31: Bedside Glucose (Misc Panel) 219H 10/07/20 16:31: Bedside Glucose (Misc Panel) 88 10/07/20 20:00: Bedside Glucose (Misc Panel) 257H 10/08/20 05:39: Bedside Glucose (Misc Panel) 100 Current Medications Current Medications Current Medications Medications (Trade) Dose Ordered Sig/[place] Route PRN Reason Start Time Stop Time Status Last Admin Dose Admin Acetaminophen (Tylenol Tab) 1,000 mg TID PO 10/02/20 16:00 10/08/20 07:42 Albuterol/ Ipratropium (Combivent Respimat 100-20mcg) 1 puff TID INH 10/04/20 16:00 10/08/20 07:46 Artificial Tears (Akwa Tears) 2 drop QID OU 10/03/20 17:00 10/07/20 20:55 Aspirin (Ecotrin) 81 mg DAILY PO 10/03/20 09:00 10/08/20 07:39 Atorvastatin Calcium (Lipitor) 40 mg QHS PO 10/02/20 21:00 10/07/20 20:52 Bisacodyl (Dulcolax Suppository) 10 mg DAILYPRN PRN [place] CONSTIPATION 10/02/20 09:35 10/06/20 05:01 Calcium/Vitamin D (Oscal D) 500 mg DAILY PO 10/03/20 09:00 10/08/20 07:39 Dextrose (Dextrose 50%) 25 ml ASDIRECTED PRN IV SEE LABEL COMMENTS 10/02/20 09:35 Diltiazem HCl (Cardizem) 60 mg Q6H PO 10/02/20 12:00 10/08/20 05:41 Docusate Sodium (Colace) 100 mg BID PO 10/02/20 21:00 10/08/20 07:39 Ferrous Gluconate (Fergon) 324 mg DAILY PO 10/03/20 09:00 10/08/20 07:39 Furosemide (Lasix) 20 mg DAILY PO 10/05/20 09:00 10/08/20 07:39 Glucagon (Glucagon) 1 mg ASDIRECTED PRN SC SEE LABEL COMMENTS 10/02/20 09:35 Glucose (Glucose) 16 GM ASDIRECTED PRN PO SEE LABEL COMMENTS 10/02/20 09:35 Insulin Detemir (Levemir Insulin) 5 units QHS SC 10/04/20 21:00 10/07/20 20:54 Insulin Detemir (Levemir Insulin) 8 units DAILY SC 10/03/20 09:00 10/04/20 14:15 DC 10/04/20 08:41 Insulin Detemir (Levemir Insulin) 12 units DAILY SC 10/05/20 09:00 10/08/20 07:42 Insulin Human Lispro (HumaLOG INSULIN) SEE PROTOCOL TABLE AC ME 10/02/20 12:00 10/07/20 12:50 Insulin Human Lispro (HumaLOG INSULIN) SEE PROTOCOL TABLE QHS ME 10/02/20 21:00 10/07/20 20:54 Losartan Potassium (Cozaar) 25 mg DAILY PO 10/03/20 09:00 10/08/20 07:40 Pantoprazole Sodium (Protonix) 40 mg BID PO 10/03/20 21:00 10/08/20 07:39 Pantoprazole Sodium (Protonix) 40 mg DAILY PO 10/03/20 09:00 10/03/20 11:43 DC 10/03/20 07:40 Polyethylene Glycol (Miralax) 1 pkt DAILY PRN PO CONSTIPATION 10/02/20 09:35 10/06/20 13:07 Senna (Senokot) 1 tab QHS PO 10/02/20 21:00 10/07/20 20:52 Tramadol HCl (Ultram) 50 mg Q4HP PRN PO MODERATE PAIN (PS 5-7) 10/02/20 09:35 10/08/20 05:43 RIK MCKOY MD Oct 08, 2020 08:43
[2020-10-08] MEDS ORDERED: FLEET ENEMA PR PRN (12:45)
[2020-10-08] MEDS ORDERED: traZODone 25MG PER 1/2 TABLET PO PRN (12:45)
[2020-10-08 14:00] VITALS: BP 135/63
--- NOTE | 2020-10-08 14:30 | IPNPDOC ---
Subjective Date Seen The patient was seen on 10/08/20. Subjective Chief Complaint/HPI Mrs. Abreu is an 85 year old female who was hospitalized for left comminuted intertrochanteric hip fracture who subsequently developed anemia and atrial fibrillation with RVR who is in ARU for rehab. This afternoon, she was seen with mold designer and son (who is also HCP). Patient denies any chest pain, palpitations, or dyspnea. He main concern is the swelling in the leg. It is sometimes difficult to walk on. Otherwise, we spoke about atrial fibrillation and anticoagulation. Since patient had blood loss anemia and H&H has not stabilized, we will hold off on anticoagulation and revisit it at another time when H&H is more stable. Objective Physical Examination General Exam: Positive: Cooperative Eye Exam: Negative: Sclera icteric ENT Exam: Positive: Atraumatic Neck Exam: Positive: Supple Chest Exam: Positive: Rales (very mild) Heart Exam: Positive: Rate Normal, Irregular Rhythm Abdomen Exam: Positive: Normal bowel sounds, Soft Extremity Exam: Positive: Edema (bilateral) Neuro Exam: Positive: Other (Communicate by sign languange) Psych Exam: Positive: Mood NL, Oriented x 3 Assessment /Plan Assessment Mrs. Abreu is an 85 year old female who was hospitalized for left comminuted intertrochanteric hip fracture who subsequently developed anemia and atrial fibrillation with RVR who is in ARU for rehab. Patient's hemoglobin appropr iately responded to the blood but has been trending downwards slowly. Will continue to follow. Would like H&H to be more stable prior to starting anticoagulation. Otherwise, patient is concerned about her leg swelling, will order US lower extremity Plan/VTE VTE Prophylaxis Ordered?: Yes Plan 1. Left comminuted intertrochanteric hip fracture s/p left cephalomedullary nail placement on 09/29/2020 -In ARU for rehab -Patient is on aspirin 81mg qD for DVT ppx. If patient can be starting on AC for atrial fibrillation, can discontinue aspirin 2. Blood loss anemia -On 10/02/2020, patient was transfused with 2u of pRBC -H&H still trending downwards slowly -When H&H more stable, can consider anticoagulation -Continue iron 3. Atrial fibrillation -Heart rate under control -Continue diltiazem 60mg q6h -On aspirin. Considering apixaban 5mg BID when H&H is more stable 4. Leg swelling -Agree with compression stocking and leg elevation while not standing -Ordered for US lower extremity 5. DM type 2 -Continue with basal and sliding scale insulin 6. Hypertension -BP stable -Continue losartan 7. DVT ppx -On aspirin Disposition: Per ARU VS, I&O, 24H, Fishbone Vital Signs/I&O Vital Signs Date Time Temp Pulse Resp B/P (MAP) Pulse Ox O2 Delivery O2 Flow Rate FiO2 10/08/20 14:00 97.2 84 18 135/63 (87) 99 Room Air 10/06/20 08:00 2.0 I&O- Last 24 Hours up to 6 AM 10/08/20 06:00 Intake Total 580 ml Balance 580 ml Laboratory Data 24H LABS Laboratory Tests 2 10/07/20 16:31: Bedside Glucose (Misc Panel) 88 10/07/20 20:00: Bedside Glucose (Misc Panel) 257H 10/08/20 05:39: Bedside Glucose (Misc Panel) 100 10/08/20 09:48: Methicillin-Resist S.aureus DNA PCR DETECTEDA 10/08/20 11:23: Bedside Glucose (Misc Panel) 279H ESTER FLANAGAN DO Oct 08, 2020 14:30
[2020-10-08] MEDS: MUPIROCIN 2% OINT 22 GM TUBE TOP SCH ×2 (15:33→21:14)
[2020-10-08] MEDS: LIDOCAINE 5% (LIDODERM) PATCH TD SCH (15:33)
[2020-10-08 20:00] VITALS: BP 145/63
[2020-10-08] MEDS: SENNA 8.6 MG TAB (SENOKOT) PO SCH (21:10)
[2020-10-08] MEDS: ATORVASTATIN 20 MG TAB PO SCH (21:11)
[2020-10-08] MEDS: **NOTE PATIENT COMMENT** MISC XX SCH (21:14)
[2020-10-09] MEDS: traMADol 50 MG TAB PO PRN ×2 (03:21→09:19)
[2020-10-09 06:00] VITALS: BP 134/66
[2020-10-09] MEDS: HumaLOG INSULIN (NovoLOG) PER UNIT SC SCH ×4 (07:30→20:32)
[2020-10-09 07:48] LABS: BASO % 0.6 % (0.0-1.0); EOS # 0.2 10^3/uL (0.0-0.5); EOS % 2.4 % (0.0-3.0); HEMATOCRIT 30.7 % (36.0-47.0); HEMOGLOBIN 9.9 g/dl (12.0-15.5); LYMPH # 2.1 10^3/uL (1.5-5.0); LYMPH % 29.9 % (24.0-44.0); MEAN CORPUSCULAR HEMOGLOBIN 31.4 pg (27.0-33.0); MEAN CORPUSCULAR HGB CONC 32.2 g/dl (32.0-36.5); MEAN CORPUSCULAR VOLUME 97.5 fl (80.0-96.0); MONO # 0.8 10^3/uL (0.0-0.8); MONO % 10.9 % (2.0-8.0); NEUTROPHILS # 3.8 10^3/uL (1.5-8.5); NEUTROPHILS % 54.2 % (36.0-66.0); PLATELET COUNT, AUTOMATED 415 10^3/uL (150-450); RED BLOOD COUNT 3.15 10^6/uL (4.00-5.40)
[2020-10-09] MEDS: COMBIVENT RESPIMAT 100-20MCG INHALER 4GM INH SCH ×3 (07:50→19:44)
[2020-10-09 08:04] LABS: BLOOD UREA NITROGEN 16 MG/DL (7-18); CALCIUM LEVEL 8.5 MG/DL (8.8-10.2); CARBON DIOXIDE LEVEL 30 MEQ/L (21-32); CHLORIDE LEVEL 104 MEQ/L (98-107); CREATININE FOR GFR 0.52 MG/DL (0.55-1.30); GLOMERULAR FILTRATION RATE > 60.0 (>32); GLUCOSE, FASTING 142 MG/DL (70-100); POTASSIUM SERUM 4.5 MEQ/L (3.5-5.1); SODIUM LEVEL 140 MEQ/L (136-145)
--- NOTE | 2020-10-09 08:14 | REP ---
INDICATION: swelling, looking for DVT COMPARISON: None. TECHNIQUE: Ricks scale and color Doppler evaluation using linear high frequency transducer. FINDINGS: Ultrasound examination of the right and left lower extremity deep venous structures from the common femoral vein through the calf/ankle to include the peroneal, and tibial veins demonstrates normal compressibility flow and wave patterns in response to respiration and augmentation. There is no evidence for deep venous thrombosis. IMPRESSION: No evidence for deep venous thrombosis. <Electronically signed by Magdaleno Pruitt > 10/09/20 0800
[2020-10-09] MEDS: POLYVINYL ALCOHOL OPHTH SOLN 15 ML(LIQUITEARS) OU SCH ×4 (09:00→20:33)
[2020-10-09] MEDS: LEVEMIR (INSULIN DETEMIR) 1 UNITS/0.01ML SC SCH ×2 (09:00→20:31)
[2020-10-09] MEDS: REMEDY PHYTOPLEX Z-GUARD PASTE 113GM TUBE (FROM STOREROOM PRODUCT) TOP SCH ×3 (09:00→20:33)
[2020-10-09] MEDS: MIRALAX *UNIT DOSE* 17GM PACKET PO PRN (09:16)
[2020-10-09] MEDS: ASPIRIN 81MG ENTERIC TABLET PO SCH (09:16)
[2020-10-09] MEDS: LOSARTAN 25 MG TAB PO SCH (09:17)
[2020-10-09] MEDS: FERROUS GLUCONATE 324 MG TAB PO SCH (09:17)
[2020-10-09] MEDS: ACETAMINOPHEN 500 MG TAB PO SCH ×3 (09:18→20:31)
[2020-10-09] MEDS: DOCUSATE SODIUM 100MG CAPSULE PO SCH ×2 (09:18→20:31)
[2020-10-09] MEDS: PANTOPRAZOLE 40MG TAB (PROTONIX) PO SCH ×2 (09:18→20:32)
[2020-10-09] MEDS: CALCIUM/VITAMIN D 500 MG TAB PO SCH (09:18)
[2020-10-09] MEDS: FUROSEMIDE 40 MG TAB PO SCH (09:18)
[2020-10-09] MEDS: MUPIROCIN 2% OINT 22 GM TUBE TOP SCH ×2 (09:20→20:33)
[2020-10-09] MEDS: LIDOCAINE 5% (LIDODERM) PATCH TD SCH (09:20)
[2020-10-09] MEDS ORDERED: FUROSEMIDE 20 MG TAB PO ONE (13:50)
[2020-10-09 14:00] VITALS: BP 135/59
[2020-10-09 20:03] VITALS: BP 126/60
[2020-10-09] MEDS: RAMELTEON 8 MG TAB (ROZEREM) PO SCH (20:31)
[2020-10-09] MEDS: SENNA 8.6 MG TAB (SENOKOT) PO SCH (20:31)
[2020-10-09] MEDS: ATORVASTATIN 20 MG TAB PO SCH (20:32)
[2020-10-09] MEDS: **NOTE PATIENT COMMENT** MISC XX SCH (20:34)
[2020-10-10 06:00] VITALS: BP 139/63
[2020-10-10] MEDS: COMBIVENT RESPIMAT 100-20MCG INHALER 4GM INH SCH ×3 (07:28→19:53)
[2020-10-10] MEDS: MIRALAX *UNIT DOSE* 17GM PACKET PO PRN (07:45)
[2020-10-10] MEDS: ASPIRIN 81MG ENTERIC TABLET PO SCH (07:46)
[2020-10-10] MEDS: LIDOCAINE 5% (LIDODERM) PATCH TD SCH (07:46)
[2020-10-10] MEDS: PANTOPRAZOLE 40MG TAB (PROTONIX) PO SCH ×2 (07:47→22:32)
[2020-10-10] MEDS: DOCUSATE SODIUM 100MG CAPSULE PO SCH ×2 (07:47→22:32)
[2020-10-10] MEDS: CALCIUM/VITAMIN D 500 MG TAB PO SCH (07:47)
[2020-10-10] MEDS: ACETAMINOPHEN 500 MG TAB PO SCH ×3 (07:47→22:33)
[2020-10-10] MEDS: FERROUS GLUCONATE 324 MG TAB PO SCH (07:47)
[2020-10-10] MEDS: LOSARTAN 25 MG TAB PO SCH (07:47)
[2020-10-10] MEDS: FUROSEMIDE 40 MG TAB PO SCH (07:48)
[2020-10-10] MEDS: LEVEMIR (INSULIN DETEMIR) 1 UNITS/0.01ML SC SCH ×2 (07:49→22:31)
[2020-10-10] MEDS: traMADol 50 MG TAB PO PRN ×2 (07:49→14:01)
[2020-10-10] MEDS: POLYVINYL ALCOHOL OPHTH SOLN 15 ML(LIQUITEARS) OU SCH ×4 (07:56→22:34)
[2020-10-10] MEDS: HumaLOG INSULIN (NovoLOG) PER UNIT SC SCH ×4 (07:57→22:33)
[2020-10-10] MEDS: MUPIROCIN 2% OINT 22 GM TUBE TOP SCH ×2 (07:58→22:34)
[2020-10-10] MEDS: REMEDY PHYTOPLEX Z-GUARD PASTE 113GM TUBE (FROM STOREROOM PRODUCT) TOP SCH ×3 (07:58→22:33)
--- NOTE | 2020-10-10 11:47 | IPNPDOC ---
PM&R Progress Note DATE OF SERVICE: Oct 09, 2020 [employer] Physiotherapist Progress Note Subjective: Patient reporting she feels she is getting stronger, the numbness in her left leg is better, but she feels her legs are still swollen despite being on lasix. She says at home she drinks up to 8 glasses of water a day and was agreeable to starting a fluid restriction while on ARU. She denies difficulty breathing or shortness of breath. REVIEW OF SYSTEMS: The following is a completed review of systems and has been reviewed. Review of systems otherwise unremarkable. PAIN: Patient self reports left hip pain EYES: No recent vision change EARS, NOSE, & THROAT: No throat pain, or dysphagia, or rhinorrhea, +hearing loss (chronic) CARDIOVASCULAR: Denies chest pain or palpitations PULMONARY: Denies shortness of breath GASTROINTESTINAL:+constipation (improved) GENITOURINARY: denies dysuria MUSCULOSKELETAL: s/p left hip fracture NEUROLOGICAL: +LLE paresthesia (improving) HEMATOLOGICAL:+ anemia SKIN: left hip incision PSYCHIATRIC: Unremarkable All other review of systems found to be negative. PHYSICAL EXAMINATION: VITAL SIGNS: Please see below. GENERAL: Pleasant and cooperative. No acute distress. HEENT: PERRL. Extraocular movements intact. Clear conjunctiva CARDIOVASCULAR: Regular rate and rhythm. No murmurs, rubs, or gallops LUNGS: bilat basilar crackles ABDOMEN: Soft, nontender, mildly distended non-tender Normal active bowel sounds NEUROLOGICAL: Alert and oriented times three. Cranial nerves II through XII grossly intact. Sensation intact to light touch 1st web space of left dorsal foot and, decreased left upper anterior thigh EXTREMITIES: 5\\5 strength bilateral upper extremities. 5\\5 strength right lower extremity. 5/5 left ankle DF/EHL non TTP lumbar vertebra or paraspinals L>R LE edema (negative homans) SKIN: left hip joanne-incision with some edema, no induration LABORATORY DATA: Please see below. ASSESSMENT:85-year-old F with past medical history of DM, hearing loss, paroxysmal Afib, osteoporosis who presents status post fall with left hip fracture s/p ORIF PLAN: 1. Rehab- PT/OT advance mobility and ADLs, strengthen/stretch/maintain ROM all 4limbs- ambulating with RW 2. ortho- s/p left hip ORIf 09-29-20 with left ankle weakness and dorsal foot paresthesias on admission to ARU concern for possible deep peroneal nerve injury, + paresthesias of left anterior thigh and weakness of left knee extension concern for femoral nerve injury?- patient's left ankle DF and EHL, knee extension strength much better, she is able to ambulate, Dr. Estrada came by to evaluate patient and suspects lateral cutaneous femoral nerve involvement due to joanne-surgical site swelling, Acewraps ordered to thigh, c/u lasix, recs appreciated -ASA 81mg daily for DVT ppx -lumbar Xray unrevealing, ordered CT lumbar spine to r/o stenosis with results showing "acute fracture of mid to right aspect of superior endplate of L2. There is grade 1 anterolisthesis L4 on L5", discussed with Dr. Estrada who believes this is a chronic fracture- patient c/u to have no back pain, no pain with palpation of lumbar spine, no need to brace per ortho- recs appreciated, f/u ortho for back outpatient -no concern for cauda-equine, patient continent, no saddle region anesthesia 3. CArdiac- hx of paroxysmal Afib, recently cardioverted with diltiazem, off AC due to hx of GI bleed, will monitor for Afib while on ARU and readdress need for AC with hospitalist team if needed -recent ECHO showing grade 1 diastolic CHF, patient with crackles on exam and LE edema (denies shortness of breath or chest pressure) will fluid restrict,daily weights, c/u increased dose of lasix 60 mg, patient educated on importance of restricting fluid intake going forward -HLD c/u statin -HTN c/u amlodipine and cozarr -patient with some L>R LE edema will increase lasix 40mg daily 4. Resp- monitor for infection, recent CXR showing atelectasis, repeat CXR 10-04-20 negative for infiltrate, patient titrated off 02, c/u Combivent, cough resolved 5. GI- hx of UGIB c/u protonix BID -s/p fleet enema for constipation, c/u bowel regimen 6. DVT ppx- on ASa 81mg daily, teds 7. - monitor PVRs 8. Pain- Tylenol and tramadol 9. Heme- post-op anemia Hgb 7.5 s/p 2 units prbcs, Hgb 11, patient feeling better 10. Endo- hx of DM c/u Levemir and ISS 11. Psych- insomnia- trazodone was not effective, will trial remeron 11=2. Dispo- TBD Allergies Coded Allergies: No Known Drug Allergies (Verified Allergy, Unknown, 03/28/20) Vital Signs Vital Signs Date Time Temp Pulse Resp B/P (MAP) Pulse Ox O2 Delivery O2 Flow Rate FiO2 10/10/20 08:20 19 Room Air 10/10/20 07:47 139/63 10/10/20 06:00 97.4 70 94 10/06/20 08:00 2.0 Laboratory Data Labs 24H Laboratory Tests 2 10/09/20 16:30: Bedside Glucose (Misc Panel) 160H 10/09/20 19:57: Bedside Glucose (Misc Panel) 195H 10/10/20 06:40: Bedside Glucose (Misc Panel) 143H 10/10/20 11:32: Bedside Glucose (Misc Panel) 259H Current Medications Current Medications Current Medications Medications (Trade) Dose Ordered Sig/[place] Route PRN Reason Start Time Stop Time Status Last Admin Dose Admin Acetaminophen (Tylenol Tab) 1,000 mg TID PO 10/02/20 16:00 10/10/20 07:47 Albuterol/ Ipratropium (Combivent Respimat 100-20mcg) 1 puff TID INH 10/04/20 16:00 10/10/20 07:28 Artificial Tears (Akwa Tears) 2 drop QID OU 10/03/20 17:00 10/10/20 07:56 Aspirin (Ecotrin) 81 mg DAILY PO 10/03/20 09:00 10/10/20 07:46 Atorvastatin Calcium (Lipitor) 40 mg QHS PO 10/02/20 21:00 10/09/20 20:32 Bisacodyl (Dulcolax Suppository) 10 mg DAILYPRN PRN [place] CONSTIPATION 10/02/20 09:35 10/06/20 05:01 Calcium/Vitamin D (Oscal D) 500 mg DAILY PO 10/03/20 09:00 10/10/20 07:47 Dextrose (Dextrose 50%) 25 ml ASDIRECTED PRN IV SEE LABEL COMMENTS 10/02/20 09:35 Diltiazem HCl (Cardizem) 60 mg Q6H PO 10/02/20 12:00 10/10/20 05:47 Docusate Sodium (Colace) 100 mg BID PO 10/02/20 21:00 10/10/20 07:47 Ferrous Gluconate (Fergon) 324 mg DAILY PO 10/03/20 09:00 10/10/20 07:47 Furosemide (Lasix) 20 mg DAILY PO 10/05/20 09:00 10/08/20 13:33 DC 10/08/20 07:39 Furosemide (Lasix) 40 mg DAILY PO 10/09/20 09:00 10/10/20 07:48 Glucagon (Glucagon) 1 mg ASDIRECTED PRN SC SEE LABEL COMMENTS 10/02/20 09:35 Glucose (Glucose) 16 GM ASDIRECTED PRN PO SEE LABEL COMMENTS 10/02/20 09:35 Insulin Detemir (Levemir Insulin) 5 units QHS SC 10/04/20 21:00 10/09/20 20:31 Insulin Detemir (Levemir Insulin) 8 units DAILY SC 10/03/20 09:00 10/04/20 14:15 DC 10/04/20 08:41 Insulin Detemir (Levemir Insulin) 12 units DAILY SC 10/05/20 09:00 10/10/20 07:49 Insulin Human Lispro (HumaLOG INSULIN) SEE PROTOCOL TABLE AC FL 10/02/20 12:00 10/10/20 07:57 Insulin Human Lispro (HumaLOG INSULIN) SEE PROTOCOL TABLE QHS [place] 10/02/20 21:00 10/07/20 20:54 Lidocaine (Lidoderm Patch) 1 patch DAILY TD 10/08/20 12:45 10/10/20 07:46 Losartan Potassium (Cozaar) 25 mg DAILY PO 10/03/20 09:00 10/10/20 07:47 Mupirocin (Bactroban 2% Ointment) bilat nares BID TOP 10/08/20 09:00 10/10/20 07:58 Non-Formulary Medication ( See Comment Field Below ) REMOVE LIDODERM PATCH DAILY@21 XX 10/08/20 21:00 10/09/20 20:34 Pantoprazole Sodium (Protonix) 40 mg BID PO 10/03/20 21:00 10/10/20 07:47 Pantoprazole Sodium (Protonix) 40 mg DAILY PO 10/03/20 09:00 10/03/20 11:43 DC 10/03/20 07:40 Polyethylene Glycol (Miralax) 1 pkt DAILY PRN PO CONSTIPATION 10/02/20 09:35 10/09/20 09:16 Ramelteon (Rozerem) 8 mg QHS PO 10/09/20 21:00 10/09/20 20:31 Senna (Senokot) 1 tab QHS PO 10/02/20 21:00 10/09/20 20:31 Sodium Biphosphate/ Sodium Phosphate (Fleet Enema) 1 ea DAILYPRN PRN AL CONSTIPATION 10/08/20 12:45 Tramadol HCl (Ultram) 50 mg Q4HP PRN PO MODERATE PAIN (PS 5-7) 10/02/20 09:35 10/10/20 07:49 Trazodone HCl (Desyrel) 25 mg QHSP PRN PO INSOMNIA 10/08/20 12:45 10/09/20 09:57 DC 10/08/20 21:54 RIK MCKOY MD Oct 10, 2020 11:47
--- NOTE | 2020-10-10 11:50 | CR.PDOC ---
PM&R Consult Note Ethnology Teacher Note DATE OF CONSULTATION: 10/10/20. CONSULTATION REPORT FOR: REASON FOR CONSULTATION: CHIEF COMPLAINT: HISTORY OF PRESENT ILLNESS: . PAST MEDICAL HISTORY: 1. . 2. . 3. . PAST SURGICAL HISTORY: 1. . 2. . 3. . PAST PSYCHIATRIC HISTORY: FAMILY HISTORY: . SOCIAL HISTORY: . REVIEW OF SYSTEMS: CONSTITUTIONAL: . HEENT: . CARDIOVASCULAR: . RESPIRATORY: . GASTROINTESTINAL: . ENDOCRINE: . NEUROLOGICAL: . HEMATOLOGICAL: . PSYCHIATRIC: . GENITOURINARY: . PHYSICAL EXAMINATION: VITAL SIGNS: See Below. GENERAL APPEARANCE: . HEENT: . LUNGS: . HEART: . ABDOMEN: . SKIN: . EXTREMITIES: . NEUROLOGICAL: . LABORATORY DATA: See Below. ASSESSMENT: . PLAN: . Vital Signs Vital Sign - Last 24 Hours 10/09/20 10/09/20 10/09/20 10/09/20 12:18 14:00 17:49 20:03 Temp 97.6 97.7 Pulse 71 81 79 79 Resp 18 18 B/P (MAP) 134/61 135/59 (84) 126/59 126/60 (82) Pulse Ox 95 97 O2 Delivery Room Air Room Air 10/09/20 10/10/20 10/10/20 10/10/20 23:23 05:47 06:00 07:47 Temp 97.4 Pulse 77 90 70 Resp 18 B/P (MAP) 132/62 139/63 139/63 (88) 139/63 Pulse Ox 94 O2 Delivery Room Air 10/10/20 10/10/20 07:49 08:20 Resp 18 19 O2 Delivery Room Air Room Air Laboratory Data Labs 24h Laboratory Tests 2 10/09/20 16:30: Bedside Glucose (Misc Panel) 160H 10/09/20 19:57: Bedside Glucose (Misc Panel) 195H 10/10/20 06:40: Bedside Glucose (Misc Panel) 143H 10/10/20 11:32: Bedside Glucose (Misc Panel) 259H Medications Scheduled Aspirin (Ecotrin) 81 Mg Tablet.dr, 81 MG PO DAILY Atorvastatin Calcium (Atorvastatin Calcium) 80 Mg Tab, 80 MG PO QHS Calcium Carbonate/Vitamin D3 (Calcium 500-Vit D3 400 Tablet) 1 Tab Tab, 1 TAB PO DAILY Canagliflozin (Invokana) 300 Mg Tab, 300 MG PO DAILY Carboxymethylcellulose Sodium (Refresh Tears) 15 Ml Drops, 1 DROP OU TID Diltiazem Hcl (Diltiazem HCl) 60 Mg Tablet, 60 MG PO Q6H for 5 Days, #20 Docusate Sodium (Dok) 100 Mg Capsule, 100 MG PO BID for 5 Days, #10 Lactobacillus Acidophilus (Probiotic) 1 Each Capsule, 1 CAP PO DAILY Linagliptin (Tradjenta) 5 Mg Tablet, 5 MG PO DAILY Losartan Potassium (Losartan Potassium) 25 Mg Tab, 25 MG PO DAILY Metformin HCl (Metformin HCl ER) 500 Mg Tab.er.24h, 1,000 MG PO QHS Multivitamin,Therapeutic (Thera-Tabs) 1 Each Tablet, 1 TAB PO DAILY Sitagliptin Phosphate (Januvia) 100 Mg Tab, 100 MG PO DAILY Vit C/E/Zn/Coppr/Lutein/Zeaxan (Preservision Areds 2 Softgel) 1 Each Capsule, 1 CAP PO BID Allergies Coded Allergies: No Known Drug Allergies (Verified Allergy, Unknown, 03/28/20) RIK MCKOY MD Oct 10, 2020 11:50
--- NOTE | 2020-10-10 12:18 | IPNPDOC ---
PM&R Progress Note DATE OF SERVICE: Oct 10, 2020 Space Control Agent Progress Note Subjective: Patient stating she feels better today since drinking less fluid and thinks the swelling in her calve is better, but reports some pain in her left hip at the incision site with swelling that is not getting worse, but is still troubling her. She also states she slept very well after taking rozerem. REVIEW OF SYSTEMS: The following is a completed review of systems and has been reviewed. Review of systems otherwise unremarkable. PAIN: Patient self reports left hip pain EYES: No recent vision change EARS, NOSE, & THROAT: No throat pain, or dysphagia, or rhinorrhea, +hearing loss (chronic) CARDIOVASCULAR: Denies chest pain or palpitations PULMONARY: Denies shortness of breath GASTROINTESTINAL:+constipation (improved) GENITOURINARY: denies dysuria MUSCULOSKELETAL: s/p left hip fracture NEUROLOGICAL: +LLE paresthesia (improving) HEMATOLOGICAL:+ anemia SKIN: left hip incision PSYCHIATRIC: Unremarkable All other review of systems found to be negative. PHYSICAL EXAMINATION: VITAL SIGNS: Please see below. GENERAL: Pleasant and cooperative. No acute distress. HEENT: PERRL. Extraocular movements intact. Clear conjunctiva CARDIOVASCULAR: Regular rate and rhythm. No murmurs, rubs, or gallops LUNGS: scant bilat basilar crackles ABDOMEN: Soft, nontender, mildly distended non-tender Normal active bowel sounds NEUROLOGICAL: Alert and oriented times three. Cranial nerves II through XII grossly intact. Sensation intact to light touch 1st web space of left dorsal foot and, decreased left upper anterior thigh EXTREMITIES: 5\\5 strength bilateral upper extremities. 5\\5 strength right lower extremity. 5/5 left ankle DF/EHL non TTP lumbar vertebra or paraspinals L>R LE edema improved (negative homans) SKIN: left hip joanne-incision with some edema, no induration LABORATORY DATA: Please see below. ASSESSMENT:85-year-old F with past medical history of DM, hearing loss, paroxysmal Afib, osteoporosis who presents status post fall with left hip fracture s/p ORIF PLAN: 1. Rehab- PT/OT advance mobility and ADLs, strengthen/stretch/maintain ROM all 4limbs- ambulating with RW 2. ortho- s/p left hip ORIf 09-29-20 with left ankle weakness and dorsal foot paresthesias on admission to ARU concern for possible deep peroneal nerve injury, + paresthesias of left anterior thigh and weakness of left knee extension concern for femoral nerve injury?- patient's left ankle DF and EHL, knee extension strength much better, she is able to ambulate, Dr. Estrada came by to evaluate patient and suspects lateral cutaneous femoral nerve involvement due to joanne-surgical site swelling, Acewraps ordered to thigh, c/u lasix, recs appreciated -ASA 81mg daily for DVT ppx -lumbar Xray unrevealing, ordered CT lumbar spine to r/o stenosis with results showing "acute fracture of mid to right aspect of superior endplate of L2. There is grade 1 anterolisthesis L4 on L5", discussed with Dr. Estrada who believes this is a chronic fracture- patient c/u to have no back pain, no pain with palpation of lumbar spine, no need to brace per ortho- recs appreciat ed, f/u ortho for back outpatient -no concern for cauda-equine, patient continent, no saddle region anesthesia 3. CArdiac- hx of paroxysmal Afib, recently cardioverted with diltiazem, off AC due to hx of GI bleed, will monitor for Afib while on ARU and readdress need for AC with hospitalist team if needed -recent ECHO showing grade 1 diastolic CHF, lungs with scant basilar crackles improved today and LE edema also improved(denies shortness of breath or chest pressure) will fluid restrict,daily weights, c/u increased dose of lasix 40 mg, patient educated on importance of restricting fluid intake going forward -HLD c/u statin -HTN c/u amlodipine and cozaar -patient with some L>R LE edema c/u lasix 40mg daily 4. Resp- monitor for infection, recent CXR showing atelectasis, repeat CXR 10-04-20 negative for infiltrate, patient titrated off 02, c/u Combivent, cough resolved 5. GI- hx of UGIB c/u protonix BID -s/p fleet enema for constipation, c/u bowel regimen 6. DVT ppx- on ASa 81mg daily, teds - Dopplers negative for DVT 7. - monitor PVRs 8. Pain- Tylenol and tramadol - will trial low dose gabapentin for thigh pain patient encouraged to ask for ice to help with local swelling 9. Heme- post-op anemia Hgb 7.5 s/p 2 units prbcs, Hgb 11, patient feeling better 10. Endo- hx of DM c/u Levemir and ISS 11. Psych- insomnia- trazodone was not effective, will trial rozerem 12. Dispo- TBD Allergies Coded Allergies: No Known Drug Allergies (Verified Allergy, Unknown, 03/28/20) Vital Signs Vital Signs Date Time Temp Pulse Resp B/P (MAP) Pulse Ox O2 Delivery O2 Flow Rate FiO2 10/10/20 08:20 19 Room Air 10/10/20 07:47 139/63 10/10/20 06:00 97.4 70 94 10/06/20 08:00 2.0 Laboratory Data Labs 24H Laboratory Tests 2 10/09/20 16:30: Bedside Glucose (Misc Panel) 160H 10/09/20 19:57: Bedside Glucose (Misc Panel) 195H 10/10/20 06:40: Bedside Glucose (Misc Panel) 143H 10/10/20 11:32: Bedside Glucose (Misc Panel) 259H Current Medications Current Medications Current Medications Medications (Trade) Dose Ordered Sig/[place] Route PRN Reason Start Time Stop Time Status Last Admin Dose Admin Acetaminophen (Tylenol Tab) 1,000 mg TID PO 10/02/20 16:00 10/10/20 07:47 Albuterol/ Ipratropium (Combivent Respimat 100-20mcg) 1 puff TID INH 10/04/20 16:00 10/10/20 07:28 Artificial Tears (Akwa Tears) 2 drop QID OU 10/03/20 17:00 10/10/20 07:56 Aspirin (Ecotrin) 81 mg DAILY PO 10/03/20 09:00 10/10/20 07:46 Atorvastatin Calcium (Lipitor) 40 mg QHS PO 10/02/20 21:00 10/09/20 20:32 Bisacodyl (Dulcolax Suppository) 10 mg DAILYPRN PRN [place] CONSTIPATION 10/02/20 09:35 10/06/20 05:01 Calcium/Vitamin D (Oscal D) 500 mg DAILY PO 10/03/20 09:00 10/10/20 07:47 Dextrose (Dextrose 50%) 25 ml ASDIRECTED PRN IV SEE LABEL COMMENTS 10/02/20 09:35 Diltiazem HCl (Cardizem) 60 mg Q6H PO 10/02/20 12:00 10/10/20 05:47 Docusate Sodium (Colace) 100 mg BID PO 10/02/20 21:00 10/10/20 07:47 Ferrous Gluconate (Fergon) 324 mg DAILY PO 10/03/20 09:00 10/10/20 07:47 Furosemide (Lasix) 20 mg DAILY PO 10/05/20 09:00 10/08/20 13:33 DC 10/08/20 07:39 Furosemide (Lasix) 40 mg DAILY PO 10/09/20 09:00 10/10/20 07:48 Glucagon (Glucagon) 1 mg ASDIRECTED PRN SC SEE LABEL COMMENTS 10/02/20 09:35 Glucose (Glucose) 16 GM ASDIRECTED PRN PO SEE LABEL COMMENTS 10/02/20 09:35 Insulin Detemir (Levemir Insulin) 5 units QHS [place] 10/04/20 21:00 10/09/20 20:31 Insulin Detemir (Levemir Insulin) 8 units DAILY SC 10/03/20 09:00 10/04/20 14:15 DC 10/04/20 08:41 Insulin Detemir (Levemir Insulin) 12 units DAILY SC 10/05/20 09:00 10/10/20 07:49 Insulin Human Lispro (HumaLOG INSULIN) SEE PROTOCOL TABLE AC [place] 10/02/20 12:00 10/10/20 07:57 Insulin Human Lispro (HumaLOG INSULIN) [facility] 10/02/20 21:00 10/07/20 20:54 Lidocaine (Lidoderm Patch) 1 patch DAILY TD 10/08/20 12:45 10/10/20 07:46 Losartan Potassium (Cozaar) 25 mg DAILY PO 10/03/20 09:00 10/10/20 07:47 Mupirocin (Bactroban 2% Ointment) bilat nares BID TOP 10/08/20 09:00 10/10/20 07:58 Non-Formulary Medication ( See Comment Field Below ) REMOVE LIDODERM PATCH DAILY@21 XX 10/08/20 21:00 10/09/20 20:34 Pantoprazole Sodium (Protonix) 40 mg BID PO 10/03/20 21:00 10/10/20 07:47 Pantoprazole Sodium (Protonix) 40 mg DAILY PO 10/03/20 09:00 10/03/20 11:43 DC 10/03/20 07:40 Polyethylene Glycol (Miralax) 1 pkt DAILY PRN PO CONSTIPATION 10/02/20 09:35 10/09/20 09:16 Ramelteon (Rozerem) 8 mg QHS PO 10/09/20 21:00 10/09/20 20:31 Senna (Senokot) 1 tab QHS PO 10/02/20 21:00 10/09/20 20:31 Sodium Biphosphate/ Sodium Phosphate (Fleet Enema) 1 ea DAILYPRN PRN [place] CONSTIPATION 10/08/20 12:45 Tramadol HCl (Ultram) 50 mg Q4HP PRN PO MODERATE PAIN (PS 5-7) 10/02/20 09:35 10/10/20 07:49 Trazodone HCl (Desyrel) 25 mg QHSP PRN PO INSOMNIA 10/08/20 12:45 10/09/20 09:57 DC 10/08/20 21:54 RIK MCKOY MD Oct 10, 2020 12:18
[2020-10-10] MEDS: GABAPENTIN 100 MG CAP PO SCH ×2 (14:00→22:32)
[2020-10-10 14:05] VITALS: BP 130/60
[2020-10-10 21:02] VITALS: BP 150/67
[2020-10-10] MEDS: ATORVASTATIN 20 MG TAB PO SCH (22:32)
[2020-10-10] MEDS: SENNA 8.6 MG TAB (SENOKOT) PO SCH (22:32)
[2020-10-10] MEDS: RAMELTEON 8 MG TAB (ROZEREM) PO SCH (22:32)
[2020-10-10] MEDS: **NOTE PATIENT COMMENT** MISC XX SCH (22:33)
[2020-10-11 06:30] VITALS: BP 153/69
[2020-10-11 07:16] LABS: BASO % 0.5 % (0.0-1.0); EOS # 0.2 10^3/uL (0.0-0.5); HEMATOCRIT 31.4 % (36.0-47.0); LYMPH # 2.1 10^3/uL (1.5-5.0); LYMPH % 27.4 % (24.0-44.0); MEAN CORPUSCULAR HEMOGLOBIN 31.7 pg (27.0-33.0); MEAN CORPUSCULAR HGB CONC 31.8 g/dl (32.0-36.5); MEAN CORPUSCULAR VOLUME 99.7 fl (80.0-96.0); MONO # 0.7 10^3/uL (0.0-0.8); MONO % 8.7 % (2.0-8.0); NEUTROPHILS # 4.5 10^3/uL (1.5-8.5); PLATELET COUNT, AUTOMATED 427 10^3/uL (150-450); RED BLOOD COUNT 3.15 10^6/uL (4.00-5.40); WHITE BLOOD COUNT 7.6 10^3/uL (4.0-10.0)
[2020-10-11] MEDS: COMBIVENT RESPIMAT 100-20MCG INHALER 4GM INH SCH ×2 (07:21→19:41)
[2020-10-11] MEDS: HumaLOG INSULIN (NovoLOG) PER UNIT SC SCH ×4 (07:30→20:33)
[2020-10-11 07:39] LABS: BLOOD UREA NITROGEN 19 MG/DL (7-18); CARBON DIOXIDE LEVEL 31 MEQ/L (21-32); CHLORIDE LEVEL 102 MEQ/L (98-107); CREATININE FOR GFR 0.54 MG/DL (0.55-1.30); GLOMERULAR FILTRATION RATE > 60.0 (>32); GLUCOSE, FASTING 141 MG/DL (70-100); POTASSIUM SERUM 3.8 MEQ/L (3.5-5.1); SODIUM LEVEL 138 MEQ/L (136-145)
[2020-10-11] MEDS: REMEDY PHYTOPLEX Z-GUARD PASTE 113GM TUBE (FROM STOREROOM PRODUCT) TOP SCH ×3 (09:00→20:34)
[2020-10-11] MEDS: SITagliptin 50 MG TAB (JANUVIA) PO SCH (09:00)
[2020-10-11] MEDS: FERROUS GLUCONATE 324 MG TAB PO SCH (09:27)
[2020-10-11] MEDS: LIDOCAINE 5% (LIDODERM) PATCH TD SCH (09:27)
[2020-10-11] MEDS: ASPIRIN 81MG ENTERIC TABLET PO SCH (09:27)
[2020-10-11] MEDS: MIRALAX *UNIT DOSE* 17GM PACKET PO PRN (09:27)
[2020-10-11] MEDS: CALCIUM/VITAMIN D 500 MG TAB PO SCH (09:27)
[2020-10-11] MEDS: GABAPENTIN 100 MG CAP PO SCH ×2 (09:28→20:33)
[2020-10-11] MEDS: FUROSEMIDE 40 MG TAB PO SCH (09:28)
[2020-10-11] MEDS: LOSARTAN 25 MG TAB PO SCH (09:28)
[2020-10-11] MEDS: PANTOPRAZOLE 40MG TAB (PROTONIX) PO SCH ×2 (09:29→20:33)
[2020-10-11] MEDS: ACETAMINOPHEN 500 MG TAB PO SCH ×3 (09:29→20:32)
[2020-10-11] MEDS: DOCUSATE SODIUM 100MG CAPSULE PO SCH ×2 (09:30→20:32)
[2020-10-11] MEDS: LEVEMIR (INSULIN DETEMIR) 1 UNITS/0.01ML SC SCH (09:31)
[2020-10-11] MEDS: POLYVINYL ALCOHOL OPHTH SOLN 15 ML(LIQUITEARS) OU SCH ×4 (09:32→20:35)
[2020-10-11] MEDS: MUPIROCIN 2% OINT 22 GM TUBE TOP SCH ×2 (09:34→20:35)
--- NOTE | 2020-10-11 10:07 | IPNPDOC ---
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 REVIEW OF SYSTEMS: The following is a completed review of systems and has been reviewed. Review of systems otherwise unremarkable. PAIN: Patient self reports left hip pain EYES: No recent vision change EARS, NOSE, & THROAT: No throat pain, or dysphagia, or rhinorrhea, +hearing loss (chronic) CARDIOVASCULAR: Denies chest pain or palpitations PULMONARY: Denies shortness of breath GASTROINTESTINAL:+constipation (improved) GENITOURINARY: denies dysuria MUSCULOSKELETAL: s/p left hip fracture NEUROLOGICAL: +LLE paresthesia (improving) HEMATOLOGICAL:+ anemia SKIN: left hip incision PSYCHIATRIC: Unremarkable All other review of systems found to be negative. PHYSICAL EXAMINATION: VITAL SIGNS: Please see below. GENERAL: Pleasant and cooperative. No acute distress. HEENT: PERRL. Extraocular movements intact. Clear conjunctiva CARDIOVASCULAR: Regular rate and rhythm. No murmurs, rubs, or gallops LUNGS: CTA ABDOMEN: Soft, nontender, mildly distended non-tender Normal active bowel sounds NEUROLOGICAL: Alert and oriented times three. Cranial nerves II through XII grossly intact. Sensation intact to light touch 1st web space of left dorsal foot and, decreased left upper anterior thigh EXTREMITIES: 5\\5 strength bilateral upper extremities. 5\\5 strength right lower extremity. 5/5 left ankle DF/EHL non TTP lumbar vertebra or paraspinals L>R LE edema improved (negative homans) SKIN: left hip joanne-incision with some edema, no induration LABORATORY DATA: Please see below. ASSESSMENT:85-year-old F with past medical history of DM, hearing loss, paroxysmal Afib, osteoporosis who presents status post fall with left hip fracture s/p ORIF PLAN: 1. Rehab- PT/OT advance mobility and ADLs, strengthen/stretch/maintain ROM all 4limbs- ambulating with RW 2. ortho- s/p left hip ORIf 09-29-20 with left ankle weakness and dorsal foot paresthesias on admission to ARU concern for possible deep peroneal nerve injury, + paresthesias of left anterior thigh and weakness of left knee extension concern for femoral nerve injury?- patient's left ankle DF and EHL, knee extension strength much better, she is able to ambulate, Dr. Estrada came by to evaluate patient and suspects lateral cutaneous femoral nerve involvement due to joanne-surgical site swelling, Acewraps ordered to thigh, c/u lasix, recs appreciated -ASA 81mg daily for DVT ppx -lumbar Xray unrevealing, ordered CT lumbar spine to r/o stenosis with results showing "acute fracture of mid to right aspect of superior endplate of L2. There is grade 1 anterolisthesis L4 on L5", discussed with Dr. Estrada who believes this is a chronic fracture- patient c/u to have no back pain, no pain with palpation of lumbar spine, no need to brace per ortho- recs appreciated, f/u ortho for back outpatient -no concern for cauda-equine, patient continent, no saddle region anesthesia 3. CArdiac- hx of paroxysmal Afib, recently cardioverted with diltiazem, off AC due to hx of GI bleed, will monitor for Afib while on ARU and readdress need for AC with hospitalist team if needed -recent ECHO showing grade 1 diastolic CHF, lungs with scant basilar crackles improved today and LE edema also improved(denies shortness of breath or chest pressure) will fluid restrict,daily weights, c/u increased dose of lasix 40 mg, patient educated on importance of restricting fluid intake going forward -HLD c/u statin -HTN c/u amlodipine and cozaar -patient with some L>R LE edema c/u lasix 40mg daily 4. Resp- monitor for infection, recent CXR showing atelectasis, repeat CXR 10-04-20 negative for infiltrate, patient titrated off 02, c/u Combivent, cough resolved 5. GI- hx of UGIB c/u protonix BID -s/p fleet enema for constipation, c/u bowel regimen 6. DVT ppx- on ASa 81mg daily, teds - Dopplers negative for DVT 7. - monitor PVRs 8. Pain- Tylenol and tramadol - will continue gabapentin 100mg qHS and not during the day to avoid lethargy, pain patient encouraged to ask for ice for thigh to help with local swelling 9. Heme- post-op anemia Hgb 7.5 s/p 2 units prbcs, Hgb 11, patient feeling better 10. Endo- hx of DM with some hyperglycemia, c/u low dose januvia, c/u ISS 11. Psych- insomnia- trazodone was not effective, will trial rozerem 12. Dispo- TBD Allergies Coded Allergies: No Known Drug Allergies (Verified Allergy, Unknown, 03/28/20) Vital Signs Vital Signs Date Time Temp Pulse Resp B/P (MAP) Pulse Ox O2 Delivery O2 Flow Rate FiO2 10/11/20 09:28 153/69 10/11/20 06:30 96.7 72 18 96 Room Air 10/06/20 08:00 2.0 Laboratory Data CBC/BMP Laboratory Tests 10/11/20 07:06 Labs 24H Laboratory Tests 2 10/10/20 11:32: Bedside Glucose (Misc Panel) 259H 10/10/20 16:42: Bedside Glucose (Misc Panel) 104 10/10/20 20:52: Bedside Glucose (Misc Panel) 208H 10/11/20 06:23: Bedside Glucose (Misc Panel) 127H 10/11/20 07:06: Immature Granulocyte % (Auto) 2.4, Neutrophils (%) (Auto) 59.0, Lymphocytes (%) (Auto) 27.4, Monocytes (%) (Auto) 8.7H, Eosinophils (%) (Auto) 2.0, Basophils (%) (Auto) 0.5, Neutrophils # (Auto) 4.5, Lymphocytes # (Auto) 2.1, Monocytes # (Auto) 0.7, Eosinophils # (Auto) 0.2, Basophils # (Auto) 0.0, Nucleated Red Blood Cells % (auto) 0.0, Anion Gap 5L, Glomerular Filtration Rate > 60.0, Calcium Level 9.0 Current Medications Current Medications Current Medications Medications (Trade) Dose Ordered Sig/[place] Route PRN Reason Start Time Stop Time Status Last Admin Dose Admin Acetaminophen (Tylenol Tab) 1,000 mg TID PO 10/02/20 16:00 10/11/20 09:29 Albuterol/ Ipratropium (Combivent Respimat 100-20mcg) 1 puff TID INH 10/04/20 16:00 10/11/20 07:21 Artificial Tears (Akwa Tears) 2 drop QID OU 10/03/20 17:00 10/11/20 09:32 Aspirin (Ecotrin) 81 mg DAILY PO 10/03/20 09:00 10/11/20 09:27 Atorvastatin Calcium (Lipitor) 40 mg QHS PO 10/02/20 21:00 10/10/20 22:32 Bisacodyl (Dulcolax Suppository) 10 mg DAILYPRN PRN ND CONSTIPATION 10/02/20 09:35 10/06/20 05:01 Calcium/Vitamin D (Oscal D) 500 mg DAILY PO 10/03/20 09:00 10/11/20 09:27 Dextrose (Dextrose 50%) 25 ml ASDIRECTED PRN IV SEE LABEL COMMENTS 10/02/20 09:35 Diltiazem HCl (Cardizem) 60 mg Q6H PO 10/02/20 12:00 10/11/20 06:25 Docusate Sodium (Colace) 100 mg BID PO 10/02/20 21:00 10/11/20 09:30 Ferrous Gluconate (Fergon) 324 mg DAILY PO 10/03/20 09:00 10/11/20 09:27 Furosemide (Lasix) 20 mg DAILY PO 10/05/20 09:00 10/08/20 13:33 DC 10/08/20 07:39 Furosemide (Lasix) 40 mg DAILY PO 10/09/20 09:00 10/11/20 09:28 Gabapentin (Neurontin) 100 mg TID PO 10/10/20 13:20 10/11/20 09:28 Glucagon (Glucagon) 1 mg ASDIRECTED PRN SC SEE LABEL COMMENTS 10/02/20 09:35 Glucose (Glucose) 16 GM ASDIRECTED PRN PO SEE LABEL COMMENTS 10/02/20 09:35 Insulin Detemir (Levemir Insulin) 5 units QHS SC 10/04/20 21:00 10/10/20 22:31 Insulin Detemir (Levemir Insulin) 8 units DAILY SC 10/03/20 09:00 10/04/20 14:15 DC 10/04/20 08:41 Insulin Detemir (Levemir Insulin) 12 units DAILY SC 10/05/20 09:00 10/11/20 09:31 Insulin Human Lispro (HumaLOG INSULIN) SEE PROTOCOL TABLE AC SC 10/02/20 12:00 10/11/20 07:30 Insulin Human Lispro (HumaLOG INSULIN) SEE PROTOCOL TABLE QHS SC 10/02/20 21:00 10/07/20 20:54 Lidocaine (Lidoderm Patch) 1 patch DAILY TD 10/08/20 12:45 10/11/20 09:27 Losartan Potassium (Cozaar) 25 mg DAILY PO 10/03/20 09:00 10/11/20 09:28 Mupirocin (Bactroban 2% Ointment) bilat nares BID TOP 10/08/20 09:00 10/11/20 09:34 Non-Formulary Medication ( See Comment Field Below ) REMOVE LIDODERM PATCH DAILY@21 XX 10/08/20 21:00 10/10/20 22:33 Pantoprazole Sodium (Protonix) 40 mg BID PO 10/03/20 21:00 10/11/20 09:29 Pantoprazole Sodium (Protonix) 40 mg DAILY PO 10/03/20 09:00 10/03/20 11:43 DC 10/03/20 07:40 Polyethylene Glycol (Miralax) 1 pkt DAILY PRN PO CONSTIPATION 10/02/20 09:35 10/11/20 09:27 Ramelteon (Rozerem) 8 mg QHS PO 10/09/20 21:00 10/10/20 22:32 Senna (Senokot) 1 tab QHS PO 10/02/20 21:00 10/10/20 22:32 Sodium Biphosphate/ Sodium Phosphate (Fleet Enema) 1 ea DAILYPRN PRN ND CONSTIPATION 10/08/20 12:45 Tramadol HCl (Ultram) 50 mg Q4HP PRN PO MODERATE PAIN (PS 5-7) 10/02/20 09:35 10/10/20 14:01 Trazodone HCl (Desyrel) 25 mg QHSP PRN PO INSOMNIA 10/08/20 12:45 10/09/20 09:57 DC 10/08/20 21:54 RIK MCKOY MD Oct 11, 2020 10:07
[2020-10-11 14:00] VITALS: BP 128/60
[2020-10-11 20:00] VITALS: BP 137/65
[2020-10-11] MEDS: SENNA 8.6 MG TAB (SENOKOT) PO SCH (20:32)
[2020-10-11] MEDS: RAMELTEON 8 MG TAB (ROZEREM) PO SCH (20:33)
[2020-10-11] MEDS: ATORVASTATIN 20 MG TAB PO SCH (20:33)
[2020-10-11] MEDS: **NOTE PATIENT COMMENT** MISC XX SCH (20:38)
[2020-10-12] VITALS: BP 138/64
[2020-10-12 05:35] VITALS: BP 141/66
[2020-10-12] MEDS: traMADol 50 MG TAB PO PRN ×3 (07:04→21:23)
[2020-10-12] MEDS: COMBIVENT RESPIMAT 100-20MCG INHALER 4GM INH SCH ×2 (07:27→20:33)
[2020-10-12] MEDS: HumaLOG INSULIN (NovoLOG) PER UNIT SC SCH ×4 (08:26→21:00)
[2020-10-12] MEDS: PANTOPRAZOLE 40MG TAB (PROTONIX) PO SCH ×2 (08:27→21:22)
[2020-10-12] MEDS: DOCUSATE SODIUM 100MG CAPSULE PO SCH ×2 (08:27→21:22)
[2020-10-12] MEDS: ASPIRIN 81MG ENTERIC TABLET PO SCH (08:28)
[2020-10-12] MEDS: SITagliptin 50 MG TAB (JANUVIA) PO SCH (08:28)
[2020-10-12] MEDS: CALCIUM/VITAMIN D 500 MG TAB PO SCH (08:28)
[2020-10-12] MEDS: FERROUS GLUCONATE 324 MG TAB PO SCH (08:28)
[2020-10-12] MEDS: FUROSEMIDE 40 MG TAB PO SCH (08:28)
[2020-10-12] MEDS: ACETAMINOPHEN 500 MG TAB PO SCH ×3 (08:29→21:22)
[2020-10-12] MEDS: LIDOCAINE 5% (LIDODERM) PATCH TD SCH (08:31)
[2020-10-12] MEDS: POLYVINYL ALCOHOL OPHTH SOLN 15 ML(LIQUITEARS) OU SCH ×4 (08:32→21:25)
[2020-10-12] MEDS: MUPIROCIN 2% OINT 22 GM TUBE TOP SCH ×2 (08:32→21:25)
[2020-10-12] MEDS: REMEDY PHYTOPLEX Z-GUARD PASTE 113GM TUBE (FROM STOREROOM PRODUCT) TOP SCH ×3 (08:33→21:23)
[2020-10-12] MEDS: LOSARTAN 25 MG TAB PO SCH (08:35)
[2020-10-12 14:00] VITALS: BP 141/65
[2020-10-12] MEDS: MIRALAX *UNIT DOSE* 17GM PACKET PO PRN (18:02)
[2020-10-12 20:00] VITALS: BP 139/65
[2020-10-12] MEDS: GABAPENTIN 100 MG CAP PO SCH (21:21)
[2020-10-12] MEDS: RAMELTEON 8 MG TAB (ROZEREM) PO SCH (21:22)
[2020-10-12] MEDS: SENNA 8.6 MG TAB (SENOKOT) PO SCH (21:22)
[2020-10-12] MEDS: ATORVASTATIN 20 MG TAB PO SCH (21:22)
[2020-10-12] MEDS: **NOTE PATIENT COMMENT** MISC XX SCH (21:25)
[2020-10-13 05:27] VITALS: BP 150/67
[2020-10-13] MEDS: traMADol 50 MG TAB PO PRN ×3 (05:58→20:43)
[2020-10-13] MEDS: COMBIVENT RESPIMAT 100-20MCG INHALER 4GM INH SCH ×3 (07:20→21:02)
[2020-10-13] MEDS: PANTOPRAZOLE 40MG TAB (PROTONIX) PO SCH ×2 (08:40→20:42)
[2020-10-13] MEDS: SITagliptin 50 MG TAB (JANUVIA) PO SCH (08:40)
[2020-10-13] MEDS: HumaLOG INSULIN (NovoLOG) PER UNIT SC SCH ×4 (08:40→20:43)
[2020-10-13] MEDS: DOCUSATE SODIUM 100MG CAPSULE PO SCH ×2 (08:40→20:42)
[2020-10-13] MEDS: FUROSEMIDE 40 MG TAB PO SCH (08:40)
[2020-10-13] MEDS: CALCIUM/VITAMIN D 500 MG TAB PO SCH (08:40)
[2020-10-13] MEDS: FERROUS GLUCONATE 324 MG TAB PO SCH (08:41)
[2020-10-13] MEDS: ASPIRIN 81MG ENTERIC TABLET PO SCH (08:41)
[2020-10-13] MEDS: MIRALAX *UNIT DOSE* 17GM PACKET PO PRN (08:41)
[2020-10-13] MEDS: LOSARTAN 25 MG TAB PO SCH (08:41)
[2020-10-13] MEDS: ACETAMINOPHEN 500 MG TAB PO SCH ×3 (08:42→20:43)
[2020-10-13] MEDS: LIDOCAINE 5% (LIDODERM) PATCH TD SCH (08:43)
[2020-10-13] MEDS: MUPIROCIN 2% OINT 22 GM TUBE TOP SCH ×2 (08:45→20:44)
[2020-10-13] MEDS: REMEDY PHYTOPLEX Z-GUARD PASTE 113GM TUBE (FROM STOREROOM PRODUCT) TOP SCH ×3 (08:45→20:44)
[2020-10-13] MEDS: POLYVINYL ALCOHOL OPHTH SOLN 15 ML(LIQUITEARS) OU SCH ×4 (08:47→20:44)
[2020-10-13 14:26] VITALS: BP 129/58
[2020-10-13 20:00] VITALS: BP 143/65
[2020-10-13] MEDS: ATORVASTATIN 20 MG TAB PO SCH (20:42)
[2020-10-13] MEDS: SENNA 8.6 MG TAB (SENOKOT) PO SCH (20:42)
[2020-10-13] MEDS: RAMELTEON 8 MG TAB (ROZEREM) PO SCH (20:42)
[2020-10-13] MEDS: GABAPENTIN 100 MG CAP PO SCH (20:42)
[2020-10-13] MEDS: **NOTE PATIENT COMMENT** MISC XX SCH (20:44)
[2020-10-14 06:00] VITALS: BP 129/61
[2020-10-14 07:08] LABS: BASO % 0.8 % (0.0-1.0); EOS # 0.1 10^3/uL (0.0-0.5); EOS % 2.6 % (0.0-3.0); HEMATOCRIT 30.5 % (36.0-47.0); HEMOGLOBIN 9.6 g/dl (12.0-15.5); LYMPH # 1.4 10^3/uL (1.5-5.0); MEAN CORPUSCULAR HEMOGLOBIN 31.6 pg (27.0-33.0); MEAN CORPUSCULAR HGB CONC 31.5 g/dl (32.0-36.5); MEAN CORPUSCULAR VOLUME 100.3 fl (80.0-96.0); MONO # 0.5 10^3/uL (0.0-0.8); NEUTROPHILS # 3.2 10^3/uL (1.5-8.5); NEUTROPHILS % 59.7 % (36.0-66.0); PLATELET COUNT, AUTOMATED 390 10^3/uL (150-450); RED BLOOD COUNT 3.04 10^6/uL (4.00-5.40); WHITE BLOOD COUNT 5.3 10^3/uL (4.0-10.0)
[2020-10-14] MEDS: COMBIVENT RESPIMAT 100-20MCG INHALER 4GM INH SCH ×3 (07:23→20:59)
[2020-10-14 07:47] LABS: BLOOD UREA NITROGEN 20 MG/DL (7-18); CALCIUM LEVEL 8.9 MG/DL (8.8-10.2); CARBON DIOXIDE LEVEL 31 MEQ/L (21-32); CHLORIDE LEVEL 100 MEQ/L (98-107); CREATININE FOR GFR 0.54 MG/DL (0.55-1.30); GLOMERULAR FILTRATION RATE > 60.0 (>32); GLUCOSE, FASTING 176 MG/DL (70-100); POTASSIUM SERUM 4.2 MEQ/L (3.5-5.1); SODIUM LEVEL 138 MEQ/L (136-145)
[2020-10-14] MEDS: PANTOPRAZOLE 40MG TAB (PROTONIX) PO SCH ×2 (08:20→21:48)
[2020-10-14] MEDS: CALCIUM/VITAMIN D 500 MG TAB PO SCH (08:20)
[2020-10-14] MEDS: FUROSEMIDE 40 MG TAB PO SCH (08:20)
[2020-10-14] MEDS: ASPIRIN 81MG ENTERIC TABLET PO SCH (08:20)
[2020-10-14] MEDS: LIDOCAINE 5% (LIDODERM) PATCH TD SCH (08:20)
[2020-10-14] MEDS: DOCUSATE SODIUM 100MG CAPSULE PO SCH ×2 (08:20→21:49)
[2020-10-14] MEDS: MIRALAX *UNIT DOSE* 17GM PACKET PO PRN (08:21)
[2020-10-14] MEDS: SITagliptin 50 MG TAB (JANUVIA) PO SCH (08:21)
[2020-10-14] MEDS: LOSARTAN 25 MG TAB PO SCH (08:21)
[2020-10-14] MEDS: FERROUS GLUCONATE 324 MG TAB PO SCH (08:21)
[2020-10-14] MEDS: ACETAMINOPHEN 500 MG TAB PO SCH ×3 (08:21→21:48)
[2020-10-14] MEDS: HumaLOG INSULIN (NovoLOG) PER UNIT SC SCH ×4 (08:22→22:05)
[2020-10-14] MEDS: REMEDY PHYTOPLEX Z-GUARD PASTE 113GM TUBE (FROM STOREROOM PRODUCT) TOP SCH ×3 (08:23→21:49)
[2020-10-14] MEDS: MUPIROCIN 2% OINT 22 GM TUBE TOP SCH ×2 (08:23→21:50)
[2020-10-14] MEDS: POLYVINYL ALCOHOL OPHTH SOLN 15 ML(LIQUITEARS) OU SCH ×4 (08:23→21:49)
[2020-10-14 08:30] VITALS: BP 165/72
[2020-10-14] MEDS: traMADol 50 MG TAB PO PRN (09:26)
--- NOTE | 2020-10-14 09:37 | IPNPDOC ---
PM&R Progress Note DATE OF SERVICE: Oct 14, 2020 Driver Trainee Progress Note Subjective: Patient stating she is doing well, she feels she gets a little stiff after therapy, but otherwise is not having too much pain. REVIEW OF SYSTEMS: The following is a completed review of systems and has been reviewed. Review of systems otherwise unremarkable. PAIN: Patient self reports left hip pain EYES: No recent vision change EARS, NOSE, & THROAT: No throat pain, or dysphagia, or rhinorrhea, +hearing loss (chronic) CARDIOVASCULAR: Denies chest pain or palpitations PULMONARY: Denies shortness of breath GASTROINTESTINAL:+constipation (improved) GENITOURINARY: denies dysuria MUSCULOSKELETAL: s/p left hip fracture NEUROLOGICAL: +LLE paresthesia (improving) HEMATOLOGICAL:+ anemia SKIN: left hip incision PSYCHIATRIC: Unremarkable All other review of systems found to be negative. PHYSICAL EXAMINATION: VITAL SIGNS: Please see below. GENERAL: Pleasant and cooperative. No acute distress. HEENT: PERRL. Extraocular movements intact. Clear conjunctiva CARDIOVASCULAR: Regular rate and rhythm. No murmurs, rubs, or gallops LUNGS: CTA ABDOMEN: Soft, nontender, mildly distended non-tender Normal active bowel sounds NEUROLOGICAL: Alert and oriented times three. Cranial nerves II through XII grossly intact. Sensation intact to light touch 1st web space of left dorsal foot and, decreased left upper anterior thigh EXTREMITIES: 5\\5 strength bilateral upper extremities. 5\\5 strength right lower extremity. 5/5 left ankle DF/EHL non TTP lumbar vertebra or paraspinals L>R LE edema improved (negative homans) SKIN: left hip joanne-incision with some edema, no induration LABORATORY DATA: Please see below. ASSESSMENT:85-year-old F with past medical history of DM, hearing loss, paroxysmal Afib, osteoporosis who presents status post fall with left hip fracture s/p ORIF PLAN: 1. Rehab- PT/OT advance mobility and ADLs, strengthen/stretch/maintain ROM all 4limbs- ambulating with RW 2. ortho- s/p left hip ORIf 09-29-20 with left ankle weakness and dorsal foot paresthesias on admission to ARU concern for possible deep peroneal nerve injury, + paresthesias of left anterior thigh and weakness of left knee extension concern for femoral nerve injury?- patient's left ankle DF and EHL, knee extension strength much better, she is able to ambulate, Dr. Estrada came by to evaluate patient and suspects lateral cutaneous femoral nerve involvement due to joanne-surgical site swelling, Acewraps ordered to thigh, c/u lasix, recs appreciated -ASA 81mg daily for DVT ppx -lumbar Xray unrevealing, ordered CT lumbar spine to r/o stenosis with results showing "acute fracture of mid to right aspect of superior endplate of L2. There is grade 1 anterolisthesis L4 on L5", discussed with Dr. Estrada who believes this is a chronic fracture- patient c/u to have no back pain, no pain with palpation of lumbar spine, no need to brace per ortho- recs appre ciated, f/u ortho for back outpatient -no concern for cauda-equine, patient continent, no saddle region anesthesia 3. CArdiac- hx of paroxysmal Afib, recently cardioverted with diltiazem, off AC due to hx of GI bleed, will monitor for Afib while on ARU and readdress need for AC with hospitalist team if needed -recent ECHO showing grade 1 diastolic CHF, lungs with scant basilar crackles improved today and LE edema also improved(denies shortness of breath or chest pressure) c/u fluid restrict,daily weights, c/u increased dose of lasix 40 mg, patient educated on importance of restricting fluid intake going forward- f/u cardiology -HLD c/u statin -HTN c/u amlodipine and cozaar -patient with some L>R LE edema c/u lasix 40mg daily 4. Resp- monitor for infection, recent CXR showing atelectasis, repeat CXR 10-04-20 negative for infiltrate, patient titrated off 02, c/u Combivent, cough resolved 5. GI- hx of UGIB c/u protonix BID -s/p fleet enema for constipation, c/u bowel regimen 6. DVT ppx- on ASa 81mg daily, teds - Dopplers negative for DVT 7. - monitor PVRs 8. Pain- Tylenol and tramadol - will continue gabapentin 100mg qHS , pain patient encouraged to ask for ice for thigh to help with local swelling 9. Heme- post-op anemia Hgb 7.5 s/p 2 units prbcs, Hgb 11, patient feeling better 10. Endo- hx of DM with some hyperglycemia, c/u dose januvia, c/u ISS 11. Psych- insomnia- trazodone was not effective, c/u rozerem 12. Dispo- 10-16-20 progressing towards goals to home Allergies Coded Allergies: No Known Drug Allergies (Verified Allergy, Unknown, 03/28/20) Vital Signs Vital Signs Date Time Temp Pulse Resp B/P (MAP) Pulse Ox O2 Delivery O2 Flow Rate FiO2 10/14/20 09:26 18 Room Air 10/14/20 08:30 77 165/72 (103) 10/14/20 06:00 96.8 96 Laboratory Data CBC/BMP Laboratory Tests 10/14/20 06:11 Labs 24H Laboratory Tests 2 10/13/20 11:43: Bedside Glucose (Misc Panel) 234H 10/13/20 16:35: Bedside Glucose (Misc Panel) 141H 10/13/20 19:24: Bedside Glucose (Misc Panel) 158H 10/14/20 06:11: Immature Granulocyte % (Auto) 0.9, Neutrophils (%) (Auto) 59.7, Lymphocytes (%) (Auto) 26.0, Monocytes (%) (Auto) 10.0H, Eosinophils (%) (Auto) 2.6, Basophils (%) (Auto) 0.8, Neutrophils # (Auto) 3.2, Lymphocytes # (Auto) 1.4L, Monocytes # (Auto) 0.5, Eosinophils # (Auto) 0.1, Basophils # (Auto) 0.0, Nucleated Red Blood Cells % (auto) 0.0, Anion Gap 7L, Glomerular Filtration Rate > 60.0, Calcium Level 8.9 10/14/20 06:13: Bedside Glucose (Misc Panel) 184H Current Medications Current Medications Current Medications Medications (Trade) Dose Ordered Sig/[place] Route PRN Reason Start Time Stop Time Status Last Admin Dose Admin Acetaminophen (Tylenol Tab) 1,000 mg TID PO 10/02/20 16:00 10/14/20 08:21 Albuterol/ Ipratropium (Combivent Respimat 100-20mcg) 1 puff TID INH 10/04/20 16:00 10/14/20 07:23 Artificial Tears (Akwa Tears) 2 drop QID OU 10/03/20 17:00 10/14/20 08:23 Aspirin (Ecotrin) 81 mg DAILY PO 10/03/20 09:00 10/14/20 08:20 Atorvastatin Calcium (Lipitor) 40 mg QHS PO 10/02/20 21:00 10/13/20 20:42 Bisacodyl (Dulcolax Suppository) 10 mg DAILYPRN PRN ID CONSTIPATION 10/02/20 09:35 10/06/20 05:01 Calcium/Vitamin D (Oscal D) 500 mg DAILY PO 10/03/20 09:00 10/14/20 08:20 Dextrose (Dextrose 50%) 25 ml ASDIRECTED PRN IV SEE LABEL COMMENTS 10/02/20 09:35 Diltiazem HCl (Cardizem) 60 mg Q6H PO 10/02/20 12:00 10/14/20 05:44 Docusate Sodium (Colace) 100 mg BID PO 10/02/20 21:00 10/14/20 08:20 Ferrous Gluconate (Fergon) 324 mg DAILY PO 10/03/20 09:00 10/14/20 08:21 Furosemide (Lasix) 20 mg DAILY PO 10/05/20 09:00 10/08/20 13:33 DC 10/08/20 07:39 Furosemide (Lasix) 40 mg DAILY PO 10/09/20 09:00 10/14/20 08:20 Gabapentin (Neurontin) 100 mg QHS PO 10/11/20 21:00 10/13/20 20:42 Gabapentin (Neurontin) 100 mg TID PO 10/10/20 13:20 10/11/20 15:08 DC 10/11/20 09:28 Glucagon (Glucagon) 1 mg ASDIRECTED PRN SC SEE LABEL COMMENTS 10/02/20 09:35 Glucose (Glucose) 16 GM ASDIRECTED PRN PO SEE LABEL COMMENTS 10/02/20 09:35 Insulin Detemir (Levemir Insulin) 5 units QHS SC 10/04/20 21:00 10/11/20 12:14 DC 10/10/20 22:31 Insulin Detemir (Levemir Insulin) 8 units DAILY SC 10/03/20 09:00 10/04/20 14:15 DC 10/04/20 08:41 Insulin Detemir (Levemir Insulin) 12 units DAILY SC 10/05/20 09:00 10/11/20 12:14 DC 10/11/20 09:31 Insulin Human Lispro (HumaLOG INSULIN) SEE PROTOCOL TABLE AC SC 10/02/20 12:00 10/14/20 08:22 Insulin Human Lispro (HumaLOG INSULIN) SEE PROTOCOL TABLE QHS SC 10/02/20 21:00 10/07/20 20:54 Lidocaine (Lidoderm Patch) 1 patch DAILY TD 10/08/20 12:45 10/14/20 08:20 Losartan Potassium (Cozaar) 25 mg DAILY PO 10/03/20 09:00 10/14/20 09:33 DC 10/14/20 08:21 Losartan Potassium (Cozaar) 50 mg DAILY PO 10/15/20 09:00 Mupirocin (Bactroban 2% Ointment) bilat nares BID TOP 10/08/20 09:00 10/14/20 08:23 Non-Formulary Medication ( See Comment Field Below ) REMOVE LIDODERM PATCH DAILY@21 XX 10/08/20 21:00 10/13/20 20:44 Pantoprazole Sodium (Protonix) 40 mg BID PO 10/03/20 21:00 10/14/20 08:20 Pantoprazole Sodium (Protonix) 40 mg DAILY PO 10/03/20 09:00 10/03/20 11:43 DC 10/03/20 07:40 Polyethylene Glycol (Miralax) 1 pkt DAILY PRN PO CONSTIPATION 10/02/20 09:35 10/14/20 08:21 Ramelteon (Rozerem) 8 mg QHS PO 10/09/20 21:00 10/13/20 20:42 Senna (Senokot) 1 tab QHS PO 10/02/20 21:00 10/13/20 20:42 Sitagliptin Phosphate (Januvia) 25 mg DAILY PO 10/11/20 09:00 10/14/20 08:21 Sodium Biphosphate/ Sodium Phosphate (Fleet Enema) 1 ea DAILYPRN PRN ID CONSTIPATION 10/08/20 12:45 Tramadol HCl (Ultram) 50 mg Q4HP PRN PO MODERATE PAIN (PS 5-7) 10/02/20 09:35 10/14/20 09:26 Trazodone HCl (Desyrel) 25 mg QHSP PRN PO INSOMNIA 10/08/20 12:45 10/09/20 09:57 DC 10/08/20 21:54 RIK MCKOY MD Oct 14, 2020 09:37
[2020-10-14 13:47] VITALS: BP 138/60
[2020-10-14 14:00] VITALS: BP 138/60
[2020-10-14 21:30] VITALS: BP 130/58
[2020-10-14] MEDS: RAMELTEON 8 MG TAB (ROZEREM) PO SCH (21:47)
[2020-10-14] MEDS: ATORVASTATIN 20 MG TAB PO SCH (21:48)
[2020-10-14] MEDS: GABAPENTIN 100 MG CAP PO SCH (21:49)
[2020-10-14] MEDS: SENNA 8.6 MG TAB (SENOKOT) PO SCH (21:49)
[2020-10-14] MEDS: **NOTE PATIENT COMMENT** MISC XX SCH (21:50)
[2020-10-15 06:47] VITALS: BP 139/64
[2020-10-15 09:00] VITALS: BP 144/60
[2020-10-15] MEDS: COMBIVENT RESPIMAT 100-20MCG INHALER 4GM INH SCH ×2 (09:00→21:02)
[2020-10-15] MEDS: SITagliptin 50 MG TAB (JANUVIA) PO SCH (09:08)
[2020-10-15] MEDS: LOSARTAN 50MG TABLET PO SCH (09:09)
[2020-10-15] MEDS: DOCUSATE SODIUM 100MG CAPSULE PO SCH ×2 (09:09→21:14)
[2020-10-15] MEDS: PANTOPRAZOLE 40MG TAB (PROTONIX) PO SCH ×2 (09:09→21:14)
[2020-10-15] MEDS: HumaLOG INSULIN (NovoLOG) PER UNIT SC SCH ×4 (09:09→21:00)
[2020-10-15] MEDS: FUROSEMIDE 40 MG TAB PO SCH (09:10)
[2020-10-15] MEDS: traMADol 50 MG TAB PO PRN (09:10)
[2020-10-15] MEDS: ASPIRIN 81MG ENTERIC TABLET PO SCH (09:10)
[2020-10-15] MEDS: CALCIUM/VITAMIN D 500 MG TAB PO SCH (09:10)
[2020-10-15] MEDS: FERROUS GLUCONATE 324 MG TAB PO SCH (09:10)
[2020-10-15] MEDS: LIDOCAINE 5% (LIDODERM) PATCH TD SCH (09:11)
[2020-10-15] MEDS: ACETAMINOPHEN 500 MG TAB PO SCH ×3 (09:11→21:14)
[2020-10-15] MEDS: REMEDY PHYTOPLEX Z-GUARD PASTE 113GM TUBE (FROM STOREROOM PRODUCT) TOP SCH ×3 (09:12→21:15)
[2020-10-15] MEDS: POLYVINYL ALCOHOL OPHTH SOLN 15 ML(LIQUITEARS) OU SCH ×4 (09:16→21:12)
[2020-10-15] MEDS: MUPIROCIN 2% OINT 22 GM TUBE TOP SCH ×2 (09:16→21:13)
[2020-10-15 13:07] VITALS: BP 130/62
[2020-10-15 14:00] VITALS: BP 119/59
[2020-10-15 20:30] VITALS: BP 147/65
[2020-10-15] MEDS: RAMELTEON 8 MG TAB (ROZEREM) PO SCH (21:13)
[2020-10-15] MEDS: GABAPENTIN 100 MG CAP PO SCH (21:14)
[2020-10-15] MEDS: SENNA 8.6 MG TAB (SENOKOT) PO SCH (21:14)
[2020-10-15] MEDS: ATORVASTATIN 20 MG TAB PO SCH (21:14)
[2020-10-15] MEDS: **NOTE PATIENT COMMENT** MISC XX SCH (21:15)
[2020-10-16 06:00] VITALS: BP 140/64
[2020-10-16 07:10] LABS: BASO % 0.3 % (0.0-1.0); EOS # 0.1 10^3/uL (0.0-0.5); EOS % 1.4 % (0.0-3.0); HEMATOCRIT 32.9 % (36.0-47.0); HEMOGLOBIN 10.4 g/dl (12.0-15.5); LYMPH # 1.4 10^3/uL (1.5-5.0); LYMPH % 18.1 % (24.0-44.0); MEAN CORPUSCULAR HGB CONC 31.6 g/dl (32.0-36.5); MEAN CORPUSCULAR VOLUME 101.2 fl (80.0-96.0); MONO # 0.6 10^3/uL (0.0-0.8); MONO % 7.2 % (2.0-8.0); NEUTROPHILS # 5.5 10^3/uL (1.5-8.5); NEUTROPHILS % 72.3 % (36.0-66.0); PLATELET COUNT, AUTOMATED 376 10^3/uL (150-450); RED BLOOD COUNT 3.25 10^6/uL (4.00-5.40); WHITE BLOOD COUNT 7.6 10^3/uL (4.0-10.0)
[2020-10-16] MEDS: COMBIVENT RESPIMAT 100-20MCG INHALER 4GM INH SCH ×2 (07:31→13:24)
[2020-10-16 07:38] LABS: BLOOD UREA NITROGEN 18 MG/DL (7-18); CALCIUM LEVEL 8.9 MG/DL (8.8-10.2); CARBON DIOXIDE LEVEL 31 MEQ/L (21-32); CHLORIDE LEVEL 102 MEQ/L (98-107); CREATININE FOR GFR 0.64 MG/DL (0.55-1.30); GLOMERULAR FILTRATION RATE > 60.0 (>32); GLUCOSE, FASTING 190 MG/DL (70-100); POTASSIUM SERUM 4.2 MEQ/L (3.5-5.1); SODIUM LEVEL 138 MEQ/L (136-145)
[2020-10-16] MEDS: LIDOCAINE 5% (LIDODERM) PATCH TD SCH (07:59)
[2020-10-16] MEDS: HumaLOG INSULIN (NovoLOG) PER UNIT SC SCH ×2 (08:00→11:59)
[2020-10-16] MEDS: DOCUSATE SODIUM 100MG CAPSULE PO SCH (08:00)
[2020-10-16] MEDS: FUROSEMIDE 40 MG TAB PO SCH (08:00)
[2020-10-16] MEDS: CALCIUM/VITAMIN D 500 MG TAB PO SCH (08:00)
[2020-10-16] MEDS: FERROUS GLUCONATE 324 MG TAB PO SCH (08:00)
[2020-10-16] MEDS: ACETAMINOPHEN 500 MG TAB PO SCH (08:00)
[2020-10-16] MEDS: ASPIRIN 81MG ENTERIC TABLET PO SCH (08:01)
[2020-10-16] MEDS: PANTOPRAZOLE 40MG TAB (PROTONIX) PO SCH (08:01)
[2020-10-16] MEDS: LOSARTAN 50MG TABLET PO SCH (08:01)
[2020-10-16] MEDS: REMEDY PHYTOPLEX Z-GUARD PASTE 113GM TUBE (FROM STOREROOM PRODUCT) TOP SCH (08:02)
[2020-10-16] MEDS: MUPIROCIN 2% OINT 22 GM TUBE TOP SCH (08:12)
[2020-10-16] MEDS: POLYVINYL ALCOHOL OPHTH SOLN 15 ML(LIQUITEARS) OU SCH ×2 (08:12→12:02)
[2020-10-16] MEDS ORDERED: SITagliptin 50 MG TAB (JANUVIA) PO SCH (09:00)
[2020-10-16] MEDS ORDERED: COZA50TA PO (09:26)
[2020-10-16] MEDS ORDERED: FERR32TA PO (09:26)
[2020-10-16] MEDS ORDERED: SITA50TAB PO (09:26)
[2020-10-16] MEDS ORDERED: ATOR40TA75 PO (09:26)
[2020-10-16] MEDS ORDERED: DILT60TA PO (09:26)
[2020-10-16] MEDS ORDERED: FURO40TA2 PO (09:26)
[2020-10-16] MEDS ORDERED: TRAM50TA2 PO (09:26)
[2020-10-16] MEDS ORDERED: GABA-1171 PO (09:26)
[2020-10-16] MEDS ORDERED: ASPI-551 PO (09:26)
[2020-10-16] MEDS ORDERED: PANT40TA29 PO (09:32)
--- NOTE | 2020-10-16 10:39 | PMRDS ---
NAME: SYDNI OCAMPO [facility] WT ID#: [id number] JOB: [id number] DAMIÁN: 10/02/2020 ACCT: [id number] DOCTOR: RIK MCKOY MD PMR DISCHARGE SUMMARY DATE OF ADMISSION: 10/02/2020 DATE OF DISCHARGE: 10/16/2020 CHIEF COMPLAINT/DISCHARGE DIAGNOSIS: Left hip fracture. 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 on 09/29/2020 complaining of difficulty walking and left hip pain. CTH was performed as the patient had hit her head without LOC which was negative for intracranial bleed. Hip x-ray did show "acute comminuted intertrochanteric fracture of the left hip." She was evaluated by Orthopedics and underwent a left hip ORIF on 09/29/[address] Nicholson. She developed atrial fibrillation with RVR postoperatively and acute blood loss anemia. She was treated with Cardizem after which she was cardioverted and a decision was made not to treat her with anticoagulation due to her history of GI bleed. She complained of left foot and leg numbness and generalized weakness with mobility and ADL impairments in therapy and deemed medically appropriate for discharge to ARU on 10/02/2020. On admission, with the help of her floral designer consented to receive 2 units of blood for postoperative anemia. She reported numbness on her left upper thigh and top of left foot. Dr. Nicholson was called and agreed to come see the patient to evaluate her postop complaints. Lumbar x-rays were ordered in the meantime to identify if left lower extremity weakness and paresthesias were spine related. PAST MEDICAL HISTORY: As per HPI. HOSPITAL COURSE: The patient was admitted and enrolled in a comprehensive PT/OT program. She received 24 hour nursing supervision and weekly team meetings were held to discuss her progress. The patient's left leg, anterior thigh and foot numbness did eventually improve during her hospital course and her left ankle dorsiflexion weakness improved quickly and was evaluated by Dr. Nicholson who recommended Caden wrapping up to the thigh for swelling. Lasix was also initiated to help with her lower extremity edema. Patient was noted to have signs and symptoms of fluid overload likely due to her Grade 1 diastolic CHF documented on her recent echo. Patient was educated on the importance of a fluid restriction and her Lasix dosing was increased to 40 mg with overall improvement in her lower extremity swelling and exercise endurance. Patient had a mild cough during her hospital course which was treated with Combivent. Her pain was controlled with Tramadol and low dose Gabapentin. Her hemoglobin and hematocrit remained stable and her diabetes was ultimately controlled with Januvia and insulin sliding scale. Of note, lumbar CT was ordered on admission due to left lower extremity pain and it did reveal an L2 fracture, this was a chronic compression fracture. Patient did not complain of any back pain at anytime during her hospital course and no bracing was deemed necessary. Patient was instructed to follow-up with Dr. Nicholson for both her hip and back. Patient made steady gains in therapy and was deemed medically and appropriate for discharge to home. DISCHARGE MEDICATIONS: As per instructions. FUNCTIONAL HISTORY: On discharge, the patient was contact guard to modified independent for functional transfers, bed mobility, standby assist for ambulation. Thank you for this referral.
[2020-10-16 12:00] VITALS: BP 132/74
== END 2020-10-16 14:15 | disposition home health service (06) | DRG 560 ==
LOC: M PM&R 10-02 12:15
PROVIDERS: ADMIT Physical Medicine & Rehabilitation; ATTEND Physical Medicine & Rehabilitation
PROC: 30233N1 Transfusion of Nonautologous Red Blood Cells into Peripheral Vein, Percutaneous Approach (ICD-10-PCS; principal; 2020-10-02)
DX: S72.142S Displaced intertrochanteric fracture of left femur, sequela (principal); D62 Acute posthemorrhagic anemia; S32.020D Wedge compression fracture of second lumbar vertebra, subsequent encounter for fracture with routine healing; E11.9 Type 2 diabetes mellitus without complications; H90.5 Unspecified sensorineural hearing loss; I48.0 Paroxysmal atrial fibrillation; I10 Essential (primary) hypertension; M81.0 Age-related osteoporosis without current pathological fracture; K59.00 Constipation, unspecified; Z66 Do not resuscitate; W18.30XD Fall on same level, unspecified, subsequent encounter; Y92.009 Unspecified place in unspecified non-institutional (private) residence as the place of occurrence of the external cause; R53.1 Weakness; Z92.3 Personal history of irradiation; G47.00 Insomnia, unspecified; R20.0 Anesthesia of skin; Z74.09 Other reduced mobility; Z74.1 Need for assistance with personal care; Z85.3 Personal history of malignant neoplasm of breast; Z90.49 Acquired absence of other specified parts of digestive tract; Z87.19 Personal history of other diseases of the digestive system; Z79.82 Long term (current) use of aspirin; Z79.84 Long term (current) use of oral hypoglycemic drugs; Z79.899 Other long term (current) drug therapy; Z92.21 Personal history of antineoplastic chemotherapy

== ENCOUNTER → 2020-11-28 | Outpatient (CLI) | payer MEDICARE, BC, OTHER ==
[~2020-11-28] MED LIST changes: +ASPI-551 PO; +ATOR40TA75 PO; +COZA50TA PO; +DILT60TA PO; +DOK1CAP7 PO; +FERR32TA PO; +FURO40TA2 PO; +GABA-1171 PO; +PANT40TA29 PO; +SITA50TAB PO; +TRAM50TA2 PO
--- NOTE | 2020-11-28 14:52 | REP ---
INDICATION: DISPL INTERTROCH FX LEFT FEMUR. COMPARISON: Comparison radiographs October 24, 2020.. TECHNIQUE: Weightbearing AP views of the pelvis. FINDINGS: Two upright AP pelvic radiographs demonstrate is intramedullary marie femoral neck screw fixation of inter trochanteric fracture on the left. There is diffuse osteopenia. Bony pelvic ring is intact. Alignment is unchanged. Visualized bowel gas pattern is normal. There are central abdominal surgical clips. IMPRESSION: Status post pinning inter trochanteric fracture on the left. Alignment is unchanged. <Electronically signed by Alvin Sotelo > 11/28/20 [id number]
--- NOTE | 2020-11-28 14:53 | REP ---
INDICATION: DISPL INTERTROCH FX LEFT FEMUR. COMPARISON: Comparison radiographs are from October 24, 2020.. TECHNIQUE: Standing AP and frogleg views of the left hip are obtained as requested. A supine frogleg views included. FINDINGS: Patient is status post IM marie and femoral neck pin fixation inter trochanteric fracture unchanged in position. The femoral neck pin is well subcortical on both AP and frogleg views. Hip joint space is preserved. IMPRESSION: Inter trochanteric fracture left hip status post open reduction internal fixation. <Electronically signed by Alvin Sotelo > 11/28/20 [id number]
== END ==
LOC: M SOG 10:38
PROVIDERS: ATTEND Orthopaedic Surgery
DX: S72.142D Displaced intertrochanteric fracture of left femur, subsequent encounter for closed fracture with routine healing (principal); X58.XXXD Exposure to other specified factors, subsequent encounter; Y92.9 Unspecified place or not applicable; M85.852 Other specified disorders of bone density and structure, left thigh

== ENCOUNTER → 2020-12-06 | Outpatient (CLI) | payer MEDICARE, BC, OTHER ==
[2020-12-06 10:43] LABS: BASO % 0.4 % (0.0-1.0); EOS # 0.2 10^3/uL (0.0-0.5); EOS % 1.7 % (0.0-3.0); HEMATOCRIT 38.4 % (36.0-47.0); HEMOGLOBIN 12.9 g/dl (12.0-15.5); LYMPH # 2.8 10^3/uL (1.5-5.0); LYMPH % 30.6 % (24.0-44.0); MEAN CORPUSCULAR HEMOGLOBIN 32.6 pg (27.0-33.0); MEAN CORPUSCULAR HGB CONC 33.6 g/dl (32.0-36.5); MONO # 0.8 10^3/uL (0.0-0.8); NEUTROPHILS # 5.2 10^3/uL (1.5-8.5); NEUTROPHILS % 57.7 % (36.0-66.0); PLATELET COUNT, AUTOMATED 255 10^3/uL (150-450); RED BLOOD COUNT 3.96 10^6/uL (4.00-5.40)
[2020-12-06 11:20] LABS: ALBUMIN 3.5 GM/DL (3.2-5.2); ALT/SGPT 36 U/L (12-78); BILIRUBIN,TOTAL 0.5 MG/DL (0.2-1.0); BLOOD UREA NITROGEN 25 MG/DL (7-18); CALCIUM LEVEL 9.5 MG/DL (8.8-10.2); CARBON DIOXIDE LEVEL 35 MEQ/L (21-32); CHLORIDE LEVEL 100 MEQ/L (98-107); CHOLESTEROL LEVEL 125 MG/DL (<200); CHOLESTEROL RISK RATIO 2.049 (<5); CREATININE FOR GFR 0.76 MG/DL (0.55-1.30); GLOMERULAR FILTRATION RATE > 60.0 (>32); GLUCOSE, FASTING 237 MG/DL (70-100); HDL CHOLESTEROL 61 MG/DL (>40); LDL CHOLESTEROL 40 MG/DL (<100); NON-HDL-C 64 MG/DL; POTASSIUM SERUM 4.2 MEQ/L (3.5-5.1); SODIUM LEVEL 138 MEQ/L (136-145); THYROID STIMULATING HORMONE 0.967 uIU/ML (0.358-3.740); TOTAL PROTEIN 6.9 GM/DL (6.4-8.2); TRIGLYCERIDES LEVEL 118 MG/DL (<150)
== END ==
LOC: M PLALAB 09:13
PROVIDERS: ATTEND Family Medicine
DX: E11.65 Type 2 diabetes mellitus with hyperglycemia (principal); E78.5 Hyperlipidemia, unspecified; K21.9 Gastro-esophageal reflux disease without esophagitis

== ENCOUNTER → 2021-01-08 | Outpatient (REF) | payer MEDICARE, OTHER ==
[~2021-01-08] MED LIST changes: +DOK1CAP4 PO; -DOK1CAP7 PO
== END ==
LOC: M LAB REF 18:53
PROVIDERS: ATTEND Physician Assistant
DX: D04.61 Carcinoma in situ of skin of right upper limb, including shoulder (principal); C44.319 Basal cell carcinoma of skin of other parts of face

== ENCOUNTER → 2021-01-30 | Outpatient (CLI) | payer MEDICARE, OTHER ==
--- NOTE | 2021-01-30 17:15 | REP ---
INDICATION: LT FEMORAL FX. COMPARISON: November 28, 2020. TECHNIQUE: Six views include AP pelvis and AP and frogleg views of the left hip. FINDINGS: Patient is status post pin fixation for intertrochanteric fracture. The femoral pin remains subcortical in the femoral head. No change in position. IMPRESSION: Status post open reduction internal fixation for left inter trochanteric hip fracture. <Electronically signed by Alvin Sotelo > 01/30/21 [id number]
== END ==
LOC: M SOG 15:08
PROVIDERS: ATTEND Student in an Organized Health Care Education/Training Program
DX: S72.142D Displaced intertrochanteric fracture of left femur, subsequent encounter for closed fracture with routine healing (principal); X58.XXXD Exposure to other specified factors, subsequent encounter; Y92.9 Unspecified place or not applicable; Y99.9 Unspecified external cause status; Y93.9 Activity, unspecified

== ENCOUNTER → 2021-04-14 | Outpatient (CLI) | payer MEDICARE, OTHER ==
[2021-04-14 09:59] LABS: BASO % 0.6 % (0.0-1.0); EOS # 0.1 10^3/uL (0.0-0.5); EOS % 1.7 % (0.0-3.0); HEMATOCRIT 41.1 % (36.0-47.0); HEMOGLOBIN 13.5 g/dl (12.0-15.5); LYMPH # 2.9 10^3/uL (1.5-5.0); LYMPH % 40.3 % (24.0-44.0); MEAN CORPUSCULAR HEMOGLOBIN 32.4 pg (27.0-33.0); MEAN CORPUSCULAR HGB CONC 32.8 g/dl (32.0-36.5); MEAN CORPUSCULAR VOLUME 98.6 fl (80.0-96.0); MONO # 0.7 10^3/uL (0.0-0.8); MONO % 9.7 % (2.0-8.0); NEUTROPHILS # 3.4 10^3/uL (1.5-8.5); NEUTROPHILS % 47.3 % (36.0-66.0); PLATELET COUNT, AUTOMATED 245 10^3/uL (150-450); RED BLOOD COUNT 4.17 10^6/uL (4.00-5.40); WHITE BLOOD COUNT 7.1 10^3/uL (4.0-10.0)
[2021-04-14 10:44] LABS: HEMOGLOBIN A1c 7.2 %
[2021-04-14 11:01] LABS: ALBUMIN 3.6 GM/DL (3.2-5.2); ALT/SGPT 26 U/L (12-78); BILIRUBIN,TOTAL 0.6 MG/DL (0.2-1.0); BLOOD UREA NITROGEN 21 MG/DL (7-18); CALCIUM LEVEL 10.1 MG/DL (8.8-10.2); CARBON DIOXIDE LEVEL 31 MEQ/L (21-32); CHLORIDE LEVEL 99 MEQ/L (98-107); CHOLESTEROL LEVEL 119 MG/DL (<200); CHOLESTEROL RISK RATIO 2.087 (<5); CREATININE FOR GFR 0.66 MG/DL (0.55-1.30); FREE T4 1.28 NG/DL (0.76-1.46); GLOMERULAR FILTRATION RATE > 60.0 (>32); GLUCOSE, FASTING 149 MG/DL (70-100); HDL CHOLESTEROL 57 MG/DL (>40); LDL CHOLESTEROL 32 MG/DL (<100); NON-HDL-C 62 MG/DL; POTASSIUM SERUM 4.6 MEQ/L (3.5-5.1); SODIUM LEVEL 137 MEQ/L (136-145); TOTAL PROTEIN 6.9 GM/DL (6.4-8.2); TRIGLYCERIDES LEVEL 152 MG/DL (<150)
[2021-04-14 11:13] LABS: CREATININE, URINE 43.9 MG/DL; MALB URINE SIEMENS 32.9 MG/L; MAU/CREAT RATIO 74.9 MCG/MG (0.0-30.0)
== END ==
LOC: M WUC 08:44
PROVIDERS: ATTEND Family Medicine
DX: E11.65 Type 2 diabetes mellitus with hyperglycemia (principal); E78.5 Hyperlipidemia, unspecified

== ENCOUNTER → 2021-04-29 | Outpatient (CLI) | payer MEDICARE, OTHER ==
--- NOTE | 2021-04-29 10:05 | REP ---
INDICATION: DISPL INTERTROCH FX L FEMUR , SUBS FOR CLOS FX W ROUTN HEAL. COMPARISON: 11/28/2020, 01/30/2021 TECHNIQUE: Two weightbearing views of the pelvis FINDINGS: Patient is again noted to be status post stable open reduction and fixation for left femur fracture. Underlying osteopenia and degenerative changes again noted. IMPRESSION: Stable examination compared with 01/30/2021 <Electronically signed by Magdaleno Pruitt > 04/29/21 [id number]
== END ==
LOC: M SOG 08:48
PROVIDERS: ATTEND Orthopaedic Surgery
DX: S72.142D Displaced intertrochanteric fracture of left femur, subsequent encounter for closed fracture with routine healing (principal); X58.XXXD Exposure to other specified factors, subsequent encounter; Y92.9 Unspecified place or not applicable; Y93.9 Activity, unspecified; Y99.9 Unspecified external cause status; M85.852 Other specified disorders of bone density and structure, left thigh; M16.12 Unilateral primary osteoarthritis, left hip

== ENCOUNTER → 2021-07-15 | Outpatient (CLI) | payer MEDICARE, OTHER ==
[~2021-07-15] MED LIST changes: -LISI-898 PO; +LISI5TAB11 PO; +LOSA25TA13 PO; -LOSA25TA14 PO
[2021-07-15 10:17] LABS: BASO # 0.1 10^3/uL (0.0-0.2); BASO % 0.6 % (0.0-1.0); EOS # 0.1 10^3/uL (0.0-0.5); EOS % 1.5 % (0.0-3.0); HEMATOCRIT 39.6 % (36.0-47.0); HEMOGLOBIN 13.2 g/dl (12.0-15.5); LYMPH % 37.7 % (24.0-44.0); MEAN CORPUSCULAR HEMOGLOBIN 32.1 pg (27.0-33.0); MEAN CORPUSCULAR HGB CONC 33.3 g/dl (32.0-36.5); MEAN CORPUSCULAR VOLUME 96.4 fl (80.0-96.0); MONO # 0.8 10^3/uL (0.0-0.8); MONO % 9.5 % (2.0-8.0); NEUTROPHILS % 50.2 % (36.0-66.0); PLATELET COUNT, AUTOMATED 254 10^3/uL (150-450); RED BLOOD COUNT 4.11 10^6/uL (4.00-5.40); WHITE BLOOD COUNT 7.9 10^3/uL (4.0-10.0)
[2021-07-15 11:04] LABS: HEMOGLOBIN A1c 7.3 %
[2021-07-15 11:32] LABS: ALBUMIN 3.9 GM/DL (3.2-5.2); ALT/SGPT 30 U/L (12-78); BILIRUBIN,TOTAL 0.7 MG/DL (0.2-1.0); BLOOD UREA NITROGEN 29 MG/DL (7-18); CALCIUM LEVEL 9.6 MG/DL (8.8-10.2); CARBON DIOXIDE LEVEL 31 MEQ/L (21-32); CHLORIDE LEVEL 100 MEQ/L (98-107); CHOLESTEROL LEVEL 116 MG/DL (<200); CHOLESTEROL RISK RATIO 1.966 (<5); CREATININE FOR GFR 0.77 MG/DL (0.55-1.30); GLOMERULAR FILTRATION RATE > 60.0 (>32); GLUCOSE, FASTING 149 MG/DL (70-100); HDL CHOLESTEROL 59 MG/DL (>40); LDL CHOLESTEROL 30 MG/DL (<100); NON-HDL-C 57 MG/DL; POTASSIUM SERUM 4.2 MEQ/L (3.5-5.1); SODIUM LEVEL 136 MEQ/L (136-145); TOTAL PROTEIN 7.2 GM/DL (6.4-8.2); TRIGLYCERIDES LEVEL 137 MG/DL (<150)
== END ==
LOC: M WUC 08:24
PROVIDERS: ATTEND Family Medicine
DX: E11.65 Type 2 diabetes mellitus with hyperglycemia (principal); E78.5 Hyperlipidemia, unspecified

== ENCOUNTER → 2021-10-24 | Outpatient (CLI) | payer MEDICARE, OTHER, BC ==
[2021-10-24 09:38] LABS: BASO # 0.1 10^3/uL (0.0-0.2); BASO % 0.7 % (0.0-1.0); EOS # 0.1 10^3/uL (0.0-0.5); EOS % 1.2 % (0.0-3.0); HEMATOCRIT 40.4 % (36.0-47.0); HEMOGLOBIN 13.2 g/dl (12.0-15.5); LYMPH # 2.6 10^3/uL (1.5-5.0); MEAN CORPUSCULAR HEMOGLOBIN 31.4 pg (27.0-33.0); MEAN CORPUSCULAR HGB CONC 32.7 g/dl (32.0-36.5); MONO # 0.9 10^3/uL (0.0-0.8); MONO % 11.4 % (2.0-8.0); NEUTROPHILS # 3.8 10^3/uL (1.5-8.5); NEUTROPHILS % 51.2 % (36.0-66.0); PLATELET COUNT, AUTOMATED 268 10^3/uL (150-450); RED BLOOD COUNT 4.21 10^6/uL (4.00-5.40); WHITE BLOOD COUNT 7.5 10^3/uL (4.0-10.0)
[2021-10-24 09:58] LABS: HEMOGLOBIN A1c 7.8 %
[2021-10-24 10:16] LABS: ALBUMIN 3.7 GM/DL (3.2-5.2); ALT/SGPT 22 U/L (12-78); BILIRUBIN,TOTAL 0.5 MG/DL (0.2-1.0); BLOOD UREA NITROGEN 26 MG/DL (7-18); CALCIUM LEVEL 8.9 MG/DL (8.8-10.2); CARBON DIOXIDE LEVEL 33 MEQ/L (21-32); CHLORIDE LEVEL 97 MEQ/L (98-107); CHOLESTEROL LEVEL 114 MG/DL (<200); GLOMERULAR FILTRATION RATE > 60.0 (>32); GLUCOSE, FASTING 151 MG/DL (70-100); HDL CHOLESTEROL 53 MG/DL (>40); LDL CHOLESTEROL 32 MG/DL (<100); NON-HDL-C 61 MG/DL; POTASSIUM SERUM 3.9 MEQ/L (3.5-5.1); SODIUM LEVEL 136 MEQ/L (136-145); TOTAL PROTEIN 6.9 GM/DL (6.4-8.2); TRIGLYCERIDES LEVEL 143 MG/DL (<150)
== END ==
LOC: M WUC 08:23
PROVIDERS: ATTEND Family Medicine
DX: E11.65 Type 2 diabetes mellitus with hyperglycemia (principal); E78.5 Hyperlipidemia, unspecified; I10 Essential (primary) hypertension

== ENCOUNTER → 2022-02-03 | Outpatient (CLI) | payer MEDICARE, OTHER, BC ==
[2022-02-03 11:27] LABS: BASO % 0.5 % (0.0-1.0); EOS # 0.1 10^3/uL (0.0-0.5); EOS % 1.4 % (0.0-3.0); HEMATOCRIT 38.9 % (36.0-47.0); HEMOGLOBIN 12.9 g/dl (12.0-15.5); LYMPH # 3.2 10^3/uL (1.5-5.0); MEAN CORPUSCULAR HEMOGLOBIN 31.8 pg (27.0-33.0); MEAN CORPUSCULAR HGB CONC 33.2 g/dl (32.0-36.5); MEAN CORPUSCULAR VOLUME 95.8 fl (80.0-96.0); MONO # 0.9 10^3/uL (0.0-0.8); MONO % 10.5 % (2.0-8.0); NEUTROPHILS # 4.1 10^3/uL (1.5-8.5); NEUTROPHILS % 49.1 % (36.0-66.0); PLATELET COUNT, AUTOMATED 236 10^3/uL (150-450); RED BLOOD COUNT 4.06 10^6/uL (4.00-5.40); WHITE BLOOD COUNT 8.3 10^3/uL (4.0-10.0)
[2022-02-03 11:50] LABS: HEMOGLOBIN A1c 7.5 %
[2022-02-03 12:07] LABS: ALBUMIN 3.7 GM/DL (3.2-5.2); ALT/SGPT 23 U/L (12-78); BILIRUBIN,TOTAL 0.6 MG/DL (0.2-1.0); BLOOD UREA NITROGEN 26 MG/DL (7-18); CALCIUM LEVEL 9.4 MG/DL (8.8-10.2); CARBON DIOXIDE LEVEL 30 MEQ/L (21-32); CHLORIDE LEVEL 100 MEQ/L (98-107); CREATININE FOR GFR 0.83 MG/DL (0.55-1.30); FREE T4 1.33 NG/DL (0.76-1.46); GLOMERULAR FILTRATION RATE > 60.0 (>32); GLUCOSE, FASTING 126 MG/DL (70-100); POTASSIUM SERUM 4.8 MEQ/L (3.5-5.1); SODIUM LEVEL 135 MEQ/L (136-145)
[2022-02-03 12:32] LABS: TOTAL 25(OH) VITAMIN D 71.9 NG/ML (30.0-100.0)
== END ==
LOC: M WUC 08:05
PROVIDERS: ATTEND Nurse Practitioner Adult Health
DX: E11.65 Type 2 diabetes mellitus with hyperglycemia (principal)

== ENCOUNTER → 2022-08-06 | Outpatient (CLI) | payer MEDICARE, OTHER, BC ==
[~2022-08-06] MED LIST changes: -DOXY-350 PO; +DOXY-444 PO
[2022-08-06 11:02] LABS: BASO % 0.6 % (0.0-1.0); EOS # 0.1 10^3/uL (0.0-0.5); EOS % 2.1 % (0.0-3.0); HEMATOCRIT 38.4 % (36.0-47.0); HEMOGLOBIN 12.4 g/dl (12.0-15.5); LYMPH # 2.5 10^3/uL (1.5-5.0); LYMPH % 40.1 % (24.0-44.0); MEAN CORPUSCULAR HEMOGLOBIN 31.1 pg (27.0-33.0); MEAN CORPUSCULAR HGB CONC 32.3 g/dl (32.0-36.5); MEAN CORPUSCULAR VOLUME 96.2 fl (80.0-96.0); MONO # 0.7 10^3/uL (0.0-0.8); MONO % 10.7 % (2.0-8.0); NEUTROPHILS # 2.9 10^3/uL (1.5-8.5); PLATELET COUNT, AUTOMATED 264 10^3/uL (150-450); RED BLOOD COUNT 3.99 10^6/uL (4.00-5.40); WHITE BLOOD COUNT 6.3 10^3/uL (4.0-10.0)
[2022-08-06 11:16] LABS: ALBUMIN 3.8 G/DL (3.2-5.2); ALKALINE PHOSPHATASE 73 U/L (46-116); ALT/SGPT 16 U/L (7.0-40); AST/SGOT 22 U/L (<34); BILIRUBIN,TOTAL 0.7 MG/DL (0.3-1.2); BLOOD UREA NITROGEN 26 MG/DL (9-23); CALCIUM LEVEL 9.4 MG/DL (8.3-10.6); CARBON DIOXIDE LEVEL 32 MMOL/L (20-31); CHLORIDE LEVEL 99 MMOL/L (98-107); CHOLESTEROL LEVEL 129 MG/DL (<200); CHOLESTEROL RISK RATIO 2.19 (<5); GLOMERULAR FILTRATION RATE > 60.0 (>32); GLUCOSE, FASTING 156 MG/DL (74-106); HDL CHOLESTEROL 58.9 MG/DL (>40); LDL CHOLESTEROL 51.7 MG/DL (<100); NON-HDL-C 70.1 MG/DL; POTASSIUM SERUM 4.5 MMOL/L (3.5-5.1); SODIUM LEVEL 137 MMOL/L (136-145); TOTAL PROTEIN 6.7 G/DL (5.7-8.2); TRIGLYCERIDES LEVEL 92 MG/DL (<150)
[2022-08-06 12:08] LABS: HEMOGLOBIN A1c 8.4 % (4.0-6.0)
== END ==
LOC: M WUC 08:37
PROVIDERS: ATTEND Nurse Practitioner Adult Health
DX: E11.65 Type 2 diabetes mellitus with hyperglycemia (principal); E78.5 Hyperlipidemia, unspecified

== ENCOUNTER → 2022-11-04 | Outpatient (CLI) | payer MEDICARE, OTHER, BC ==
[~2022-11-04] MED LIST changes: -COZA50TA PO; +LOSA-528 PO
[2022-11-04 11:18] LABS: BASO % 0.5 % (0.0-1.0); EOS # 0.1 10^3/uL (0.0-0.5); EOS % 1.2 % (0.0-3.0); HEMATOCRIT 38.4 % (36.0-47.0); HEMOGLOBIN 12.4 g/dl (12.0-15.5); LYMPH # 2.9 10^3/uL (1.5-5.0); LYMPH % 34.8 % (24.0-44.0); MEAN CORPUSCULAR HEMOGLOBIN 30.8 pg (27.0-33.0); MEAN CORPUSCULAR HGB CONC 32.3 g/dl (32.0-36.5); MEAN CORPUSCULAR VOLUME 95.5 fl (80.0-96.0); MONO % 11.6 % (2.0-8.0); NEUTROPHILS # 4.2 10^3/uL (1.5-8.5); NEUTROPHILS % 51.5 % (36.0-66.0); PLATELET COUNT, AUTOMATED 281 10^3/uL (150-450); RED BLOOD COUNT 4.02 10^6/uL (4.00-5.40); WHITE BLOOD COUNT 8.2 10^3/uL (4.0-10.0)
[2022-11-04 11:41] LABS: CREATININE, URINE 58.6 MG/DL; MAU/CREAT RATIO 44.3 MCG/MG (0.0-30.0)
[2022-11-04 11:50] LABS: FREE T4 1.47 NG/DL (0.89-1.76)
[2022-11-04 11:52] LABS: THYROID STIMULATING HORMONE 1.132 uIU/ML (0.55-4.78)
[2022-11-04 11:53] LABS: ALBUMIN 3.8 G/DL (3.2-5.2); ALKALINE PHOSPHATASE 64 U/L (46-116); ALT/SGPT < 9 U/L (7.0-40); AST/SGOT 21 U/L (<34); BILIRUBIN,TOTAL 0.6 MG/DL (0.3-1.2); BLOOD UREA NITROGEN 21 MG/DL (9-23); CALCIUM LEVEL 10.2 MG/DL (8.3-10.6); CARBON DIOXIDE LEVEL 31 MMOL/L (20-31); CHLORIDE LEVEL 101 MMOL/L (98-107); CREATININE FOR GFR 0.71 MG/DL (0.55-1.30); GLOMERULAR FILTRATION RATE > 60.0 (>32); GLUCOSE, FASTING 135 MG/DL (74-106); POTASSIUM SERUM 4.6 MMOL/L (3.5-5.1); SODIUM LEVEL 137 MMOL/L (136-145); TOTAL PROTEIN 6.5 G/DL (5.7-8.2)
[2022-11-04 12:02] LABS: HEMOGLOBIN A1c 7.6 % (4.0-6.0)
== END ==
LOC: M WUC 08:12
PROVIDERS: ATTEND Nurse Practitioner Adult Health
DX: E11.65 Type 2 diabetes mellitus with hyperglycemia (principal); I10 Essential (primary) hypertension

== ENCOUNTER → 2023-01-22 | Outpatient (CLI) | payer MEDICARE, OTHER, BC | LOC: M WUC 15:53 | PROVIDERS: ATTEND Physician Assistant | DX: S70.02XA Contusion of left hip, initial encounter (principal); W18.30XA Fall on same level, unspecified, initial encounter; Y92.009 Unspecified place in unspecified non-institutional (private) residence as the place of occurrence of the external cause ==

== ENCOUNTER → 2023-02-10 | Outpatient (CLI) | payer MEDICARE, OTHER, BC ==
[2023-02-10 10:25] LABS: BASO # 0.1 10^3/uL (0.0-0.2); BASO % 0.6 % (0.0-1.0); EOS # 0.1 10^3/uL (0.0-0.5); EOS % 1.5 % (0.0-3.0); HEMOGLOBIN 12.6 g/dl (12.0-15.5); LYMPH # 3.3 10^3/uL (1.5-5.0); LYMPH % 41.8 % (24.0-44.0); MEAN CORPUSCULAR HEMOGLOBIN 32.2 pg (27.0-33.0); MEAN CORPUSCULAR HGB CONC 33.2 g/dl (32.0-36.5); MEAN CORPUSCULAR VOLUME 97.2 fl (80.0-96.0); MONO % 12.6 % (2.0-8.0); NEUTROPHILS # 3.4 10^3/uL (1.5-8.5); NEUTROPHILS % 43.2 % (36.0-66.0); PLATELET COUNT, AUTOMATED 300 10^3/uL (150-450); RED BLOOD COUNT 3.91 10^6/uL (4.00-5.40); WHITE BLOOD COUNT 7.8 10^3/uL (4.0-10.0)
[2023-02-10 10:45] LABS: ALBUMIN 3.8 G/DL (3.2-5.2); ALKALINE PHOSPHATASE 68 U/L (46-116); ALT/SGPT 20 U/L (7.0-40); AST/SGOT 24 U/L (<34); BILIRUBIN,TOTAL 0.6 MG/DL (0.3-1.2); BLOOD UREA NITROGEN 24 MG/DL (9-23); CALCIUM LEVEL 9.9 MG/DL (8.3-10.6); CARBON DIOXIDE LEVEL 33 MMOL/L (20-31); CHLORIDE LEVEL 100 MMOL/L (98-107); CHOLESTEROL LEVEL 131 MG/DL (<200); CHOLESTEROL RISK RATIO 2.47 (<5); CREATININE FOR GFR 0.88 MG/DL (0.55-1.30); GLOMERULAR FILTRATION RATE > 60.0 (>32); GLUCOSE, FASTING 128 MG/DL (74-106); HDL CHOLESTEROL 52.9 MG/DL (>40); LDL CHOLESTEROL 48.9 MG/DL (<100); NON-HDL-C 78.1 MG/DL; POTASSIUM SERUM 4.5 MMOL/L (3.5-5.1); SODIUM LEVEL 137 MMOL/L (136-145); TOTAL PROTEIN 6.8 G/DL (5.7-8.2); TRIGLYCERIDES LEVEL 146 MG/DL (<150)
[2023-02-10 10:49] LABS: HEMOGLOBIN A1c 7.1 % (4.0-6.0)
== END ==
LOC: M WUC 08:35
PROVIDERS: ATTEND Nurse Practitioner Adult Health
DX: E11.65 Type 2 diabetes mellitus with hyperglycemia (principal); E78.5 Hyperlipidemia, unspecified

== ENCOUNTER → 2023-06-02 | Outpatient (CLI) | payer MEDICARE, OTHER, BC ==
[2023-06-02 13:12] LABS: BASO % 0.5 % (0.0-1.0); EOS # 0.1 10^3/uL (0.0-0.5); EOS % 0.9 % (0.0-3.0); HEMATOCRIT 36.5 % (36.0-47.0); HEMOGLOBIN 11.7 g/dl (12.0-15.5); LYMPH # 3.1 10^3/uL (1.5-5.0); LYMPH % 39.9 % (24.0-44.0); MEAN CORPUSCULAR HEMOGLOBIN 29.8 pg (27.0-33.0); MEAN CORPUSCULAR HGB CONC 32.1 g/dl (32.0-36.5); MEAN CORPUSCULAR VOLUME 92.9 fl (80.0-96.0); MONO # 0.7 10^3/uL (0.0-0.8); MONO % 8.3 % (2.0-8.0); NEUTROPHILS # 3.9 10^3/uL (1.5-8.5); PLATELET COUNT, AUTOMATED 292 10^3/uL (150-450); RED BLOOD COUNT 3.93 10^6/uL (4.00-5.40); WHITE BLOOD COUNT 7.8 10^3/uL (4.0-10.0)
[2023-06-02 13:38] LABS: ALBUMIN 3.7 G/DL (3.2-5.2); ALKALINE PHOSPHATASE 60 U/L (46-116); ALT/SGPT 14 U/L (7.0-40); AST/SGOT 19 U/L (<34); BILIRUBIN,TOTAL 0.7 MG/DL (0.3-1.2); BLOOD UREA NITROGEN 23 MG/DL (9-23); CALCIUM LEVEL 9.9 MG/DL (8.3-10.6); CARBON DIOXIDE LEVEL 31 MMOL/L (20-31); CHLORIDE LEVEL 102 MMOL/L (98-107); GLOMERULAR FILTRATION RATE > 60.0 (>32); GLUCOSE, FASTING 146 MG/DL (74-106); POTASSIUM SERUM 4.2 MMOL/L (3.5-5.1); SODIUM LEVEL 136 MMOL/L (136-145); TOTAL PROTEIN 6.9 G/DL (5.7-8.2)
[2023-06-02 14:01] LABS: HEMOGLOBIN A1c 7.8 % (4.0-6.0)
== END ==
LOC: M WUC 09:43
PROVIDERS: ATTEND Nurse Practitioner Adult Health
DX: E11.65 Type 2 diabetes mellitus with hyperglycemia (principal)

== ENCOUNTER → 2023-07-16 | Outpatient (CLI) | payer MEDICARE, OTHER, BC | LOC: M WUC 10:43 | PROVIDERS: ATTEND Nurse Practitioner Adult Health | DX: K59.00 Constipation, unspecified (principal) ==

== ENCOUNTER → 2023-09-10 | Outpatient (CLI) | payer MEDICARE, OTHER, BC ==
[~2023-09-10] MED LIST changes: +DOXY-440 PO; -DOXY-444 PO
[2023-09-10 11:54] LABS: BASO % 0.7 % (0.0-1.0); EOS # 0.1 10^3/uL (0.0-0.5); EOS % 1.7 % (0.0-3.0); HEMATOCRIT 30.6 % (36.0-47.0); HEMOGLOBIN 9.6 g/dl (12.0-15.5); LYMPH # 2.5 10^3/uL (1.5-5.0); LYMPH % 41.8 % (24.0-44.0); MEAN CORPUSCULAR HEMOGLOBIN 26.7 pg (27.0-33.0); MEAN CORPUSCULAR HGB CONC 31.4 g/dl (32.0-36.5); MONO # 0.7 10^3/uL (0.0-0.8); MONO % 10.9 % (2.0-8.0); NEUTROPHILS # 2.7 10^3/uL (1.5-8.5); NEUTROPHILS % 44.7 % (36.0-66.0); PLATELET COUNT, AUTOMATED 332 10^3/uL (150-450)
[2023-09-10 12:07] LABS: HEMOGLOBIN A1c 8.8 % (4.0-6.0)
[2023-09-10 12:21] LABS: ALBUMIN 3.3 G/DL (3.2-5.2); ALKALINE PHOSPHATASE 57 U/L (46-116); ALT/SGPT 15 U/L (7.0-40); AST/SGOT 18 U/L (<34); BILIRUBIN,TOTAL 0.5 MG/DL (0.3-1.2); BLOOD UREA NITROGEN 27 MG/DL (9-23); CALCIUM LEVEL 9.5 MG/DL (8.3-10.6); CARBON DIOXIDE LEVEL 31 MMOL/L (20-31); CHLORIDE LEVEL 103 MMOL/L (98-107); CHOLESTEROL LEVEL 135 MG/DL (<200); CHOLESTEROL RISK RATIO 2.24 (<5); CREATININE FOR GFR 0.73 MG/DL (0.55-1.30); GLOMERULAR FILTRATION RATE > 60.0 (>32); GLUCOSE, FASTING 150 MG/DL (74-106); HDL CHOLESTEROL 60.1 MG/DL (>40); LDL CHOLESTEROL 49.9 MG/DL (<100); NON-HDL-C 74.9 MG/DL; POTASSIUM SERUM 4.5 MMOL/L (3.5-5.1); SODIUM LEVEL 140 MMOL/L (136-145); TOTAL PROTEIN 6.5 G/DL (5.7-8.2); TRIGLYCERIDES LEVEL 125 MG/DL (<150)
[2023-09-10 12:22] LABS: THYROID STIMULATING HORMONE 1.384 uIU/ML (0.55-4.78)
== END ==
LOC: M WUC 08:33
PROVIDERS: ATTEND Nurse Practitioner Adult Health
DX: E11.65 Type 2 diabetes mellitus with hyperglycemia (principal); E78.5 Hyperlipidemia, unspecified; I10 Essential (primary) hypertension

== ENCOUNTER → 2023-09-16 | Outpatient (REF) | payer MEDICARE, OTHER ==
[2023-09-16 18:51] LABS: HEMATOCRIT 32.9 % (36.0-47.0); HEMOGLOBIN 10.3 g/dl (12.0-15.5)
[2023-09-16 19:18] LABS: PERCENT SATURATION 3.3 % (13.2-45.0)
[2023-09-16 19:19] LABS: FOLATE 14.8 NG/ML (>5.4)
== END ==
LOC: M LABWUC 16:54
PROVIDERS: ATTEND Nurse Practitioner Adult Health
DX: D64.9 Anemia, unspecified (principal)

== ENCOUNTER 2023-10-01 09:18 | Outpatient (CLI) | payer MEDICARE, BC ==
[~2023-10-01] VITALS: Ht 142.2 cm; Wt 50.0 kg
[2023-10-01 09:30] VITALS: BP 164/69; O2SAT 100
[2023-10-01] MEDS: FERRIC CARBOXYMALTOSE INJ 750 MG in NS 250 ML (>50kg) IV ONE (09:52)
[2023-10-01 11:20] VITALS: BP 130/65; O2SAT 98
== END 2023-10-01 11:30 | disposition home or self-care (01) ==
LOC: M INFU 09:18
PROVIDERS: ATTEND Nurse Practitioner Adult Health
DX: D50.9 Iron deficiency anemia, unspecified (principal)
CPT/HCPCS: 96365; J1439

== ENCOUNTER 2023-10-08 11:00 | Outpatient (CLI) | payer MEDICARE, BC ==
[~2023-10-08] VITALS: Ht 149.9 cm; Wt 51.3 kg
[2023-10-08 10:50] VITALS: BP 168/90; O2SAT 95
[2023-10-08] MEDS: FERRIC CARBOXYMALTOSE INJ 750 MG in NS 250 ML (>50kg) IV ONE (11:06)
[2023-10-08 12:20] VITALS: BP 132/58; O2SAT 99
== END 2023-10-08 12:30 | disposition home or self-care (01) ==
LOC: M INFU 11:00
PROVIDERS: ATTEND Nurse Practitioner Adult Health
DX: D50.9 Iron deficiency anemia, unspecified (principal)
CPT/HCPCS: 96365; J1439

== ENCOUNTER → 2024-01-06 | Outpatient (CLI) | payer MEDICARE, BC ==
[2024-01-06 18:49] LABS: BASO # 0.1 10^3/uL (0.0-0.2); BASO % 0.6 % (0.0-1.0); EOS # 0.1 10^3/uL (0.0-0.5); EOS % 1.1 % (0.0-3.0); HEMATOCRIT 41.6 % (36.0-47.0); HEMOGLOBIN 13.7 g/dl (12.0-15.5); LYMPH # 3.1 10^3/uL (1.5-5.0); LYMPH % 35.8 % (24.0-44.0); MEAN CORPUSCULAR HEMOGLOBIN 32.2 pg (27.0-33.0); MEAN CORPUSCULAR HGB CONC 32.9 g/dl (32.0-36.5); MEAN CORPUSCULAR VOLUME 97.9 fl (80.0-96.0); MONO # 0.9 10^3/uL (0.0-0.8); MONO % 10.7 % (2.0-8.0); NEUTROPHILS # 4.4 10^3/uL (1.5-8.5); NEUTROPHILS % 51.4 % (36.0-66.0); PLATELET COUNT, AUTOMATED 315 10^3/uL (150-450); RED BLOOD COUNT 4.25 10^6/uL (4.00-5.40); WHITE BLOOD COUNT 8.5 10^3/uL (4.0-10.0)
[2024-01-06 18:57] LABS: HEMOGLOBIN A1c 7.1 % (4.0-6.0)
[2024-01-06 19:23] LABS: BLOOD UREA NITROGEN 19 MG/DL (9-23); CALCIUM LEVEL 10.5 MG/DL (8.3-10.6); CARBON DIOXIDE LEVEL 31 MMOL/L (20-31); CHLORIDE LEVEL 100 MMOL/L (98-107); CREATININE FOR GFR 0.74 MG/DL (0.55-1.30); GLOMERULAR FILTRATION RATE > 60.0 (>32); GLUCOSE, FASTING 140 MG/DL (74-106); POTASSIUM SERUM 4.5 MMOL/L (3.5-5.1); SODIUM LEVEL 136 MMOL/L (136-145)
== END ==
LOC: M WUC 13:39
PROVIDERS: ATTEND Nurse Practitioner Adult Health
DX: E11.65 Type 2 diabetes mellitus with hyperglycemia (principal)

== ENCOUNTER → 2024-08-22 | Outpatient (CLI) | payer MEDICARE, BC ==
[2024-08-22 12:27] LABS: BASO # 0.1 10^3/uL (0.0-0.2); BASO % 0.6 % (0.0-1.0); EOS # 0.1 10^3/uL (0.0-0.5); EOS % 1.6 % (0.0-3.0); HEMATOCRIT 39.3 % (36.0-47.0); HEMOGLOBIN 12.7 g/dl (12.0-15.5); LYMPH # 2.9 10^3/uL (1.5-5.0); LYMPH % 35.5 % (24.0-44.0); MEAN CORPUSCULAR HEMOGLOBIN 31.9 pg (27.0-33.0); MEAN CORPUSCULAR HGB CONC 32.3 g/dl (32.0-36.5); MEAN CORPUSCULAR VOLUME 98.7 fl (80.0-96.0); MONO % 11.8 % (2.0-8.0); NEUTROPHILS # 4.1 10^3/uL (1.5-8.5); NEUTROPHILS % 50.1 % (36.0-66.0); PLATELET COUNT, AUTOMATED 279 10^3/uL (150-450); RED BLOOD COUNT 3.98 10^6/uL (4.00-5.40); WHITE BLOOD COUNT 8.1 10^3/uL (4.0-10.0)
[2024-08-22 12:43] LABS: HEMOGLOBIN A1c 7.3 % (4.0-6.0)
[2024-08-22 12:57] LABS: CREATININE, URINE 21.8 MG/DL; MAU/CREAT RATIO 32.1 MCG/MG (0.0-30.0)
[2024-08-22 12:59] LABS: ALBUMIN 4.1 G/DL (3.2-5.2); BILIRUBIN,TOTAL 0.5 MG/DL (0.3-1.2); CHOLESTEROL RISK RATIO 2.45 (<5); CREATININE FOR GFR 0.91 MG/DL (0.55-1.30); GLOMERULAR FILTRATION RATE 60.7 (>32); HDL CHOLESTEROL 49.3 MG/DL (>40); LDL CHOLESTEROL 35.5 MG/DL (<100); NON-HDL-C 71.7 MG/DL; POTASSIUM SERUM 4.4 MMOL/L (3.5-5.1); TOTAL PROTEIN 6.8 G/DL (5.7-8.2)
[2024-08-22 13:01] LABS: FREE T4 1.74 NG/DL (0.89-1.76)
[2024-08-22 13:02] LABS: THYROID STIMULATING HORMONE 1.859 uIU/ML (0.55-4.78)
== END ==
LOC: M WUC 08:05
PROVIDERS: ATTEND Nurse Practitioner Adult Health
DX: E11.65 Type 2 diabetes mellitus with hyperglycemia (principal); I10 Essential (primary) hypertension; E78.5 Hyperlipidemia, unspecified

== ENCOUNTER → 2024-11-20 | Outpatient (CLI) | payer MEDICARE, BC ==
[2024-11-20 12:54] LABS: BASO # 0.0 10^3/uL (0.0-0.2); BASO % 0.5 % (0.0-1.0); EOS # 0.1 10^3/uL (0.0-0.5); EOS % 1.4 % (0.0-3.0); LYMPH # 2.6 10^3/uL (1.5-5.0); LYMPH % 33.7 % (24.0-44.0); MONO # 0.8 10^3/uL (0.0-0.8); MONO % 9.6 % (2.0-8.0); NEUTROPHILS # 4.3 10^3/uL (1.5-8.5); NEUTROPHILS % 54.3 % (36.0-66.0); PLATELET COUNT, AUTOMATED 331 10^3/uL (150-450)
[2024-11-20 13:00] LABS: ESTIMATED AVERAGE GLUCOSE 180.0 MG/DL (60-110)
[2024-11-20 13:17] LABS: ALT/SGPT 12.0 U/L (7.0-40); AST/SGOT 21.0 U/L (<34); CALCIUM LEVEL 9.6 MG/DL (8.3-10.6); CARBON DIOXIDE LEVEL 26.0 MMOL/L (20-31); CHLORIDE LEVEL 102.0 MMOL/L (98-107); CREATININE FOR GFR 0.81 MG/DL (0.55-1.30); GLOMERULAR FILTRATION RATE 69.8 (>32); POTASSIUM SERUM 4.3 MMOL/L (3.5-5.1); SODIUM LEVEL 141.0 MMOL/L (136-145)
== END ==
LOC: M WUC 09:15
PROVIDERS: ATTEND Nurse Practitioner Adult Health
DX: E11.65 Type 2 diabetes mellitus with hyperglycemia (principal)

== ENCOUNTER → 2025-01-16 | Outpatient (CLI) | payer MEDICARE, BC ==
[2025-01-16 14:37] LABS: BASO # 0.0 10^3/uL (0.0-0.2); BASO % 0.5 % (0.0-1.0); EOS # 0.1 10^3/uL (0.0-0.5); EOS % 0.7 % (0.0-3.0); LYMPH # 2.3 10^3/uL (1.5-5.0); LYMPH % 28.6 % (24.0-44.0); MONO # 1.0 10^3/uL (0.0-0.8); MONO % 11.7 % (2.0-8.0); NEUTROPHILS # 4.7 10^3/uL (1.5-8.5); NEUTROPHILS % 58.0 % (36.0-66.0); PLATELET COUNT, AUTOMATED 332 10^3/uL (150-450)
[2025-01-16 15:11] LABS: CALCIUM LEVEL 9.2 MG/DL (8.3-10.6); CARBON DIOXIDE LEVEL 24.0 MMOL/L (20-31); CHLORIDE LEVEL 100.0 MMOL/L (98-107); CREATININE FOR GFR 0.92 MG/DL (0.55-1.30); GLOMERULAR FILTRATION RATE 59.9 (>32); POTASSIUM SERUM 4.2 MMOL/L (3.5-5.1); SODIUM LEVEL 137.0 MMOL/L (136-145)
== END ==
LOC: M RAD 13:55
PROVIDERS: ATTEND Nurse Practitioner Adult Health
DX: I50.9 Heart failure, unspecified (principal)

== ENCOUNTER → 2025-02-05 | Outpatient (CLI) | payer MEDICARE, BC ==
[2025-02-05 14:19] LABS: BASO # 0.1 10^3/uL (0.0-0.2); BASO % 0.8 % (0.0-1.0); EOS # 0.1 10^3/uL (0.0-0.5); EOS % 0.7 % (0.0-3.0); LYMPH # 2.3 10^3/uL (1.5-5.0); LYMPH % 30.9 % (24.0-44.0); MONO # 0.7 10^3/uL (0.0-0.8); MONO % 9.9 % (2.0-8.0); NEUTROPHILS # 4.2 10^3/uL (1.5-8.5); NEUTROPHILS % 57.3 % (36.0-66.0); PLATELET COUNT, AUTOMATED 341 10^3/uL (150-450)
[2025-02-05 14:32] LABS: CALCIUM LEVEL 9.7 MG/DL (8.3-10.6); CARBON DIOXIDE LEVEL 28.0 MMOL/L (20-31); CHLORIDE LEVEL 95.0 MMOL/L (98-107); CREATININE FOR GFR 0.95 MG/DL (0.55-1.30); GLOMERULAR FILTRATION RATE 57.6 (>32); POTASSIUM SERUM 3.9 MMOL/L (3.5-5.1); SODIUM LEVEL 130.0 MMOL/L (136-145)
== END ==
LOC: M WUC 11:54
PROVIDERS: ATTEND Family Medicine
DX: D64.9 Anemia, unspecified (principal); I11.0 Hypertensive heart disease with heart failure; I50.9 Heart failure, unspecified

== ENCOUNTER → 2025-02-08 | Outpatient (CLI) | payer MEDICARE, BC | LOC: M LAB 16:17 | PROVIDERS: ATTEND Family Medicine | DX: D50.9 Iron deficiency anemia, unspecified (principal) ==

== ENCOUNTER 2025-02-09 12:58 | Outpatient (CLI) | payer MEDICARE, BC ==
[~2025-02-09] VITALS: Ht 147.3 cm; Wt 50.9 kg
[2025-02-09 13:05] VITALS: BP 126/66; O2SAT 96
[2025-02-09 14:15] VITALS: BP 123/57; TEMP 98.3; O2SAT 99
[2025-02-09 15:17] VITALS: BP 139/61; TEMP 98.3; O2SAT 98
[2025-02-09 16:10] VITALS: BP 144/72; O2SAT 98
== END 2025-02-09 16:10 | disposition home or self-care (01) ==
LOC: M INFU 12:58
PROVIDERS: ATTEND Family Medicine
DX: D50.9 Iron deficiency anemia, unspecified (principal)
CPT/HCPCS: 36430; P9016

== ENCOUNTER 2025-02-13 13:50 | Outpatient (CLI) | payer MEDICARE, BC ==
[~2025-02-13] VITALS: Ht 152.4 cm; Wt 51.3 kg
[~2025-02-13 13:50] MED LIST changes: +ALBUTEROL SULFATE 2.5 MG/0.5 ML INH CONCENTRATE NEB SOLN INH PRN; +EPINEPHrine INJ 1 MG/ML 1ML AMP IM PRN; +diphenhydrAMINE 50 MG/ML VIAL IV PRN
[2025-02-13 14:00] VITALS: BP 140/89; O2SAT 97
[2025-02-13] MEDS: FERRIC CARBOXYMALTOSE 750 MG (VIAL MATE) IN 100ML NS IV ONE (14:26)
[2025-02-13 15:31] VITALS: BP 130/71; O2SAT 97
== END 2025-02-13 15:25 ==
LOC: M INFU 13:50
PROVIDERS: ATTEND Family Medicine
DX: D50.9 Iron deficiency anemia, unspecified (principal)
CPT/HCPCS: 96365; J1439

== ENCOUNTER 2025-02-20 13:35 | Outpatient (CLI) | payer MEDICARE, BC ==
[2025-02-20 13:40] VITALS: BP 125/73; O2SAT 98
[2025-02-20] MEDS: FERRIC CARBOXYMALTOSE 750 MG (VIAL MATE) IN 100ML NS IV ONE (14:08)
[2025-02-20 14:25] VITALS: BP 116/66; O2SAT 100
== END 2025-02-20 14:25 ==
LOC: M INFU 13:35
PROVIDERS: ATTEND Family Medicine
DX: D60.0 Chronic acquired pure red cell aplasia (principal)
CPT/HCPCS: 96374; J1439

== ENCOUNTER → 2025-02-26 | Outpatient (CLI) | payer MEDICARE, BC ==
[~2025-02-26] MED LIST changes: -ALBUTEROL SULFATE 2.5 MG/0.5 ML INH CONCENTRATE NEB SOLN INH PRN; -EPINEPHrine INJ 1 MG/ML 1ML AMP IM PRN; -diphenhydrAMINE 50 MG/ML VIAL IV PRN
[2025-02-26 18:05] LABS: BASO # 0.1 10^3/uL (0.0-0.2); BASO % 0.9 % (0.0-1.0); EOS # 0.1 10^3/uL (0.0-0.5); EOS % 0.8 % (0.0-3.0); LYMPH # 1.9 10^3/uL (1.5-5.0); LYMPH % 24.4 % (24.0-44.0); MONO # 1.0 10^3/uL (0.0-0.8); MONO % 12.4 % (2.0-8.0); NEUTROPHILS # 4.7 10^3/uL (1.5-8.5); NEUTROPHILS % 61.0 % (36.0-66.0); PLATELET COUNT, AUTOMATED 196 10^3/uL (150-450)
[2025-02-26 18:22] LABS: CALCIUM LEVEL 8.9 MG/DL (8.3-10.6); CARBON DIOXIDE LEVEL 24.0 MMOL/L (20-31); CHLORIDE LEVEL 99.0 MMOL/L (98-107); CREATININE FOR GFR 0.86 MG/DL (0.55-1.30); GLOMERULAR FILTRATION RATE 64.9 (>32); POTASSIUM SERUM 3.8 MMOL/L (3.5-5.1); SODIUM LEVEL 138.0 MMOL/L (136-145)
== END ==
LOC: M WUC 15:07
PROVIDERS: ATTEND Family Medicine
DX: D64.9 Anemia, unspecified (principal); I11.0 Hypertensive heart disease with heart failure; I50.9 Heart failure, unspecified